=== PATIENT | female | born 1955 | race Caucasian/White ===

== ENCOUNTER 2020-07-21 10:48 | Outpatient (REF) | payer MEDICAID, SELFPAY ==
[2020-07-26 20:11] LABS: HPV mRNA E6/E7 Not Detected (Not Detected)
== END 2020-07-21 10:49 | disposition home or self-care (01) ==
LOC: HO.LNP 10:48
PROVIDERS: Visit Provider Obstetrics & Gynecology
DX: Z12.4 Encounter for screening for malignant neoplasm of cervix (principal); Z11.51 Encounter for screening for human papillomavirus (HPV); N63.0 Unspecified lump in unspecified breast
CPT/HCPCS: 87624; 87625; 88142

== ENCOUNTER 2020-07-28 12:35 | Outpatient (REF) | payer MEDICAID, SELFPAY ==
--- NOTE | 2020-07-28 12:46 | MM_ITS ---
EXAMINATION: MM DIAGNOSTIC DIGITAL BREAST TOMOSYNTHESIS, BILATERAL BILATERAL TARGETED BREAST ULTRASOUND CLINICAL INFORMATION: Bilateral breast pain and left breast lump 8 o'clock position. The lifetime risk of breast cancer based on the Tyrer-Cuzick Model is 10.1%. COMPARISON: Mammography: 04/14/2019 and studies dating back to 12/02/2008. TECHNIQUE: Digital breast tomosynthesis is performed in both the craniocaudal and mediolateral oblique views along with computer-aided detection (CAD). Synthesized 2D images are generated from the tomosynthesis. Bilateral targeted breast ultrasound. FINDINGS: The breasts are heterogeneously dense, which may obscure small masses (ACR BI-RADS breast composition Category c). There are again noted to be numerous circumscribed densities seen bilaterally similar in appearance to previous studies. No new abnormal dominant mass or new more suspicious grouping of microcalcifications is appreciated. There is multiplicity and bilaterality of calcifications. Targeted left breast ultrasound demonstrates numerous cysts with no suspicious shadowing mass identified. In the region of pain within the left axilla normal lymph nodes are seen without evidence of cortical thickening or lobulation. Targeted right breast ultrasound demonstrated 2 normal-appearing axillary lymph nodes without cortical thickening or lobulation. No suspicious mass is appreciated and no region of abnormal distal sound shadowing is seen. Results are provided to the patient at time of visit by the technologist. MM/MM tomosynthesis diagnostic BI IMPRESSION: There are no significant changes from prior study. Numerous bilateral cysts. ASSESSMENT: BI-RADS 2: Benign. RECOMMENDATION: Routine annual mammography screening due in 12 months. Clinical followup for breast pain. This patient's information was entered into a reminder system with a target due date for their next mammogram.
== END 2020-07-28 12:36 | disposition home or self-care (01) ==
LOC: HO.MAMMO 12:35
PROVIDERS: PCP Internal Medicine; Visit Provider Obstetrics & Gynecology
DX: N63.0 Unspecified lump in unspecified breast (principal); N64.4 Mastodynia
CPT/HCPCS: 76641; 77062; 77066

== ENCOUNTER → 2020-08-02 07:57 | Outpatient (BNVA) | payer MEDICAID, SELFPAY | PROVIDERS: PCP Internal Medicine; Referring Provider Internal Medicine; Visit Provider Psychiatry & Neurology Neurology | DX: Z76.89 Persons encountering health services in other specified circumstances (principal) ==

== ENCOUNTER → 2020-08-16 08:48 | Outpatient (BNVA) | payer MEDICAID, SELFPAY | PROVIDERS: PCP Internal Medicine; Referring Provider Internal Medicine; Visit Provider Nurse Practitioner Family | DX: G47.33 Obstructive sleep apnea (adult) (pediatric) (principal) | CPT/HCPCS: 99202 ==

== ENCOUNTER → 2020-11-15 10:14 | Outpatient (BNVA) | payer MEDICAID, SELFPAY | PROVIDERS: PCP Internal Medicine; Visit Provider Nurse Practitioner Family ==

== ENCOUNTER → 2020-11-29 10:18 | Outpatient (REF) | payer MEDICAID, SELFPAY | LOC: HO.SL 10:18 | PROVIDERS: PCP Internal Medicine; Visit Provider Nurse Practitioner Family | DX: G47.33 Obstructive sleep apnea (adult) (pediatric) (principal); J45.20 Mild intermittent asthma, uncomplicated; S02.2XXA Fracture of nasal bones, initial encounter for closed fracture | CPT/HCPCS: 95806 ==

== ENCOUNTER → 2021-02-21 10:18 | Outpatient (BNVA) | payer MEDICAID, SELFPAY | PROVIDERS: PCP Internal Medicine; Visit Provider Nurse Practitioner Family ==

== ENCOUNTER → 2021-05-02 09:28 | Outpatient (REF) | payer MEDICAID, SELFPAY | LOC: HO.SL 09:28 | PROVIDERS: PCP Internal Medicine; Visit Provider Nurse Practitioner Family | DX: G47.33 Obstructive sleep apnea (adult) (pediatric) (principal); Z99.89 Dependence on other enabling machines and devices | CPT/HCPCS: 99211 ==

== ENCOUNTER → 2021-05-30 10:44 | Outpatient (BNVA) | payer MEDICAID, SELFPAY | PROVIDERS: PCP Internal Medicine; Referring Provider Internal Medicine; Visit Provider Nurse Practitioner Family | DX: G47.33 Obstructive sleep apnea (adult) (pediatric) (principal) | CPT/HCPCS: 99212 ==

== ENCOUNTER 2021-06-07 10:02 | Outpatient (REF) | payer MEDICAID, SELFPAY | END 2021-06-07 10:03 | disposition home or self-care (01) | LOC: HO.MAMMO 10:02 | PROVIDERS: Visit Provider Internal Medicine | DX: Z13.89 Encounter for screening for other disorder (principal) ==

== ENCOUNTER → 2021-07-25 09:52 | Outpatient (BNVA) | payer MEDICAID, SELFPAY | PROVIDERS: PCP Internal Medicine; Visit Provider Obstetrics & Gynecology ==

== ENCOUNTER 2021-09-01 11:09 | Outpatient (REF) | payer MEDICAID, SELFPAY ==
--- NOTE | ~2021-09-01 | MM_ITS ---
EXAMINATION: MM SCREENING DIGITAL BREAST TOMOSYNTHESIS, BILATERAL CLINICAL INFORMATION: Screening. Asymptomatic. Benign left breast surgery 2007. The lifetime risk of breast cancer based on the Tyrer-Cuzick Model is 6%. COMPARISON: Mammography: 07/28/2020, 04/14/2019, 12/12/2016; bilateral breast ultrasound 07/28/2020. TECHNIQUE: Digital breast tomosynthesis is performed in both the craniocaudal and mediolateral oblique views along with computer-aided detection (CAD). Synthesized 2D images are generated from the tomosynthesis. FINDINGS: There are scattered areas of fibroglandular density (ACR BI-RADS breast composition Category b). There is a fibrocystic multinodular parenchymal pattern with numerous scattered bilateral circumscribed nodularity, mildly waxing and waning. The dominant nodule mid medial left breast is 1.5 cm decreased in size from prior study measurement 2.9 cm. There is no interval dominant mass or architectural abnormality. Again, there are numerous bilateral punctate calcifications. They are similar in number and distribution to prior studies 2019 and slightly increased overall from more remote prior exams. The axilla and skin contours are unremarkable. MM/MM tomosynthesis screening BI IMPRESSION: No significant changes from prior study. ASSESSMENT: BI-RADS 2: Benign RECOMMENDATION: Routine annual mammography screening. This patient's information was entered into a reminder system with a target due date for their next mammogram.
== END 2021-09-01 11:10 | disposition home or self-care (01) ==
LOC: HO.MAMMO 11:09
PROVIDERS: Visit Provider Internal Medicine
DX: Z12.31 Encounter for screening mammogram for malignant neoplasm of breast (principal)
CPT/HCPCS: 77063; 77067

== ENCOUNTER 2021-10-10 11:28 | Outpatient (REF) | payer MEDICAID, SELFPAY ==
--- NOTE | ~2021-10-10 | XR_ITS ---
EXAMINATION: XR KNEE, RIGHT CLINICAL INFORMATION: Pain COMPARISON: None TECHNIQUE: Four views of the right knee. FINDINGS: There is mild tricompartment osteoarthritis with marginal osteophytes from the femoral condyles and tibial plateau and lateral patellar. There is no erosive change or chondrocalcinosis or suprapatellar effusion. There is borderline lateralization patella without tilting. Spurring at the quadriceps insertion patella is present. XR/XR knee RT 4V IMPRESSION: 1. Mild tricompartment osteoarthritis. No effusion. 2. Spurring at quadriceps insertion on patella.
--- NOTE | ~2021-10-10 | XR_ITS ---
EXAMINATION: XR LUMBOSACRAL SPINE CLINICAL INFORMATION: Pain COMPARISON: Previous x-ray July 2009 TECHNIQUE: Three views of the lumbosacral spine. FINDINGS: Bone alignment is normal. No fracture or dislocation is seen. There is degenerative disc disease at L5-S1. There is lower lumbar spine facet arthritis. XR/XR lumbar spine 2-3V IMPRESSION: Mild degenerative changes.
--- NOTE | ~2021-10-10 | XR_ITS ---
EXAMINATION: XR SACRUM AND COCCYX CLINICAL INFORMATION: Sacral and coccygeal pain. COMPARISON: None TECHNIQUE: 2 views of the sacrum and 2 views of the coccyx were obtained. FINDINGS: There is normal symmetry of bilateral SI joints without any sclerosis or lucency. There is vacuum disc phenomena and hypertrophic bony changes with sclerosis of the pubic symphysis consistent with arthritic changes. No acute fracture or lytic process seen. The soft tissues are unremarkable. XR/XR sacrum coccyx min 2V IMPRESSION: Degenerative arthritic changes pubic symphysis. SI joints are unremarkable.
== END 2021-10-10 11:29 | disposition home or self-care (01) ==
LOC: HO.XRAY 11:28
PROVIDERS: PCP Internal Medicine; Visit Provider Internal Medicine
DX: M25.561 Pain in right knee (principal); M54.9 Dorsalgia, unspecified; M53.3 Sacrococcygeal disorders, not elsewhere classified
CPT/HCPCS: 72100; 72220; 73564

== ENCOUNTER 2022-12-24 10:11 | Outpatient (REF) | payer OTHER, SELFPAY ==
--- NOTE | ~2022-12-24 | MM_ITS ---
EXAMINATION: MM SCREENING DIGITAL BREAST TOMOSYNTHESIS, BILATERAL CLINICAL INFORMATION: Screening. Asymptomatic. The lifetime risk of breast cancer based on the Tyrer-Cuzick Model is 6%. COMPARISON: Mammography: 09/01/2021, 07/28/2020, 04/24/2019 TECHNIQUE: Digital breast tomosynthesis is performed in both the craniocaudal and mediolateral oblique views along with computer-aided detection (CAD). Synthesized 2D images are generated from the tomosynthesis. FINDINGS: There are scattered areas of fibroglandular density (ACR BI-RADS breast composition Category b). Parenchymal pattern is similar to prior studies with numerous bilateral circumscribed waxing and waning nodularity. There is no significant mass and no architectural abnormality or developing density. Biopsy clip marker again seen mid lower inner right breast. There are numerous bilateral calcifications similar to prior study. The axilla and skin contours are unremarkable. No significant changes. MM/MM tomosynthesis screening BI IMPRESSION: No mammographic evidence of malignancy. ASSESSMENT: BI-RADS 2: Benign RECOMMENDATION: Routine annual mammography screening. This patient's information was entered into a reminder system with a target due date for their next mammogram.
== END 2022-12-24 10:12 | disposition home or self-care (01) ==
LOC: HO.MAMMO 10:11
PROVIDERS: PCP Internal Medicine; Visit Provider Internal Medicine
DX: Z12.31 Encounter for screening mammogram for malignant neoplasm of breast (principal)
CPT/HCPCS: 77063; 77067

== ENCOUNTER 2023-01-03 10:20 | Outpatient (REF) | payer OTHER, SELFPAY ==
--- NOTE | 2023-01-03 | PFT_ITS ---
Forced vital capacity 44%, FEV1 34%, FEV1/FVC ratio is 61. VMR59-75 21% and MVV is 32%. Post bronchodilator therapy, there is an excellent response to bronchodilators and marked improvement. LUNG VOLUMES: Total lung capacity 86%. Residual volume 138%. Diffusion capacity is 76% CONCLUSION: At baseline, there is evidence of severe obstructive airway disorder. There is an excellent response to bronchodilator therapy resulting in partial reversibility. 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 Clinical correlation is recommended. MD DAYANA Meyers/MODL / [id number]
== END 2023-01-03 10:21 | disposition home or self-care (01) ==
LOC: HO.RESP 10:20
PROVIDERS: Visit Provider Internal Medicine
DX: J45.40 Moderate persistent asthma, uncomplicated (principal)
CPT/HCPCS: 94060; 94727; 94729

== ENCOUNTER 2023-07-17 12:30 | Outpatient (AMB) | payer OTHER, SELFPAY ==
[2023-07-17 12:52] VITALS: BP 140/92; PULSE 88; O2SAT 95; BMI 29.0
--- NOTE | 2023-07-17 12:52 | MHC.PC.OV ---
Vital Signs 07/17/23 12:52 07/17/23 13:15 Height 5 ft 5 in Weight 174 lb BMI 29.0 BP 140/92 H 138/80 Blood Pressure Location Lt brachial Lt brachial Position Sitting Pulse 88 Pulse Source Pulse Oximeter Pulse Oximetry (%) 95 Oxygen Delivery Method Room Air Intake Visit Reasons: New patient-Right leg discomfort/pain Intake Note: New patient, right leg pain, asthma, bp Head Orthopedic Team Physician Required: No Accompanied by: Self / Same As Patient Allergies prednisone [PREDNISONE] Allergy (Severe, Verified 07/17/23 13:06) REDNESS, SWELLING FACE, swelling, hives, hives, swelling fluoxetine [From PROZAC] Allergy (Intermediate, Verified 07/17/23 13:06) DIFFICULTY BREATHING Penicillins [PENICILLINS] Allergy (Intermediate, Verified 07/17/23 13:06) RASH/HIVES penicillin V Allergy (Unknown, Verified 07/17/23 13:06) unknown From Toprol XL Allergy (Intermediate, Uncoded 07/17/23 13:06) RASH Medication List - Last Reconciled 07/17/23 by Brii Mccain MD acetaminophen (Tylenol Extra Strength) 500 mg PO Q6H PRN albuterol sulfate mg inhalation albuterol sulfate 90 mcg/actuation 2 puffs inhalation Q6H PRN cetirizine 10 mg PO DAILY fluticasone propion-salmeterol 100-50 mcg/dose (Advair Diskus) 1 inh inhalation BID Tobacco use date assessed: 07/17/23 Fall risk assessment: No Falls in past year Last assessed Fall Risk: 07/17/23 Dental Screening Dental Screen Date: 07/17/23 Did you have a dental visit in the last 12 months?: No Did you have a dental problem in the last 6 months where you did not have access to dental care?: No Was dental information given to patient?: Patient has dentist HPI HPI Comments History of Present Illness Details This is a 67-year-old female with moderate asthma and seasonal allergies that complains of bilateral hearing loss that has been present for years and would like a hearing test. Also complains of right leg pain and swelling that has been present for few weeks aggravated by activity. Denies any previous trauma. On Advair for her moderate asthma but needs to use rescue inhaler few times a month and will be referred to pulmonology. She is on all allergies are stable with antihistamines as needed. [facility] [place] Medical History Mild intermittent asthma Dysplasia of cervix, low grade (MARIE 1) Lateral epicondylitis, right elbow Hx of sleep apnea History of asthma Hx of essential hypertension Surgical History Hx of breast biopsy Family History Father HTN (hypertension) Heart disease Mother HTN (hypertension) Heart disease Brother Heart disease Social History Household Members: None Housing: Apartment Alcohol intake: never Patient Tobacco Use Status: Never used Tobacco e-Cigarette/Vaping Use: Never Used Second Hand Smoke Exposure: No service: No Current occupational status: unemployed Sexual orientation: Straight/Heterosexual Gender identity: Female Cognitive needs: No Hearing needs: No Vision needs: Yes Female Reproductive History Menstrual Age of Menarche: 13 Questionnaire PHQ-9 Over the last 2 weeks, how often have you been bothered by any of the following problems? 1. Little interest or pleasure in doing things: several days 2. Feeling down, depressed, or hopeless: more than half the days 3. Trouble falling or staying asleep, or sleeping too much: nearly every day 4. Feeling tired or having little energy: nearly every day 5. Poor appetite or overeating: several days 6. Feeling bad about yourself - or that you are a failure or have let yourself or your family down: not at all 7. Trouble concentrating on things, such as reading the newspaper or watching television: not at all 8. Moving or speaking so slowly that other people could have noticed. Or the opposite - being so fidgety or restless that you have been moving around a lot more than usual: not at all 9. Thoughts that you would be better off or of hurting yourself in some way: not at all Total score: 10 Depression Screening Interpretation: Positive Depression Screening Follow-up: Existing condition Depression Screening Done: Yes 49964 - PHQ-9 Billing: Yes Source: Developed by Drs. Ismael L. Whitney Dodson Kurt Kroenke and colleagues, with an educational noemi from [employer]. Thrive Questionnaire Date Thrive assessed: 07/17/23 I am a: Patient What is your living situation today?: I have a steady place to live Within the past 12 months, did the food you bought not last and you didn't have the money to get more?: Never true Within the past 12 months, did you worry whether your food would run out before you got money to buy more?: Never true Do you have trouble paying for medicines?: No Do you have trouble getting transportation to medical appointments?: No Do you have trouble paying your heating and electricity bill?: No Do you have trouble taking care of your child, family member or friend?: No Do you have trouble with day-to-day activities such as bathing, preparing meals, shopping, managing finances, etc.?: No Are you currently unemployed and looking for a job?: No Are you interested in more education?: No Currently or been in a relationship where the following occur: no concerns reported AUDIT C Alcohol Use Questionnaire (AUDIT-C) 1. How often do you have a drink containing alcohol?: Never Total Score: 0 NAM-7 AMB Questionnaire NAM-7 Date NAM - 7 assessed: 07/17/23 Feeling nervous, anxious, or on edge: 3 = Nearly every day Not being able to stop or control worryin = Not at all Worrying too much about different things: 1 = Several days Trouble relaxin = Not at all Being so restless that it is hard to sit still: 0 = Not at all Becoming easily annoyed or irritable: 0 = Not at all Feeling afraid as if something awful might happen: 0 = Not at all Total NAM-7 score (0-4 normal; 5-9 mild; 10-14 moderate; 15-21 severe): 4 Source: Developed by Whitney Rai Kurt Kroenke and colleagues, with an educational noemi from [employer]. NAM-7 Assessment Billing NAM-7 Assessment Tool: NAM-7 Assessment 44815 Review of Systems Const All systems reviewed & are unremarkable except as noted in HPI and below Eyes Reports no additional complaints, Denies change in vision and Denies other visual disturbances Card Denies chest pain at rest, Denies chest pain with activity, Denies edema, Denies irregular heart rhythm, Denies claudication, Denies dyspnea, Denies dyspnea on exertion, Denies orthopnea, Denies paroxysmal nocturnal dyspnea and Denies slow heart rate Resp Denies cough, Denies dyspnea and Denies dyspnea on exertion GI Denies abdominal pain, Denies change in bowel habits, Denies excessive flatus, Denies nausea and Denies vomiting Denies urinary incontinence, Denies urinary hesitancy and Denies urinary urgency Musc Denies abnormal gait, Denies atrophy, Denies deformity and Denies limited range of motion Skin/Breast Denies bleeding lesions, Denies changing lesions and Denies rash Neuro Denies abnormal gait and Denies lack of coordination Physical exam (Primary Care) Vital Signs: Last Vital Signs Pulse 88 07/17/23 12:52 BP 140/92 H 07/17/23 12:52 Pulse Ox 95 07/17/23 12:52 Oxygen Delivery Method Room Air 07/17/23 12:52 BMI result Body Mass Index 29.0 Tobacco/Smoking Status: Tobacco use Status Tobacco use date assessed 07/17/23 07/17/23 13:01 Patient Tobacco Use Status Never used Tobacco 07/17/23 13:01 e-Cigarette/Vaping Use Never Used 07/17/23 13:01 PHQ-9: PHQ-9 Score PHQ-9: Total score 10 07/17/23 13:01 Depression Screening Interpretation: Positive Depression Screening Follow-up: Existing condition Thrive Assessment: Date of Thrive Assessment Date Thrive assessed 07/17/23 07/17/23 13:01 Currently or been in a relationship where the following occur: no concerns reported Eyes General: appearance normal, both eyes and all related structures Eyelids: Yes eyelids normal Conjunctivae: conjunctivae normal Neck Neck: Yes normal visual inspection and Yes supple Resp Effort & Inspection: normal respiratory effort Auscultation: clear to auscultation bilaterally Cardio Jugular venous distension: no JVD Rate: regular rate Rhythm: regular rhythm Heart sounds: S1 normal heart sound present and S2 normal heart sound present Extrem General: Yes full ROM Office Procedures Flu Questionnaire Does the patient have a severe egg allergy?: No Immunizations flu vacc [id number] 6mos up(PF) 60 mcg(15 mcgx4)/0.5 mL IM syringe Performing Provider: Brii Mccain MD [facility] [place] [facility] Documented (not given) by: ZULAY Chisholm on 07/17/23 13:02 Reason Not Given: Patient Refused Assessment and Plan Assessment & Plan (1) Moderate asthma: Code(s): J45.909 - Unspecified asthma, uncomplicated Plan: Continue Advair. Use rescue inhaler as needed. Referred to pulmonology. (2) Hearing loss: Code(s): H91.90 - Unspecified hearing loss, unspecified ear Plan: Referred to speech and Hearing for hearing test. (3) Right leg pain: Code(s): M79.604 - Pain in right leg Plan: Ultrasound of the leg ordered to rule out DVT. (4) Seasonal allergies: Code(s): J30.2 - Other seasonal allergic rhinitis Plan: Continue antihistamines as needed. Orders: Orders Influenza [id number] Immunization Today Z23 - Encounter for immunization US venous duplex LE RT Today M79.604 - Pain in right leg Referrals Speech and Hearing Referral H91.90 - Unspecified hearing loss, unspecified ear Pulmonology Referral J45.909 - Unspecified asthma, uncomplicated Coding Level of Care Code Est Pt Level 4 (19829) Diagnoses Moderate asthma J45.909 Hearing loss H91.90 Right leg pain M79.604 Seasonal allergies J30.2 Additional Codes NAM-7 Assessment Billing - NAM-7 Assessment Tool: NAM-7 Assessment 10019 ([id number]) Time Spent (min) 24
[2023-07-17 13:15] VITALS: BP 138/80
== END 2023-07-17 13:15 | disposition home or self-care (01) ==
PROVIDERS: PCP Internal Medicine; Visit Provider Internal Medicine
DX: J45.909 Unspecified asthma, uncomplicated (principal); H91.93 Unspecified hearing loss, bilateral; M79.604 Pain in right leg
CPT/HCPCS: 99214

== ENCOUNTER 2023-07-17 13:35 | Outpatient (REF) | payer OTHER, SELFPAY ==
--- NOTE | ~2023-07-17 | US_ITS ---
EXAMINATION: US VENOUS ULTRASOUND WITH DOPPLER LOWER EXTREMITY, RIGHT CLINICAL INFORMATION: Right leg pain. COMPARISON: None available. TECHNIQUE: Ultrasound of the deep veins is performed from the hip to the calf with compression sonography and color and pulse Doppler assessment. Spectral analysis with color-flow imaging is performed. FINDINGS: There is normal venous compression and respiratory variation and augmented flow. The visualized common femoral vein, superficial femoral vein, profunda femoral vein, popliteal vein, and the trifurcation region shows no evidence of deep venous thrombosis. There is no significant popliteal fossa cyst. If the patient's symptoms persist, followup ultrasound in 5 days 7 days might be of value to exclude proximal propagation from a non-visualized calf vein. US/US venous duplex LE RT IMPRESSION: No DVT demonstrated in the right lower extremity.
== END 2023-07-17 13:36 | disposition home or self-care (01) ==
LOC: HO.US 13:35
PROVIDERS: PCP Internal Medicine; Visit Provider Internal Medicine
DX: M79.604 Pain in right leg (principal)
CPT/HCPCS: 93971

== ENCOUNTER 2023-08-02 11:27 | Outpatient (REF) | payer OTHER, SELFPAY ==
[2023-08-02 12:21] LABS: MANUAL DIFF FLAG NO
[2023-08-02 13:52] LABS: Basophils Percent Auto 0.4 % (0-2); Eosinophils Absolute Auto 0.1 X10*3/uL (0.0-0.4); Eosinophils Percent Auto 1.9 % (0-4); Hematocrit 44.2 % (37.0-47.0); Hemoglobin 14.3 g/dl (12.0-16.0); Imm Gran Abs Auto 0.02 X10*3/uL (0.00-0.03); Imm Gran Pct Auto 0.4 % (0.0-0.4); Lymphocytes Absolute Auto 1.1 X10*3/uL (1.2-4.9); Lymphocytes Percent Auto 20.2 % (20-40); Mean Corpuscular HGB Conc 32.4 g/dl (31.0-35.0); Mean Corpuscular Hemoglobin 31.1 pg (27.0-33.0); Mean Corpuscular Volume 96.1 fL (80.0-98.0); Mean Platelet Volume 9.6 fL (9.4-12.3); Monocytes Absolute Auto 0.4 X10*3/uL (0.1-1.2); Neutrophils Absolute Auto 3.7 x10*3/uL (2.0-8.3); Neutrophils Percent Auto 69.1 % (45-73); Platelet Count 233 X10*3/uL (160-400); Red Cell Distribution Width 12.7 % (11.0-16.0); White Blood Count 5.4 X10*3/uL (4.8-10.8)
== END 2023-08-02 11:28 | disposition home or self-care (01) ==
LOC: HO.LAB 11:27
PROVIDERS: PCP Internal Medicine; Referring Provider Internal Medicine; Visit Provider Internal Medicine Pulmonary Disease
DX: J45.909 Unspecified asthma, uncomplicated (principal); G47.33 Obstructive sleep apnea (adult) (pediatric); T78.49XA Other allergy, initial encounter; Z79.899 Other long term (current) drug therapy
CPT/HCPCS: 36415; 82785; 85025; 86003; 99202

== ENCOUNTER 2023-08-02 11:27 | Outpatient (AMB) | payer OTHER, SELFPAY ==
[2023-08-02 11:30] VITALS: BP 138/86; PULSE 95; O2SAT 96; BMI 29.0
--- NOTE | 2023-08-02 11:30 | A.OFFVIS_ITS ---
Intake Vital Signs 08/02/23 11:30 Height 5 ft 5 in Weight 174 lb 2.643 oz BMI 29.0 BP 138/86 Blood Pressure Location Rt brachial Position Sitting Pulse 95 Pulse Source Doppler Pulse Oximetry (%) 96 Oxygen Delivery Method Room Air Intake Visit Reasons: asthma Deck Builder Required: Yes Deck Builder Name: Apryl Barragan Allergies prednisone [PREDNISONE] Allergy (Severe, Verified 08/02/23 11:33) REDNESS, SWELLING FACE, swelling, hives, hives, swelling fluoxetine [From PROZAC] Allergy (Intermediate, Verified 08/02/23 11:33) DIFFICULTY BREATHING Penicillins [PENICILLINS] Allergy (Intermediate, Verified 08/02/23 11:33) RASH/HIVES penicillin V Allergy (Unknown, Verified 08/02/23 11:33) unknown From Toprol XL Allergy (Intermediate, Uncoded 07/17/23 13:06) RASH HPI asthma HPI Details 67-year-old lady with underlying history of asthma suboptimally controlled on Advair and albuterol MDI culture prior history of obstructive sleep apnea, previously intolerant of CPAP, now referred for pulmonary follow- up. Patient states that she has been using her Advair 100 and albuterol MDI/nebs with suboptimal control of his symptoms and is complaining of an acute exacerbation. She is also interesting in re-trying CPAP therapy. Patient complains of multiple environmental allergies. She denies family history of lung disease. [facility] Medical History Mild intermittent asthma Dysplasia of cervix, low grade (MARIE 1) Lateral epicondylitis, right elbow Hx of sleep apnea History of asthma Hx of essential hypertension Surgical History Hx of breast biopsy Family History Father HTN (hypertension) Heart disease Mother HTN (hypertension) Heart disease Brother Heart disease Social History Household Members: None Housing: Apartment Alcohol intake: never Patient Tobacco Use Status: Never used Tobacco e-Cigarette/Vaping Use: Never Used Second Hand Smoke Exposure: No service: No Current occupational status: unemployed Sexual orientation: Straight/Heterosexual Gender identity: Female Cognitive needs: No Hearing needs: No Vision needs: Yes Female Reproductive History Menstrual Age of Menarche: 13 Review of Systems Const Denies daytime sleepiness, Denies excessive sweating, Denies fatigue, Denies fever(s), Denies lethargy, Denies malaise, Denies night sweats, Denies snoring and Denies weight loss Eyes Denies blurry vision and Denies itchy eyes ENT Reports nasal congestion, Reports post nasal drip, Denies sinus pain, Reports sinus pressure and Denies other ( Thrush) Card Denies chest pain, Denies pedal edema, Denies dyspnea, Reports dyspnea on exertion, Denies orthopnea and Denies paroxysmal nocturnal dyspnea Resp Reports cough, Denies hemoptysis, Reports excessive phlegm production, Denies dyspnea, Reports dyspnea on exertion, Denies snoring and Denies wheezing GI Denies abdominal pain and Denies heartburn Musc Denies myalgias, Denies arthralgias and Denies joint swelling Skin/Breast Denies rash Neuro Denies memory loss and Denies seizure-like activity Psych Denies abnormal sleep pattern, Denies anxiety and Denies memory loss Endo Denies excessive sweating, Denies fatigue and Denies heat intolerance Mike/Lymph Denies easy bruising Aller/Immun Denies itchy eyes, Denies seasonal rhinorrhea and Denies wheezing Physical Exam Vital Signs: Last Vital Signs Pulse 95 08/02/23 11:30 BP 138/86 08/02/23 11:30 Pulse Ox 96 08/02/23 11:30 Oxygen Delivery Method Room Air 08/02/23 11:30 BMI result Body Mass Index 29.0 Const General: no acute distress and alert Nutritional Appearance: not obese Orientation/consciousness: Other orientation findings ( oriented) HEENT Head: Yes atraumatic Eyes General: appearance normal, both eyes and all related structures Sclerae: sclerae normal EOM: EOMs intact bilaterally Neck Neck: Yes supple Lymphatic: no lymphadenopathy noted Resp Effort & Inspection: normal respiratory effort and no use of accessory muscles Auscultation: clear to auscultation bilaterally Cardio Rate: regular rate Rhythm: regular rhythm Heart sounds: no gallops, no murmurs and no rubs Skin General skin exam: other ( warm) Extrem General: No clubbing, No cyanosis and No edema Assessment & Plan Assessment & Plan (1) Moderate asthma: Code(s): J45.909 - Unspecified asthma, uncomplicated Plan: Now with an acute bronchitic exacerbation without wheezing. Will treat with a course of azithromycin. Will switch Advair to Trelegy. Continue albuterol MDI/nebs. Will obtain IgE level, CBC with differential, and RAST for further evaluation. (2) Obstructive sleep apnea: Code(s): G47.33 - Obstructive sleep apnea (adult) (pediatric) Plan: Patient is interested in retrying CPAP therapy. Former sleep study over 2 years old and with recent change in weight. Will obtain new home sleep study. Orders: Orders Complete Blood Count Auto Diff Today J45.909 - Unspecified asthma, uncomplicated Rast Allergen Today J45.909 - Unspecified asthma, uncomplicated RT home sleep study Today G47.33 - Obstructive sleep apnea (adult) (pediatric) Medications: New qfyktojskpz-pedglbprq-wenekmui 200-62.5-25 mcg (Trelegy Ellipta) 1 inh inhalation DAILY 30 days 1 ea 6RF azithromycin For 250 mg dose pack: take 500 mg today (day 1), then 250 mg for 4 days (days 2-5) PO 6 tabs 0RF Coding Level of Care Code New Pt Level 4 (10769) Diagnoses Moderate asthma J45.909 Obstructive sleep apnea G47.33
== END 2023-08-02 11:57 | disposition home or self-care (01) ==
PROVIDERS: PCP Internal Medicine; Referring Provider Internal Medicine; Visit Provider Internal Medicine Pulmonary Disease
DX: J45.909 Unspecified asthma, uncomplicated (principal); G47.33 Obstructive sleep apnea (adult) (pediatric)
CPT/HCPCS: 99204

== ENCOUNTER 2023-08-14 09:27 | Outpatient (AMB) | payer OTHER, SELFPAY ==
--- OUTSIDE RECORDS SUMMARY | 2023-08-14 09:29 | XMS_ITS | Continuity of Care Document ---
Author Name Unknown Organization [facility] Address [address] [place] [address]- Care Team Providers Care Printed Circuit Boards Plasma Etcher Name Role Phone Debbie RICHARD, Brii Klein Primary Care Physician Encounter [facility] Date(s): 03/29/22 - 07/27/22 [facility] [address] [place], [place] [address] Attending Physician: Theodore Heaton MD Admitting Physician: Theodore Heaton MD Referring Physician: Theodore Heaton MD Allergies, Adverse Reactions, Alerts Substance Reaction Severity Status penicillin Active Prozac Active [place] face swelling, cough, throat closes Active [place] Active Immunizations Given and Recorded Vaccine Date Status Refusal Reason influenza virus vaccine, inactivated 09/26/08 Give n Pneumococcal Vaccine (oldterm) 09/26/08 Given Medications Advair Diskus 250 mcg-50 mcg inhalation powder Inhalation, 2 times a day, Refills 0, Maintenance, 08/08/21 13:32:00 EDT Start Date: 08/08/21 Status: Ordered Advair Diskus 500 mcg-50 mcg inhalation powder 1, inhalation, Inhalation, 2 times a day, rinse mouth and throat after use, # 1 each, Refills 6, Tot. Refills 6, Maintenance, 11/01/21 14:48:00 EST, Powder, Route to Pharmacy Electronically, [id number], [facility]... Start Date: 11/01/21 Status: Ordered albuterol 90 mcg/inh inhalation powder 1 puffs, Inhalation, Every 4 hours, PRN as needed, # 1 each, 0 Refills, Maintenance, 07/11/18 11:46:45 EDT, Powder, 1 puffs Inhalation Every 4 hours,PRN:as needed Start Date: 07/11/18 Status: Ordered atorvastatin 40 mg oral tablet 1 tablet = 40 mg, By Mouth, Daily, 0 Refills, Maintenance, 08/08/21 13:32:00 EDT, Partial fill uponpatient request if the prescription is for a schedule II opioid drug. Start Date: 08/08/21 Status: Ordered Compression Stockings See Instructions, # 2 each, Refills 1, Tot. Refills 1, Maintenance, surgical, knee length 20-30 mm Hg DX: B/L LEG SWELLING, 03/26/22 11:02:00 EDT, Supply Start Date: 03/26/22 Status: Ordered Flonase 50 mcg/inh nasal spray 2 sprays, Nares, Both, Daily in AM, # 16 Gm, 6 Refills, Maintenance, 07/24/21 12:05:00 EDT, [place], [facility], Partial fill upon patient request if the prescription is for a schedule II opioid drug., 2 sprays Nares, Both Daily in A... Start Date: 07/24/21 Status: Ordered Flovent HFA 110 mcg/inh inhalation aerosol 2 puffs, Inhalation, 2 times a day, # 12 Gm, 0 Refills, Maintenance, 07/09/18 19:14:43 EDT, Aerosol Start Date: 07/09/18 Status: Ordered hydrochlorothiazide-lisinopril 25 mg-20 mg oral tablet 1 tablet, By Mouth, Daily, 0 Refills, Maintenance, 08/08/21 13:34:00 EDT, Partial fill upon patientrequest if the prescription is for a schedule II opioid drug. Start Date: 08/08/21 Status: Ordered ibuprofen 400 mg oral tablet 400 mg, 1, tablet, By Mouth, Every 6 hours, PRN as needed for pain, # 40 tablet, 0 Refills Start Date: 09/26/08 Stop Date: 10/06/08 Status: Ordered PEG-3350 with Electrolytes (Eqv-GoLYTELY) oral powder for reconstitution See Instructions, Mix the powder with water according to the instructions. Drink all of the prep fluid on the evening befoer the colonoscopy., # 1 each, 0 Refills, Maintenance, 09/11/21 11:22:00 EST,[facility], Partial fill upon... Start Date: 09/11/21 Status: Ordered predniSONE 20 mg oral tablet 1 tablet = 20 mg, By Mouth, Daily, for 4 days, # 4 tablet, 0 Refills, Acute 07/30/22 18:23:00 EDT, 07/26/22 18:23:00 EDT, Table[place], [facility], Partial fill upon patient request if the prescription is for a schedule II opioid drug.,... Start Date: 07/26/22 Stop Date: 07/30/22 Status: Ordered Ranitidine = 20 mg, By Mouth, Daily, 0 Refills, 09/25/08 12:26:59 EST Start Date: 09/25/08 Status: Ordered Singulair 10 mg oral tablet 10 mg, 1, tablet, By Mouth, Daily, # 30 tablet, Refills 6, Tot. Refills 6, Maintenance, 07/24/21 11:57:00 EDT, Route to Pharmacy Electronically, [facility], Partial fill upon patient request if the prescription is for a schedule II... Start Date: 07/24/21 Status: Ordered Social History Social History Type Response Smoking Status Never smoker entered on: 11/13/16 Sex Patient Care team information Personnel Name: Debbie RICHARD, Brii Klein Address: Address: [address] [place] [address]
--- OUTSIDE RECORDS SUMMARY | 2023-08-14 09:29 | XMS_ITS | Continuity of Care Document ---
Author Name Unknown Organization [facility] Address [address] [place] [address]- Care Team Providers Care Community Development Worker Name Role Phone Brii Lewis MD Primary Care Physician Encounter [facility] Date(s): 09/01/21 - 03/09/22 [facility] [address] [place] [address]- Attending Physician: Theodore Heaton MD Admitting Physician: Theodore Heaton MD Referring Physician: Brii Lewis MD Allergies, Adverse Reactions, Alerts Substance Reaction Severity Status penicillin Active Prozac Active [place] face swelling, cough, throat closes Active [place] Active Immunizations Given and Recorded Vaccine Date [...] 14:48:00 EST, Powder, Route to Pharmacy Electronically, [id number], [facility]... Start Date: 11/01/21 Status: Ordered albuterol [...] opioid drug. Start Date: 08/08/21 Status: Ordered Flonase 50 mcg/inh nasal spray 2 sprays, Nares, Both, Daily in AM, # 16 Gm, 6 Refills, Maintenance, 07/24/21 12:05:00 EDT, [place], [facility], Partial fill upon patient request [...] 1 each, 0 Refills, Maintenance, 09/11/21 11:22:00 EST,[facility], Partial fill upon... Start Date: 09/11/21 Status: Ordered Ranitidine = 20 mg, By Mouth, Daily, 0 Refills, 09/25/08 12:26:59 EST Start Date: 09/25/08 Status: Ordered Singulair 10 mg oral tablet 10 mg, 1, tablet, By Mouth, Daily, # 30 tablet, Refills 6, Tot. Refills 6, Maintenance, 07/24/21 11:57:00 EDT, Route to Pharmacy Electronically, [facility], Partial fill upon patient request if the prescription is for a schedule II... Start Date: 07/24/21 Status: Ordered Social History Social History Type Response Smoking Status Never smoker entered on: 11/13/16 Sex
--- OUTSIDE RECORDS SUMMARY | 2023-08-14 09:29 | XMS_ITS | Continuity of Care Document ---
Author Name Unknown Organization [facility] Address [address] [place] [address]- Care Team Providers Care Instructor Painting Name Role Phone Debbie RICHARD, Brii Klein Primary Care Physician [place] [facility] Date[place]s): 08/07/21 - 09/06/[address] [address] Attending Physician: AdmDonald napoles Admitting Physician: Admtr, [id number] Referring Physician: Admtr, Ar8 Allergies, Adverse Reactions, Alerts Substance Reaction Severity Status penicillin Active [place] face swelling, cough, throat closes Active [place] Active Prozac Active Immunizations Given and Recorded Vaccine Date Status Refusal Reason influenza virus vaccine, inactivated 09/26/08 Give n Pneumococcal Vaccine (oldterm) 09/26/08 Given Medications Advair Diskus 250 mcg-50 mcg inhalation powder Inhalation, 2 times a day, Refills 0, Maintenance, 08/08/21 13:32:00 EDT Start Date: 08/08/21 Status: Ordered albuterol 90 mcg/inh inhalation powder [...] Gm, 6 Refills, Maintenance, 07/24/21 12:05:00 EDT, [place], [facility], Partial fill upon patient request [...] Date: 09/26/08 Stop Date: 10/06/08 Status: Ordered Ranitidine = 20 mg, By Mouth, Daily, 0 Refills, 09/25/08 12:26:59 EST Start Date: 09/25/08 Status: Ordered Singulair 10 mg oral tablet 10 mg, 1, tablet, By Mouth, Daily, # 30 tablet, Refills 6, Tot. Refills 6, Maintenance, 07/24/21 11:57:00 EDT, Route to Pharmacy Electronically, [facility], Partial fill upon patient request if the prescription is for a schedule II... Start Date: 07/24/21 Status: Ordered Social History Social History Type Response Smoking Status Never smoker entered on: 11/13/16 Sex
--- OUTSIDE RECORDS SUMMARY | 2023-08-14 09:29 | XMS_ITS | Continuity of Care Document ---
Author Name Unknown Organization [facility] ter Address [address] [place] [address]- Care Team Providers Care General Operator Name Role Phone Debbie RICHARD, Brii Klein Primary Care Physician Encounter [facility] Date(s): 07/26/22 - 07/26/[address] [address]- Encounter Diagnosis Asthma exacerbation(Final) - 07/26/22 Discharge Disposition: A-D/C Home Attending Physician: Rakesh Natarajan MD Admitting Physician: Rakesh Natarajan MD Referring Physician: Not on Staff, Referring MD Allergies, Adverse Reactions, Alerts Substance Reaction Severity Status penicillin Active Prozac Active [place] face swelling, cough, throat closes Active [place] Active Immunizations Given and Recorded Vaccine Date [...] 14:48:00 EST, Powder, Route to Pharmacy Electronically, [id number], [facility]... Start Date: 11/01/21 Status: Ordered albuterol 90 [...] Gm, 6 Refills, Maintenance, 07/24/21 12:05:00 EDT, [place], [facility], Partial fill upon patient request if [...] 1 each, 0 Refills, Maintenance, 09/11/21 11:22:00 EST,[facility], Partial fill upon... Start Date: 09/11/21 Status: Ordered predniSONE 20 mg oral tablet 1 tablet = 20 mg, By Mouth, Daily, for 4 days, # 4 tablet, 0 Refills, Acute 07/30/22 18:23:00 EDT, 07/26/22 18:23:00 EDT, Tablet, [facility], Partial fill upon patient request if [...] 07/24/21 11:57:00 EDT, Route to Pharmacy Electronically, [facility], Partial fill upon patient request if the prescription is for a schedule II... Start Date: 07/24/21 Status: Ordered Results Radiology Reports * Exam Date Time Procedure Performing Provider Status 07/26/22 12:41 PM Chest 2 Views Frontal and Lat Dwayne Osborn; Auth (Verified) Notes: (Chest 2 Views Frontal and Lat) Reason For Exam: Chest Pain;Other: RESULT: Chest 2 Views Frontal and Lat Chest 2 Views Frontal and Lat Hx of Present Illness: dry cough with sob for 3 weeks; Reason: Other:; Chest Pain. COMPARISON: Multiple prior chest x-rays, the most recent of which is dated 07/24/2021. FINDINGS: LINES AND TUBES: None. LUNGS AND PLEURA: Clear lungs. Normal pulmonary vascularity. No pleural effusion. No pneumothorax. HEART, MEDIASTINUM AND MARYLOU: Heart is normal in size. Normal mediastinal and hilar contour. BONES AND SOFT TISSUES: No acute abnormality. IMPRESSION: No radiographic evidence of an acute cardiopulmonary process. I have personally reviewed the images and I agree with this report. WSN: [id number] Ordering Physician: Eugene Ta Dictated By: Bunny Sheridan MD Dictated Date/Time: 07/26/22 1:40 pm Reviewed By: Melisa Gentile MD Signed By: Melisa Gentile MD Signed Date/Time: 07/26/22 1:45 pm Transcribed By: KEESHA Transcribed Date/Time: 07/26/22 1:30 pm Vital Signs Most recent to oldest [Reference Range]: 1 2 3 Height 165 cm (07/26/22 1:22 PM) 165 cm (07/26/22 12:38 PM) 165 cm (07/26/22 11:36 AM) Oxygen Saturation [94-100 %] 98 % (07/26/22 4:49 PM) 97 % (07/26/22:22 PM) 96 % (07/26/22 12:57 PM) Pulse Rate [55-90 bpm] 80 bpm (07/26/22 4:49 PM) 82 bpm (07/26/22 1:22 PM) 83 bpm (07/26/22 12:57 PM) Blood Pressure [90-138/55-84 mm Hg] 148/81mm Hg *H* (07/26/22 4:49 PM) 155/87mm Hg *H* (07/26/22 1:22 PM) 152/86mm Hg *H* (07/26/22 11:22 AM) Respiratory Rate [16-30 br/min] 20 br/min (07/26/22 4:49 PM) 249 br/min *H* (07/26/22:22 PM) 16 br/min (07/26/22 11:22 AM) Temperature [96.8-100.4 DegF] 98.4 DegF (07/26/22 11:22 AM) Liters per Minute 2 L/min (07/26/22 11:11 AM) Mode of Delivery (Oxygen) Room air (07/26/22 4:49 PM) Room air (07/26/22:22 PM) Room air (07/26/22 12:57 PM) Blood pressure sites Arm, right (07/26/22 4:49 PM) Arm, right (07/26/22:22 PM) Arm, right (07/26/22 11:22 AM) Temperature Route Oral (07/26/22 11:22 AM) Dry Weight 82 kg (07/26/22 1:22 PM) 82 kg (07/26/22 12:38 PM) 82 kg (07/26/22 11:36 AM) Dry Weight Obtained Via Patient/family s tated (07/26/22 11:22 AM) Social History Social History Type Response Smoking Status Never smoker entered on: 11/13/16 Sex Note * [facility] , CIS S: TRANSCRIBE Melisa Gentile MD: VERIFY Bunny Sheridan MD: SIGN Event Display: Result: Authored Date: [id number] Chest 2 Views Frontal and Lat Hx of Present Illness: dry cough with sob for 3 weeks; Reason: Other:; Chest Pain. COMPARISON: Multiple prior chest x-rays, the most recent of which is dated 07/24/2021. FINDINGS: LINES AND TUBES: None. LUNGS AND PLEURA: Clear lungs. Normal pulmonary vascularity. No pleural effusion. No pneumothorax. HEART, MEDIASTINUM AND MARYLOU: Heart is normal in size. Normal mediastinal and hilar contour. BONES AND SOFT TISSUES: No acute abnormality. IMPRESSION: No radiographic evidence of an acute cardiopulmonary process. I have personally reviewed the images and I agree with this report. WSN: [id number] Ordering Physician: Eugene Ta Dictated By: Bunny Sheridan MD Dictated Date/Time: 07/26/22 1:40 pm Reviewed By: Melisa Gentile MD Signed By: Melisa Gentile MD Signed Date/Time: 07/26/22 1:45 pm Transcribed By: KEESHA Transcribed Date/Time: 07/26/22 1:30 pm Patient Care team information Personnel Name: Brii Lewis MD Address: Address: [address] [place] [address]
--- OUTSIDE RECORDS SUMMARY | 2023-08-14 09:29 | XMS_ITS | Continuity of Care Document ---
Author Name Unknown Organization [facility] Address [address] [place] [address] [address] [place] [address]- Care Team Providers Care Business Office Associate Name Role Phone Debbie RICHARD, Brii Klein Primary Care Physician Encounter [facility] Date(s): 11/21/21 - 12/21/21 [facility] [address] [place] [address]- Attending Physician: Donald Cintron Admitting Physician: Donald Cintron Referring Physician: AdmtrDonald Allergies, Adverse Reactions, Alerts Substance Reaction Severity Status penicillin Active [place] Active [place] face swelling, cough, throat closes Active Prozac Active Immunizations Given and Recorded [...] 14:48:00 EST, Powder, Route to Pharmacy Electronically, [id number], [facility]... Start Date: 11/01/21 Status: Ordered albuterol [...] Gm, 6 Refills, Maintenance, 07/24/21 12:05:00 EDT, [place], [facility], Partial fill upon patient request [...] 1 each, 0 Refills, Maintenance, 09/11/21 11:22:00 EST,[facility], Partial fill upon... Start Date: 09/11/21 Status: Ordered Ranitidine = 20 mg, By Mouth, Daily, 0 Refills, 09/25/08 12:26:59 EST Start Date: 09/25/08 Status: Ordered Singulair 10 mg oral tablet 10 mg, 1, tablet, By Mouth, Daily, # 30 tablet, Refills 6, Tot. Refills 6, Maintenance, 07/24/21 11:57:00 EDT, Route to Pharmacy Electronically, [facility], Partial fill upon patient request if the prescription is for a schedule II... Start Date: 07/24/21 Status: Ordered Social History Social History Type Response Smoking Status Never smoker entered on: 11/13/16 Sex
--- OUTSIDE RECORDS SUMMARY | 2023-08-14 09:29 | XMS_ITS | Continuity of Care Document ---
Author Name Unknown Organization [facility] Address [address] [place] [address]- Care Team Providers Care Civil Engineering Draftsperson Name Role Phone Brii Lewis MD Primary Care Physician Encounter [facility] Date(s): 04/17/22 - 05/23/[address] [address] Attending Physician: Brii Lewis MD Admitting Physician: Brii Lewis MD Allergies, Adverse Reactions, Alerts Substance Reaction Severity Status penicillin Active Prozac Active [place] face swelling, cough, throat closes Active [place] Active Immunizations Given and Recorded Vaccine Date [...] 14:48:00 EST, Pow[place], Route to Pharmacy Electronically, [id number], [facility]... Start Date: 11/01/21 Status: Ordered albuterol [...] Gm, 6 Refills, Maintenance, 07/24/21 12:05:00 EDT, [place], [facility], Partial fill upon patient request [...] 1 each, 0 Refills, Maintenance, 09/11/21 11:22:00 EST,[facility], Partial fill upon... Start Date: 09/11/21 Status: Ordered Ranitidine = 20 mg, By Mouth, Daily, 0 Refills, 09/25/08 12:26:59 EST Start Date: 09/25/08 Status: Ordered Singulair 10 mg oral tablet 10 mg, 1, tablet, By Mouth, Daily, # 30 tablet, Refills 6, Tot. Refills 6, Maintenance, 07/24/21 11:57:00 EDT, Route to Pharmacy Electronically, [facility], Partial fill upon patient request if the prescription is for a schedule II... Start Date: 07/24/21 Status: Ordered Social History Social History Type Response Smoking Status Never smoker entered on: 11/13/16 Sex
--- OUTSIDE RECORDS SUMMARY | 2023-08-14 09:29 | XMS_ITS | Continuity of Care Document ---
Author Name Unknown Organization [facility] Address [address] [place] [address] [address] [place] [address]- Care Team Providers Care Waiter/Waitress Room Service Name Role Phone Debbie RICHARD, Brii Klein Primary Care Physician Encounter [facility] Date(s): 08/09/21 - 09/08/21 [facility] [address] [place], [place] [address] Allergies, Adverse Reactions, Alerts Substance Reaction Severity Status penicillin Active Prozac Active [place] face swelling, cough, throat closes Active [place] Active Immunizations Given and Recorded Vaccine Date [...] Gm, 6 Refills, Maintenance, 07/24/21 12:05:00 EDT, [place], [facility], Partial fill upon patient request [...] 07/24/21 11:57:00 EDT, Route to Pharmacy Electronically, [facility], Partial fill upon patient request if the prescription is for a schedule II... Start Date: 07/24/21 Status: Ordered Social History Social History Type Response Smoking Status Never smoker entered on: 11/13/16 Sex
--- OUTSIDE RECORDS SUMMARY | 2023-08-14 09:29 | XMS_ITS | Continuity of Care Document ---
Author Name Unknown Organization [facility] Address [address] [place] [address] [address] [place] [address]- Care Team Providers Care Advertising Manager Name Role Phone Debbie RICHARD, Brii Klein Primary Care Physician Encounter [facility] Date(s): 08/16/20 - 09/15/20 [facility] [address] [place], [place] [address] Allergies, Adverse Reactions, Alerts Substance Reaction Severity Status penicillin Active Prozac Active [place] Active Immunizations Given and Recorded Vaccine Date Status Refusal Reason influenza virus vaccine, inactivated 09/26/08 Give n Pneumococcal Vaccine (oldterm) 09/26/08 Given Medications albuterol 90 mcg/inh inhalation powder 1 puffs, Inhalation, Every 4 hours, PRN as needed, # 1 each, 0 Refills, Maintenance, 07/11/18 11:46:45 EDT, Powder, 1 puffs Inhalation Every 4 hours,PRN:as needed Start Date: 07/11/18 Status: Ordered cetirizine 10 mg oral tablet 1 tablet = 10 mg, By Mouth, Daily, # 30 tablet, 0 Refills, Maintenance, 07/09/18 19:14:37 EDT, Tablet Start Date: 07/09/18 Status: Ordered docusate-senna 50 mg-187 mg oral tablet 2 tablet, By Mouth, 2 times a day, PRN Constipation, # 30 tablet, 0 Refills, Maintenance, 07/11/18 11:45:36 EDT, Tablet, 2 tablet By Mouth 2 times a day,PRN:Constipation Start Date: 07/11/18 Status: Ordered Flovent HFA 110 mcg/inh inhalation aerosol 2 puffs, Inhalation, 2 times a day, # 12 Gm, 0 Refills, Maintenance, 07/09/18 19:14:43 EDT, Aerosol Start Date: 07/09/18 Status: Ordered ibuprofen 400 mg oral tablet 400 mg, 1, tablet, By Mouth, Every 6 hours, PRN as needed for pain, # 40 tablet, 0 Refills Start Date: 09/26/08 Stop Date: 10/06/08 Status: Ordered Ranitidine 0, 0, 09/25/08 12:26:59, Print ARSLAN Number, Constant Indicator Start Date: 09/25/08 Status: Ordered Simply Saline 0.9% spray 1 sprays, Nares, Both, Every 3 hours, PRN for dry nasal passages, # 45 mL, 5 Refills, Maintenance, 08/17/20 12:54:00 EST, [place] Start Date: 08/17/20 Stop Date: 02/13/21 Status: Ordered Spiriva = 18 mcg, Inhalation, 2 times a day, 0 Refills, Maintenance, 11/13/16 10:51:00 Start Date: 11/13/16 Status: Ordered Social History Social History Type Response Smoking Status Never smoker entered on: 11/13/16 Sex
--- OUTSIDE RECORDS SUMMARY | 2023-08-14 09:29 | XMS_ITS | Continuity of Care Document ---
Author Name Unknown Organization [facility] Address [address] [place] [address] [address] [place] [address]- Care Team Providers Care Contact Lens Manufacturer Name Role Phone Debbie RICHARD, Brii Klein Primary Care Physician Encounter [facility] Date(s): 08/22/20 - 09/21/20 [facility] [address] [place], [place] [address] Allergies, Adverse Reactions, Alerts Substance Reaction Severity Status penicillin Active Prozac Active [place] Active Immunizations Given and Recorded Vaccine Date [...] mL, 5 Refills, Maintenance, 08/17/20 12:54:00 EST, [place] Start Date: 08/17/20 Stop Date: 02/13/21 Status: Ordered Spiriva = 18 mcg, Inhalation, 2 times a day, 0 Refills, Maintenance, 11/13/16 10:51:00 Start Date: 11/13/16 Status: Ordered Social History Social History Type Response Smoking Status Never smoker entered on: 11/13/16 Sex
--- OUTSIDE RECORDS SUMMARY | 2023-08-14 09:29 | XMS_ITS | Continuity of Care Document ---
Author Name Unknown Organization [facility] ter Address [address] [place] [address]- Care Team Providers Care Qa Tester Name Role Phone Debbie RICHARD, Brii Klein Primary Care Physician En[place] [facility] [place] Date(s): 02/28/22 - 04/05/[address] [address] Attending Physician: Ricky Oneill MD Admitting Physician: Ricky Oneill MD Referring Physician: Ricky Oneill MD Allergies, Adverse Reactions, Alerts Substance Reaction Severity Status penicillin Active Prozac Active [place] face swelling, cough, throat closes Active [place] Active Immunizations Given and Recorded Vaccine Date [...] 14:48:00 EST, Pow[place], Route to Pharmacy Electronically, [id number], [facility]... Start Date: 11/01/21 Status: Ordered albuterol [...] Gm, 6 Refills, Maintenance, 07/24/21 12:05:00 EDT, [place], [facility], Partial fill upon patient request [...] 1 each, 0 Refills, Maintenance, 09/11/21 11:22:00 EST,[facility], Partial fill upon... Start Date: 09/11/21 Status: Ordered Ranitidine = 20 mg, By Mouth, Daily, 0 Refills, 09/25/08 12:26:59 EST Start Date: 09/25/08 Status: Ordered Singulair 10 mg oral tablet 10 mg, 1, tablet, By Mouth, Daily, # 30 tablet, Refills 6, Tot. Refills 6, Maintenance, 07/24/21 11:57:00 EDT, Route to Pharmacy Electronically, [facility], Partial fill upon patient request if the prescription is for a schedule II... Start Date: 07/24/21 Status: Ordered Social History Social History Type Response Smoking Status Never smoker entered on: 11/13/16 Sex
--- OUTSIDE RECORDS SUMMARY | 2023-08-14 09:30 | XMS_ITS | Continuity of Care Document ---
Author Name Unknown Organization [facility] Address [address] [place] [address]- Care Team Providers Care Place Change Roof Bolter Name Role Phone Brii Lewis MD Primary Care Physician [id number] Date(s): 01/02/22 - 02/07/[address] [address] Attending Physician: Brii Lewis MD Admitting Physician: Brii Lewis MD Referring Physician: Brii Lewis MD Allergies, Adverse Reactions, Alerts Substance Reaction Severity Status penicillin Active Prozac Active [place] face swelling, cough, throat closes Active [place] Active Immunizations Given and Recorded Vaccine Date [...] 14:48:00 EST, Pow[place], Route to Pharmacy Electronically, [id number], [facility]... Start Date: 11/01/21 Status: Ordered albuterol [...] Gm, 6 Refills, Maintenance, 07/24/21 12:05:00 EDT, [place], [facility], Partial fill upon patient request [...] 1 each, 0 Refills, Maintenance, 09/11/21 11:22:00 EST,[facility], Partial fill upon... Start Date: 09/11/21 Status: Ordered Ranitidine = 20 mg, By Mouth, Daily, 0 Refills, 09/25/08 12:26:59 EST Start Date: 09/25/08 Status: Ordered Singulair 10 mg oral tablet 10 mg, 1, tablet, By Mouth, Daily, # 30 tablet, Refills 6, Tot. Refills 6, Maintenance, 07/24/21 11:57:00 EDT, Route to Pharmacy Electronically, [facility], Partial fill upon patient request if the prescription is for a schedule II... Start Date: 07/24/21 Status: Ordered Social History Social History Type Response Smoking Status Never smoker entered on: 11/13/16 Sex
--- OUTSIDE RECORDS SUMMARY | 2023-08-14 09:30 | XMS_ITS | Continuity of Care Document ---
Author Name Unknown Organization [facility] richi Address [address] [place] [address] [address] [place] [address]- Care Team Providers Care Obstetrics Tech Name Role Phone Brii Lewis MD Primary Care Physician Encounter [facility] Date(s): 08/23/20 - 01/22/21 [facility] [address] [place] [address]- Attending Physician: Jas Hager MD Referring Physician: Brii Lewis MD Allergies, Adverse Reactions, Alerts Substance Reaction Severity Status penicillin Active Prozac Active [place] Active Immunizations Given and Recorded Vaccine Date [...] mL, 5 Refills, Maintenance, 08/17/20 12:54:00 EST, [place] Start Date: 08/17/20 Stop Date: 02/13/21 Status: Ordered Spiriva = 18 mcg, Inhalation, 2 times a day, 0 Refills, Maintenance, 11/13/16 10:51:00 Start Date: 11/13/16 Status: Ordered Social History Social History Type Response Smoking Status Never smoker entered on: 11/13/16 Sex
--- OUTSIDE RECORDS SUMMARY | 2023-08-14 09:30 | XMS_ITS | Continuity of Care Document ---
Author Name Unknown Organization [facility] richi Address [address] [place] [address] [address] [place] [address]- Care Team Providers Care Fur Scraper Name Role Phone Debbie RICHARD, Brii Klein Primary Care Physician Encounter [facility] Date(s): 08/04/20 - 09/16/20 [facility] [address] [place], [place] [address] Attending Physician: Lokesh HAN MD, Bruno Howell Referring Physician: Brii Lewis MD Allergies, Adverse Reactions, Alerts Substance Reaction Severity Status penicillin Active Prozac Active [place] Active Immunizations Given and Recorded Vaccine Date [...] mL, 5 Refills, Maintenance, 08/17/20 12:54:00 EST, [place] Start Date: 08/17/20 Stop Date: 02/13/21 Status: Ordered Spiriva = 18 mcg, Inhalation, 2 times a day, 0 Refills, Maintenance, 11/13/16 10:51:00 Start Date: 11/13/16 Status: Ordered Social History Social History Type Response Smoking Status Never smoker entered on: 11/13/16 Sex
--- OUTSIDE RECORDS SUMMARY | 2023-08-14 09:30 | XMS_ITS | Continuity of Care Document ---
Author Name Unknown Organization [facility] Address [address] [place] [address]- Care Team Providers Care Literacy Coordinator Name Role Phone Debbie RICHARD, Brii Klein Primary Care Physician [place] [facility] 07/24/21 - 08/23/21 [facility] [address] [address]- Attending Physician: Donald Cintron Admitting Physician: Donald Cintron Referring Physician: AdmtrDonald Allergies, Adverse Reactions, Alerts Substance Reaction Severity Status penicillin Active [place] Active [place] face swelling, cough, throat closes Active Prozac [...] Gm, 6 Refills, Maintenance, 07/24/21 12:05:00 EDT, [place], [facility], Partial fill upon patient request if [...] 07/24/21 11:57:00 EDT, Route to Pharmacy Electronically, [facility], Partial fill upon patient request if the prescription is for a schedule II... Start Date: 07/24/21 Status: Ordered Social History Social History Type Response Smoking Status Never smoker entered on: 11/13/16 Sex
--- OUTSIDE RECORDS SUMMARY | 2023-08-14 09:30 | XMS_ITS | Continuity of Care Document ---
Author Name Unknown Organization [facility] Address [address] [place] [address]- Care Team Providers Care Precision Dyer Name Role Phone Debbie RICHARD, Brii lKein Primary Care Physician [place] [facility] Date(s): 07/03/22 - 08/02/22 [facility] [address] [place], [place] [address] Attending Physician: Donald Cintron Admitting Physician: Admtr, Donald Referring Physician: Admtr, Ar8 Allergies, Adverse Reactions, Alerts Substance Reaction Severity Status penicillin Active Prozac Active [place] Active [place] face swelling, cough, throat closes Active Immunizations Given and Recorded Vaccine Date [...] 14:48:00 EST, [place], Route to Pharmacy Electronically, [id number], [facility]... Start Date: 11/01/21 Status: Ordered albuterol [...] Gm, 6 Refills, Maintenance, 07/24/21 12:05:00 EDT, [place], [facility], Partial fill upon patient request [...] 1 each, 0 Refills, Maintenance, 09/11/21 11:22:00 EST,[facility], Partial fill upon... Start Date: 09/11/21 Status: Ordered Ranitidine = 20 mg, By Mouth, Daily, 0 Refills, 09/25/08 12:26:59 EST Start Date: 09/25/08 Status: Ordered Singulair 10 mg oral tablet 10 mg, 1, tablet, By Mouth, Daily, # 30 tablet, Refills 6, Tot. Refills 6, Maintenance, 07/24/21 11:57:00 EDT, Route to Pharmacy Electronically, [facility], Partial fill upon patient request if the prescription is for a schedule II... Start Date: 07/24/21 Status: Ordered Social History Social History Type Response Smoking Status Never smoker entered on: 11/13/16 Sex Patient Care team information Personnel Name: Debbie RICHARD, Brii Klein Address: Address: [address] [place] [address]
--- OUTSIDE RECORDS SUMMARY | 2023-08-14 09:30 | XMS_ITS | Continuity of Care Document ---
Author Name Unknown Organization [facility] Address [address] [place] [address]- Care Team Providers Care Medical Billing Manager Name Role Phone Debbie RICHARD, Brii Klein Primary Care Physician [place] [facility] Date[place] 11/01/21 - 12/01/[address] [address] Attending Physician: Donald Cintron Admitting Physician: Donald Cintron Referring Physician: Donald Cintron Allergies, Adverse Reactions, Alerts Substance Reaction Severity Status penicillin Active [place] Active Prozac Active [place] face swelling, cough, throat closes Active Immunizations [...] 14:48:00 EST, [place], Route to Pharmacy Electronically, [id number], [facility]... Start Date: 11/01/21 Status: Ordered albuterol [...] Gm, 6 Refills, Maintenance, 07/24/21 12:05:00 EDT, [place], [facility], Partial fill upon patient request [...] 1 each, 0 Refills, Maintenance, 09/11/21 11:22:00 EST,[facility], Partial fill upon... Start Date: 09/11/21 Status: Ordered Ranitidine = 20 mg, By Mouth, Daily, 0 Refills, 09/25/08 12:26:59 EST Start Date: 12/20/08 Status: Ordered Singulair 10 mg oral tablet 10 mg, 1, tablet, By Mouth, Daily, # 30 tablet, Refills 6, Tot. Refills 6, Maintenance, 07/24/21 11:57:00 EDT, Route to Pharmacy Electronically, [facility], Partial fill upon patient request if the prescription is for a schedule II... Start Date: 07/24/21 Status: Ordered Social History Social History Type Response Smoking Status Never smoker entered on: 11/13/16 Sex
--- OUTSIDE RECORDS SUMMARY | 2023-08-14 09:30 | XMS_ITS | Continuity of Care Document ---
Author Name Unknown Organization [facility] Address [address] [place] [address]- Care Team Providers Care Soup Person Name Role Phone Debbie RICHARD, Brii Klein Primary Care Physician En[place] [facility] Date(s): 06/06/22 - 07/06/[address] [address] Attending Physician: Donald Cintron Admitting Physician: Donald Cintron Referring Physician: AdmtrDonald Allergies, Adverse Reactions, Alerts Substance Reaction Severity Status penicillin Active Prozac Active [place] face swelling, cough, throat closes Active [place] Active Immunizations Given and Recorded Vaccine Date [...] 14:48:00 EST, [place], Route to Pharmacy Electronically, [id number], [facility]... Start Date: 11/01/21 Status: Ordered albuterol [...] Gm, 6 Refills, Maintenance, 07/24/21 12:05:00 EDT, [place], [facility], Partial fill upon patient request [...] 1 each, 0 Refills, Maintenance, 09/11/21 11:22:00 EST,[facility], Partial fill upon... Start Date: 09/11/21 Status: Ordered Ranitidine = 20 mg, By Mouth, Daily, 0 Refills, 09/25/08 12:26:59 EST Start Date: 09/25/08 Status: Ordered Singulair 10 mg oral tablet 10 mg, 1, tablet, By Mouth, Daily, # 30 tablet, Refills 6, Tot. Refills 6, Maintenance, 07/24/21 11:57:00 EDT, Route to Pharmacy Electronically, [facility], Partial fill upon patient request if the prescription is for a schedule II... Start Date: 07/24/21 Status: Ordered Social History Social History Type Response Smoking Status Never smoker entered on: 11/13/16 Sex Patient Care team information Personnel Name: Debbie RICHARD, Brii Klein Address: Address: [address] [place] [address] [address]
--- OUTSIDE RECORDS SUMMARY | 2023-08-14 09:30 | XMS_ITS | Continuity of Care Document ---
Author Name Unknown Organization [facility] Address [address] [place] [address]- Care Team Providers Care Hospice Clinical Marketer Name Role Phone Debbie RICHARD, Brii Klein Primary Care Physician Encounter [facility] Date(s): 06/16/21 - 07/16/21 [facility] [address] [place], [place] [address] Attending Physician: AdmDonald napoles Admitting Physician: Admtr, Donald Referring Physician: Admtr, Ar8 Allergies, Adverse Reactions, Alerts Substance Reaction Severity Status penicillin Active Prozac Active [place] Active Immunizations Given and Recorded Vaccine Date [...] mL, 5 Refills, Maintenance, 08/17/20 12:54:00 EST, [place] Start Date: 08/17/20 Stop Date: 02/13/21 Status: Ordered Spiriva = 18 mcg, Inhalation, 2 times a day, 0 Refills, Maintenance, 11/13/16 10:51:00 Start Date: 11/13/16 Status: Ordered Social History Social History Type Response Smoking Status Never smoker entered on: 11/13/16 Sex
--- OUTSIDE RECORDS SUMMARY | 2023-08-14 09:30 | XMS_ITS | Continuity of Care Document ---
Author Name Unknown Organization [facility] Address [address] [place] [address]- Care Team Providers Care Senior Backup Administrator Name Role Phone Brii Lewis MD Primary Care Physician Encounter [facility] Date(s): 09/11/21 - 10/11/21 [facility] [address] [place] [address]- Attending Physician: Donald Cintron Admitting Physician: AdmtrDonald Referring Physician: Admtr, ArHang Allergies, Adverse Reactions, Alerts Substance Reaction Severity Status penicillin Active Prozac Active [place] face swelling, cough, throat closes Active [place] Active Immunizations Given and Recorded Vaccine Date [...] Gm, 6 Refills, Maintenance, 07/24/21 12:05:00 EDT, [place], [facility], Partial fill upon patient request [...] 1 each, 0 Refills, Maintenance, 09/11/21 11:22:00 EST,[facility], Partial fill upon... Start Date: 09/11/21 Status: Ordered Ranitidine = 20 mg, By Mouth, Daily, 0 Refills, 09/25/08 12:26:59 EST Start Date: 09/25/08 Status: Ordered Singulair 10 mg oral tablet 10 mg, 1, tablet, By Mouth, Daily, # 30 tablet, Refills 6, Tot. Refills 6, Maintenance, 07/24/21 11:57:00 EDT, Route to Pharmacy Electronically, [facility], Partial fill upon patient request if the prescription is for a schedule II... Start Date: 07/24/21 Status: Ordered Social History Social History Type Response Smoking Status Never smoker entered on: 11/13/16 Sex
--- OUTSIDE RECORDS SUMMARY | 2023-08-14 09:30 | XMS_ITS | Continuity of Care Document ---
Author Name Unknown Organization [facility] Address [address] [place] [address]- Care Team Providers Care Journeyman Operator Assistant Name Role Phone Debbie RICHARD, Brii Klein Primary Care Physician [place] [facility] [place] Date[place]/23/22 - 05/23/[address] [address] Attending Physician: Admtr, Donald Admitting Physician: Admtr, Arun8 Referring Physician: Admtr, Ar8 Allergies, Adverse Reactions, Alerts Substance Reaction Severity Status penicillin Active Prozac Active [place] face swelling, cough, throat closes Active [place] Active Immunizations Given and Recorded Vaccine Date [...] 14:48:00 EST, [place], Route to Pharmacy Electronically, [id number], [facility]... Start Date: 11/01/21 Status: Ordered albuterol [...] Gm, 6 Refills, Maintenance, 07/24/21 12:05:00 EDT, [place], [facility], Partial fill upon patient request [...] 1 each, 0 Refills, Maintenance, 09/11/21 11:22:00 EST,[facility], Partial fill upon... Start Date: 09/11/21 Status: Ordered Ranitidine = 20 mg, By Mouth, Daily, 0 Refills, 09/25/08 12:26:59 EST Start Date: 09/25/08 Status: Ordered Singulair 10 mg oral tablet 10 mg, 1, tablet, By Mouth, Daily, # 30 tablet, Refills 6, Tot. Refills 6, Maintenance, 07/24/21 11:57:00 EDT, Route to Pharmacy Electronically, [facility], Partial fill upon patient request if the prescription is for a schedule II... Start Date: 07/24/21 Status: Ordered Social History Social History Type Response Smoking Status Never smoker entered on: 11/13/16 Sex
--- OUTSIDE RECORDS SUMMARY | 2023-08-14 09:30 | XMS_ITS | Continuity of Care Document ---
Author Name Unknown Organization [facility] rich[facility] Address [address] [place] [address] [address] [place] [address]- Care Team Providers Care Animator Name Role Phone Debbie RICHARD, Brii Klein Primary Care Physician Encounter [facility] Date(s): 08/18/20 - 09/17/20 [facility] [address] [place], [place] [address] Allergies, Adverse Reactions, Alerts Substance Reaction Severity Status penicillin Active Prozac Active [place] Active Immunizations Given and Recorded Vaccine Date [...] mL, 5 Refills, Maintenance, 08/17/20 12:54:00 EST, [place] Start Date: 08/17/20 Stop Date: 02/13/21 Status: Ordered Spiriva = 18 mcg, Inhalation, 2 times a day, 0 Refills, Maintenance, 11/13/16 10:51:00 Start Date: 11/13/16 Status: Ordered Social History Social History Type Response Smoking Status Never smoker entered on: 11/13/16 Sex
--- OUTSIDE RECORDS SUMMARY | 2023-08-14 09:30 | XMS_ITS | Continuity of Care Document ---
Author Name Unknown Organization [facility] richi Address [address] [place] [address] [address] [place] [address]- Care Team Providers Care Mass Spectroscopist Name Role Phone Debbie RICHARD, Brii Klein Primary Care Physician En[place] [facility] Date(s): 12/23/20 - 01/22/21 [facility] [address] [place], [place] [address] Attending Physician: Admtr, Ar8 Admitting Physician: Admtr, Ar8 Referring Physician: Admtr, Ar8 Allergies, Adverse Reactions, Alerts Substance Reaction Severity Status penicillin Active Prozac Active [place] Active Immunizations Given and Recorded Vaccine Date [...] mL, 5 Refills, Maintenance, 08/17/20 12:54:00 EST, [place] Start Date: 08/17/20 Stop Date: 02/13/21 Status: Ordered Spiriva = 18 mcg, Inhalation, 2 times a day, 0 Refills, Maintenance, 11/13/16 10:51:00 Start Date: 11/13/16 Status: Ordered Social History Social History Type Response Smoking Status Never smoker entered on: 11/13/16 Sex
--- OUTSIDE RECORDS SUMMARY | 2023-08-14 09:30 | XMS_ITS | Continuity of Care Document ---
Author Name Unknown Organization [facility] richi Address [address] [place] [address] [address] [place] [address]- Care Team Providers Care Car Customizer Name Role Phone Debbie RICHARD, Brii Klein Primary Care Physician Encounter [facility] Date(s): 08/22/21 - 09/21/21 [facility] [address] [place] [address]- Allergies, Adverse Reactions, Alerts Substance Reaction Severity Status penicillin Active Prozac Active [place] face swelling, cough, throat closes Active [place] Active Immunizations Given and Recorded Vaccine Date [...] Gm, 6 Refills, Maintenance, 07/24/21 12:05:00 EDT, [place], [facility], Partial fill upon patient request [...] 1 each, 0 Refills, Maintenance, 09/11/21 11:22:00 EST,[facility], Partial fill upon... Start Date: 09/11/21 Status: Ordered Ranitidine = 20 mg, By Mouth, Daily, 0 Refills, 09/25/08 12:26:59 EST Start Date: 09/25/08 Status: Ordered Singulair 10 mg oral tablet 10 mg, 1, tablet, By Mouth, Daily, # 30 tablet, Refills 6, Tot. Refills 6, Maintenance, 07/24/21 11:57:00 EDT, Route to Pharmacy Electronically, [facility], Partial fill upon patient request if the prescription is for a schedule II... Start Date: 07/24/21 Status: Ordered Social History Social History Type Response Smoking Status Never smoker entered on: 11/13/16 Sex
--- OUTSIDE RECORDS SUMMARY | 2023-08-14 09:31 | XMS_ITS | Continuity of Care Document ---
Author Name Unknown Organization [facility] Address [address] [place] [address]- Care Team Providers Care Commodities Trader Name Role Phone Debbie RICHARD, Brii Klein Primary Care Physician En[place] [facility] [place] Date(s): 08/08/21 - 11/12/21 [facility] [address] [place], [place] [address] Attending Physician: Theodore Heaton MD Admitting Physician: Theodore Heaton MD Referring Physician: Theodore Heaton MD Allergies, Adverse Reactions, Alerts Substance Reaction Severity Status penicillin Active Prozac Active [place] Active [place] face swelling, cough, throat closes Active Immunizations [...] 14:48:00 EST, [place], Route to Pharmacy Electronically, [id number], [facility]... Start Date: 11/01/21 Status: Ordered albuterol 90 mcg/inh inhalation powder 1 puffs, Inhalation, Every 4 hours, PRN as needed, # 1 each, 0 Refills, Maintenance, 07/11/18 11:46:45 EDT, [place], 1 puffs Inhalation Every 4 hours,PRN:as needed Start Date: 10/5/18 Status: Ordered atorvastatin 40 mg oral tablet 1 tablet = 40 mg, By Mouth, Daily, 0 Refills, Maintenance, 08/08/21 13:32:00 EDT, Partial fill uponpatient request if the prescription is for a schedule II opioid drug. Start Date: 08/08/21 Status: Ordered Flonase 50 mcg/inh nasal spray 2 sprays, Nares, Both, Daily in AM, # 16 Gm, 6 Refills, Maintenance, 07/24/21 12:05:00 EDT, [place], [facility], Partial fill upon patient request if [...] 1 each, 0 Refills, Maintenance, 09/11/21 11:22:00 EST,[facility], Partial fill upon... Start Date: 09/11/21 Status: Ordered Ranitidine = 20 mg, By Mouth, Daily, 0 Refills, 09/25/08 12:26:59 EST Start Date: 09/25/08 Status: Ordered Singulair 10 mg oral tablet 10 mg, 1, tablet, By Mouth, Daily, # 30 tablet, Refills 6, Tot. Refills 6, Maintenance, 07/24/21 11:57:00 EDT, Route to Pharmacy Electronically, [facility], Partial fill upon patient request if the prescription is for a schedule II... Start Date: 07/24/21 Status: Ordered Social History Social History Type Response Smoking Status Never smoker entered on: 11/13/16 Sex
--- OUTSIDE RECORDS SUMMARY | 2023-08-14 09:31 | XMS_ITS | Continuity of Care Document ---
Author Name Unknown Organization [facility] richi Address [address] [place] [address] [address] [place] [address]- Care Team Providers Care Sharemilker Name Role Phone Debbie RICHARD, Brii Klein Primary Care Physician Encounter [facility] Date(s): 11/21/21 - 11/28/21 [facility] [address] [place] [address]- Attending Physician: Jas Hager MD Allergies, Adverse Reactions, Alerts Substance Reaction Severity Status penicillin Active Prozac Active [place] face swelling, cough, throat closes Active [place] Active Immunizations Given and Recorded Vaccine Date [...] 14:48:00 EST, [place], Route to Pharmacy Electronically, [id number], [facility]... Start Date: 11/01/21 Status: Ordered albuterol [...] Gm, 6 Refills, Maintenance, 07/24/21 12:05:00 EDT, [place], [facility], Partial fill upon patient request [...] 1 each, 0 Refills, Maintenance, 09/11/21 11:22:00 EST,[facility], Partial fill upon... Start Date: 09/11/21 Status: Ordered Ranitidine = 20 mg, By Mouth, Daily, 0 Refills, 09/25/08 12:26:59 EST Start Date: 09/25/08 Status: Ordered Singulair 10 mg oral tablet 10 mg, 1, tablet, By Mouth, Daily, # 30 tablet, Refills 6, Tot. Refills 6, Maintenance, 07/24/21 11:57:00 EDT, Route to Pharmacy Electronically, [facility], Partial fill upon patient request if the prescription is for a schedule II... Start Date: 07/24/21 Status: Ordered Vital Signs Most recent to oldest [Reference Range]: 1 Height 165 cm (11/21/21 11:28 AM) Weight 74.54 kg (11/21/21 11:28 AM) Body Mass Index [18.5-24.99] 27.38 *H* (11/21/21 11:28 AM) Temperature [96.8-100.4 DegF] 97.9 DegF (11/21/21 11:28 AM) Temperature Route Temporal (11/21/21 11:28 AM) Weight Obtained Via Standing scale (11/21/21 11:28 AM) Social History Social History Type Response Smoking Status Never smoker entered on: 11/13/16 Sex
--- OUTSIDE RECORDS SUMMARY | 2023-08-14 09:31 | XMS_ITS | Continuity of Care Document ---
Author Name Unknown Organization [facility] richi Address [address] [place] [address] [address] [place] [address]- Care Team Providers Care Production Support Consultant Name Role Phone Debbie RICHARD, Brii Klein Primary Care Physician Encounter [facility] [place] Date(s): 08/04/20 - 09/16/20 [facility] [address] [place] [address]- Attending Physician: Lokesh HAN MD, Bruno Howell Referring Physician: Brii Lewis MD Allergies, Adverse Reactions, Alerts Substance Reaction Severity Status penicillin Active Prozac Active [place] Active Immunizations Given and Recorded Vaccine Date [...] mL, 5 Refills, Maintenance, 08/17/20 12:54:00 EST, [place] Start Date: 08/17/20 Stop Date: 02/13/21 Status: Ordered Spiriva = 18 mcg, Inhalation, 2 times a day, 0 Refills, Maintenance, 11/13/16 10:51:00 Start Date: 11/13/16 Status: Ordered Social History Social History Type Response Smoking Status Never smoker entered on: 11/13/16 Sex
--- OUTSIDE RECORDS SUMMARY | 2023-08-14 09:31 | XMS_ITS | Continuity of Care Document ---
Author Name Unknown Organization [facility] Address [address] [place] [address]- Care Team Providers Care Clinical Investigator Name Role Phone Debbie RICHARD, Brii Klein Primary Care Physician Encounter [facility] [place] Date(s): 05/16/21 - 07/16/21 [facility] [address] [place], [place] [address] Attending Physician: Pepper Solis MD Admitting Physician: Pepper Solis MD Referring Physician: Brii Lewis MD Allergies, Adverse Reactions, Alerts Substance Reaction Severity Status penicillin Active Prozac Active [place] Active Immunizations Given and Recorded Vaccine Date [...] mL, 5 Refills, Maintenance, 08/17/20 12:54:00 EST, [place] Start Date: 08/17/20 Stop Date: 02/13/21 Status: Ordered Spiriva = 18 mcg, Inhalation, 2 times a day, 0 Refills, Maintenance, 11/13/16 10:51:00 Start Date: 11/13/16 Status: Ordered Social History Social History Type Response Smoking Status Never smoker entered on: 11/13/16 Sex
--- OUTSIDE RECORDS SUMMARY | 2023-08-14 09:31 | XMS_ITS | Continuity of Care Document ---
Author Name Unknown Organization [facility] Address [address] [place] [address]- Care Team Providers Care Corrections Nurse Name Role Phone Debbie RICHARD, Brii Klein Primary Care Physician En[place] [facility] [place] Date(s): 04/04/22 - 08/02/22 [facility] [address] [place], [place] [address] Attending Physician: Khari Whitmore MD Admitting Physician: Khari Whitmore MD Allergies, Adverse Reactions, Alerts Substance Reaction Severity Status penicillin Active Prozac Active [place] face swelling, cough, throat closes Active [place] Active Immunizations Given and Recorded Vaccine Date [...] 14:48:00 EST, [place], Route to Pharmacy Electronically, [id number], [facility]... Start Date: 11/01/21 Status: Ordered albuterol [...] Gm, 6 Refills, Maintenance, 07/24/21 12:05:00 EDT, [place], [facility], Partial fill upon patient request [...] 1 each, 0 Refills, Maintenance, 09/11/21 11:22:00 EST,[facility], Partial fill upon... Start Date: 09/11/21 Status: Ordered Ranitidine = 20 mg, By Mouth, Daily, 0 Refills, 09/25/08 12:26:59 EST Start Date: 09/25/08 Status: Ordered Singulair 10 mg oral tablet 10 mg, 1, tablet, By Mouth, Daily, # 30 tablet, Refills 6, Tot. Refills 6, Maintenance, 07/24/21 11:57:00 EDT, Route to Pharmacy Electronically, [facility], Partial fill upon patient request if the prescription is for a schedule II... Start Date: 07/24/21 Status: Ordered Social History Social History Type Response Smoking Status Never smoker entered on: 11/13/16 Sex Patient Care team information Personnel Name: Debbie RICHARD, Brii Klein Address: Address: [address] [place] [address]
--- OUTSIDE RECORDS SUMMARY | 2023-08-14 09:31 | XMS_ITS | Continuity of Care Document ---
Author Name Unknown Organization [facility] richi Address [address] [place] [address] [address] [place] [address]- Care Team Providers Care Director Television Name Role Phone Debbie RICHARD, Brii Klein Primary Care Physician [place] [facility] [place] Date(s): 08/10/21 - 09/21/21 [facility] [address] [place] [address]- Attending Physician: Jas Hager MD Referring Physician: Brii Lewis MD Allergies, Adverse Reactions, Alerts Substance Reaction Severity Status penicillin Active Prozac Active [place] face swelling, cough, throat closes Active [place] Active Immunizations Given and Recorded Vaccine Date [...] Gm, 6 Refills, Maintenance, 07/24/21 12:05:00 EDT, [place], [facility], Partial fill upon patient [...] 1 each, 0 Refills, Maintenance, 09/11/21 11:22:00 EST,[facility], Partial fill upon... Start Date: 09/11/21 Status: Ordered Ranitidine = 20 mg, By Mouth, Daily, 0 Refills, 09/25/08 12:26:59 EST Start Date: 09/25/08 Status: Ordered Singulair 10 mg oral tablet 10 mg, 1, tablet, By Mouth, Daily, # 30 tablet, Refills 6, Tot. Refills 6, Maintenance, 07/24/21 11:57:00 EDT, Route to Pharmacy Electronically, [facility], Partial fill upon patient request if the prescription is for a schedule II... Start Date: 07/24/21 Status: Ordered Social History Social History Type Response Smoking Status Never smoker entered on: 11/13/16 Sex
--- OUTSIDE RECORDS SUMMARY | 2023-08-14 09:31 | XMS_ITS | Continuity of Care Document ---
Author Name Unknown Organization [facility] Address [address] [place] [address]- Care Team Providers Care Commissioner Of Officials Name Role Phone Brii Lewis MD Primary Care Physician Encounter [facility] [place] Date(s): 09/14/21 - 10/14/21 [facility] [address] [place] [address]- [place] Allergies, Adverse Reactions, Alerts Substance Reaction Severity Status penicillin Active Prozac Active [place] face swelling, cough, throat closes Active [place] Active Immunizations Given and Recorded Vaccine Date [...] Gm, 6 Refills, Maintenance, 07/24/21 12:05:00 EDT, [place], [facility], Partial fill upon patient request if [...] 1 each, 0 Refills, Maintenance, 09/11/21 11:22:00 EST,[facility], Partial fill upon... Start Date: 09/11/21 Status: Ordered Ranitidine = 20 mg, By Mouth, Daily, 0 Refills, 09/25/08 12:26:59 EST Start Date: 09/25/08 Status: Ordered Singulair 10 mg oral tablet 10 mg, 1, tablet, By Mouth, Daily, # 30 tablet, Refills 6, Tot. Refills 6, Maintenance, 07/24/21 11:57:00 EDT, Route to Pharmacy Electronically, [facility], Partial fill upon patient request if the prescription is for a schedule II... Start Date: 07/24/21 Status: Ordered Social History Social History Type Response Smoking Status Never smoker entered on: 11/13/16 Sex
--- OUTSIDE RECORDS SUMMARY | 2023-08-14 09:31 | XMS_ITS | Continuity of Care Document ---
Author Name Unknown Organization [facility] Address [address] [place] [address]- Care Team Providers Care Elevator Technician Name Role Phone Debbie RICHARD, Brii Klein Primary Care Physician Encounter [facility] [place] Date(s): 06/27/22 - 07/27/22 [facility] [address] [place], [place] [address] Attending Physician: AdmDonald napoles Admitting Physician: Admtr, Donald Referring Physician: Admtr, Ar8 Allergies, Adverse Reactions, Alerts Substance Reaction Severity Status penicillin Active [place] Active Prozac Active [place] face swelling, cough, throat closes Active Immunizations [...] 14:48:00 EST, [place], Route to Pharmacy Electronically, [id number], [facility]... Start Date: 11/01/21 Status: Ordered albuterol [...] Gm, 6 Refills, Maintenance, 07/24/21 12:05:00 EDT, [place], [facility], Partial fill upon patient request [...] 1 each, 0 Refills, Maintenance, 09/11/21 11:22:00 EST,[facility], Partial fill upon... Start Date: 09/11/21 Status: Ordered predniSONE 20 mg oral tablet 1 tablet = 20 mg, By Mouth, Daily, for 4 days, # 4 tablet, 0 Refills, Acute 07/30/22 18:23:00 EDT, 07/26/22 18:23:00 EDT, [place], [facility], Partial fill upon patient request [...] 07/24/21 11:57:00 EDT, Route to Pharmacy Electronically, [facility], Partial fill upon patient request if the prescription is for a schedule II... Start Date: 07/24/21 Status: Ordered Social History Social History Type Response Smoking Status Never smoker entered on: 11/13/16 Sex Patient Care team information Personnel Name: Debbie RICHARD, Brii Klein Address: Address: [address] [place] [address]
--- OUTSIDE RECORDS SUMMARY | 2023-08-14 09:31 | XMS_ITS | Continuity of Care Document ---
Author Name Unknown Organization [facility] Address [address] [place] [address]- Care Team Providers Care Automobile Body Repairer Helper Name Role Phone Brii Lewis MD Primary Care Physician [id number] Date(s): 11/25/21 - 12/31/[address] [address] Attending Physician: Brii Lewis MD Admitting Physician: Brii Lewis MD Referring Physician: Brii Lewis MD Allergies, Adverse Reactions, Alerts Substance Reaction Severity Status penicillin Active Prozac Active [place] face swelling, cough, throat closes Active [place] Active Immunizations Given and Recorded Vaccine Date [...] 14:48:00 EST, [place], Route to Pharmacy Electronically, [id number], [facility]... Start Date: 11/01/21 Status: Ordered albuterol [...] Gm, 6 Refills, Maintenance, 07/24/21 12:05:00 EDT, [place], [facility], Partial fill upon patient request [...] 1 each, 0 Refills, Maintenance, 09/11/21 11:22:00 EST,[facility], Partial fill upon... Start Date: 09/11/21 Status: Ordered Ranitidine = 20 mg, By Mouth, Daily, 0 Refills, 09/25/08 12:26:59 EST Start Date: 09/25/08 Status: Ordered Singulair 10 mg oral tablet 10 mg, 1, tablet, By Mouth, Daily, # 30 tablet, Refills 6, Tot. Refills 6, Maintenance, 07/24/21 11:57:00 EDT, Route to Pharmacy Electronically, [facility], Partial fill upon patient request if the prescription is for a schedule II... Start Date: 07/24/21 Status: Ordered Social History Social History Type Response Smoking Status Never smoker entered on: 11/13/16 Sex
--- OUTSIDE RECORDS SUMMARY | 2023-08-14 09:31 | XMS_ITS | Continuity of Care Document ---
Author Name Unknown Organization [facility] Address [address] [place] [address]- Care Team Providers Care Order Entry Technician Name Role Phone Debbie RICHARD, Brii Klein Primary Care Physician Encounter [facility] [place] Date(s): 10/12/21 - 01/25/22 [facility] [address] [place], [place] [address] Attending Physician: Theodore Heaton MD Admitting Physician: Theodore Heaton MD Referring Physician: Theodore Heaton MD Allergies, Adverse Reactions, Alerts Substance Reaction Severity Status penicillin Active Prozac Active [place] face swelling, cough, throat closes Active [place] Active Immunizations Given and Recorded Vaccine Date [...] 14:48:00 EST, [place], Route to Pharmacy Electronically, [id number], [facility]... Start Date: 11/01/21 Status: Ordered albuterol [...] Gm, 6 Refills, Maintenance, 07/24/21 12:05:00 EDT, [place], [facility], Partial fill upon patient request [...] 1 each, 0 Refills, Maintenance, 09/11/21 11:22:00 EST,[facility], Partial fill upon... Start Date: 09/11/21 Status: Ordered Ranitidine = 20 mg, By Mouth, Daily, 0 Refills, 09/25/08 12:26:59 EST Start Date: 09/25/08 Status: Ordered Singulair 10 mg oral tablet 10 mg, 1, tablet, By Mouth, Daily, # 30 tablet, Refills 6, Tot. Refills 6, Maintenance, 07/24/21 11:57:00 EDT, Route to Pharmacy Electronically, [facility], Partial fill upon patient request if the prescription is for a schedule II... Start Date: 07/24/21 Status: Ordered Social History Social History Type Response Smoking Status Never smoker entered on: 11/13/16 Sex
--- OUTSIDE RECORDS SUMMARY | 2023-08-14 09:31 | XMS_ITS | Continuity of Care Document ---
Author Name Unknown Organization [facility] Address [address] [place] [address]- Care Team Providers Care Instructor Apparel Manufacture Name Role Phone Debbie RICHARD, Brii Klein Primary Care Physician En[place] [facility] [place] Date(s): 08/08/21 - 08/15/21 [facility] [address] [place], [place] [address] Attending Physician: Theodore Heaton MD Admitting Physician: Theodore Heaton MD Referring Physician: Brii Lewis MD Allergies, Adverse Reactions, Alerts Substance Reaction Severity Status penicillin Active Prozac Active [place] face swelling, cough, throat closes Active [place] Active Immunizations Given and Recorded Vaccine Date [...] Gm, 6 Refills, Maintenance, 07/24/21 12:05:00 EDT, [place], [facility], Partial fill upon patient request [...] 07/24/21 11:57:00 EDT, Route to Pharmacy Electronically, [facility], Partial fill upon patient request if the prescription is for a schedule II... Start Date: 07/24/21 Status: Ordered Vital Signs Most recent to oldest [Reference Range]: 1 Height 165 cm (08/08/21 1:26 PM) Weight 77.11 kg (08/08/21 1:26 PM) Oxygen Saturation [94-100 %] 97 % (08/08/21 1:26 PM) Pulse Rate [55-90 bpm] 95 bpm *H* (08/08/21 1:26 PM) Body Mass Index [18.5-24.99] 28.32 *H* (08/08/21 1:26 PM) Weight Obtained Via Patient/family state d (08/08/21 1:26 PM) Social History Social History Type Response Smoking Status Never smoker entered on: 11/13/16 Sex
--- OUTSIDE RECORDS SUMMARY | 2023-08-14 09:31 | XMS_ITS | Continuity of Care Document ---
Author Name Unknown Organization [facility] Address [address] [place] [address]- Care Team Providers Care Soil Conservationist Name Role Phone Brii Lewis MD Primary Care Physician Encounter [facility] [place] Date(s): 11/18/21 - 12/24/[address] [address] Attending Physician: Brii Lewis MD Admitting Physician: Brii Lewis MD Allergies, Adverse Reactions, Alerts Substance Reaction Severity Status penicillin Active Prozac Active [place] face swelling, cough, throat closes Active [place] Active Immunizations Given and Recorded Vaccine Date [...] 14:48:00 EST, [place], Route to Pharmacy Electronically, [id number], [facility]... Start Date: 11/01/21 Status: Ordered albuterol [...] Gm, 6 Refills, Maintenance, 07/24/21 12:05:00 EDT, [place], [facility], Partial fill upon patient request [...] each, 0 Refills, Maintenance, 09/11/21 11:22:00 EST,[facility], Partial fill upon... Start Date: 09/11/21 Status: Ordered Ranitidine = 20 mg, By Mouth, Daily, 0 Refills, 09/25/08 12:26:59 EST Start Date: 09/25/08 Status: Ordered Singulair 10 mg oral tablet 10 mg, 1, tablet, By Mouth, Daily, # 30 tablet, Refills 6, Tot. Refills 6, Maintenance, 07/24/21 11:57:00 EDT, Route to Pharmacy Electronically, [facility], Partial fill upon patient request if the prescription is for a schedule II... Start Date: 07/24/21 Status: Ordered Social History Social History Type Response Smoking Status Never smoker entered on: 11/13/16 Sex
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
--- OUTSIDE RECORDS SUMMARY | 2023-08-14 09:32 | XMS_ITS | Continuity of Care Document ---
Author Name Unknown Organization [facility] Address [address] [place] [address]- Care Team Providers Care Power Shovel Operator Helper Name Role Phone Debbie RICHARD, Brii Klein Primary Care Physician Encounter [facility] Date(s): 10/13/21 - 11/12/21 [facility] [address], [place] [address] Attending Physician: AdmDonald napoles Admitting Physician: AdmtrDonald Referring Physician: Admtr, Ar8 Allergies, Adverse Reactions, Alerts Substance Reaction Severity Status penicillin Active Prozac Active [place] face swelling, cough, throat closes Active [place] Active Immunizations Given and Recorded Vaccine Date [...] 14:48:00 EST, [place], Route to Pharmacy Electronically, [id number], [facility]... Start Date: 11/01/21 Status: Ordered [...] Gm, 6 Refills, Maintenance, 07/24/21 12:05:00 EDT, [place], [facility], Partial fill upon patient [...]
--- OUTSIDE RECORDS SUMMARY | 2023-08-14 09:32 | XMS_ITS | Continuity of Care Document ---
Author Name Unknown Organization [facility] Address [address] [place] [id number]- Care Team Providers Care Oil Boiler Name Role Phone Brii Lewis MD Primary Care Physician Encounter [facility] [id number] Date(s): 03/08/22 - 07/06/[address] [address]- Attending Physician: Ricky Oneill MD Admitting Physician: Ricky Oneill MD Referring Physician: Brii Lewis MD Allergies, Adverse Reactions, Alerts Substance Reaction Severity Status penicillin Active Prozac Active [place] face swelling, cough, throat closes Active [place] Active Immunizations Given and Recorded Vaccine Date [...] 14:48:00 EST, [place], Route to Pharmacy Electronically, [id number], [facility]... Start Date: 11/01/21 Status: Ordered albuterol 90 [...] Gm, 6 Refills, Maintenance, 07/24/21 12:05:00 EDT, [place], [facility], Partial fill upon patient request if [...] 1 each, 0 Refills, Maintenance, 09/11/21 11:22:00 EST,[facility], Partial fill upon... Start Date: 09/11/21 Status: Ordered Ranitidine = 20 mg, By Mouth, Daily, 0 Refills, 09/25/08 12:26:59 EST Start Date: 09/25/08 Status: Ordered Singulair 10 mg oral tablet 10 mg, 1, tablet, By Mouth, Daily, # 30 tablet, Refills 6, Tot. Refills 6, Maintenance, 07/24/21 11:57:00 EDT, Route to Pharmacy Electronically, [facility], Partial fill upon patient request if the prescription is for a schedule II... Start Date: 07/24/21 Status: Ordered Social History Social History Type Response Smoking Status Never smoker entered on: 11/13/16 Sex Patient Care team information Personnel Name: Brii Lewis MD Address: Address: [address] [place] [id number]
--- OUTSIDE RECORDS SUMMARY | 2023-08-14 09:32 | XMS_ITS | Continuity of Care Document ---
Author Name Unknown Organization [facility] Address [address] [place] [address] [address] [place] [address]- Care Team Providers Care Blade Grinder Name Role Phone Debbie RICHARD, Brii Klein Primary Care Physician Encounter [facility] Date(s): 08/15/20 - 09/14/20 [facility] [address] [place], [place] [address] Attending Physician: Donald Cintron Admitting Physician: AdmtrDonald Referring Physician: Admtr, Ar8 Allergies, Adverse Reactions, Alerts Substance Reaction Severity Status penicillin Active Prozac Active [place] Active Immunizations Given and Recorded Vaccine Date [...] mL, 5 Refills, Maintenance, 08/17/20 12:54:00 EST, [place] Start Date: 08/17/20 Stop Date: 02/13/21 Status: Ordered Spiriva = 18 mcg, Inhalation, 2 times a day, 0 Refills, Maintenance, 11/13/16 10:51:00 Start Date: 11/13/16 Status: Ordered Social History Social History Type Response Smoking Status Never smoker entered on: 11/13/16 Sex
--- OUTSIDE RECORDS SUMMARY | 2023-08-14 09:32 | XMS_ITS | Continuity of Care Document ---
Author Name Unknown Organization [facility] Address [address] [place] [address]- Care Team Providers Care Director Agricultural Services Name Role Phone Debbie RICHARD, Brii Klein Primary Care Physician [place] [facility] Date[place]s): 03/23/22 - 03/30/22 [facility] [address] [place], [place] [address] Attending Physician: Theodore Heaton MD Admitting Physician: Theodore Heaton MD Allergies, Adverse Reactions, Alerts Substance Reaction Severity Status penicillin Active Prozac Active [place] face swelling, cough, throat closes Active [place] Active Immunizations Given and Recorded Vaccine Date [...] 14:48:00 EST, [place], Route to Pharmacy Electronically, [id number], [facility]... Start Date: 11/01/21 Status: Ordered albuterol [...] Gm, 6 Refills, Maintenance, 07/24/21 12:05:00 EDT, [place], [facility], Partial fill upon patient request [...] 1 each, 0 Refills, Maintenance, 09/11/21 11:22:00 EST,[facility], Partial fill upon... Start Date: 09/11/21 Status: Ordered Ranitidine = 20 mg, By Mouth, Daily, 0 Refills, 09/25/08 12:26:59 EST Start Date: 09/25/08 Status: Ordered Singulair 10 mg oral tablet 10 mg, 1, tablet, By Mouth, Daily, # 30 tablet, Refills 6, Tot. Refills 6, Maintenance, 07/24/21 11:57:00 EDT, Route to Pharmacy Electronically, [facility], Partial fill upon patient request if the prescription is for a schedule II... Start Date: 07/24/21 Status: Ordered Social History Social History Type Response Smoking Status Never smoker entered on: 11/13/16 Sex
--- NOTE | 2023-08-14 09:44 | A.OFFVIS_ITS ---
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 Intake Note: no concerns Enterprise Software Engineer Required: Yes Enterprise Software Engineer Language: Instrumentation Engineer Name: Xin BISWAS Information Interpreted: non-clinical & clinical Junior Paralegal: Junior Paralegal Present (Xin BISWAS) Accompanied by: Self / Same As Patient Allergies prednisone [PREDNISONE] Allergy (Severe, Verified 08/14/23 09:56) REDNESS, SWELLING FACE, swelling, hives, hives, swelling fluoxetine [From PROZAC] Allergy (Intermediate, Verified 08/14/23 09:56) DIFFICULTY BREATHING Penicillins [PENICILLINS] Allergy (Intermediate, Verified 08/14/23 09:56) RASH/HIVES penicillin V Allergy (Unknown, Verified 08/14/23 09:56) unknown From Toprol XL Allergy (Intermediate, Uncoded 08/14/23 09:56) RASH Post menopausal: Yes HPI HPI Comments History of Present Illness Details Presenting for annual exam. Complaining of bilateral axillary lumps that change in size and are tender, more on the right side Last Pap/HPV was in 07/26 was negative, the patient had a MARIE 1 in 2015 with no co testing done between 2015 to 2019 Last Mammogram was in 12/27 was BI-RADS 2 Last Colonoscopy was in 2008 [facility] Medical History Mild intermittent asthma Dysplasia of cervix, low grade (MARIE 1) Lateral epicondylitis, right elbow Hx of sleep apnea History of asthma Hx of essential hypertension Surgical History Hx of breast biopsy Family History Father HTN (hypertension) Heart disease Mother HTN (hypertension) Heart disease Brother Heart disease Social History Household Members: None Housing: Apartment Alcohol intake: never Patient Tobacco Use Status: Never used Tobacco e-Cigarette/Vaping Use: Never Used Second Hand Smoke Exposure: No service: No Current occupational status: unemployed Sexual orientation: Straight/Heterosexual Gender identity: Female Cognitive needs: No Hearing needs: No Vision needs: Yes Female Reproductive History Menstrual Age of Menarche: 13 Menopause type: natural Total pregnancies: 3 Full term: 3 Number of Living Children: 3 Date of last pap smear: 07/22/20 Date of Mammogram: 12/24/22 Review of Systems Const All systems reviewed & are unremarkable except as noted in HPI and below Card Reports as per HPI Resp Reports as per HPI GI Reports as per HPI and Reports no additional complaints Reports as per HPI Physical Exam Vital Signs: Last Vital Signs BP 130/84 08/14/23 09:49 BMI result Body Mass Index 28.1 Const General: cooperative, healthy appearing and comfortable Chest Chest palpation & inspection: normal inspection of the chest and normal palpation of entire chest wall Breast/axilla inspection: normal inspection of the breasts and Other (Bilateral axillary lumps, ?subq fat or lump) Breast/axilla palpation: normal palpation of the breasts, normal palpation of the axillae and no axillary lymphadenopathy Resp Effort & Inspection: normal respiratory effort Auscultation: clear to auscultation bilaterally Percussion: percussion normal Cardio Palpation: normal PMI Rate: regular rate Rhythm: regular rhythm Heart sounds: no murmurs and no rubs Peripheral pulses: Peripheral pulses 2+ throughout GI Inspection: Yes normal to inspection Palpation (GI): Soft to palpation, nontender, no guarding, not rigid and No hepatosplenomegaly present Percussion: Yes normal to percussion Auscultation: normal bowel sounds Rectal Exam - Female: deferred General: Yes bladder normal to palpation External Female Exam: No lesion Speculum Exam - Vagina: normal appearance of the vagina, normal palpation, normal vaginal discharge and not erythematous Speculum Exam - Cervix: normal appearance of the cervix and normal palpation Bimanual exam- vagina & uterus: normal bimanual exam, normal palpation, uterine size normal, bladder normal to palpation, consistency normal and normal palpation Bimanual Exam- Adnexa, other: normal adnexae, no masses and no tenderness Assessment & Plan Assessment & Plan (1) Well woman exam: Comment: History of MARIE 1 in 2016 by negative co testing in 2019 Code(s): Z01.419 - Encounter for gynecological examination (general) (routine) without abnormal findings Plan: Co testing done Counseled the patient about the recommended dietary allowance of 1200 mg of Calcium & 800 IU of vitamin D. Instructions given the patient to schedule next screening Mammogram in 12/28. Referred her for screening colonoscopy done. Will order DEXA scan . The patient was instructed to perform monthly self-breast exams and to schedule a 2 week DEXA scan follow-up appointment and an annual exam in a year; All questions answered and the patient verbalized understanding. (2) Axillary lump: Comment: Bilateral, more on the right Code(s): R22.30 - Localized swelling, mass and lump, unspecified upper limb Plan: Discussed with the patient the finding on physical exam bilateral axillary lumps, it is difficult to differentiate subcuticular fat versus lumps or tail of breast tissue, will refer to general surgery for further management Orders: Orders XR DEXA axial skeleton Today Z78.0 - Asymptomatic menopausal state Pap Smear Today Z01.419 - Encounter for gynecological examination (general) (routine) without abnormal findings Referrals Gastroenterology Referral Z12.11 - Encounter for screening for malignant neoplasm of colon General Surgery Referral R22.30 - Localized swelling, mass and lump, unspecified upper limb Coding Level of Care Code Est Pt Prev Care >65y(00661) Diagnoses Well woman exam Z01.419 Axillary lump R22.30
[2023-08-14 09:49] VITALS: BP 130/84; BMI 28.1
== END 2023-08-14 10:17 | disposition home or self-care (01) ==
LOC: HO.HWS 09:27
PROVIDERS: PCP Internal Medicine; Visit Provider Obstetrics & Gynecology
DX: Z01.419 Encounter for gynecological examination (general) (routine) without abnormal findings (principal); R22.30 Localized swelling, mass and lump, unspecified upper limb
CPT/HCPCS: 99397

== ENCOUNTER 2023-08-14 09:27 | Outpatient (REF) | payer OTHER, SELFPAY ==
[2023-08-19 11:59] LABS: HPV mRNA E6/E7 rflx Not Detected (Not Detected)
== END 2023-08-14 09:28 | disposition home or self-care (01) ==
LOC: HO.LNP 09:27
PROVIDERS: PCP Internal Medicine; Visit Provider Obstetrics & Gynecology
DX: Z01.419 Encounter for gynecological examination (general) (routine) without abnormal findings (principal); R22.30 Localized swelling, mass and lump, unspecified upper limb; Z78.0 Asymptomatic menopausal state
CPT/HCPCS: 87624; 88142

== ENCOUNTER 2023-08-28 09:03 | Outpatient (AMB) | payer OTHER, SELFPAY ==
--- NOTE | 2023-08-28 09:06 | A.OFFVIS_ITS ---
Intake Vital Signs 08/28/23 09:16 Height 5 ft 5 in Weight 174 lb 4 oz BMI 29.0 BP 149/70 H Blood Pressure Location Lt brachial Position Sitting Pulse 88 Intake Visit Reasons: bilateral axillary lump Intake Note: Patient is seen in office for evaluation and treatment of a bilateral axillary lump. Patient c/o:bilateral axillary lumps, onset 2 yrs, swelling and pain, no discharge, also has multiple lumps around the body that would like to have check by the provider, none have discharge Palliative Care Specialist Required: Yes Palliative Care Specialist Language: Wick Tender Name: Sepideh BISWAS Information Interpreted: non-clinical & clinical Orthodontist: Orthodontist Present Accompanied by: Self / Same As Patient Allergies prednisone [PREDNISONE] Allergy (Severe, Verified 08/28/23 09:13) REDNESS, SWELLING FACE, swelling, hives, hives, swelling fluoxetine [From PROZAC] Allergy (Intermediate, Verified 08/28/23 09:13) DIFFICULTY BREATHING Penicillins [PENICILLINS] Allergy (Intermediate, Verified 08/28/23 09:13) RASH/HIVES penicillin V Allergy (Unknown, Verified 08/28/23 09:13) unknown From Toprol XL Allergy (Intermediate, Uncoded 08/28/23 09:13) RASH Medication List - Last Reconciled 08/28/23 by Yobani Davis MD acetaminophen (Tylenol Extra Strength) 500 mg PO Q6H PRN albuterol sulfate mg inhalation albuterol sulfate 90 mcg/actuation 2 puffs inhalation Q6H PRN cetirizine 10 mg PO DAILY [id number] 200-62.5-25 mcg (Trelegy Ellipta) 1 inh inhalation DAILY 30 days HPI bilateral axillary lump HPI Details 67-year-old female here because of multi ple lumps on her axilla, and extremities. She says that the she has had these for many years. She describes some occasional discomfort with these lumps. She also says that she has a hernia on her upper abdomen. She says that this causes discomfort as well. She says that she has had this since she was very young. She denies any skin changes over these multiple lumps. [facility] Medical History (Updated 08/28/23 @ 09:41 by Yobani Davis MD) Ventral hernia Multiple lipomas Mild intermittent asthma Dysplasia of cervix, low grade (MARIE 1) Lateral epicondylitis, right elbow Hx of sleep apnea History of asthma Hx of essential hypertension Surgical History Hx of breast biopsy Family History Father HTN (hypertension) Heart disease Mother HTN (hypertension) Heart disease Brother Heart disease Household Members: None Housing: Apartment Alcohol intake: never Patient Tobacco Use Status: Never used Tobacco e-Cigarette/Vaping Use: Never Used Second Hand Smoke Exposure: No service: No Current occupational status: unemployed Sexual orientation: Straight/Heterosexual Gender identity: Female Cognitive needs: No Hearing needs: No Vision needs: Yes Female Reproductive History Menstrual Age of Menarche: 13 Review of Systems Const Denies chills and Denies fever(s) Card Denies chest pain, Denies dyspnea and Denies dyspnea on exertion Resp Denies cough, Denies dyspnea and Denies dyspnea on exertion GI Denies hematochezia and Denies change in bowel habits Denies hematuria Musc Denies back pain and Denies limited range of motion Neuro Denies focal weakness and Denies convulsions Psych Denies depression and Denies mood swings Physical Exam Vital Signs: Last Vital Signs Pulse 88 08/28/23 09:16 BP 149/70 H 08/28/23 09:16 BMI result Body Mass Index 29.0 Const General: comfortable and no acute distress Orientation/consciousness: patient oriented x3 Neck Neck: Yes no lymphadenopathy Resp Auscultation: clear to auscultation bilaterally Cardio Rhythm: regular rhythm GI Other: Vague hernia and epigastric area, felt with Valsalva, difficult to examine in view of her obesity Palpation (GI): Soft to palpation, nontender and no guarding Neuro General: patient oriented x3 Extrem Other: Lipomatous masses both axilla, soft, non indurated, each about 5 cm in diameter She also points to multiple other smaller subcutaneous masses on all extremities, each about 1 cm in size, consistent with small lipomas. Assessment & Plan Assessment & Plan (1) Multiple lipomas: Code(s): D17.9 - Benign lipomatous neoplasm, unspecified Plan: She has multiple lipomatous masses on the axilla and all extremities. I explained to her the benign nature of these masses. She understands the option of removal . She however wanted me to examine her abdominal hernia as she says that this is the 1 that has been bothering her more. (2) Ventral hernia: Code(s): K43.9 - Ventral hernia without obstruction or gangrene Plan: She has this vague hernia in the epigastric area. This is difficult to define in view of her morbid obesity. I will schedule her for a CT scan to define this. I will see her in the office to review the CT scan findings. She understands and is comfortable with the plans as above. Coding Level of Care Code New Pt Level 3 (60543) Diagnoses Multiple lipomas D17.9 Ventral hernia K43.9
[2023-08-28 09:16] VITALS: BP 149/70; PULSE 88; BMI 29.0
== END 2023-08-28 09:35 | disposition home or self-care (01) ==
PROVIDERS: PCP Internal Medicine; Visit Provider Surgery
DX: D17.9 Benign lipomatous neoplasm, unspecified (principal); K43.9 Ventral hernia without obstruction or gangrene
CPT/HCPCS: 99203

== ENCOUNTER → 2023-08-28 09:03 | Outpatient (BNVA) | payer OTHER, SELFPAY | PROVIDERS: PCP Internal Medicine; Visit Provider Surgery | DX: D17.9 Benign lipomatous neoplasm, unspecified (principal); K43.9 Ventral hernia without obstruction or gangrene | CPT/HCPCS: 99202 ==

== ENCOUNTER 2023-09-12 10:07 | Outpatient (AMB) | payer OTHER, SELFPAY ==
[2023-09-12 10:18] VITALS: BP 124/77; PULSE 92; O2SAT 97; BMI 29.3
--- NOTE | 2023-09-12 10:18 | MHC.OFFVIS ---
Intake Vital Signs 09/12/23 10:18 Height 5 ft 5 in Weight 176 lb 5.917 oz BMI 29.3 BP 124/77 Blood Pressure Location Rt brachial Position Sitting Pulse 92 Pulse Source Doppler Pulse Oximetry (%) 97 Oxygen Delivery Method Room Air Intake Visit Reasons: Asthma Hydrochloric Manufacturing Supervisor Required: Yes Hydrochloric Manufacturing Supervisor Name: Apryl Barragan Allergies prednisone [PREDNISONE] Allergy (Severe, Verified 09/12/23 10:20) REDNESS, SWELLING FACE, swelling, hives, hives, swelling fluoxetine [From PROZAC] Allergy (Intermediate, Verified 09/12/23 10:20) DIFFICULTY BREATHING Penicillins [PENICILLINS] Allergy (Intermediate, Verified 09/12/23 10:20) RASH/HIVES penicillin V Allergy (Unknown, Verified 09/12/23 10:20) unknown From Toprol XL Allergy (Intermediate, Uncoded 08/28/23 09:13) RASH HPI Asthma HPI Details 67-year-old lady with underlying history of asthma suboptimally controlled on Advair and albuterol MDI culture prior history of obstructive sleep apnea, previously intolerant of CPAP, now referred for pulmonary follow-up. Patient states that she has been using her Advair 100 and albuterol MDI/nebs with suboptimal control of his symptoms and is complaining of an acute exacerbation. She is also interesting in re-trying CPAP therapy. Patient complains of multiple environmental allergies. She denies family history of lung disease. After the last office visit patient was started on trilogy with significant improvement in symptom control. She also has completed her RAST that shows significant allergic contribution to her symptoms. ON LICENSE OF [facility] Medical History (Updated 09/12/23 @ 10:43 by Mendel Holt MD) Ventral hernia Multiple lipomas Mild intermittent asthma Dysplasia of cervix, low grade (MARIE 1) Lateral epicondylitis, right elbow Hx of sleep apnea History of asthma Hx of essential hypertension Surgical History Hx of breast biopsy Family History Father HTN (hypertension) Heart disease Mother HTN (hypertension) Heart disease Brother Heart disease Social History Household Members: None Housing: Apartment Alcohol intake: never Patient Tobacco Use Status: Never used Tobacco e-Cigarette/Vaping Use: Never Used Second Hand Smoke Exposure: No service: No Current occupational status: unemployed Sexual orientation: Straight/Heterosexual Gender identity: Female Cognitive needs: No Hearing needs: No Vision needs: Yes Female Reproductive History Menstrual Age of Menarche: 13 Review of Systems Const Denies daytime sleepiness, Denies excessive sweating, Denies fatigue, Denies fever(s), Denies lethargy, Denies malaise, Denies night sweats, Denies snoring and Denies weight loss Eyes Denies blurry vision and Denies itchy eyes ENT Denies nasal congestion, Reports post nasal drip, Denies sinus pain, Denies sinus pressure and Denies other ( Thrush) Card Denies chest pain, Denies pedal edema, Denies dyspnea, Denies orthopnea and Denies paroxysmal nocturnal dyspnea Resp Denies cough, Denies hemoptysis, Denies excessive phlegm production, Denies dyspnea, Denies snoring and Denies wheezing GI Denies abdominal pain and Denies heartburn Musc Denies myalgias, Denies arthralgias and Denies joint swelling Skin/Breast Denies rash Neuro Denies memory loss and Denies seizure-like activity Psych Denies abnormal sleep pattern, Denies anxiety and Denies memory loss Endo Denies excessive sweating, Denies fatigue and Denies heat intolerance Mike/Lymph Denies easy bruising Aller/Immun Denies itchy eyes, Denies seasonal rhinorrhea and Denies wheezing Physical Exam Vital Signs: Last Vital Signs Pulse 92 09/12/23 10:18 BP 124/77 09/12/23 10:18 Pulse Ox 97 09/12/23 10:18 Oxygen Delivery Method Room Air 09/12/23 10:18 BMI result Body Mass Index 29.3 Const General: no acute distress and alert Nutritional Appearance: not obese Orientation/consciousness: Other orientation findings ( oriented) HEENT Head: Yes atraumatic Eyes General: appearance normal, both eyes and all related structures Sclerae: sclerae normal EOM: EOMs intact bilaterally Neck Neck: Yes supple Lymphatic: no lymphadenopathy noted Resp Effort & Inspection: normal respiratory effort and no use of accessory muscles Auscultation: clear to auscultation bilaterally Cardio Rate: regular rate Rhythm: regular rhythm Heart sounds: no gallops, no murmurs and no rubs Skin General skin exam: other ( warm) Extrem General: No clubbing, No cyanosis and No edema Assessment & Plan Assessment & Plan (1) Moderate asthma: Code(s): J45.909 - Unspecified asthma, uncomplicated Plan: Significantly improved control on Trelegy. Continue Trelegy and albuterol MDI. (2) Environmental allergies: Code(s): Z91.09 - Other allergy status, other than to drugs and biological substances Plan: Results of RAST, CBC with differential, and IgE level reviewed. Patient has significant allergic component to her symptoms. At this time she is not interested in immunologic therapy. Continue on Zyrtec, will add nasal ipratropium. Medications: New ipratropium bromide administer into each nostril 2 sprays intranasal TID 15 mL 6RF 30 days guaifenesin 400 mg PO QID 30 tabs 0RF Coding Level of Care Code Est Pt Level 4 (54147) Diagnoses Moderate asthma J45.909 Environmental allergies Z91.09
== END 2023-09-12 10:34 | disposition home or self-care (01) ==
PROVIDERS: PCP Internal Medicine; Visit Provider Internal Medicine Pulmonary Disease
DX: J45.909 Unspecified asthma, uncomplicated (principal); Z91.09 Other allergy status, other than to drugs and biological substances
CPT/HCPCS: 99214

== ENCOUNTER → 2023-09-12 10:07 | Outpatient (BNVA) | payer OTHER, SELFPAY | PROVIDERS: PCP Internal Medicine; Visit Provider Internal Medicine Pulmonary Disease | DX: J45.909 Unspecified asthma, uncomplicated (principal); Z91.09 Other allergy status, other than to drugs and biological substances | CPT/HCPCS: 99212 ==

== ENCOUNTER → 2023-09-16 11:17 | Outpatient (BNVA) | payer OTHER, SELFPAY | PROVIDERS: PCP Internal Medicine; Visit Provider Physician Assistant Surgical ==

== ENCOUNTER 2023-09-17 10:46 | Outpatient (AMB) | payer OTHER, SELFPAY ==
--- NOTE | 2023-09-17 10:50 | A.OFFVIS_ITS ---
Intake Vital Signs 09/17/23 10:52 Height 5 ft 4 in Weight 175 lb BMI 30.0 BP 135/54 L Blood Pressure Location Lt brachial Position Sitting Pulse 100 Intake Visit Reasons: Colonoscopy Screening Intake Note: Patient new consult for 2nd Pre Colonoscopy screening. Patient cc: abdominal pain with bloating, acid reflex with nauseas on and off, constipation come and go and problems with solid food. Scientific Illustrator Required: Yes Scientific Illustrator Name: Merlyn Marlow Accompanied by: Self / Same As Patient Allergies prednisone [PREDNISONE] Allergy (Severe, Verified 09/17/23 10:50) REDNESS, SWELLING FACE, swelling, hives, hives, swelling fluoxetine [From PROZAC] Allergy (Intermediate, Verified 09/17/23 10:50) DIFFICULTY BREATHING Penicillins [PENICILLINS] Allergy (Intermediate, Verified 09/17/23 10:50) RASH/HIVES penicillin V Allergy (Unknown, Verified 09/17/23 10:50) unknown From Toprol XL Allergy (Intermediate, Uncoded 08/28/23 09:13) RASH Medication List - Last Reconciled 09/17/23 by Flavia Heck PA-C acetaminophen (Tylenol Extra Strength) 500 mg PO Q6H PRN cetirizine 10 mg PO DAILY rfzqlzmnufm-jcrrmljrp-alpmncfa 200-62.5-25 mcg (Trelegy Ellipta) 1 inh inhalation DAILY 30 days guaifenesin 400 mg PO QID ipratropium bromide 2 sprays intranasal TID 30 days HPI HPI Comments History of Present Illness Details 67-year-old female referred for screenin g colonoscopy-she presents with acid reflux, bloated and umbilical hernia. she saw Dr. Davis last month per her record- he is following. Colonoscopy 8-10 years ago- Appetite-good- gained a few pounds- no medication acid reflux-she has had symptoms on and off for many years. Currently not taking a PPI, occasional nausea with the acid-nothing specific in her diet that she can identify She has no other GI or general complaints No vomiting, hematemesis, hematochezia fever or chills [facility] Medical History (Updated 09/17/23 @ 12:08 by Flavia Heck PA-C) Ventral hernia Multiple lipomas Mild intermittent asthma Dysplasia of cervix, low grade (MARIE 1) Lateral epicondylitis, right elbow Hx of sleep apnea History of asthma Hx of essential hypertension Surgical History Hx of breast biopsy Family History Father HTN (hypertension) Heart disease Mother HTN (hypertension) Heart disease Brother Heart disease Social History Household Members: None Housing: Apartment Alcohol intake: never Patient Tobacco Use Status: Never used Tobacco e-Cigarette/Vaping Use: Never Used Second Hand Smoke Exposure: No service: No Current occupational status: unemployed Sexual orientation: Straight/Heterosexual Gender identity: Female Cognitive needs: No Hearing needs: No Vision needs: Yes Female Reproductive History Menstrual Age of Menarche: 13 Review of Systems Const All systems reviewed & are unremarkable except as noted in HPI and below Card Denies chest pain and Denies dyspnea Resp Denies dyspnea GI Denies abdominal pain, Denies change in bowel habits, Reports heartburn, Reports nausea and Denies vomiting Physical Exam Vital Signs: Last Vital Signs Pulse 100 09/17/23 10:52 BP 135/54 L 09/17/23 10:52 BMI result Body Mass Index 30.0 Const General: healthy appearing, comfortable and no acute distress Orientation/consciousness: patient oriented x3 Limitations: language barrier Resp Effort & Inspection: normal respiratory effort and able to speak in complete sentences Auscultation: clear to auscultation bilaterally, no rales, no rhonchi and no wheezes Cardio Rate: regular rate (96APR) Rhythm: regular rhythm Heart sounds: S1 normal heart sound present and S2 normal heart sound present GI Palpation (GI): Soft to palpation and nontender Auscultation: normal bowel sounds Skin General skin exam: no rashes or lesions noted Neuro General: patient oriented x3 Extrem General: Yes full ROM Psych Appearance: grossly normal Speech and movement: Clear speech present Affect: normal affect Attitude: cooperative Thought process: Normal thought process present Thought content: Normal thought content present Assessment & Plan Assessment & Plan (1) GERD (gastroesophageal reflux disease): Comment: Intermittent reflux Code(s): K21.9 - Gastro-esophageal reflux disease without esophagitis Plan: omeprazole 20 mg reflux precautions (2) Encounter for screening colonoscopy: Comment: Due for screening Code(s): Z12.11 - Encounter for screening for malignant neoplasm of colon Plan: screening colonoscopy (3) Poor historian: Comment: Not a great historian, details limited, medication list questionable-difficulty despite staff technologist device Code(s): Z78.9 - Other specified health status Plan: Will follow-up 8-10 weeks, prior to having colonoscopy to assess for progress with acid reflux Bring list daily medications Plan Schedule colonoscopy slow to detail peg prep review meds Medications: New omeprazole 20 mg PO DAILY 30 caps 5RF Patient Instructions: Will schedule colonoscopy however will reinforce details at next visit, prior to procedure Reflux precautions-monitor symptoms, try to identify culprits reviewed meds -requested patient bring full list on follow-up Encouraged to call with questions or concerns Coding Level of Care Code New Pt Level 4 (48082) Diagnoses GERD (gastroesophageal reflux disease) K21.9 Encounter for screening colonoscopy Z12.11 Poor historian Z78.9 Time Spent (min) 40 Comment [id number]
[2023-09-17 10:52] VITALS: BP 135/54; PULSE 100
== END 2023-09-17 11:34 | disposition home or self-care (01) ==
PROVIDERS: PCP Internal Medicine; Visit Provider Physician Assistant
DX: K21.9 Gastro-esophageal reflux disease without esophagitis (principal); Z12.11 Encounter for screening for malignant neoplasm of colon; Z78.9 Other specified health status
CPT/HCPCS: 99204

== ENCOUNTER → 2023-09-17 10:46 | Outpatient (BNVA) | payer OTHER, SELFPAY | PROVIDERS: PCP Internal Medicine; Visit Provider Physician Assistant | DX: Z12.11 Encounter for screening for malignant neoplasm of colon (principal); K21.9 Gastro-esophageal reflux disease without esophagitis; Z78.9 Other specified health status | CPT/HCPCS: 99202 ==

== ENCOUNTER 2023-10-25 10:26 | Outpatient (AMB) | payer OTHER, SELFPAY ==
--- NOTE | 2023-10-25 10:44 | A.OFFVIS_ITS ---
Intake VS Expanded 10/25/23 10:51 BP 136/64 Blood Pressure Location Rt brachial Blood Pressure Position Sitting Pulse 98 Pulse Source Pulse Oximeter Temp 97.2 F Temperature Source Tympanic Pulse Oximetry 93 Oxygen Delivery Method Room Air Height 5 ft 4 in Weight 173 lb BMI 29.7 Body Fat % 41.1 Body Fat Mass 71.0 Fat Free Mass 101.8 Visceral Fat Rating 9.0 Body Water % 42.0 Body Water Mass 72.6 Muscle Mass/Score 96.8 Basal Metabolic Rate/Score 1,417 Intake Visit Reasons: (OV) [employer] MWL Allergies prednisone [PREDNISONE] Allergy (Severe, Verified 09/17/23 10:50) REDNESS, SWELLING FACE, swelling, hives, hives, swelling fluoxetine [From PROZAC] Allergy (Intermediate, Verified 09/17/23 10:50) DIFFICULTY BREATHING Penicillins [PENICILLINS] Allergy (Intermediate, Verified 09/17/23 10:50) RASH/HIVES penicillin V Allergy (Unknown, Verified 09/17/23 10:50) unknown From Toprol XL Allergy (Intermediate, Uncoded 08/28/23 09:13) RASH HPI HPI Comments History of Present Illness Details This is a 68 year old woman who is here to start MWL program.. Her goal is to not have LUCY any more. She reports first being concerned about her weight 8 years. She has tried multiple methods of weight loss including no fried food without permanent results. She lives alone. She is retired. Will have SS on 10/30/23. She wakes at: 5am - 8am irregular wake up time, bed at lays down at 10pm - february to fall asleep until 1 am. Breakfast: 10 am - 2 toast with cheese and sauce. Decaf coffee - with 2 % lactose free milk and 1 tsp sugar (skips 3d/ week) Lunch: 2-3 pm -rice/beans and chicken in air fryer with vegetables. Fruit juice sometimes, mostly water Dinner: 7pm - 2 toast with tahini and fruit, water After dinner: nothing Other snacks: fruit sometimes Liquids: no soda Alcohol intake:none, tobacco: none, marijuana: none Exercise: none JOSEPHINE: 6 ESS:20 GERD:27 QOL:74 [facility] Medical History (Updated 10/25/23 @ 11:46 by Ana Maria Colon PA-C) Ventral hernia Multiple lipomas Mild intermittent asthma Dysplasia of cervix, low grade (MARIE 1) Lateral epicondylitis, right elbow Hx of sleep apnea History of asthma Hx of essential hypertension Surgical History Hx of breast biopsy Family History Father HTN (hypertension) Heart disease Mother HTN (hypertension) Heart disease Brother Heart disease Social History Household Members: None Housing: Apartment Alcohol intake: never Patient Tobacco Use Status: Never used Tobacco e-Cigarette/Vaping Use: Never Used Second Hand Smoke Exposure: No service: No Current occupational status: unemployed Sexual orientation: Straight/Heterosexual Gender identity: Female Cognitive needs: No Hearing needs: No Vision needs: Yes Female Reproductive History Menstrual Age of Menarche: 13 Physical Exam Vital Signs: Last Vital Signs Temp 97.2 F 10/25/23 10:51 Pulse 98 10/25/23 10:51 BP 136/64 10/25/23 10:51 Pulse Ox 93 10/25/23 10:51 Oxygen Delivery Method Room Air 10/25/23 10:51 BMI result Body Mass Index 29.7 Assessment & Plan Assessment & Plan (1) Overweight: Code(s): E66.3 - Overweight Plan: This is a 68 yo woman who is overweight and wants to loose weight to control LUCY - will have SS next week. She is being scheduled for RD initial consultations. She will start MWL classes and watch all classes before her next appt with Sabra. Her diet is not terrible but lacs enough protien, too many carbs. She also needs to have a regular exercise program and have adequate sleep. 1. Adequate sleep of 7-8 hours per night discussed - no napping, 11 pm - 7am regular bedtime 2. Healthy meal plan - stop skipping meals All meals/MR's need to take 20 minutes to complete Breakfast - 2-3 eggs with 1 slice toast OR cottage cheese/yogurt with 1/2 cup fresh fruit Lunch - 4 oz (8 forks) of protien, 6 oz (12 forks) veg and 2 oz (4 forks) rice or potatoes Dinner - 6 oz (12 forks) lean protein, 6 oz (12 forks) vegetable, 1 serving fruit Exercise - LS 2 mile videos 5 d/ week Pt will purchase body composition analyzer (recommended list given to patient) and weight herself weekly. Next appt with Sabra in 4 weeks and in 8 weeks. Text me with any questions and weekly weights. Patient is morbidly obese and is not considered stable at this time.?I spent a total of 50 minutes reviewing/updating records, examining the patient and counseling the patient on weight management as detailed above. (2) GERD (gastroesophageal reflux disease): Comment: Intermittent reflux Code(s): K21.9 - Gastro-esophageal reflux disease without esophagitis Plan: proper eating habits discussed Coding Level of Care Code New Pt Level 5 (12134) Diagnoses Overweight E66.3 GERD (gastroesophageal reflux disease) K21.9
[2023-10-25 10:51] VITALS: BP 136/64; PULSE 98; TEMP 36.2; O2SAT 93; BMI 29.7
== END 2023-10-25 11:52 | disposition home or self-care (01) ==
PROVIDERS: PCP Internal Medicine; Visit Provider Physician Assistant
DX: E66.3 Overweight (principal); Z68.29 Body mass index [BMI] 29.0-29.9, adult; K21.9 Gastro-esophageal reflux disease without esophagitis
CPT/HCPCS: 99204

== ENCOUNTER → 2023-10-25 10:26 | Outpatient (BNVA) | payer OTHER, SELFPAY | PROVIDERS: PCP Internal Medicine; Visit Provider Physician Assistant | DX: E66.3 Overweight (principal); K21.9 Gastro-esophageal reflux disease without esophagitis; Z68.29 Body mass index [BMI] 29.0-29.9, adult | CPT/HCPCS: 99202 ==

== ENCOUNTER → 2023-10-30 09:36 | Outpatient (REF) | payer OTHER, SELFPAY | LOC: HO.SL 09:36 | PROVIDERS: PCP Internal Medicine; Visit Provider Internal Medicine Pulmonary Disease | DX: G47.33 Obstructive sleep apnea (adult) (pediatric) (principal) | CPT/HCPCS: 95806 ==

== ENCOUNTER → 2023-10-30 09:52 | Outpatient (BNV) | payer OTHER, SELFPAY | PROVIDERS: PCP Internal Medicine; Visit Provider Internal Medicine | DX: G47.33 Obstructive sleep apnea (adult) (pediatric) (principal) | CPT/HCPCS: 95806 ==

== ENCOUNTER 2023-10-31 08:21 | Outpatient (REF) | payer OTHER, SELFPAY ==
--- NOTE | ~2023-10-31 | CT_ITS ---
EXAMINATION: CT ABDOMEN AND PELVIS WITHOUT CONTRAST CLINICAL INFORMATION: 68-year-old female with mental hernia COMPARISON: There is not direct comparison unavailable but report from CT scan from June 2006 reported small umbilical hernia TECHNIQUE: Multidetector volumetric imaging was performed from the superior aspect of the liver through the pubic symphysis. Sagittal and coronal reformatted images were obtained on the technologist's workstation. This CT examination was performed using dose optimization techniques as appropriate, variously including the following: *Automated exposure control *Adjustment of mA and/or kV according to patient size (this includes techniques or standardized protocols for targeted exams where dose is matched to indication/reason for exam; i.e. extremities or head) *Use of iterative reconstruction technique DLP: 498 mGy-cm FINDINGS: LUNG BASES: The visualized lung bases are unremarkable. LIVER, GALLBLADDER, AND BILIARY TREE: Liver is of low attenuation with small cyst in the caudate lobe. No intrahepatic masses or ductal dilatation. Gallbladder is distended without obvious stones or sludge. CBD is not dilated. PANCREAS: Unremarkable. SPLEEN: Unremarkable. ADRENAL GLANDS: Unremarkable. KIDNEYS AND URETERS: The kidneys are normal in size, shape, and attenuation. No hydronephrosis, hydroureter, or calculi seen. No perinephric stranding. BLADDER: Unremarkable. GASTROINTESTINAL TRACT: The small and large bowel are unremarkable. The appendix is unremarkable. ABDOMINAL WALL: There is diastases of rectus muscles and small fat-containing umbilical hernia as well as there is small suprapatellar umbilical hernia associated with subcutaneous calcification LYMPH NODES: Normal. VASCULAR: Unremarkable. PELVIC VISCERA: Unremarkable. OSSEOUS STRUCTURES: There are degenerative changes seen lower lumbar spine without compression deformities, spondylolysis or listhesis. CT/CT abdomen pelvis wo IV con IMPRESSION: 1. Diastases of rectus muscles and small fat-containing umbilical and supraumbilical hernias. 2. Hepatic steatosis and small cyst in the caudate lobe. Fleischner guidelines were followed.
== END 2023-10-31 08:22 | disposition home or self-care (01) ==
LOC: HO.CT 08:21
PROVIDERS: PCP Internal Medicine; Visit Provider Surgery
DX: K43.9 Ventral hernia without obstruction or gangrene (principal)
CPT/HCPCS: 74176

== ENCOUNTER 2023-11-01 10:11 | Outpatient (REF) | payer OTHER, SELFPAY ==
--- NOTE | ~2023-11-01 | MM_ITS ---
EXAMINATION: BONE DENSITOMETRY CLINICAL INDICATION: Asymptomatic menopausal state. COMPARISON: This is the patient's baseline examination. TECHNIQUE: Using a [employer] DXA System (software version: 13.1) manufactured by [employer], dual-energy x-ray absorptiometry was performed of the lumbar spine and left hip. The images are of good technical quality. Summary results are attached. FINDINGS: LEFT FEMUR, NECK: BMD 0.927 g/cm2, Z-score 0.4, T-score -0.8, normal. LEFT FEMUR, TOTAL: BMD 1.009 g/cm2, Z-score 0.9, T-score 0.0, normal. AP SPINE L1-L4: BMD 1.188 g/cm2, Z-score 1.2, T-score 0.1, normal. IDENTIFIED RISK FACTORS: Menopause. HISTORY OF FRACTURE: None listed. MEDICATIONS: None listed. MM/XR DEXA axial skeleton IMPRESSION: 1. DIAGNOSIS: Normal bone density based on the lowest T-score value of -0.8 in the femoral neck applying World Health Organization criteria. 2. 10-YEAR FRACTURE RISK PREDICTION, FRAX: According to the guidelines, FRAX calculation should only be performed on patients in the osteopenia bone density category. Therefore, FRAX was not performed on this patient. 3. Treatment Recommendations: NOF guidelines recommend consideration for treatment in postmenopausal women and men age 50 and older presenting with the following: -A hip or vertebral (clinical or morphometric) fracture. -T-score less than or equal to -2.5 at the femoral neck or spine after appropriate evaluation to exclude secondary causes. -Low bone mass at the hip or spine and a 10-year fracture probability by FRAX of greater than or equal to 3% for hip fracture or greater than or equal to 20% for major osteoporotic fracture based on the [place] adapted WHO algorithm. 4. Other Recommendations: All treatment decisions require clinical judgment and consideration of individual patient factors, including patient preferences, comorbidities, previous drug use, risk factors not captured in the FRAX model (e.g. frailty, falls, vitamin D deficiency, increased bone turnover, interval significant decline in bone density) and possible under or overestimation of fracture risk by FRAX. FUTURE SCAN RECOMMENDATION: People with diagnosed cases of osteoporosis or at high risk for fracture should have regular bone mineral density tests. For patients eligible for Medicare, routine testing is allowed once every 2 years. The testing frequency can be increased to one year for patients who have rapidly progressing disease, those who are receiving or discontinuing medical therapy to restore bone mass, or have additional risk factors.
== END 2023-11-01 10:12 | disposition home or self-care (01) ==
LOC: HO.MAMMO 10:11
PROVIDERS: PCP Internal Medicine; Visit Provider Obstetrics & Gynecology
DX: Z13.820 Encounter for screening for osteoporosis (principal); Z78.0 Asymptomatic menopausal state
CPT/HCPCS: 77080

== ENCOUNTER 2023-11-11 11:11 | Outpatient (AMB) | payer OTHER, SELFPAY ==
--- NOTE | 2023-11-11 11:18 | A.OFFVIS_ITS ---
Intake Vital Signs 11/11/23 11:22 Height 5 ft 4 in Weight 175 lb BMI 30.0 BP 144/74 H Blood Pressure Location Rt brachial Position Sitting Pulse 85 Intake Visit Reasons: Ventral hernia, CT results Intake Note: This patient presents for a follow-up assessment to discuss Ct-Scan results. Patient c/o; reports bloating, reports cramps right abdomen, reports occasional constipation. Director Of Database Marketing Required: Yes Director Of Database Marketing Language: General Foreman Name: Aquiles Information Interpreted: non-clinical & clinical Accompanied by: Self / Same As Patient Allergies prednisone [PREDNISONE] Allergy (Severe, Verified 11/11/23 11:23) REDNESS, SWELLING FACE, swelling, hives, hives, swelling fluoxetine [From PROZAC] Allergy (Intermediate, Verified 11/11/23 11:23) DIFFICULTY BREATHING Penicillins [PENICILLINS] Allergy (Intermediate, Verified 11/11/23 11:23) RASH/HIVES penicillin V Allergy (Unknown, Verified 11/11/23 11:23) unknown From Toprol XL Allergy (Intermediate, Uncoded 11/11/23 11:23) RASH Medication List - Last Reconciled 11/11/23 by Yobani Davis MD acetaminophen (Tylenol Extra Strength) 500 mg PO Q6H PRN amlodipine 5 mg PO DAILY aspirin 81 mg PO DAILY cetirizine 10 mg PO DAILY fpxfnklfjsn-tgxluqrdr-ubbshwdp 200-62.5-25 mcg (Trelegy Ellipta) 1 inh inhalation DAILY 30 days guaifenesin 400 mg PO QID ipratropium bromide 2 sprays intranasal TID 30 days omeprazole 20 mg PO DAILY HPI Ventral hernia, CT results HPI Details [age] year old female here for follow-up for her hernia. She had been feeling this lump on the epigastric area above the umbilicus for several months now. She describes sensation of bloating with this She describes discomfort with the hernia. Since she was obese, I had sent her CAT scan to further define the hernia defect She denies any new complaints. She admits to having obstructive sleep apnea although does not use a CPAP. She also has asthma. [facility] Medical History (Updated 10/25/23 @ 11:46 by Ana Maria Colon PA-C) Ventral hernia Multiple lipomas Mild intermittent asthma Dysplasia of cervix, low grade (MARIE 1) Lateral epicondylitis, right elbow Hx of sleep apnea History of asthma Hx of essential hypertension Surgical History Hx of breast biopsy Family History Father HTN (hypertension) Heart disease Mother HTN (hypertension) Heart disease Brother Heart disease Social History Household Members: None Housing: Apartment Alcohol intake: never Patient Tobacco Use Status: Never used Tobacco e-Cigarette/Vaping Use: Never Used Second Hand Smoke Exposure: No service: No Current occupational status: unemployed Sexual orientation: Straight/Heterosexual Gender identity: Female Cognitive needs: No Hearing needs: No Vision needs: Yes Female Reproductive History Menstrual Age of Menarche: 13 Review of Systems Const Denies chills and Denies fever(s) Card Denies chest pain, Denies dyspnea and Denies dyspnea on exertion Resp Details: Has asthma attacks Denies cough, Denies dyspnea and Denies dyspnea on exertion GI Denies hematochezia and Denies change in bowel habits Denies hematuria Musc Denies back pain and Denies limited range of motion Neuro Denies focal weakness and Denies convulsions Psych Denies depression and Denies mood swings Physical Exam Vital Signs: Last Vital Signs Pulse 85 11/11/23 11:22 BP 144/74 H 11/11/23 11:22 BMI result Body Mass Index 30.0 Const Other: Obese General: comfortable and no acute distress Orientation/consciousness: patient oriented x3 Neck Neck: Yes no lymphadenopathy Resp Auscultation: clear to auscultation bilaterally Cardio Rhythm: regular rhythm GI Other: Palpable hernia on the epigastric area and on the umbilical area, mildly tender Palpation (GI): Soft to palpation, nontender and no guarding Neuro General: patient oriented x3 Assessment & Plan Assessment & Plan (1) Ventral hernia: Code(s): K43.9 - Ventral hernia without obstruction or gangrene Plan: I have reviewed her CAT scan. This shows a hernia defect measuring about 3.6 cm the epigastric area which is fat containing. This so much smaller hernia about 2 cm in the umbilicus. This is also fat containing. I therefore had a long discussion with her about the technique of repair of this 2 hernias with mesh. I discussed the risks including but not limited to bleeding, infections, bowel injury, recurrence, postop pain, inherent risks of anesthesia, as well as the benefits and alternatives. She says she will talk to another family member about this and will call us when she is ready to schedule. Coding Level of Care Code Est Pt Level 3 (49366) Diagnoses Ventral hernia K43.9
[2023-11-11 11:22] VITALS: BP 144/74; PULSE 85
== END 2023-11-11 11:54 | disposition home or self-care (01) ==
PROVIDERS: PCP Internal Medicine; Visit Provider Surgery
DX: K43.9 Ventral hernia without obstruction or gangrene (principal)
CPT/HCPCS: 99213

== ENCOUNTER → 2023-11-11 11:11 | Outpatient (BNVA) | payer OTHER, SELFPAY | PROVIDERS: PCP Internal Medicine; Visit Provider Surgery | DX: K43.9 Ventral hernia without obstruction or gangrene (principal) | CPT/HCPCS: 99212 ==

== ENCOUNTER 2023-11-12 13:01 | Outpatient (AMB) | payer OTHER, SELFPAY ==
--- NOTE | 2023-11-12 13:16 | A.OFFVIS_ITS ---
Intake Vital Signs 11/12/23 13:17 Height 5 ft 4 in Weight 175 lb BMI 30.0 Intake Visit Reasons: Follow up - LUCY Intake Note: Patient presents for follow up. I'm barely sleeping,I cant fall asleep im up till 1am or later. Allergies prednisone [PREDNISONE] Allergy (Severe, Verified 11/14/23 11:11) REDNESS, SWELLING FACE, swelling, hives, hives, swelling fluoxetine [From PROZAC] Allergy (Intermediate, Verified 11/14/23 11:11) DIFFICULTY BREATHING Penicillins [PENICILLINS] Allergy (Intermediate, Verified 11/14/23 11:11) RASH/HIVES penicillin V Allergy (Unknown, Verified 11/14/23 11:11) unknown From Toprol XL Allergy (Intermediate, Uncoded 11/14/23 11:11) RASH Medication List - Last Reconciled 11/12/23 by ROSITA Mccain acetaminophen (Tylenol Extra Strength) 500 mg PO Q6H PRN amlodipine 5 mg PO DAILY aspirin 81 mg PO DAILY cetirizine 10 mg PO DAILY pqxkdcqpyoa-fxrzyqjar-lbpjdhrx 200-62.5-25 mcg (Trelegy Ellipta) 1 inh inhalation DAILY 30 days guaifenesin 400 mg PO QID ipratropium bromide 2 sprays intranasal TID 30 days omeprazole 20 mg PO DAILY HPI HPI Comments History of Present Illness Details 68-yr-old female presents for f/u visit for sleep difficulties after 2 yrs. Pt states she has been diagnosed w/ fibromyalgia. She states she has joint pain- back, hips and shoulders, generalized weakness. She had recent HST, orderd by pulmonology, which revealed moderate LUCY w/ AHI 20.6/hr and O2 kristen 76%, of the 453.5 minute study, SpO2 < 90% x's 214.5 min, < 88% x's 111.5 min, < 85% x's 12.6 min. Pt advised to undergo in-lab PSG. She continues to have difficulty sleeping. She previously did try APAP, however she did not know how to use the machine and did not tolerate the mask. She did try different masks, but this did not help. So, she returned the machine. [facility] Medical History Ventral hernia Multiple lipomas Mild intermittent asthma Dysplasia of cervix, low grade (MARIE 1) Lateral epicondylitis, right elbow Hx of sleep apnea History of asthma Hx of essential hypertension Surgical History Hx of breast biopsy Family History Father HTN (hypertension) Heart disease Mother HTN (hypertension) Heart disease Brother Heart disease Social History Household Members: None Housing: Apartment Alcohol intake: never Patient Tobacco Use Status: Never used Tobacco e-Cigarette/Vaping Use: Never Used Second Hand Smoke Exposure: No service: No Current occupational status: unemployed Sexual orientation: Straight/Heterosexual Gender identity: Female Cognitive needs: No Hearing needs: No Vision needs: Yes Female Reproductive History Menstrual Age of Menarche: 13 Physical Exam Vital Signs: BMI result Body Mass Index 30.0 Const General: cooperative and no acute distress Orientation/consciousness: patient oriented x3 Resp Effort & Inspection: normal respiratory effort and able to speak in complete sentences Neuro General: patient oriented x3 Cranial nerves: Yes CN's II-XII intact bilaterally Cognition (Neuro): normal cognition Psych Appearance: grossly normal Mental Status: mental status grossly normal Speech and movement: Normal speech and movement present Affect: normal affect Attitude: cooperative Assessment & Plan Assessment & Plan (1) Moderate obstructive sleep apnea: Code(s): G47.33 - Obstructive sleep apnea (adult) (pediatric) (2) Nocturnal hypoxemia: Code(s): G47.34 - Idiopathic sleep related nonobstructive alveolar hypoventilation (3) Fibromyalgia: Code(s): M79.7 - Fibromyalgia Plan Reviewed recent in-lab PSG results w/ pt- moderate LUCY w/ significant nocturnal hypoxemia. Pt encouraged to undergo in-lab PSG study, in hopes this improves her tolerence of PAP tx- will forward results to Dr Holt. Trial Amitriptyline for sleep and fibromyalgia s/s. f/u in 4 months or sooner prn. Orders: Orders RT PSG in-lab sleep titration 11/12/23 G47.33 - Obstructive sleep apnea (adult) (pediatric), G47.34 - Idiopathic sleep related nonobstructive alveolar hypoventilation, J45.909 - Unspecified asthma, uncomplicated Medications: New amitriptyline 10 mg PO BEDTIME 30 tabs 3RF 30 days Coding Level of Care Code Est Pt Level 4 (82574) Diagnoses Moderate obstructive sleep apnea G47.33 Nocturnal hypoxemia G47.34 Fibromyalgia M79.7
== END 2023-11-12 14:12 | disposition home or self-care (01) ==
PROVIDERS: PCP Internal Medicine; Visit Provider Nurse Practitioner Family
DX: G47.33 Obstructive sleep apnea (adult) (pediatric) (principal); G47.34 Idiopathic sleep related nonobstructive alveolar hypoventilation; M79.7 Fibromyalgia
CPT/HCPCS: 99214

== ENCOUNTER → 2023-11-12 13:01 | Outpatient (BNVA) | payer OTHER, SELFPAY | PROVIDERS: PCP Internal Medicine; Visit Provider Nurse Practitioner Family | DX: G47.33 Obstructive sleep apnea (adult) (pediatric) (principal); G47.34 Idiopathic sleep related nonobstructive alveolar hypoventilation; M79.7 Fibromyalgia | CPT/HCPCS: 99212 ==

== ENCOUNTER 2023-11-14 11:01 | Outpatient (AMB) | payer OTHER, SELFPAY ==
[2023-11-14 11:10] VITALS: BP 132/72
--- NOTE | 2023-11-14 11:10 | A.OFFVIS_ITS ---
Intake Vital Signs 11/14/23 11:10 Height 5 ft 4 in Weight 175 lb BMI 30.0 BP 132/72 Intake Visit Reasons: DEXA follow up Telegraph And Teletype Operator Required: Yes Telegraph And Teletype Operator Language: Survey Interviewer Name: Xin Garcia Allergies prednisone [PREDNISONE] Allergy (Severe, Verified 11/14/23 11:11) REDNESS, SWELLING FACE, swelling, hives, hives, swelling fluoxetine [From PROZAC] Allergy (Intermediate, Verified 11/14/23 11:11) DIFFICULTY BREATHING Penicillins [PENICILLINS] Allergy (Intermediate, Verified 11/14/23 11:11) RASH/HIVES penicillin V Allergy (Unknown, Verified 11/14/23 11:11) unknown From Toprol XL Allergy (Intermediate, Uncoded 11/14/23 11:11) RASH Is last menstrual period known: No Post menopausal: Yes Patient : No HPI HPI Comments History of Present Illness Details The patient is presenting for follow up regarding DEXA scan results. T score @ spine and femoral Neck respectively were=0.1 /-0.8 and 10 year FRAX risk not computed PFSH Medical History Ventral hernia Multiple lipomas Mild intermittent asthma Dysplasia of cervix, low grade (MARIE 1) Lateral epicondylitis, right elbow Hx of sleep apnea History of asthma Hx of essential hypertension Surgical History Hx of breast biopsy Family History Father HTN (hypertension) Heart disease Mother HTN (hypertension) Heart disease Brother Heart disease Social History Household Members: None Housing: Apartment Alcohol intake: never Patient Tobacco Use Status: Never used Tobacco e-Cigarette/Vaping Use: Never Used Second Hand Smoke Exposure: No Patient : No service: No Current occupational status: unemployed Sexual orientation: Straight/Heterosexual Gender identity: Female Cognitive needs: No Hearing needs: No Vision needs: Yes Female Reproductive History Menstrual Age of Menarche: 13 control method: none Date of Mammogram: 12/24/22 Date of last Bone Density Screenin11/01/23 Review of Systems Const All systems reviewed & are unremarkable except as noted in HPI and below Reports as per HPI and Reports no additional complaints GI Reports no additional complaints Reports no additional complaints Physical Exam Vital Signs: Last Vital Signs BP 132/72 11/14/23 11:10 BMI result Body Mass Index 30.0 Assessment & Plan Assessment & Plan (1) Osteopenia: Code(s): M85.80 - Other specified disorders of bone density and structure, unspecified site Plan: Discussed with the patient the DEXA results and T score showed no evidence of osteoporosis. Discussed with the patient all the options for osteoporosis prevention including lifestyle modifications including Ca+D supplements 1200 mg po qd/800 MIU, Weight bearing exercises and proteine supplements. The patient verbalized understanding and agreed plan will repeat DEXA in 2 years. Coding Level of Care Code Est Pt Level 3 (31600) Diagnoses Osteopenia M85.80
== END 2023-11-14 11:21 | disposition home or self-care (01) ==
LOC: HO.HWS 11:01
PROVIDERS: PCP Internal Medicine; Visit Provider Obstetrics & Gynecology
DX: M85.80 Other specified disorders of bone density and structure, unspecified site (principal)
CPT/HCPCS: 99213

== ENCOUNTER → 2023-11-14 11:01 | Outpatient (BNVA) | payer OTHER, SELFPAY | PROVIDERS: PCP Internal Medicine; Visit Provider Obstetrics & Gynecology | DX: M85.80 Other specified disorders of bone density and structure, unspecified site (principal) | CPT/HCPCS: 99212 ==

== ENCOUNTER 2023-12-26 10:27 | Outpatient (REF) | payer OTHER, SELFPAY ==
--- NOTE | ~2023-12-26 | MM_ITS ---
EXAMINATION: MM SCREENING DIGITAL BREAST TOMOSYNTHESIS, BILATERAL CLINICAL INFORMATION: Screening. Asymptomatic. COMPARISON: Mammography: This study is compared with prior exams dating back to 2019. TECHNIQUE: Digital breast tomosynthesis is performed in both the craniocaudal and mediolateral oblique views along with computer-aided detection (CAD). Synthesized 2D images are generated from the tomosynthesis. FINDINGS: There are scattered areas of fibroglandular density (ACR BI-RADS breast composition Category b). There are no significant masses, abnormal calcifications, or other abnormalities. There are numerous, small, well-circumscribed masses in each breast which are benign. Few, bilateral, benign calcifications are present. There is a tissue marker present in the medial aspect of the right breast indicating the site of prior benign percutaneous biopsy. MM/MM tomosynthesis screening BI IMPRESSION: No mammographic evidence of malignancy. ASSESSMENT: BI-RADS BI-RADS 2 - Benign Findings RECOMMENDATION: Routine annual mammography screening. 1 year F/U This examination should not preclude the clinical evaluation of a suspicious palpable abnormality. This patient's information was entered into a reminder system with a target due date for their next mammogram.
== END 2023-12-26 10:28 | disposition home or self-care (01) ==
LOC: HO.MAMMO 10:27
PROVIDERS: PCP Internal Medicine; Visit Provider Internal Medicine
DX: Z12.31 Encounter for screening mammogram for malignant neoplasm of breast (principal)
CPT/HCPCS: 77063; 77067

== ENCOUNTER → 2023-12-26 10:45 | Outpatient (BNV) | payer OTHER, SELFPAY | PROVIDERS: PCP Internal Medicine; Visit Provider Radiology Diagnostic Radiology | DX: Z12.31 Encounter for screening mammogram for malignant neoplasm of breast (principal) | CPT/HCPCS: 77063; 77067 ==

== ENCOUNTER 2024-01-02 10:36 | Outpatient (AMB) | payer OTHER, SELFPAY ==
--- NOTE | 2024-01-02 10:42 | A.OFFVIS_ITS ---
Intake VS Expanded 01/02/24 10:53 BP 144/65 H Blood Pressure Location Rt brachial Blood Pressure Position Sitting Pulse 92 Pulse Source Pulse Oximeter Temp 98.1 F Temperature Source Temporal Artery Scan Pulse Oximetry 93 Oxygen Delivery Method Room Air Height 5 ft 4 in Weight 170 lb 9.6 oz BMI 29.3 Body Fat % 41.8 Body Fat Mass 71.2 Fat Free Mass 99.2 Visceral Fat Rating 11.0 Body Water % 41.0 Body Water Mass 69.8 Muscle Mass/Score 94.2 Basal Metabolic Rate/Score 1,373 Intake Visit Reasons: (OV) F/U MWL Allergies prednisone [PREDNISONE] Allergy (Severe, Verified 01/02/24 10:45) REDNESS, SWELLING FACE, swelling, hives, hives, swelling fluoxetine [From PROZAC] Allergy (Intermediate, Verified 01/02/24 10:45) DIFFICULTY BREATHING Penicillins [PENICILLINS] Allergy (Intermediate, Verified 01/02/24 10:45) RASH/HIVES penicillin V Allergy (Unknown, Verified 01/02/24 10:45) unknown From Acceleforcerol XL Allergy (Intermediate, Uncoded 11/14/23 11:11) RASH HPI HPI Comments History of Present Illness Details 68 yo woman started our MWL program in October at 173 lbs, TBWL is 3 lbs. Did not watch any classes. Did not show for appt with Sabra. 8 or 9am - 2 eggs with 2 pieces toast wi th diet mayonnaise, berries or grapes. decaf coffee - lactaid adn sugar 1 pm - rice/beans salad and meat - not m easuring. Grape juice 2 oz 6pm - salad with chicken, baked potatoes , fruit again Feels hungry after dinner when she misses meals during the day. Eats nuts and seeds raisins or grapes as snacks. Exercise - no regular Breakfast - 2-3 eggs with 1 slice toast OR cottage cheese/yogurt with 1/2 cup fresh fruit Lunch - 4 oz (8 forks) of protien, 6 oz (12 forks) veg and 2 oz (4 forks) rice or potatoes Dinner - 6 oz (12 forks) lean protein, 6 oz (12 forks) vegetable, 1 serving fruit Exercise - 2 mile videos 5 d/ week [facility] Medical History Ventral hernia Multiple lipomas Mild intermittent asthma Dysplasia of cervix, low grade (MARIE 1) Lateral epicondylitis, right elbow Hx of sleep apnea History of asthma Hx of essential hypertension Surgical History Hx of breast biopsy Family History Father HTN (hypertension) Heart disease Mother HTN (hypertension) Heart disease Brother Heart disease Social History Household Members: None Housing: Apartment Alcohol intake: never Patient Tobacco Use Status: Never used Tobacco e-Cigarette/Vaping Use: Never Used Second Hand Smoke Exposure: No service: No Current occupational status: unemployed Sexual orientation: Straight/Heterosexual Gender identity: Female Cognitive needs: No Hearing needs: No Vision needs: Yes Female Reproductive History Menstrual Age of Menarche: 13 Physical Exam Vital Signs: Last Vital Signs Temp 98.1 F 01/02/24 10:53 Pulse 92 01/02/24 10:53 BP 144/65 H 01/02/24 10:53 Pulse Ox 93 01/02/24 10:53 Oxygen Delivery Method Room Air 01/02/24 10:53 BMI result Body Mass Index 29.3 Assessment & Plan Assessment & Plan (1) Overweight: Code(s): E66.3 - Overweight Plan: Patient is not following our plan, did not see RD or watch our classes. All of this was explained to patient. She wants to try again and will be given appt with PA in 4 weeks and watch videos. Patient is overweight and is not considered stable at this time. I spent20 minutes in total with patient reviewing/updating records, examining the patient and counseling the patient on weight management as detailed above. Coding Level of Care Code Est Pt Level 4 (36096) Diagnoses Overweight E66.3
[2024-01-02 10:53] VITALS: BP 144/65; PULSE 92; TEMP 36.7; O2SAT 93; BMI 29.3
== END 2024-01-02 11:24 | disposition home or self-care (01) ==
PROVIDERS: PCP Internal Medicine; Visit Provider Physician Assistant
DX: E66.3 Overweight (principal)
CPT/HCPCS: 99214

== ENCOUNTER → 2024-01-02 10:36 | Outpatient (BNVA) | payer OTHER, SELFPAY | PROVIDERS: PCP Internal Medicine; Visit Provider Physician Assistant | DX: E66.3 Overweight (principal); Z68.29 Body mass index [BMI] 29.0-29.9, adult | CPT/HCPCS: 99212 ==

== ENCOUNTER 2024-03-04 08:59 | Outpatient (REF) | payer OTHER, SELFPAY ==
--- NOTE | ~2024-03-04 | XR_ITS ---
EXAMINATION: XR KNEE, RIGHT CLINICAL INFORMATION: Pain in right knee COMPARISON: None available. TECHNIQUE: Four views of the right knee. FINDINGS: No fracture. Minimal joint effusion. Alignment is anatomic. Joint spaces are maintained. Tricompartment marginal osteophytes are seen. Quadriceps enthesopathy with small adjacent ossific or calcific density. XR/XR knee RT 2V IMPRESSION: 1. No acute bony abnormality. 2. Mild degenerative changes.
== END 2024-03-04 09:00 | disposition home or self-care (01) ==
LOC: HO.XRAY 08:59
PROVIDERS: PCP Internal Medicine; Visit Provider Internal Medicine
DX: M25.561 Pain in right knee (principal)
CPT/HCPCS: 73560

== ENCOUNTER 2024-03-11 10:35 | Outpatient (AMB) | payer OTHER, SELFPAY ==
--- NOTE | 2024-03-11 10:36 | MHC.OFFVIS ---
Vital Signs 03/11/24 10:38 Height 5 ft 4 in Weight 174 lb 2.643 oz BMI 29.9 BP 118/74 Blood Pressure Location Rt brachial Position Sitting Pulse 95 Pulse Source Doppler Pulse Oximetry (%) 96 Oxygen Delivery Method Room Air Intake Visit Reasons: Asthma Engagement Mgr Required: Yes Engagement Mgr Name: Apryl Murray Yung Allergies prednisone [PREDNISONE] Allergy (Severe, Verified 03/11/24 10:41) REDNESS, SWELLING FACE, swelling, hives, hives, swelling fluoxetine [From PROZAC] Allergy (Intermediate, Verified 03/11/24 10:41) DIFFICULTY BREATHING Penicillins [PENICILLINS] Allergy (Intermediate, Verified 03/11/24 10:41) RASH/HIVES penicillin V Allergy (Unknown, Verified 03/11/24 10:41) unknown From Toprol XL Allergy (Intermediate, Uncoded 11/14/23 11:11) RASH HPI HPI Asthma: Details: 68-year-old lady now followed for asthma, environmental allergies, and obstructive sleep apnea. She continues to use Trelegy and albuterol MDI with good control of his symptoms. She does complain of sinusitis. She denies recent exacerbations. [facility] Medical History Ventral hernia Multiple lipomas Mild intermittent asthma Dysplasia of cervix, low grade (MARIE 1) Lateral epicondylitis, right elbow Hx of sleep apnea History of asthma Hx of essential hypertension Surgical History Hx of breast biopsy Family History Father HTN (hypertension) Heart disease Mother HTN (hypertension) Heart disease Brother Heart disease Social History Household Members: None Housing: Apartment Alcohol intake: never Patient Tobacco Use Status: Never used Tobacco e-Cigarette/Vaping Use: Never Used Second Hand Smoke Exposure: No service: No Current occupational status: unemployed Sexual orientation: Straight/Heterosexual Gender identity: Female Cognitive needs: No Hearing needs: No Vision needs: Yes Female Reproductive History Menstrual Age of Menarche: 13 Review of Systems Const Denies daytime sleepiness, Denies excessive sweating, Denies fatigue, Denies fever(s), Denies lethargy, Denies malaise, Denies night sweats, Denies snoring and Denies weight loss Eyes Denies blurry vision and Denies itchy eyes ENT Denies nasal congestion, Denies post nasal drip, Denies sinus pain, Denies sinus pressure and Denies other ( Thrush) Card Denies chest pain, Denies pedal edema, Denies dyspnea, Denies orthopnea and Denies paroxysmal nocturnal dyspnea Resp Denies cough, Denies hemoptysis, Denies excessive phlegm production, Denies dyspnea, Denies snoring and Denies wheezing GI Denies abdominal pain and Denies heartburn Musc Denies myalgias, Denies arthralgias and Denies joint swelling Skin/Breast Denies rash Neuro Denies memory loss and Denies seizure-like activity Psych Denies abnormal sleep pattern, Denies anxiety and Denies memory loss Endo Denies excessive sweating, Denies fatigue and Denies heat intolerance Mike/Lymph Denies easy bruising Aller/Immun Denies itchy eyes, Denies seasonal rhinorrhea and Denies wheezing Physical Exam Vital Signs: Last Vital Signs Pulse 95 03/11/24 10:38 BP 118/74 03/11/24 10:38 Pulse Ox 96 03/11/24 10:38 Oxygen Delivery Method Room Air 03/11/24 10:38 BMI result Body Mass Index 29.9 Const General: no acute distress and alert Nutritional Appearance: not obese Orientation/consciousness: Other orientation findings ( oriented) HEENT Head: Yes atraumatic Eyes General: appearance normal, both eyes and all related structures Sclerae: sclerae normal EOM: EOMs intact bilaterally Neck Neck: Yes supple Lymphatic: no lymphadenopathy noted Resp Effort & Inspection: normal respiratory effort and no use of accessory muscles Auscultation: clear to auscultation bilaterally Cardio Rate: regular rate Rhythm: regular rhythm Heart sounds: no gallops, no murmurs and no rubs Skin General skin exam: other ( warm) Extrem General: No clubbing, No cyanosis and No edema Assessment & Plan Assessment & Plan (1) Moderate asthma: Code(s): J45.909 - Unspecified asthma, uncomplicated Category: Medical (2) Environmental allergies: Code(s): Z91.09 - Other allergy status, other than to drugs and biological substances Category: Medical (3) Sinusitis: Code(s): J32.9 - Chronic sinusitis, unspecified Category: Medical Plan Asthma symptoms well controlled on current regimen of Trelegy and albuterol MDI. Continue current regimen Environmental allergies now with exacerbation. Patient continues on Zyrtec and nasal ipratropium. She has not interested in immunologic therapy at this time. Now with acute sinusitis, will treat with a course of doxycycline. Medications: New doxycycline monohydrate 100 mg PO BID 20 caps 0RF Coding Level of Care Code Est Pt Level 4 (07352) Diagnoses Moderate asthma J45.909 Environmental allergies Z91.09 Sinusitis J32.9
[2024-03-11 10:38] VITALS: BP 118/74; PULSE 95; O2SAT 96; BMI 29.9
== END 2024-03-11 10:50 | disposition home or self-care (01) ==
PROVIDERS: PCP Internal Medicine; Visit Provider Internal Medicine Pulmonary Disease
DX: J45.909 Unspecified asthma, uncomplicated (principal); Z91.09 Other allergy status, other than to drugs and biological substances; J32.9 Chronic sinusitis, unspecified
CPT/HCPCS: 99214

== ENCOUNTER → 2024-03-11 10:35 | Outpatient (BNVA) | payer OTHER, SELFPAY | PROVIDERS: PCP Internal Medicine; Visit Provider Internal Medicine Pulmonary Disease | DX: J45.909 Unspecified asthma, uncomplicated (principal); J32.9 Chronic sinusitis, unspecified; Z91.09 Other allergy status, other than to drugs and biological substances | CPT/HCPCS: 99212 ==

== ENCOUNTER 2024-03-12 11:09 | Outpatient (AMB) | payer OTHER, SELFPAY ==
--- NOTE | 2024-03-12 11:28 | A.OFFVIS_ITS ---
Vital Signs 03/12/24 11:29 Height 5 ft 4 in Weight 174 lb BMI 29.9 Intake Visit Reasons: 4m Follow up LUCY-CONF Intake Note: Patient presents for 4 month follow up. Allergies prednisone [PREDNISONE] Allergy (Severe, Verified 03/12/24 11:32) REDNESS, SWELLING FACE, swelling, hives, hives, swelling fluoxetine [From PROZAC] Allergy (Intermediate, Verified 03/12/24 11:32) DIFFICULTY BREATHING Penicillins [PENICILLINS] Allergy (Intermediate, Verified 03/12/24 11:32) RASH/HIVES penicillin V Allergy (Unknown, Verified 03/12/24 11:32) unknown From Toprol XL Allergy (Intermediate, Uncoded 03/12/24 11:32) RASH Medication List - Last Reconciled 03/12/24 by ROSITA Mccain acetaminophen (Tylenol Extra Strength) 500 mg PO Q6H PRN amitriptyline 10 mg PO BEDTIME 30 days amlodipine 5 mg PO DAILY aspirin 81 mg PO DAILY cetirizine 10 mg PO DAILY doxycycline monohydrate 100 mg PO BID gekjlqpbwbq-uywgbidog-uybbnkzb 200-62.5-25 mcg (Trelegy Ellipta) 1 inh inhalation DAILY 30 days guaifenesin 400 mg PO QID ipratropium bromide 2 sprays intranasal TID 30 days omeprazole 20 mg PO DAILY HPI Comments Details: 68-yr-old female presents for f/u visit. Pt comes in today with horrible right knee pain. States she barely made it into today's appt. States 3 weeks ago, she was doing things around her house, when she turned and heard a loud noise from her right knee. Since, she has had increased right knee pain and swelling, it is making it very difficult to walk. She has a h/o bilateral knee pain. Dr Arevalo ordered knee x-ray, done on 03/04/24, but formal results are pending. Dr Collado has orddred pt a CPAP machine, which she rece'd over a month ago. She states she cannot use the machine. She cannot tolerate the CPAP or the mask. Reviewed her HST again- reviewed that she has moderate sleep apnea with significant nocturnal hypoxemia. Still, she does not think she could use the machine. She has impaired dentition, so likely is not a candidate for a mandibular de vice. REPLACED BY [facility] Medical History Ventral hernia Multiple lipomas Mild intermittent asthma Dysplasia of cervix, low grade (MARIE 1) Lateral epicondylitis, right elbow Hx of sleep apnea History of asthma Hx of essential hypertension Surgical History Hx of breast biopsy Family History Father HTN (hypertension) Heart disease Mother HTN (hypertension) Heart disease Brother Heart disease Social History Household Members: None Housing: Apartment Alcohol intake: never Patient Tobacco Use Status: Never used Tobacco e-Cigarette/Vaping Use: Never Used Second Hand Smoke Exposure: No service: No Current occupational status: unemployed Sexual orientation: Straight/Heterosexual Gender identity: Female Cognitive needs: No Hearing needs: No Vision needs: Yes Female Reproductive History Menstrual Age of Menarche: 13 Physical Exam Vital Signs: BMI result Body Mass Index 29.9 Const General: cooperative and no acute distress Orientation/consciousness: patient oriented x3 Resp Effort & Inspection: normal respiratory effort and able to speak in complete sentences Neuro Other: Right knee tender to touch, diffuse swelling, limited ROM- ? d/t pain Antalgic gait- pt states has a cane at home. General: patient oriented x3 Cranial nerves: Yes CN's II-XII intact bilaterally Cognition (Neuro): normal cognition Psych Appearance: grossly normal Mental Status: mental status grossly normal Speech and movement: Normal speech and movement present Affect: normal affect Attitude: cooperative Assessment & Plan Assessment & Plan (1) Sleep difficulties: Code(s): G47.9 - Sleep disorder, unspecified Category: Medical (2) Nocturnal hypoxemia: Code(s): G47.34 - Idiopathic sleep related nonobstructive alveolar hypoventilation Category: Medical (3) Moderate obstructive sleep apnea: Code(s): G47.33 - Obstructive sleep apnea (adult) (pediatric) Category: Medical (4) Right knee pain: Code(s): M25.561 - Pain in right knee Category: Medical Plan As pt is having significant difficulty ambulating d/t right knee pain and swelling- will take the liberty of referring to orthopedics. Reviewed HST results w/ pt- moderate LUCY w/ significant nocturnal hypoxemia. Pt has rec'd CPAP machine- but states she is unable to use it. Will refer for ENT evaluation to determine if pt is a candidate for alternate LUCY tx interventions- though pt not interested in Inspire at this time. F/u w/ Dr Holt as scheduled. Continue Amitriptyline for sleep and fibromyalgia s/s. ? f/u in 6 months or sooner prn. Orders: Referrals Orthopedics Referral M25.561 - Pain in right knee Ear/Nose/Throat Referral G47.33 - Obstructive sleep apnea (adult) (pediatric), G47.34 - Idiopathic sleep related nonobstructive alveolar hypoventilation Medications: Refilled amitriptyline 10 mg PO BEDTIME 30 days 30 tabs 3RF Coding Level of Care Code Est Pt Level 4 (86201) Diagnoses Sleep difficulties G47.9 Nocturnal hypoxemia G47.34 Moderate obstructive sleep apnea G47.33 Right knee pain M25.561
[2024-03-12 11:29] VITALS: BMI 29.9
== END 2024-03-12 12:03 | disposition home or self-care (01) ==
PROVIDERS: PCP Internal Medicine; Visit Provider Nurse Practitioner Family
DX: G47.9 Sleep disorder, unspecified (principal); G47.34 Idiopathic sleep related nonobstructive alveolar hypoventilation; G47.33 Obstructive sleep apnea (adult) (pediatric); M25.561 Pain in right knee
CPT/HCPCS: 99214

== ENCOUNTER → 2024-03-12 11:09 | Outpatient (BNVA) | payer OTHER, SELFPAY | PROVIDERS: PCP Internal Medicine; Visit Provider Nurse Practitioner Family | DX: G47.33 Obstructive sleep apnea (adult) (pediatric) (principal); G47.34 Idiopathic sleep related nonobstructive alveolar hypoventilation; J45.909 Unspecified asthma, uncomplicated; G47.9 Sleep disorder, unspecified; M25.561 Pain in right knee | CPT/HCPCS: 99212 ==

== ENCOUNTER 2024-03-25 12:41 | Outpatient (AMB) | payer OTHER, SELFPAY ==
--- NOTE | 2024-03-25 12:42 | A.OFFVIS_ITS ---
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 The patient states that she 1st injured her right knee when she fell down several stairs approximately 3 years ago. She had acute onset of pain along the medial aspect of her knee. The patient states that her symptoms got significantly worse approximately 1 month ago when she twisted her knee while pick him up a box. The patient states that when she twisted her knee she felt ?a crack? in her right knee. Since that time her symptoms have gotten worse. She has had difficulty walking because of her pain. She states that her right knee gives out several times per day. She has failed the last 6 weeks of conservative treatment. She has done home exercises which aggravated her pain. She has been taking Tylenol and Naprosyn which gave her only mild relief. Credit Operations Specialist Required: Yes Credit Operations Specialist Language: Personal Care Aid Name: Fanny([id number]) Allergies prednisone [PREDNISONE] Allergy (Severe, Verified 03/25/24 12:45) REDNESS, SWELLING FACE, swelling, hives, hives, swelling fluoxetine [From PROZAC] Allergy (Intermediate, Verified 03/25/24 12:45) DIFFICULTY BREATHING Penicillins [PENICILLINS] Allergy (Intermediate, Verified 03/25/24 12:45) RASH/HIVES penicillin V Allergy (Unknown, Verified 03/25/24 12:45) unknown From Toprol XL Allergy (Intermediate, Uncoded 03/25/24 12:45) RASH Medication List - Last Reconciled 03/25/24 by Tal Donnelly MD acetaminophen (Tylenol Extra Strength) 500 mg PO Q6H PRN amitriptyline 10 mg PO BEDTIME 30 days amlodipine 5 mg PO DAILY aspirin 81 mg PO DAILY cetirizine 10 mg PO DAILY vzsfocpkdkd-exbilaeaa-fhctukpb 200-62.5-25 mcg (Trelegy Ellipta) 1 inh inhalation DAILY 30 days Grab bar As directed guaifenesin 400 mg PO QID ipratropium bromide 2 sprays intranasal TID 30 days naproxen 500 mg PO BID PRN 30 days omeprazole 20 mg PO DAILY walker (Ultra-Light Rollator misc) As directed [facility] Medical History Ventral hernia Multiple lipomas Mild intermittent asthma Dysplasia of cervix, low grade (MARIE 1) Lateral epicondylitis, right elbow Hx of sleep apnea History of asthma Hx of essential hypertension Surgical History Hx of breast biopsy Family History Father HTN (hypertension) Heart disease Mother HTN (hypertension) Heart disease Brother Heart disease Social History Household Members: None Housing: Apartment Alcohol intake: never Patient Tobacco Use Status: Never used Tobacco e-Cigarette/Vaping Use: Never Used Second Hand Smoke Exposure: No service: No Current occupational status: unemployed Sexual orientation: Straight/Heterosexual Gender identity: Female Cognitive needs: No Hearing needs: No Vision needs: Yes Female Reproductive History Menstrual Age of Menarche: 13 Physical Exam Const Other: Well-nourished well-developed very friendly female awake alert and oriented x3 in no acute distress Extrem Other: Bilateral lower extremity examination shows good capillary refill, no skin lesions noted, normal sensation light touch Right knee examination shows a minimal effusion, minimal crepitus with range of motion, tenderness along her medial joint line, positive Danni's test, no instability Results Reviewed Results Reviewed: Standing full weight-bearing x-rays of the patient's right knee show mild joint space narrowing, no acute bony abnormalities Assessment & Plan Assessment & Plan (1) Right knee pain: Code(s): M25.561 - Pain in right knee Category: Medical Plan Ms. Moraes presents with progressively worsening right knee pain and mechanical symptoms most likely due to a tear of her medial meniscus. Thus, I will send the patient for an MRI of her right knee for further evaluation. I will see her back once the MRI is completed to discuss the findings and treatment options. Feel free to call me at any time should questions regarding her orthopedic management arise. Thank you very much for asking me to see this very friendly patient. I spent 22 minutes in reviewing the patient's records and imaging studies, seeing the patient and documenting in the medical record. Orders: Orders MR knee RT wo con 03/25/24 M25.561 - Pain in right knee Coding Level of Care Code New Pt Level 3 (55159) Diagnoses Right knee pain M25.561
== END 2024-03-25 13:04 | disposition home or self-care (01) ==
PROVIDERS: PCP Internal Medicine; Visit Provider Orthopaedic Surgery
DX: M25.561 Pain in right knee (principal)
CPT/HCPCS: 99203

== ENCOUNTER → 2024-03-25 12:41 | Outpatient (BNVA) | payer OTHER, SELFPAY | PROVIDERS: PCP Internal Medicine; Visit Provider Orthopaedic Surgery | DX: M25.561 Pain in right knee (principal) | CPT/HCPCS: 99202 ==

== ENCOUNTER 2024-06-03 10:19 | Outpatient (REF) | payer OTHER, SELFPAY ==
--- NOTE | ~2024-06-03 | MR_ITS ---
EXAMINATION: MR KNEE WITHOUT CONTRAST, RIGHT CLINICAL INFORMATION: Right knee pain and numbness. Progressive worsening. Decreased range of motion. Instability. COMPARISON: Right knee radiographs dated 03/04/2024. TECHNIQUE: MRI of the knee without contrast was performed using routine sequences on a high-field scanner. FINDINGS: Evaluation is somewhat limited secondary to patient motion. MENISCI: Medial Meniscus: Nondisplaced oblique tibial articular surface tear through the meniscal body and extending to the inner margin of the posterior horn. Lateral Meniscus: Oblique femoral articular surface tear through the posterior aspect of the meniscal body with a superiorly displaced meniscal flap measuring up to 2.2 cm in AP dimension. LIGAMENTS: Cruciate: Intact. Collateral: Mild edema adjacent to the medial collateral ligament consistent with a grade 1 sprain. Intact fibular collateral ligament. EXTENSOR MECHANISM: Superior patellar enthesophytes. Intact quadriceps and patellar tendons. Normal patellofemoral alignment. ARTICULAR CARTILAGE/BONE: Patellofemoral Compartment: Mild articular cartilage signal heterogeneity with tiny marginal osteophytes. Medial Compartment: Mild articular cartilage signal heterogeneity with small marginal osteophytes. Lateral Compartment: Articular cartilage thinning with full-thickness loss laterally where there is mild subchondral cystic change. Marginal osteophytes. JOINT FLUID AND BURSAE: Small joint effusion and trace Kapadia's cyst. MR/MR knee RT wo con IMPRESSION: 1. Oblique tibial articular surface tear through the medial meniscal body extending to the inner margin of the posterior horn. 2. Oblique femoral articular surface tear through the posterior aspect of the lateral meniscal body with a superiorly displaced meniscal flap measuring up to 2.2 cm in AP dimension. 3. Probable grade 1 sprain of the medial collateral ligament. 4. Moderate lateral as well as mild medial and patellofemoral compartment osteoarthritis. Small joint effusion and trace Kapadia's cyst. Electronically signed by: Randal Wright MD 06/04/2024 08:59 AM EDT
== END 2024-06-03 10:20 | disposition home or self-care (01) ==
LOC: HO.MRI 10:19
PROVIDERS: PCP Internal Medicine; Visit Provider Orthopaedic Surgery
DX: M25.561 Pain in right knee (principal)
CPT/HCPCS: 73721

== ENCOUNTER 2024-06-24 09:43 | Outpatient (AMB) | payer OTHER, SELFPAY ==
--- NOTE | 2024-06-24 09:44 | A.OFFVIS_ITS ---
Vital Signs 06/24/24 09:44 Height 5 ft 4 in Weight 175 lb BMI 30.0 Intake Visit Reasons: OV - right knee MRI review Intake Note: Chayito is a 68 year old female who presents with complaints of progressively worsening right knee pain and giving way. The patient states that she 1st injured her right knee when she fell down several stairs approximately 3 years ago. She had acute onset of pain along the medial aspect of her knee. The patient states that her symptoms got significantly worse approximately 1 month ago when she twisted her knee while pick him up a box. The patient states that when she twisted her knee she felt ?a crack? in her right knee. Since that time her symptoms have gotten worse. She has had difficulty walking because of her pain. She states that her right knee gives out several times per day. She has failed the last 6 weeks of conservative treatment. She has been taking Tylenol and Naprosyn which gave her only mild relief. Respiratory Care Practitioner Required: Yes Respiratory Care Practitioner Language: Process Improvement Analyst Name: Marie [id number] Allergies prednisone [PREDNISONE] Allergy (Severe, Verified 06/24/24 09:47) REDNESS, SWELLING FACE, swelling, hives, hives, swelling fluoxetine [From PROZAC] Allergy (Intermediate, Verified 06/24/24 09:47) DIFFICULTY BREATHING Penicillins [PENICILLINS] Allergy (Intermediate, Verified 06/24/24 09:47) RASH/HIVES penicillin V Allergy (Unknown, Verified 06/24/24 09:47) unknown From Toprol XL Allergy (Intermediate, Uncoded 03/25/24 12:45) RASH Medication List - Last Reconciled 06/24/24 by Tal Donnelly MD acetaminophen (Tylenol Extra Strength) 500 mg PO Q6H PRN amitriptyline 10 mg PO BEDTIME 30 days amlodipine 5 mg PO DAILY aspirin 81 mg PO DAILY cetirizine 10 mg PO DAILY oatzwaiyfix-wxmauryta-ghuzyecf 200-62.5-25 mcg (Trelegy Ellipta) 1 inh inhalation DAILY 30 days Grab bar As directed guaifenesin 400 mg PO QID ipratropium bromide 2 sprays intranasal TID 30 days naproxen 500 mg PO BID PRN 30 days omeprazole 20 mg PO DAILY walker (Ultra-Light Rollator [facility]) As directed [facility] Medical History Ventral hernia Multiple lipomas Mild intermittent asthma Dysplasia of cervix, low grade (MARIE 1) Lateral epicondylitis, right elbow Hx of sleep apnea History of asthma Hx of essential hypertension Surgical History Hx of breast biopsy Family History Father HTN (hypertension) Heart disease Mother HTN (hypertension) Heart disease Brother Heart disease Social History Household Members: None Housing: Apartment Alcohol intake: never Patient Tobacco Use Status: Never used Tobacco e-Cigarette/Vaping Use: Never Used Second Hand Smoke Exposure: No service: No Current occupational status: unemployed Sexual orientation: Straight/Heterosexual Gender identity: Female Cognitive needs: No Hearing needs: No Vision needs: Yes Female Reproductive History Menstrual Age of Menarche: 13 Physical Exam Vital Signs: BMI result Body Mass Index 30.0 Const Other: Well-nourished well-developed very friendly female awake alert and oriented x3 in no acute distress Extrem Other: Bilateral lower extremity examination shows good capillary refill, no skin lesions noted, normal sensation light touch Right knee examination shows a mild effusion, mild crepitus with range of motion, tenderness along her medial and lateral joint lines, positive Danni's test, no instability Results Reviewed Results Reviewed: MRI of the patient's right knee shows mild diffuse degenerative changes as well as a tear of the medial meniscus and possible tearing of the lateral meniscus, no acute bony abnormalities Assessment & Plan Assessment & Plan (1) Right knee pain: Code(s): M25.561 - Pain in right knee Category: Medical Plan Ms. Moraes presents with right knee pain due to early degenerative joint disease as well as a tear of her medial meniscus and possible lateral meniscus tearing. I had a lengthy discussion with the patient regarding the treatment options. We will hold off on a cortisone injection or surgery for now. I did give her a prescription to go to formal physical therapy. She will follow up with me on an as-needed basis should her symptoms not plateau at an unacceptable level. Feel free to call me at any time should questions regarding her orthopedic management arise. I spent 21 minutes in reviewing the patient's records and imaging studies, seeing the patient and documenting in the medical record. Orders: Orders PT Evaluation and Treatment Today M25.561 - Pain in right knee Coding Level of Care Code Est Pt Level 3 (27023) Complex EM visit Add On G2211 Diagnoses Right knee pain M25.561
== END 2024-06-24 10:04 | disposition home or self-care (01) ==
PROVIDERS: PCP Internal Medicine; Visit Provider Orthopaedic Surgery
DX: M25.561 Pain in right knee (principal); S83.241A Other tear of medial meniscus, current injury, right knee, initial encounter
CPT/HCPCS: 99213; G2211

== ENCOUNTER → 2024-06-24 09:43 | Outpatient (BNVA) | payer OTHER, SELFPAY | PROVIDERS: PCP Internal Medicine; Visit Provider Orthopaedic Surgery | DX: M25.561 Pain in right knee (principal) | CPT/HCPCS: 99212 ==

== ENCOUNTER 2024-08-13 10:00 | Outpatient (RCR) | payer OTHER, SELFPAY ==
--- NOTE | 2024-07-17 12:53 | MHC.PT.EP ---
[facility] [place] [facility] [place] Office [place] Office [address] Alexandra Andrew [address] [phone] F: [phone] F: [phone] F: [phone] F: [phone] Physical Therapy Plan of Care Date of Evaluation: 07/16/24 Date of Surgery: Diagnosis: RIGHT knee pain (MD Dx) RS degenerative joint disease as well as a tear of her medial meniscus and possible lateral meniscus tear (MRI findings) Assessment: Chayito is a 68 y.o. female who is referred to PT by Dr. Tal Guan MD of [facility] with Dx of Pain in RIGHT knee. Her MRI findings indicate degenerative joint disease and tear of her medial meniscus and possible lateral meniscus tear. Patient impairments include knee pain, swelling in knee, limited knee ROM, weakness of R LE, antalgic gait. Patient current functional limitations are putting on shoes/socks, walking in grocery store, prolonged standing, get up from chair, stairs. Patient will benefit from skilled PT to address aforementioned impairments and functional limitations to meet established goals. Frequency and Duration: The patient will be seen 2x/week for 4 weeks Short Term Goals: 2 weeks Patient demonstrates consistency and independence with HEP to self manage symptoms. Group Home Goals: 4 weeks Patient presents with increased R knee flexion 110 degrees to improve sit to stand from low surfaces. Patient presents with increased R quad strength 4+/5 to be able to utilize stairs with railing for community use. Treatment Plan: Modalities to reduce pain, spasms and effusion. Manual therapy to restore motion and function. Therapeutic exercise to improve strength and flexibility. Neuromuscular re-education for posture and balance. Therapeutic activities to return to functional activities of daily living. Electronically signed by: Radha Javier, PT, DPT Please sign and return to therapist. Thank you for your referral.
--- NOTE | 2024-11-11 13:11 | MHC.PT.DC ---
[facility] [place] Office [place] Office [facility] Office [address] Alexandra Andrew 140 [facility] [phone] F: [phone] F: [phone] F: [phone] F: [phone] Physical Therapy Discharge Report Diagnosis: RIGHT knee pain ( Dx) RS degenerative joint disease as well as a tear of her medial meniscus and possible lateral meniscus tear (MRI findings) Date of Surgery: Date of Evaluation: 07/16/24 Date of Discharge: 11/11/24 Treatments to Date: 8 Cancellations to Date: 1 No Shows to Date: 0 Discharge Status: Achieved Goals Improved Function Independent with HEP Discharge Summary: Chayito did well with PT interventions. She is independent with HEP, she tested with full knee strength and was reporting no pain. She agreed to discharge on her last visit on 08/13/24. Electronically signed by: Radha Javier, PT, DPT Please sign and return to therapist. Thank you for your referral.
== END 2024-11-11 13:11 | disposition home or self-care (01) ==
LOC: HO.PT 10:00
PROVIDERS: PCP Internal Medicine; Visit Provider Orthopaedic Surgery
DX: M25.561 Pain in right knee (principal)
CPT/HCPCS: 97110; 97161; 97530

== ENCOUNTER 2024-09-16 10:00 | Outpatient (AMB) | payer OTHER, SELFPAY ==
[2024-09-16 10:02] VITALS: BMI 29.9
--- NOTE | 2024-09-16 10:02 | A.OFFVIS_ITS ---
Vital Signs 09/16/24 10:02 Height 5 ft 4 in Weight 174 lb BMI 29.9 Intake Visit Reasons: OV- right knee pain f/u, s/p PT Intake Note: Chayito is a 68 year old female who presents for follow up of her right knee pain. The patient states that she continues with her home exercise program. She did complete formal physical therapy several months ago. She denies any locking or giving way. Snag Grinder Required: Yes Snag Grinder Language: Lens Shaper Grinder Services: Snag Grinder Present Snag Grinder Name: ZULAY Ignacio/SAE Allergies prednisone [PREDNISONE] Allergy (Severe, Verified 09/16/24 10:02) REDNESS, SWELLING FACE, swelling, hives, hives, swelling fluoxetine [From PROZAC] Allergy (Intermediate, Verified 09/16/24 10:02) DIFFICULTY BREATHING Penicillins [PENICILLINS] Allergy (Intermediate, Verified 09/16/24 10:02) RASH/HIVES penicillin V Allergy (Unknown, Verified 09/16/24 10:02) unknown From Toprol XL Allergy (Intermediate, Uncoded 09/16/24 10:02) RASH Medication List - Last Reconciled 09/16/24 by Tal Donnelly MD acetaminophen (Tylenol Extra Strength) 500 mg PO Q6H PRN amitriptyline 10 mg PO BEDTIME 30 days amlodipine 5 mg PO DAILY atorvastatin 40 mg PO DAILY cetirizine 10 mg PO DAILY fluticasone propionate 50 mcg/actuation sprays intranasal orwjkdovzgl-fgjtuoopw-dvhylaut 200-62.5-25 mcg (Trelegy Ellipta) 1 inh inhalation DAILY 30 days Grab bar As directed ipratropium bromide 2 sprays intranasal TID 30 days losartan 50 mg PO DAILY walker (Ultra-Light Rollator misc) As directed [facility] Medical History Ventral hernia Multiple lipomas Mild intermittent asthma Dysplasia of cervix, low grade (MARIE 1) Lateral epicondylitis, right elbow Hx of sleep apnea History of asthma Hx of essential hypertension Surgical History Hx of breast biopsy Family History Father HTN (hypertension) Heart disease Mother HTN (hypertension) Heart disease Brother Heart disease Social History Household Members: None Housing: Apartment Alcohol intake: never Patient Tobacco Use Status: Never used Tobacco e-Cigarette/Vaping Use: Never Used Second Hand Smoke Exposure: No service: No Current occupational status: unemployed Sexual orientation: Straight/Heterosexual Gender identity: Female Cognitive needs: No Hearing needs: No Vision needs: Yes Female Reproductive History Menstrual Age of Menarche: 13 Physical Exam Vital Signs: BMI result Body Mass Index 29.9 Const Other: Well-nourished well-developed very friendly female awake alert and oriented x3 in no acute distress Extrem Other: Bilateral lower extremity examination shows good capillary refill, no skin lesions noted, normal sensation light touch Right knee examination shows a minimal effusion, minimal crepitus with range of motion, tenderness along her medial joint line, positive Danni's test, no instability Assessment & Plan Assessment & Plan (1) Right knee pain: Code(s): M25.561 - Pain in right knee Category: Medical Plan Ms. Moraes presents with intermittent right knee discomfort due to tearing of her medial and lateral menisci. I had a lengthy discussion with the patient regarding the treatment options. At this point her symptoms are tolerable to her. She wishes to hold off on a cortisone injection and surgery. She will continue with her activity modifications. She will follow up with me on an as- needed basis should her symptoms worsen in any way. Feel free to call me at any time should questions regarding her orthopedic management arise. I spent 21 minutes in reviewing the patient's records and imaging studies, seeing the patient and documenting in the medical record. Coding Level of Care Code Est Pt Level 3 (12772) Complex EM visit Add On G2211 Diagnoses Right knee pain M25.561
--- OUTSIDE RECORDS SUMMARY | 2024-09-16 23:58 | XMS_ITS | Continuity of Care Document ---
Author Organization [facility] Address [address] [place] [address]- Care Team Providers Care Aquaculture Worker Name Role Phone Carolin RICHARD, Tracy Primary Care Physician Encounter [facility] Date(s): 07/21/24 - 08/20/24 [facility] [address] [place], [place] [phone] Encounter Type: Triage Allergies, Adverse Reactions, Alerts Substance Criticality Severity Reaction Reaction Severity Status penicillin Active [place] Active Prozac Active [place] face swelling, cough, throat closes Active Immunizations Given and Recorded Vaccine Date Status Refusal Reason influenza virus vaccine, inactivated 09/26/08 Give n Pneumococcal Vaccine (oldterm) 09/26/08 Given Medications amLODIPine 5 mg oral tablet 5 mg, 1, tablet, By Mouth, Daily, # 90 tablet, Refills 0, Tot. Refills 0, Maintenance, 07/13/24 9:29:00 AM EDT, Route to Pharmacy Electronically, [facility]/pharmacy #[id number], label in Chinese, 165, cm, 07/13/24 8:28:00 EDT, Height, 79, kg, 09/27/23 4:10:00 EST, Dry Weight Start Date: 07/13/24 Status: Ordered Quantity: 90.0 Unit: tablet Repeat number: 1 atorvastatin 40 mg oral tablet 1 tablet = 40 mg, By Mouth, Daily, # 90 tablet, 1 Refills, Maintenance, 07/13/24 9:26:00 AM EDT, Tablet, [facility]/pharm[facility] #[id number], label in Chinese, 165, cm, 07/13/24 8:28:00 EDT, Height, 79, kg, 09/27/23 4:10:00 EST, Dry Weight Start Date: 07/13/24 Stop Date: 01/09/25 Status: Ordered Quantity: 90.0 Unit: tablet Repeat number: 2 cetirizine 10 mg oral tablet 1 tablet = 10 mg, By Mouth, Daily, # 90 tablet, 1 Refills, Maintenance, 07/13/24 9:25:00 AM EDT, Tablet, [facility]/pharm[facility] #[id number], label in Chinese, 165, cm, 07/13/24 8:28:00 EDT, Height, 79, kg, 09/27/23 4:10:00 EST, Dry Weight Start Date: 07/13/24 Stop Date: 01/09/25 Status: Ordered Quantity: 90.0 Unit: tablet Repeat number: 2 cholecalciferol 1000 intl units oral tablet 1 tablet = 25 mcg, By Mouth, Daily, for 90 days, # 90 tablet, 1 Refills, Acute 02/14/25 6:59:00 PM EDT, 08/18/24 6:59:00 PM EST, Tablet, [facility]/pharm[facility] #[id number], label in Chinese, 165, cm, 07/13/24 8:28:00EDT, Height, 79, kg, 09/27/23 4:10:00 EST, Dry Weight Start Date: 08/18/24 Stop Date: 02/14/25 Status: Ordered Quantity: 90.0 Unit: tablet Repeat number: 2 EpiPen 2-Vincent 0.3 mg injectable kit = 0.3 mg, Intramuscular, Once, may repeat if necessary. call ambulance immediately after using, keep with you at all times, # 1 each, 1 Refills, Soft Stop, 07/13/24 9:18:00 AM EDT, [facility], [email or web address] in Chinese, all scripts, 165, cm, 07/13/24 8:28:00 EDT, Height, 79, kg, 234:10:00 EST, Dry Weight Start Date: 07/13/24 Status: Ordered Quantity: 1.0 Unit: each Repeat number: 2 fluticasone 50 mcg/inh nasal spray See Instructions, INHALE 2 SPRAYS BOTH NARES DAILY IN AM, # 16 mL, 2 Refills, Maintenance, 08/11/24 3:34:00 PM EST, [id number], 30, INHALE 2 SPRAYS BOTH NARES DAILY IN AM, 165, cm, 07/13/24 8:28:00 EDT, Height, 79, kg, 09/27/23 4:10:00 EST, Dry Weight Start Date: 08/11/24 Status: Ordered Quantity: 16.0 Unit: mL Repeat number: 1 losartan 50 mg oral tablet 50 mg, 1, tablet, By Mouth, Daily, # 90 tablet, Refills 0, Tot. Refills 0, Maintenance, 07/13/24 9:29:00 AM EDT, Route to Pharmacy Electronically, [facility]/pharmacy #[id number], label in Chinese, 165, cm, 07/13/24 8:28:00 EDT, Height, 79, kg, 09/27/23 4:10:00 EST, Dry Weight Start Date: 07/13/24 Status: Ordered Quantity: 90.0 Unit: tablet Repeat number: 1 Trelegy Ellipta 200 mcg-62.5 mcg-25 mcg/inh inhalation powder 1 puffs, Inhalation, Daily, at the same time every day, # 1 each, 2 Refills, Maintenance, 07/13/24 9:27:00 AM EDT, Powder, [facility]/pharm[facility] #[id number], label in Chinese, 1 puffs Inhalation Daily,x30 days,Instr:at the same time every day, 165, cm, 07/13/24 8:28:00 EDT, Height, 79, kg, 09/27/23 4:10:00 EST, Dry Weight Start Date: 07/13/24 Stop Date: 10/11/24 Status: Ordered Quantity: 1.0 Unit: each Repeat number: 3 Ventolin HFA 108 mcg/inh inhalation aerosol with adapter 2 puffs, Inhalation, Every 4 hours, PRN for wheezing, # 18 Gm, 1 Refills, Maintenance, 07/13/24 9:30:00 AM EDT, Aerosol, [facility]/pharm[facility] #[id number], label in Chinese, 165, cm, 07/13/24 8:28:00 EDT, Height, 79, kg, 09/27/23 4:10:00 EST, Dry Weight Start Date: 07/13/24 Stop Date: 09/11/24 Status: Ordered Quantity: 18.0 Unit: g Repeat number: 2 Problem List Condition Confirmation Course Effective Dates Status H ealth Status Informant Allergy to penicillin Confirmed Active Asthma 1 Confirmed Active DJD (degenerative joint disease) of cervical spine Confirmed Active Diabetes mellitus Confirmed Active Dysphagia 2 Confirmed Active Fibromyalgia 3 Confirmed Active h/of fracture of nasal bones Confirmed 07/2020 Active GERD (gastroesophageal reflux disease), optedout of EGD planned 2020 Confirmed Active Hearing loss Confirmed Active Hyperlipidemia Confirmed Active Hypertension Confirmed Active IgE level elevated Confirmed Active Iron excess by labs , pending more labs Confirmed Active DJD (degenerative joint disease), lumbar Confirmed Active Obese class I Confirmed Active Obstructive sleep apnea (LUCY) Confirmed Active Prediabetes Confirmed Active 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) Confirmed Active Vitamin D deficiency Confirmed Active 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 2per GI 2020 3per ER note and also Pulmonloogy 2020 Social History Social History Type Response Smoking Status Never smoker entered on: 11/13/16 Sex Sex Representation Female (finding) Patient Care team information Care Team Personnel Name: Coretta Soriano RN Position: [facility] RN Member Role: Primary Care Nurse Name: Josephine Kwon RN Position: [facility] RN Member Role: Primary Care Nurse Name: Tracy Coe MD Position: [facility] Physician - Primary Care Member Role: PCP Address: [address] [place] [address] Telecom: Name: Charlee Nazario RN Position: [facility] RN Member Role: Primary Care Nurse Name: Edith Serna RN Position: [facility] Member Role: Primary Care Nurse Name: Genie Sheridan RN Position: [facility] Member Role: Primary Care Nurse Name: Megha Chandler RN Position: [facility] RN Member Role: Primary Care Nurse Care Team Related Persons Name: SERGIO RAUSCH Name: LEEROY VELARDE Insurance Providers Guarantor name: MARCO ANTONIO Health Plan Information #: 1 Payer: MARCO ANTONIO Member Number: MARCO ANTONIO Policy Number: MARCO ANTONIO Group Number: [id number]
--- OUTSIDE RECORDS SUMMARY | 2024-09-16 23:58 | XMS_ITS | Data Portability ---
Author Organization [place] - [facility], Allergy Address [address] [place] [address] Care Team Providers Care Bank Vault Custodian Name Role Phone DARIANA BRONSON Primary Care Provider [phone] Assessment Encounter Date Assessment Date Assessment LastModified by Organization Details LastModified Time 08/12/2024 08/12/2024 Patient with hx of ULCY. Difficulty tolerating CPAP due to anxiety and nasal congestion. For nasal dryness, suggest 2 sprays each nostril 4 times daily and K-Y jelly in the nose at night. Suggest PCP make referral back to sleep medicine priyank Not available 08/12/2024 10:53:14 Plan of Treatment Reminders Order Date Submit Date Provider Last Modified By Organization Details Last Modified Time Details Appointments None record ed. Lab None record ed. Referral None record ed. Procedures None record ed. Surgeries None record ed. Imaging None record ed. Medication Orders None record ed. Patient TargetsNo targets recorded. Patient InstructionsNo instructions recorded. Reason for Referral None Reported. Problems Name Problem SNOMED Code Status Onset Date Resolution Date Notes Provider Name and Address Organization Details Recorded Time Deviated nasal septum 111367535 Active 2020 Deviated nasal septum; Note: Date Diagnosed : 1 3:39 PM (J34.2) Not Available [facility] 4 02:19:52 Nasal congestion 94049053 Active 2020 Nasal congestio n; Note: Date Diagnosed : 1 3:39 PM (R09.81) Not Available [facility] 4 02:20:16 Obstructiv e sleep apnea syndrome 65661963 Active 2023 DONTE ANAYA MD [address],[place] [address], [place], [address] , [facility] - [facility] 4 10:51:50 Nasal obstructio n 913779032 Active 2023 DONTE ANAYA MD [address],[place] [address], [place], [phone] , [facility] - [facility] 4 10:51:56 Problem Notes None recorded. Procedures Surgical History Date Name Laterality Status Provider Name and Address Organization Details Recorded Time rhinoseptoplasty completed DONTE BUSTAMANTE MD [address],[place] [address], [place], [address], [facility] - [facility] [place] 08/12/2024 10:54:10 Breast reconstruction completed DONTE BUSTAMANTE MD [address],[place] [address], [place], [address], [facility] 08/12/2024 10:54:27 Imaging Results None recorded. Procedure Notes None recorded. Medical Equipment None Reported. Allergies Allergen ID Allergen Name Allergen Category Reaction Reaction Severity Criticality Documentation Date Start Date Code Code System Note Provider Name and Address Organization Details Recorded Time 04134 corn extract food,medi cation other Not available Not available 02/18/2024 63108 08 RxNorm React ion: other react ion, Unkno wn; Not Available [facility] 4 00:54:59 40404 Medicinal product containin g penicilli n and acting as antibacte rial agent (product) medicatio n other Not available Not available 02/18/2024 58212 05 SNOMED React ion: other react ion, Unkno wn; Not Available [facility] 4 00:55:03 Medications Name Sig Start Date Stop Date Status Note LastModified by Organization Details LastModified Time losartan 50 mg tablet TAKE 1 TABLET BY MOUTH EVERY DAY active Not Available Not Available No t Available atorvasta tin 40 mg tablet TAKE 1 TABLET BY MOUTH EVERY DAY active Not Available Not Available No t Available cetirizin e 10 mg tablet TAKE 1 TABLET BY MOUTH EVERY DAY active Not Available Not Available No t Available amlodipin e 5 mg tablet TAKE 1 TABLET BY MOUTH EVERY DAY active Not Available Not Available No t Available aspirin 81 mg tablet,de layed release TAKE 1 TABLET BY MOUTH EVERY DAY active Not Available Not Available No t Available acetamino phen 500 mg tablet 2020 active Medicati on ID: [id number] B rand Name: acetamin ophen Se nd Method: E-Prescr ibed Sub s Allowed: subs [place] Speci al Instruct ion: TAKE 1 TABLET BY MOUTH EVERY 6 TO 8 HOURS NEEDED. NO MORE THAN 4 TABLETS IN 24 HOURS Me dication GenericN bo: acetamin ophen Not Available Not Available Not Available amitripty line 10 mg tablet TAKE 1 TABLET BY MOUTH EVERY DAY AT BEDTIME active Not Available Not Available No t Available doxycycli ne monohydra te 100 mg capsule TAKE 1 CAPSULE BY MOUTH TWICE DAILY active Not Available Not Available No t Available Advair Diskus 250 mcg-50 mcg/dose powder for inhalatio n 2020 active Medicati on ID: [id number] B rand Name: Advair Diskus S end Method: E-Prescr ibed Sub s Allowed: subs [place] Speci al Instruct ion: INHALE 1 PUFF TWICE DAILY IN THE MORNING AND IN THE EVENING 12 HOURS APART Me dication GenericN bo: Advair Diskus Not Available Not Available Not Available lisinopri l 20 mg-hydroc hlorothia zide 25 mg tablet 08/12 completed Medicati on ID: [id number] B rand Name: lisinopr il-hydro chloroth iazide S end Method: E-Prescr ibed Sub s Allowed: subs [place] Speci al Instruct ion: TAKE 1 TABLET BY MOUTH EVERY DAY Medi cationGe nericNam e: lisinopr il-hydro chloroth iazide Not Available Not Available Not Available monteluka st 10 mg tablet 08/12 completed Medicati on ID: [id number] B rand Name: monteluk ast Send Method: E-Prescr ibed Sub s Allowed: subs [place] Speci al Instruct ion: TAKE 1 TABLET BY MOUTH EVERY DAY Medi cationGe nericNam e: monteluk ast Not Available Not Available Not Available azelastin e 137 mcg (0.1 %) nasal spray Inhale 2 spray twice a day as directed 2020 active Medicati on ID: [id number] D uration Value: 30 Prescri bed By Name: DonteSirena Virk nd Name: bonnie de la paz Send Method: E-Prescr ibed Sub s Allowed: subs OK Medic ationGen ericName : bonnie de la paz Not Available Not Available Not Available ibuprofen 600 mg tablet 2020 active Medicati on ID: [id number] B rand Name: ibuprofe n Send Method: E-Prescr ibed Sub s Allowed: subs [place] Speci al Instruct ion: TK 1 T PO Q 8 HOURS Me dication GenericN bo: ibuprofe n Not Available Not Available Not Available albuterol sulfate HFA 90 mcg/actua tion aerosol inhaler INHALE 2 PUFFS BY MOUTH EVERY 4 HOURS NEEDED FOR WHEEZING active Not Available Not Available No t Available ipratropi um bromide 42 mcg (0.06 %) nasal spray USE 2 SPRAY IN EACH NOSTRIL THREE TIMES DAILY active Not Available Not Available No t Available fluticaso ne propionat e 50 mcg/actua tion nasal spray,ju pension INHALE 2 SPRAYS BOTH NARES DAILY IN AM active Not Available Not Available No t Available naproxen 500 mg tablet TAKE 1 TABLET BY MOUTH TWICE DAILY NEEDED FOR PAIN active Not Available Not Available No t Available Trelegy Ellipta 200 mcg-62.5 mcg-25 mcg powder for inhalatio n INHALE 1 PUFFS INTO LUNGS DAILY,X3 0 DAYS,INS TR:AT THE SAME TIME EVERY DAY active Not Available Not Available No t Available Vitals Date Recorded Body height Body mass index (BMI) Body weight Provider Name and Address Organization Details Last Updated DateTime 08/12/2024 165.1 cm 30 kg/m2 18719.63 g Russ Montanez [facility] 08/12/2024 10:36:30 Social History None recorded. Functional Status None recorded. Mental Status None recorded. Family History Nothing Reported. Medical History Condition Response Nasal or Sinus Problems Y Gynecological HistoryNo gynecological history recorded. Obstetrics History GPAL:G 0 P 0 0 0 0 Past Encounters Encounter ID Performer Location Encounter Start Date Encounter Closed Date Diagnosis/Indication Diagnosis SNOMED-CT Code Diagnosis ICD10 Code [id number] DONTE ANAYA MD [facility] [address] [facility] [address] 08/12/2024 10:18:44 08/12/2024 10:55:23 Obstructive sleep apnea syndrome 67877890 G47.33 Nasal obstruction 432700 000 J34.89 Deviated nasal septum 12 9289746 J34.2 Health Concerns Section Related Observation LastModified by Organization Detai ls LastModified Time None Recorded Concern Status LastModified by Organization Details LastModified Time None Recorded Advance Directives Directive None Recorded Payers Encounter Date Sequence Insurance Name Policy Number Policy Evans Covered Member ID Evans Member ID Guarantor Name 08/12/2024 1 [facility] - DOS ON OR AFTER 2023 - [facility] [employer] (MEDICARE REPLACEMENT/ADV ANTAGE - HMO) Chayito Moraes [id number] Chayito Moraes Notes Date Note Type Note Provider Name and Address Organization Details Recorded Time 08/12/2024 text/html Pt not sure why she is here but consult for difficulty tolerating CPAP. Just started using CPAP but having anxiety. 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
--- OUTSIDE RECORDS SUMMARY | 2024-09-16 23:58 | XMS_ITS | Continuity of Care Document ---
Author Organization [place] - [facility], [facility] Address [address] [place] [address] Care Team Providers Care Waste Transportation Technician Name Role Phone DARIANA BRONSON Primary Care Provider [phone] Assessment Encounter Date Assessment Date Assessment LastModified by Organization Details LastModified Time 08/12/2024 08/12/2024 Patient with hx of LUCY. Difficulty tolerating CPAP due to anxiety and [...] Organization Details Recorded Time Deviated nasal septum 330201965 Active 2020 Deviated nasal septum; Note: Date Diagnosed : 1 3:39 PM (J34.2) Not Available [facility] 4 02:19:52 Nasal congestion 69800310 Active 2020 Nasal congestio n; Note: Date Diagnosed : 1 3:39 PM (R09.81) Not Available [facility] 4 02:20:16 Obstructiv e sleep apnea syndrome 97607914 Active 2023 DONTE ANAYA MD [address] [address], [place], [address] , [facility] - [facility] 4 10:51:50 Nasal obstructio n 700690514 Active 2023 DONTE ANAYA MD [address], [facility] [place] [address] , [facility] - [facility] 4 10:51:56 Problem Notes None recorded. Procedures Surgical History Date Name Laterality Status Provider Name and Address Organization Details Recorded Time rhinoseptoplasty completed DONTE BUSTAMANTE MD [address],[place] [facility], [place], [address], [facility] - [facility] 08/12/2024 10:54:10 Breast reconstruction completed DONTE BUSTAMANTE MD [address], [place], [address], [facility] 08/12/2024 10:54:27 Imaging Results None recorded. Procedure Notes None recorded. Medical Equipment None Reported. Allergies Allergen ID Allergen Name Allergen Category Reaction Reaction Severity Criticality Documentation Date Start Date Code Code System Note Provider Name and Address Organization Details Recorded Time 48233 corn extract food,medi cation other Not available Not available 02/18/2024 41252 08 RxNorm React ion: other react ion, Unkno wn; Not Available [facility] 4 00:54:59 26779 Medicinal product containin g penicilli n and acting as antibacte rial agent (product) medicatio n other Not available Not available 02/18/2024 43125 05 SNOMED React ion: other react ion, Unkno wn; Not Available [facility] 4 00:55:03 Medications Name Sig Start Date [...] mg tablet 2020 active Medicati on ID: [id number] B rand Name: acetamin ophen Se nd [...] inhalatio n 2020 active Medicati on ID: [id number] B rand Name: Advair Diskus S end Method: E-Prescr ibed Sub s Allowed: subs OK Speci al Instruct ion: INHALE 1 PUFF TWICE DAILY IN THE MORNING AND IN THE EVENING 12 HOURS APART Me dication GenericN bo: Advair Diskus Not Available Not Available Not Available lisinopri l 20 mg-hydroc hlorothia zide 25 mg tablet 08/12 completed Medicati on ID: [id number] B rand Name: lisinopr il-hydro chloroth iazide S end Method: E-Prescr ibed Sub s Allowed: subs OK Speci al Instruct ion: TAKE 1 TABLET BY MOUTH EVERY DAY Medi cationGe nericNam e: lisinopr il-hydro chloroth iazide Not Available Not Available Not Available monteluka st 10 mg tablet 08/12 completed Medicati on ID: [id number] B rand Name: monteluk ast Send Method: E-Prescr ibed Sub s Allowed: subs OK Speci al Instruct ion: TAKE 1 TABLET BY MOUTH EVERY DAY Medi cationGe nericNam e: monteluk ast Not Available Not Available Not Available azelastin e 137 mcg (0.1 %) nasal spray Inhale 2 spray twice a day as directed 2020 active Medicati on ID: [id number] D uration Value: 30 Prescri bed By Name: Donte lunsofrd M.D. Bra nd Name: bonnie ana cristina Send Method: E-Prescr ibed Sub s Allowed: subs OK Medic ationGen ericName : chasstdeandre ne Not Available Not Available Not Available ibuprofen 600 mg tablet 2020 active Medicati on ID: [id number] B rand Name: ibuprofe n Send Method: [...] Updated DateTime 08/12/2024 165.1 cm 30 kg/m2 38352.63 g Russ Montanez [facility] 08/12/2024 10:36:30 Social History None recorded. Functional Status None recorded. Mental Status None recorded. Family History Nothing Reported. Medical History Condition Response Nasal or Sinus Problems Y Gynecological HistoryNo gynecological history recorded. Obstetrics History GPAL:G 0 P 0 0 0 0 Past Encounters Encounter ID Performer Location Encounter Start Date Encounter Closed Date Diagnosis/Indication Diagnosis SNOMED-CT Code Diagnosis ICD10 Code [id number] DONTE ANAYA MD [facility] [address] 08/12/2024 10:18:44 08/12/2024 10:55:23 Obstructive sleep apnea syndrome 42202778 G47.33 Nasal obstruction 042287 000 J34.89 Deviated nasal septum 12 2669617 J34.2 Health Concerns Section Related Observation LastModified by Organization Detai ls LastModified Time None Recorded Concern Status LastModified by Organization Details LastModified Time None Recorded Payers Encounter Date Sequence Insurance Name Policy Number Policy Evans Covered Member ID Evans Member ID Guarantor Name 08/12/2024 1 [facility] - DOS ON OR AFTER 2023 - [employer] [facility] (MEDICARE REPLACEMENT/ADV ANTAGE - HMO) Chayito Moraes [id number] Chayito Moraes Notes Date Note Type Note Provider Name and Address Organization Details Recorded Time 08/12/2024 text/html Pt not sure why she is here but consult for difficulty tolerating CPAP. Just started using CPAP but having anxiety. Some nasal congestionPrior nasal fracture requiring reduction Fruit Grower Favian [id number] DONTE BUSTAMANTE MD [address] [place] [address], [phone] - [facility] 08/12/2024 10:54:36 OBGyn Episode No OBEpisode recorded.
--- OUTSIDE RECORDS SUMMARY | 2024-09-16 23:58 | XMS_ITS | Continuity of Care Document ---
Author Organization [facility] Address [address] [place] [address]- Care Team Providers Care Systems Programmer Analyst Name Role Phone Carolin RICHARD, Tracy Primary Care Physician Encounter [facility] Date(s): 08/11/24 - 09/10/24 [facility] [address] [facility] [place] [address]- Encounter Type: Triage Allergies, Adverse Reactions, Alerts Substance Criticality Severity Reaction Reaction Severity Status penicillin Active Prozac Active [place] face swelling, cough, throat closes Active [place] Active Immunizations Given and Recorded Vaccine Date Status Refusal Reason SARS-CoV-2 (COVID-19) mRNA-1273 vaccine 02/23/21 R ecorded SARS-CoV-2 (COVID-19) mRNA-1273 vaccine 01/26/21 R ecorded influenza virus vaccine, inactivated 07/22/12 Miles rded influenza virus vaccine, inactivated 09/26/08 Give n Pneumococcal Vaccine (oldterm) 09/26/08 Given Medications amLODIPine 5 mg oral tablet 5 mg, 1, tablet, By Mouth, Daily, # 90 tablet, Refills 0, Tot. Refills 0, Maintenance, 07/13/24 9:29:00 AM EDT, Route to Pharmacy Electronically, [facility]pharmacy [facility][id number], label in Lebanese, 165, cm, 07/13/24 8:28:00 EDT, Height, 79, kg, 09/27/23 4:10:00 EST, Dry Weight Start Date: 07/13/24 Status: Ordered Quantity: 90.0 Unit: tablet Repeat number: 1 atorvastatin 40 mg oral tablet 1 tablet = 40 mg, By Mouth, Daily, # 90 tablet, 1 Refills, Maintenance, 07/13/24 9:26:00 AM EDT, Tablet, [facility]/pharmacy #1026, label in Lebanese, 165, cm, 07/13/24 8:28:00 EDT, Height, 79, kg, 09/27/23 4:10:00 EST, Dry Weight Start Date: 07/13/24 Stop Date: 01/09/25 Status: Ordered Quantity: 90.0 Unit: tablet Repeat number: 2 cetirizine 10 mg oral tablet 1 tablet = 10 mg, By Mouth, Daily, # 90 tablet, 1 Refills, Maintenance, 07/13/24 9:25:00 AM EDT, Tablet, [facility]/pharmacy #1026, label in Lebanese, 165, cm, 07/13/24 8:28:00 EDT, Height, 79, kg, 09/27/23 4:10:00 EST, Dry Weight Start Date: 07/13/24 Stop Date: 01/09/25 Status: Ordered Quantity: 90.0 Unit: tablet Repeat number: 2 cholecalciferol 1000 intl units oral tablet 1 tablet = 25 mcg, By Mouth, Daily, for 90 days, # 90 tablet, 1 Refills, Acute 02/14/25 6:59:00 PM EDT, 08/18/24 6:59:00 PM EST, Tablet, [facility]/pharmacy #[id number], label in Lebanese, 165, cm, 07/13/24 8:28:00EDT, Height, 79, kg, [...] Refills, Soft Stop, 07/13/24 9:18:00 AM EDT, [facility], [place]bel in [place], all scripts, 165, cm, 07/13/24 8:28:00 EDT, Height, 79, kg, 234:10:00 EST, Dry Weight Start Date: 07/13/24 Status: Ordered Quantity: 1.0 Unit: each Repeat number: 2 fluticasone 50 mcg/inh nasal spray See Instructions, INHALE 2 SPRAYS BOTH NARES DAILY IN AM, # 16 mL, 2 Refills, Maintenance, 08/11/24 3:34:00 PM EST, [facility] STORE [id number], 30, INHALE 2 SPRAYS BOTH NARES DAILY IN AM, 165, cm, 07/13/24 8:28:00 EDT, Height, 79, kg, 09/27/23 4:10:00 EST, Dry Weight Start Date: 08/11/24 Status: Ordered Quantity: 16.0 Unit: mL Repeat number: 1 losartan 50 mg oral tablet 50 mg, 1, tablet, By Mouth, Daily, # 90 tablet, Refills 0, Tot. Refills 0, Maintenance, 07/13/24 9:29:00 AM EDT, Route to Pharmacy Electronically, [facility]/pharmacy #[id number], label in Lebanese, 165, cm, 07/13/24 8:28:00 EDT, Height, 79, kg, 09/27/23 4:10:00 EST, Dry Weight Start Date: 07/13/24 Status: Ordered Quantity: 90.0 Unit: tablet Repeat number: 1 metFORMIN 500 mg oral tablet 1 tablet = 500 mg, By Mouth, Daily at supper, with meals, # 90 tablet, 3 Refills, Maintenance, 08/31/24 12:18:00 PM EST, Tablet, [facility]/pharmacy #1026, label in Lebanese, 165, cm, 08/31/24 10:57:00 EST, Height, 79, kg, 09/27/23 4:10:00 EST, Dry Weight Start Date: 08/31/24 Stop Date: 08/26/25 Status: Ordered Quantity: 90.0 Unit: tablet Repeat number: 4 Trelegy Ellipta 200 mcg-62.5 mcg-25 mcg/inh inhalation powder 1 puffs, Inhalation, Daily, at the same time every day, # 1 each, 2 Refills, Maintenance, 07/13/24 9:27:00 AM EDT, Powder, [facility]/pharmacy #1026, label in Lebanese, 1 puffs Inhalation Daily,x30 days,Instr:at the same [...] Refills, Maintenance, 07/13/24 9:30:00 AM EDT, Aerosol, [facility], label in Lebanese, 165, cm, 07/13/24 8:28:00 EDT, Height, 79, kg, 09/27/23 4:10:00 EST, Dry Weight Start Date: 07/13/24 Stop Date: 09/11/24 Status: Ordered Quantity: 18.0 Unit: g Repeat number: 2 Problem List Condition Confirmation Course Effective Dates Status H ealth Status Informant Allergy to penicillin Confirmed Active Asthma 1 Confirmed Active DJD (degenerative joint disease) of cervical spine Confirmed Active Nasal septal deviation Confirmed Active Diabetes mellitus Confirmed Active Dysphagia [...] DJD (degenerative joint disease), lumbar Confirmed Active Nasal obstruction 4 Confirmed Active Obese class I Confirmed Active Obstructive sleep apnea (LUCY) Confirmed Active Prediabetes Confirmed Active 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) Confirmed Active Vitamin D deficiency Confirmed Active 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 2per GI 2020 3per ER note and also Pulmonloogy 2020 4per ENT note she brought Social History Social History Type Response Smoking Status Never smoker entered on: 11/13/16 Sex Sex Representation Female (finding) Patient Care team information Care Team Personnel Name: Coretta Soriano RN Position: [facility] RN Member Role: Primary Care Nurse Name: Josephine Kwon RN Position: [facility] RN Member Role: Primary Care Nurse Name: Tracy Coe MD Position: S Physician - Primary Care Member Role: PCP Address: [address] [place] [address] Telecom: Name: Lisseth Carreno RN, Charlee Position: [facility] RN Member Role: Primary Care Nurse Name: Edith Serna RN Position: [facility] Buffing Machine Operator Semiautomatic Member Role: Primary Care Nurse Name: Genie Sheridan RN Position: [facility] Buffing Machine Operator Semiautomatic Member Role: Primary Care Nurse Name: Mgeha Chandler RN Position: [facility] RN Member Role: Primary Care Nurse Care Team Related Persons Name: SERGIO RAUSCH Name: LEEROY VELARDE Insurance Providers Guarantor name: MARCO ANTONIO Health Plan Information #: 1 Payer: MARCO ANTONIO Member Number: MARCO ANTONIO Policy Number: MARCO ANTONIO Group Number:
--- OUTSIDE RECORDS SUMMARY | 2024-09-16 23:58 | XMS_ITS | Continuity of Care Document ---
Author Organization [facility] Address [address] [place] [address]- Care Team Providers Care Civil Service Worker Name Role Phone Carolin RICHARD, Tracy Primary Care Physician Encounter [facility] Date(s): 08/10/24 - 09/09/24 [facility] [address] [place] [address]- Encounter Type: Triage Allergies, Adverse Reactions, Alerts Substance Criticality Severity Reaction Reaction Severity Status penicillin Active [place] Active Prozac Active Gilbert face swelling, cough, throat closes Active Immunizations [...] 9:29:00 AM EDT, Route to Pharmacy Electronically, [facility]/pharmacy #[id number], label in [place], 165, cm, 07/13/24 8:28:00 EDT, Height, 79, kg, 09/27/23 4:10:00 EST, Dry Weight Start Date: 07/13/24 Status: Ordered Quantity: 90.0 Unit: tablet Repeat number: 1 atorvastatin 40 mg oral tablet 1 tablet = 40 mg, By Mouth, Daily, # 90 tablet, 1 Refills, Maintenance, 07/13/24 9:26:00 AM EDT, Tablet, [facility]/pharmacy #[id number], label in [place], 165, cm, 07/13/24 8:28:00 EDT, Height, 79, kg, 09/27/23 4:10:00 EST, Dry Weight Start Date: 07/13/24 Stop Date: 01/09/25 Status: Ordered Quantity: 90.0 Unit: tablet Repeat number: 2 cetirizine 10 mg oral tablet 1 tablet = 10 mg, By Mouth, Daily, # 90 tablet, 1 Refills, Maintenance, 07/13/24 9:25:00 AM EDT, Tablet, [facility]/pharmacy #[id number], label in [place], 165, cm, 07/13/24 8:28:00 EDT, Height, 79, kg, 09/27/23 4:10:00 EST, Dry Weight Start Date: 07/13/24 Stop Date: 01/09/25 Status: Ordered Quantity: 90.0 Unit: tablet Repeat number: 2 cholecalciferol 1000 intl units oral tablet 1 tablet = 25 mcg, By Mouth, Daily, for 90 days, # 90 tablet, 1 Refills, Acute 02/14/25 6:59:00 PM EDT, 08/18/24 6:59:00 PM EST, Tablet, [facility]/pharmacy #[id number], label in [place], 165, cm, 07/13/24 8:28:00EDT, Height, 79, kg, [...] Refills, Soft Stop, 07/13/24 9:18:00 AM EDT, [facility], lavbel in [place], all scripts, 165, cm, 07/13/24 8:28:00 EDT, Height, 79, kg, 234:10:00 EST, Dry Weight Start Date: 07/13/24 Status: Ordered Quantity: 1.0 Unit: each Repeat number: 2 fluticasone 50 mcg/inh nasal spray See Instructions, INHALE 2 SPRAYS BOTH NARES DAILY IN AM, # 16 mL, 2 Refills, Maintenance, 08/11/24 3:34:00 PM EST, [facility] STORE [id number], 30, INHALE 2 SPRAYS BOTH NARES DAILY IN AM, 165, cm, 07/13/24 8:28:00 EDT, Height, 79, kg, 09/27/23 4:10:00 EST, Dry Weight Start Date: 08/11/24 Status: Ordered Quantity: 16.0 Unit: mL Repeat number: 1 losartan 50 mg oral tablet 50 mg, 1, tablet, By Mouth, Daily, # 90 tablet, Refills 0, Tot. Refills 0, Maintenance, 07/13/24 9:29:00 AM EDT, Route to Pharmacy Electronically, [facility]/pharmacy #[id number], label in [place], 165, cm, 07/13/24 8:28:00 EDT, Height, 79, kg, 09/27/23 4:10:00 EST, Dry Weight Start Date: 07/13/24 Status: Ordered Quantity: 90.0 Unit: tablet Repeat number: 1 metFORMIN 500 mg oral tablet 1 tablet = 500 mg, By Mouth, Daily at supper, with meals, # 90 tablet, 3 Refills, Maintenance, 08/31/24 12:18:00 PM EST, Tablet, [facility]/pharmacy #[id number], label in [place], 165, cm, 08/31/24 10:57:00 EST, Height, 79, kg, 09/27/23 4:10:00 EST, Dry Weight Start Date: 08/31/24 Stop Date: 08/26/25 Status: Ordered Quantity: 90.0 Unit: tablet Repeat number: 4 Trelegy Ellipta 200 mcg-62.5 mcg-25 mcg/inh inhalation powder 1 puffs, Inhalation, Daily, at the same time every day, # 1 each, 2 Refills, Maintenance, 07/13/24 9:27:00 AM EDT, Powder, [facility]/pharmacy #[id number], label in [place], 1 puffs Inhalation Daily,x30 days,Instr:at the same [...] AM EDT, Aerosol, [facility] #[id number], label in [place], 165, cm, 07/13/24 8:28:00 EDT, Height, 79, [...] Team Personnel Name: Coretta Soriano RN Position: [facility] GARNER RN Member Role: Primary Care Nurse Name: Josephine Kwon RN Position: [facility] RN Member Role: Primary Care Nurse Name: Tracy Coe MD Position: S Physician - Primary Care Member Role: PCP Address: [address] [place] [address] Telecom: Name: Lisseth Carreno RN, Charlee Position: [facility] RN Member Role: Primary Care Nurse Name: Edith Serna RN Position: [facility] Transporter Driver Member Role: Primary Care Nurse Name: Genie Sheridan RN Position: [facility] Transporter Driver Member Role: Primary Care Nurse Name: Megha Chandler RN Position: [facility] RN Member Role: Primary Care Nurse Care Team Related Persons Name: SERGIO RAUSCH Name: LEEROY VELARDE Insurance Providers Guarantor name: MARCO ANTONIO Health Plan Information #: 1 Payer: MARCO ANTONIO Member Number: MARCO ANTONIO Policy Number: MARCO ANTONIO Group Number:
--- OUTSIDE RECORDS SUMMARY | 2024-09-16 23:58 | XMS_ITS | Data Portability ---
Author Organization [facility] [employer] Address [address] [place] [address] Care Team Providers Care Web Search Evaluator Name Role Phone HIM CCA Referring Provider MARTINA CASTRO Primary Care Provider [phone] Assessment Encounter Date Assessment Date Assessment LastModified by Organization Details LastModified Time 09/26/2023 09/26/2023 I provided real -time medical direction via phone for this encounter, and was available for additional phone based assistance as needed. I have reviewed and agree with the Assessment and Plan as documented by the Multimedia Engineer. Patient given the opportunity to ask questions. Advised due to to her PMH she has risk factors with HTN, HPL and parental history of cardiopulmonary disease she is at significant risk for cardiac event. I have no old EKGs and her EKG is not completely normal and it was an EKG done when she was pain-free. Advised cannot r/o ACS based on 1 ekg- needs further w/u. I advised of the urgency and it would be in her best interest to get a full cardiac workup in the emergency room. The medic was able to explain to her very clearly in [place] the risks and benefits and what was needed and she agreed. EMS called and patient transferred to [facility]. I called report to the Xpect line [email or web address] Not available 09/26/2023 18:40:26 03/03/2024 03/03/2024 I provided real -time medical direction via phone for this encounter, and was available for additional phone based assistance as needed. I have reviewed and agree with the Assessment and Plan as documented by the Multimedia Engineer. We discussed the diagnostic uncertainty of home visits and the risk associated with this. I felt this to be an acceptable and reasonable amount of risk given the benefit of avoiding an ED visit. However, informed patient needs radiographs- to call PCP today to set up outpatient The patient given the opportunity to ask questions. Advised if develops CP/severe SOB/turning blue/uncontrolled n/v/d or black/bloody emesis or stool/ AMS/ syncope/ hi fever /intolerable pain/unable to [id number] necessitate going to the ED - verbalized understanding of instruction via [place] diabetes [facility] specialist. [email or web address] Not available 03/03/2024 19:47:17 Plan of Treatment Reminders Order Date Submit Date Provider Last Modified By Organization Details Last Modified Time Details Appointments None recorded. Lab BMP, serum or plasma 2023 [address]24 [email or web address], [phone], 4 11:17:37 Referral None recorded. Procedures None recorded. Surgeries None recorded. Imaging electrocard iogram [address], [phone], 4 10:22:55 Medication Orders aspirin 81 mg chewable tablet 2022 023 [email or web address] 0 Not available 3 17:22:09 ketorolac 30 mg/mL injection solution 2023 024 [email or web address] 0 [facility], [address] [place] [address], [id number], 4 11:17:37 Patient TargetsNo targets recorded. Patient InstructionsNo instructions recorded. Reason for Referral None Reported. Results Created Date Observation Date Name Description Value Unit Range Abnormal Flag Note LastModifiedBy Organization Detail LastModifiedTime 09/26/2009/26/2023 elect dot correiagr am No observ ation record ed. [address], [address], 12/04/2023 18:14:17 Result Notes None recorded. Procedures Surgical History None recorded. Imaging Results Imaging Date Name Status LastModified by Organization Details LastModified Time 09/26/2023 electrocardiogram completed [address], [phone], 12/04/2023 18:14:17 Procedure Notes None recorded. Medical Equipment None Reported. Allergies Allergen ID Allergen Name Allergen Category Reaction Reaction Severity Criticality Documentation Date Start Date Code Code System Note Provider Name and Address Organization Details Recorded Time 4121 Medicinal product containin g penicilli n and acting as antibacte rial agent (product) medicatio n Not available Not available Not available 09/26/2023 91712 05 SNOMED Not Available [facility] - production 4 03:52:14 Medications Name Sig Start Date Stop Date Status Note LastModified by Organization Details LastModified Time albuterol sulfate 2.5 mg/3 mL (0.083 %) solution for nebulization INHALE 1 AMPULE USING A NEBULIZER THREE TIMES DAILY NEEDED FOR SHORTNESS OF BREATH / FOR ASTHMA active Not Available Not Available No t Available cetirizine 10 mg tablet TAKE 1 TABLET BY MOUTH EVERY DAY active Not Available Not Available No t Available azithromycin 250 mg tablet TAKE 2 TABLETS BY MOUTH ON DAY 1, THEN TAKE 1 TABLET DAILY ON DAYS 2-5 active Not Available Not Available No t Available acetaminophen 500 mg tablet TAKE 1 TABLET BY MOUTH EVERY 6 TO 8 HOURS NEEDED, DO NOT EXCEED 4 TABLETS PER 24 HOURS active Not Available Not Available No t Available calcium 500 mg (as calcium carbonate 1,250 mg) tablet TAKE 1 TABLET BY MOUTH TWICE DAILY IN THE MORNING AND IN THE EVENING WITH MEALS active Not Available Not Available N ot Available omeprazole 20 mg capsule,delay ed release TAKE 1 CAPSULE BY MOUTH TWICE DAILY active Not Available Not Available No t Available aspirin 81 mg chewable tablet Chew 4 tablets by oral route. 2022 active Not Available Not Available Not Avai lable ergocalcifero l (vitamin D2) 1,250 mcg (50,000 unit) capsule TAKE 1 CAPSULE BY MOUTH ONCE A WEEK active Not Available Not Available No t Available ipratropium bromide 42 mcg (0.06 %) nasal spray active Not Available Not Available Not Available Ventolin HFA 90 mcg/actuation aerosol inhaler INHALE 2 PUFFS BY MOUTH EVERY 4 HOURS NEEDED FOR WHEEZING OR SHORTNESS OF BREATH active Not Available Not Available No t Available Eye Itch Relief 0.025 % (0.035 %) drops PLACE 1 DROP IN EACH EYE TWICE DAILY active Not Available Not Available No t Available ketorolac 30 mg/mL injection solution Inject 15 mg. 2023 active Not Available Not Available Not Avai lable Spiriva Respimat 2.5 mcg/actuation solution for inhalation INHALE 2 PUFFS EVERY MORNING active Not Available Not Available No t Available Trelegy Ellipta 200 mcg-62.5 mcg-25 mcg powder for inhalation INHALE 1 PUFF BY MOUTH EVERY DAY AT THE SAME TIME active Not Available Not Available No t Available Vitals Date Recorded Heart rate Respiratory rate Oxygen saturation Oxygen saturation in Arterial blood by Pulse oximetry Systolic blood pressure Diastolic blood pressure Provider Name and Address Organization Details Last Updated DateTime 3 99 /min 20 /min 97 % 97 % 176 mm[Hg] 84 mm[Hg] Not Available [facility] - production 3 16:39:17 Date Recorded Body temperature Body weight Respiratory rate Heart rate Body height Oxygen saturation Oxygen saturation in Arterial blood by Pulse oximetry Systolic blood pressure Diastolic blood pressure Provider Name and Address Organization Details Last Updated DateTime 4 98.2 [degF] 26066.1 92 g 16 /min 83 /min 165.1 cm 94 % 94 % 158 mm[Hg] 92 mm[Hg] Not Available [facility] - production 4 11:12:16 Social History None recorded. Functional Status None recorded. Mental Status None recorded. Family History Nothing Reported. Medical History No medical history recorded. Gynecological HistoryNo gynecological history recorded. Obstetrics History GPAL:G 0 P 0 0 0 0 Past Encounters Encounter ID Performer Location Encounter Start Date Encounter Closed Date Diagnosis/Indication Diagnosis SNOMED-CT Code Diagnosis ICD10 Code [id number] Viviana Marsh MD [facility] [address] [place] [phone] 09/26/2023 16:39:08 09/28/2023 17:11:31 Chest pain 17628660 R07.9 [id number] Viviana Marsh MD [facility] - [facility] [address] [place] [phone] 03/03/2024 11:12:09 03/03/2024 21:27:41 Pain of right knee joint 1530060730 84879 M25.561 Health Concerns Section Related Observation LastModified by Organization Detai ls LastModified Time None Recorded Concern Status LastModified by Organization Details LastModified Time None Recorded Advance Directives Directive None Recorded Payers Encounter Date Sequence Insurance Name Policy Number Policy Evans Covered Member ID Evans Member ID Guarantor Name 09/26/2023 1 [facility] - DOS ON OR AFTER 2023 - DUAL ELIGIBLE - [facility] OPTIONS AND ONE CARE (MEDICARE REPLACEMENT/ADV ANTAGE - HMO) Chayito Moraes [id number] Chayito Dimitry 03/03/2024 1 [facility] - DOS ON OR AFTER 2023 - DUAL ELIGIBLE - [facility] OPTIONS AND ONE CARE (MEDICARE REPLACEMENT/ADV ANTAGE - HMO) Chayitomayte Moraes [id number] Chayito Dimitry Notes Date Note Type Note Provider Name and Address Organization Details Recorded Time 09/26/2023 text/html HPI: Member calling [facility], c/o pain in left arm pain, chest pain, fatigue, sob, dizziness, nausea, headache x 1 wk. Member reports sx's come and go, but are worse on activity. Member denied sx's at time of this call. She was able to speak in full sentences without pauses or breaks. PMH: HTN, MDD, arthritis, chronic pain, LUCY, GERD, asthma ...................... ...................... ...................... ...................... ...................... ...................... ......... CRC Nurse Triage Notes (Elizabeth Santana): Comments: spoke with member with diabetes solutions specialist. Member had sharp pain in left arm , c/o nausea /dizziness , that is intermittent. Currently gone, Member has not had any falls or injuries. 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 She occasionally gets sharper pain in her left & right arm with the chest pain. She denies diaphoresis, nausea /vomiting but she is getting dyspnea on exertion. She does not take aspirin. she is curretnly pain free. She has a history of hypertension but is not currently on any antihypertensives as she does not have a PCP her father of a PE in the mid 1980s/her mother has had 2 MIs-she is unsure of the age of onset as she was estranged, but she now notes that her mother has only 30% of her heart functioning . Patient reports she feels her legs are swollen and she also has a history of hyperlipidemia in addition to above................. ...................... ...................... ...................... ...................... ...................... ................ Multimedia Engineer Note From Salty Sesay: Encountered patient, conscious, alert, and ambulatory. Patient expresses over a week of intermittent chest pain with shooting pains alternating between upper extremities. Patient currently denies experiencing any chest pain, dizziness or changes in vision. Patient denies any shortness of breath at rest, however expresses difficulty breathing upon exertion. Patient exhibits no slurred speech, facial droop, or pronator drift. Patient also expresses that she does not see a physician routinely and has a family history, including myocardial infarction in her mother and pulmonary embolism in her father. Skin warm, dry, and an appropriate color for ethnicity. Head and neck, free of trauma and edema. - JVD. Extremities free of trauma and edema; lower extremities examined for pitting, nonpitting edema, both of which were absent. Patient states that her ankles do become intermittently swollen, but that is not new for her. 12 Lead EKG performed: Sinus rhythm noted, 12 lead uploaded for physician interpretation. [facility] consulted: states best course of action for patient? s current presentation would be a trip to the emergency room for further work up to rule out any sort of cardiac event. Patient is amenable to C? s plan. [facility] ordered 324 mg of PO aspirin, administered by [facility] crew. Patient care to [facility] crew with verbal report exchanged. Patient to be transported to [facility]. Multimedia Engineer Allergies: Penicillin ...................... ...................... ...................... ...................... ...................... ...................... ......... Disposition: Fulfilled Viviana Marsh MD [address] [place] [address],[address], [place], [phone] 09/26/2023 18:40:33 03/03/2024 text/html CRC Nurse Triage Notes (Rosalinda Salas): Reason For Request: Pt reporting yesterday she was cleaning her room and states she suddenly feels an intense pain and swelling with her right knee>states 6-8 years ago she experienced a fall that she has experienced pain and swelling from time to time.............but mentions having difficulty with walking, unable to bend, 10 out of 10 pain Chief Complaints: Pain PMH: COPD/Asthma, Hypertension, Severe Persistent Mental Illness (SPMI) Allergies: Penicillin Comments: 68 year old female w/ PMH: Copd/asthma, HTN, SPMI, fibromyalgia, arthritis, Denies kidney disease or current use of blood thinners.Reporting 10/10 pain in right knee, hx of right knee swelling and fall years ago but now having a flare up. Taking Ibuprofen, Tylenol w/ minimal relief.Request for a visit for pain control, advised member she may need an X-ray/U/S Adrienne SMALLS Multimedia Engineer POC Test Results from Jose Alberto Roldan [facility] (1) [11:05] pH: 7.46 pH units pCO2: 40.2 mmHg pO2: 47.9 mmHg Na: 142 mmol/L K: 4.5 mmol/L iCa: 1.11 mmol/L Cl: 106 mmol/L TCO2: 27.6 mEq/L Hct: 46 % Hb: 15.8 g/dL Glu: 115 mg/dL Lac: 1.3 mmol/L Cr: 0.4 mg/dL BUN: 14 mg/dL A ...................... ...................... ...................... ...................... ...................... ...................... ......... Multimedia Engineer Note From Jose Alberto Roldan: Pt reports while cleaning yesterday she re-injured her right knee and has been experiencing pain and swelling since. Pt taking tylenol and ibuprofen with minimal relief. Pt denies CP, SOB, f/n/v/d. Pt is alert, NAD. VSS. Afebrile. Non focal neuro exam. Lungs CTA. Benign ABD exam. Edema and pain on palpation to the anterior right knee. No erythema or warmth noted. Unremarkable POC labs. Pt treated with ketorolac 15 mg IVP. Pt educated on OTC dosing and rice technique. Pt instructed to f/u with PCP for imaging. Red flags reviewed. ...................... ...................... ...................... ...................... ...................... ...................... ......... Disposition: FulfilledSEGMD: Last dose of ibuprofen was last night. Patient complains of pain with weightbearing and range of motion of the knee. Viviana Marsh MD [address] [place] [address],[address] [facility], [place], [phone], [facility] [employer] [facility] 03/03/2024 19:51:54 OBGyn Episode No OBEpisode recorded.
== END 2024-09-16 10:34 | disposition home or self-care (01) ==
PROVIDERS: PCP Internal Medicine; Visit Provider Orthopaedic Surgery
DX: M25.561 Pain in right knee (principal)
CPT/HCPCS: 99213; G2211

== ENCOUNTER → 2024-09-16 10:00 | Outpatient (BNVA) | payer OTHER, SELFPAY | PROVIDERS: PCP Internal Medicine; Visit Provider Orthopaedic Surgery | DX: M25.561 Pain in right knee (principal) | CPT/HCPCS: 99212 ==

== ENCOUNTER 2024-10-09 10:40 | Outpatient (AMB) | payer MEDICARE, MEDICAID, SELFPAY ==
--- NOTE | 2024-10-09 10:48 | MHC.OFFVIS ---
Vital Signs 10/09/24 10:50 Height 5 ft 4 in Weight 179 lb 6 oz BMI 30.8 BP 114/80 Blood Pressure Location Rt brachial Position Sitting Pulse 91 Pulse Oximetry (%) 95 Oxygen Delivery Method Room Air Intake Visit Reasons: 6 Month F/U Intake Note: Patients in on metformin but don't now the dose. 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: No Accompanied by: Self / Same As Patient Allergies prednisone [PREDNISONE] Allergy (Severe, Verified 10/14/24 11:25) REDNESS, SWELLING FACE, swelling, hives, hives, swelling fluoxetine [From PROZAC] Allergy (Intermediate, Verified 10/14/24 11:25) DIFFICULTY BREATHING Penicillins [PENICILLINS] Allergy (Intermediate, Verified 10/14/24 11:25) RASH/HIVES penicillin V Allergy (Unknown, Verified 10/14/24 11:25) unknown From Toprol XL Allergy (Intermediate, Uncoded 10/13/24 11:35) RASH Medication List - Last Reconciled 10/09/24 by ROSITA Mccain acetaminophen (Tylenol Extra Strength) 500 mg PO Q6H PRN amitriptyline 10 mg PO BEDTIME 30 days amlodipine 5 mg PO DAILY atorvastatin 40 mg PO DAILY cetirizine 10 mg PO DAILY fluticasone propionate 50 mcg/actuation sprays intranasal kwtpllrwdsu-jmscrqgkx-xvbcnvey 200-62.5-25 mcg (Trelegy Ellipta) 1 inh inhalation DAILY 30 days Grab bar As directed ipratropium bromide 2 sprays intranasal TID 30 days losartan 50 mg PO DAILY walker (Ultra-Light Rollator misc) As directed Do you need a note to return to daycare/school/sports/work: No HPI Comments Details: 68-yr-old female presents for f/u visit of moderate obstructive sleep apnea. Pt reports she was recently dx'd w/ diabetes w/ HgA1C 7.6% and was started on metformin 500mg q evening. Pt states hse had had ortho consult- and is considering her tx options. She had the ENT consult. Per pt, was told she had a nasal obstruction however she is not sure what the next steps are. Unfortunately, we do not have the consult report yet. Dr Collado had previously ordered pt a CPAP machine, which she received but could not tolerate.. [facility] Medical History (Updated 10/14/24 @ 11:38 by Jenaro Juarez MD) Ventral hernia Multiple lipomas Mild intermittent asthma Dysplasia of cervix, low grade (MARIE 1) Lateral epicondylitis, right elbow Hx of sleep apnea History of asthma Hx of essential hypertension Surgical History Hx of breast biopsy Family History Father HTN (hypertension) Heart disease Mother HTN (hypertension) Heart disease Brother Heart disease Social History Household Members: None Housing: Apartment Alcohol intake: never Patient Tobacco Use Status: Never used Tobacco e-Cigarette/Vaping Use: Never Used Second Hand Smoke Exposure: No service: No Current occupational status: unemployed Sexual orientation: Straight/Heterosexual Gender identity: Female Cognitive needs: No Hearing needs: No Vision needs: Yes Female Reproductive History Menstrual Age of Menarche: 13 Physical Exam Vital Signs: Last Vital Signs Pulse 91 10/09/24 10:50 BP 114/80 10/09/24 10:50 Pulse Ox 95 10/09/24 10:50 Oxygen Delivery Method Room Air 10/09/24 10:50 BMI result Body Mass Index 30.8 Const General: cooperative and no acute distress Orientation/consciousness: patient oriented x3 Resp Effort & Inspection: normal respiratory effort and able to speak in complete sentences Neuro General: patient oriented x3 Cranial nerves: Yes CN's II-XII intact bilaterally Cognition (Neuro): normal cognition Psych Appearance: grossly normal Mental Status: mental status grossly normal Speech and movement: Normal speech and movement present Affect: normal affect Attitude: cooperative Assessment & Plan Assessment & Plan (1) Sleep difficulties: Code(s): G47.9 - Sleep disorder, unspecified Category: Medical (2) Nocturnal hypoxemia: Code(s): G47.34 - Idiopathic sleep related nonobstructive alveolar hypoventilation Category: Medical (3) Moderate obstructive sleep apnea: Code(s): G47.33 - Obstructive sleep apnea (adult) (pediatric) Category: Medical Plan HST results w/ pt- moderate LUCY w/ significant nocturnal hypoxemia. We will request ENT consult note. F/u w/ Dr Holt as scheduled. May hold Amitriptyline 10 mg q.h.s. Start magnesium 400 mg q.h.s. for sleep, fibromyalgia, cramps, bruxism. ? f/u in 6 months or sooner prn. Medications: New magnesium oxide may hold for loose stools 400 mg PO BEDTIME 30 tabs 6RF 30 days Discontinued amitriptyline Discontinued Reason: Doctor's Order 10 mg PO BEDTIME 30 days 30 tabs 3RF Coding Level of Care Code Est Pt Level 3 (69891) Diagnoses Sleep difficulties G47.9 Nocturnal hypoxemia G47.34 Moderate obstructive sleep apnea G47.33
[2024-10-09 10:50] VITALS: BP 114/80; PULSE 91; O2SAT 95; BMI 30.8
--- OUTSIDE RECORDS SUMMARY | 2024-10-09 12:14 | XMS_ITS | Continuity of Care Document ---
Author Organization [facility] Address [address] [place] [address]- Care Team Providers Care Sonography Technologist Name Role Phone Carolin RICHARD, Tracy Primary Care Physician [place] [facility] [place] 09[place]24 [facility] [address] [place] [address]- Encounter Type: Triage Allergies, Adverse Reactions, Alerts Substance Criticality Severity Reaction Reaction Severity Status penicillin Active [place] Active Prozac Active [place] face swelling, cough, throat closes Active Immunizations [...] 9:29:00 AM EDT, Route to Pharmacy Electronically, [facility]/pharmacy #[id number], label in [place]anese, 165, cm, 07/13/24 8:28:00 EDT, Height, 79, kg, 09/27/23 4:10:00 EST, Dry Weight Start Date: 07/13/24 Status: Ordered Quantity: 90.0 Unit: tablet Repeat number: 1 atorvastatin 40 mg oral tablet 1 tablet = 40 mg, By Mouth, Daily, # 90 tablet, 1 Refills, Maintenance, 07/13/24 9:26:00 AM EDT, Tablet, [facility]/pharmacy #[id number], label in [place]anese, 165, cm, 07/13/24 8:28:00 EDT, Height, 79, kg, 09/27/23 4:10:00 EST, Dry Weight Start Date: 07/13/24 Stop Date: 01/09/25 Status: Ordered Quantity: 90.0 Unit: tablet Repeat number: 2 cetirizine 10 mg oral tablet 1 tablet = 10 mg, By Mouth, Daily, # 90 tablet, 1 Refills, Maintenance, 07/13/24 9:25:00 AM EDT, Tablet, [facility]/pharmacy #[id number], label in [place]anese, 165, cm, 07/13/24 8:28:00 EDT, Height, 79, kg, 09/27/23 4:10:00 EST, Dry Weight Start Date: 07/13/24 Stop Date: 01/09/25 Status: Ordered Quantity: 90.0 Unit: tablet Repeat number: 2 cholecalciferol 1000 intl units oral tablet 1 tablet = 25 mcg, By Mouth, Daily, for 90 days, # 90 tablet, 1 Refills, Acute 02/14/25 6:59:00 PM EDT, 08/18/24 6:59:00 PM EST, Tablet, [facility]/pharmacy #[id number], label in [place], 165, cm, 07/13/24 8:28:00EDT, Height, 79, kg, [...] Refills, Soft Stop, 07/13/24 9:18:00 AM EDT, [facility], lavbel in [place], all scripts, 165, cm, 07/13/24 8:28:00 EDT, Height, 79, kg, 234:10:00 EST, Dry Weight Start Date: 07/13/24 Status: Ordered Quantity: 1.0 Unit: each Repeat number: 2 fluticasone 50 mcg/inh nasal spray See Instructions, INHALE 2 SPRAYS BOTH NARES DAILY IN AM, # 16 mL, 2 Refills, Maintenance, 08/11/24 3:34:00 PM EST, [facility] STORE [id number], 30, INHALE 2 SPRAYS BOTH NARES DAILY IN AM, 165, cm, 07/13/24 8:28:00 EDT, Height, 79, kg, 09/27/23 4:10:00 EST, Dry Weight Start Date: 08/11/24 Status: Ordered Quantity: 16.0 Unit: mL Repeat number: 1 Freestyle Lancets See Instructions, # 100 each, Refills 3, Tot. Refills 3, Maintenance, Use TID to check blood glucose Duration lifetime Dx E11.9, 09/15/24 11:15:00 AM EST, Supply, 165, cm, 08/31/24 10:57:00 EST, Height, 79, kg, 09/27/23 4:10:00 EST, Dry Weight Start Date: 09/15/24 Status: Ordered Quantity: 100.0 Unit: each Repeat number: 4 Freestyle Lite Monitor See Instructions, # 1 each, Refills 0, Tot. Refills 0, Maintenance, monitor blood glucose TID use as directed for Type 2 Diabetes Mellitus Dx E11.9, 09/15/24 11:14:00 AM EST, Supply, 165, cm, 08/31/24 10:57:00 EST, Height, 79, kg, 09/27/23 4:10:00 EST, Dry Weight Start Date: 09/15/24 Stop Date: 10/15/24 Status: Ordered Quantity: 1.0 Unit: each Repeat number: 1 Freestyle Test Strips See Instructions, # 100 each, Refills 3, Tot. Refills 3, Maintenance, Use TID to check blood glucose Duration lifetime Dx E11.9, 09/15/24 11:14:00 AM EST, Supply, 165, cm, 08/31/24 10:57:00 EST, Height, 79, kg, 09/27/23 4:10:00 EST, Dry Weight Start Date: 09/15/24 Status: Ordered Quantity: 100.0 Unit: each Repeat number: 4 losartan 50 mg oral tablet 50 mg, 1, tablet, By Mouth, Daily, # 90 tablet, Refills 0, Tot. Refills 0, Maintenance, 07/13/24 9:29:00 AM EDT, Route to Pharmacy Electronically, [facility]/pharmacy #[id number], label in [place]anese, 165, cm, 07/13/24 8:28:00 EDT, Height, 79, kg, 09/27/23 4:10:00 EST, Dry Weight Start Date: 07/13/24 Status: Ordered Quantity: 90.0 Unit: tablet Repeat number: 1 metFORMIN 500 mg oral tablet 1 tablet = 500 mg, By Mouth, Daily at supper, with meals, # 90 tablet, 3 Refills, Maintenance, 08/31/24 12:18:00 PM EST, Tablet, [facility]/pharmacy #[id number], label in [place]anese, 165, cm, 08/31/24 10:57:00 EST, Height, 79, kg, 09/27/23 4:10:00 EST, Dry Weight Start Date: 08/31/24 Stop Date: 08/26/25 Status: Ordered Quantity: 90.0 Unit: tablet Repeat number: 4 Trelegy Ellipta 200 mcg-62.5 mcg-25 mcg/inh inhalation powder 1 puffs, Inhalation, Daily, at the same time every day, # 1 each, 2 Refills, Maintenance, 07/13/24 9:27:00 AM EDT, Powder, [facility]/pharmacy #1026, label in [place]anese, 1 puffs Inhalation Daily,x30 days,Instr:at the same [...] Refills, Maintenance, 07/13/24 9:30:00 AM EDT, Aerosol, [facility]/pharmacy #1026, label in [place]anese, 165, cm, 07/13/24 8:28:00 EDT, Height, 79, [...] Active Obstructive sleep apnea (LUCY) Confirmed Active Knee meniscus pain, tear per 2023 Orhtopedics note Confirmed Active Prediabetes Confirmed Active Varicose vein [...] Team Personnel Name: Coretta Soriano RN Position: [facility] RN Member Role: Primary Care Nurse Name: Josephine Kwon RN Position: [facility] RN Member Role: Primary Care Nurse Name: Tracy Coe MD Position: [facility] Physician - Primary Care Member Role: PCP Address: [address] [place] [address] Telecom: Name: Charlee Nazario RN Position: [facility] SN RN Member Role: Primary Care Nurse Name: Edith Serna RN Position: [facility] Hospital Shale Planer Operator Helper Member Role: Primary Care Nurse Name: Genie Sheridan RN Position: [facility] Hospital Shale Planer Operator Helper Member Role: Primary Care Nurse Name: Megha Chandler RN Position: [facility] RN Member Role: Primary Care Nurse Care Team Related Persons Name: SERGIO RAUSCH Name: LEEROY VELARDE Insurance Providers Guarantor name: MARCO ANTONIO Health Plan Information #: 1 Payer: NA Member Number: NA Policy Number: NA Group Number: NA
--- OUTSIDE RECORDS SUMMARY | 2024-10-09 12:14 | XMS_ITS | Continuity of Care Document ---
Author Organization [facility] Address [address] [place] [address]- Care Team Providers Care Marine Operations Coordinator Name Role Phone Carolin RICHARD, Tracy Primary Care Physician Encounter [facility] Date(s): 08/18/24 - 09/17/24 [facility] [address] [place], [place] [phone] Encounter Type: Triage Allergies, Adverse Reactions, Alerts Substance Criticality Severity Reaction Reaction Severity Status penicillin Active Prozac Active [place] face swelling, cough, throat closes Active [place] Active Immunizations Given and Recorded Vaccine Date [...] 9:29:00 AM EDT, Route to Pharmacy Electronically, [facility]/pharmacy #[id number], label in Martiniquais, 165, cm, 07/13/24 8:28:00 EDT, Height, 79, kg, 09/27/23 4:10:00 EST, Dry Weight Start Date: 07/13/24 Status: Ordered Quantity: 90.0 Unit: tablet Repeat number: 1 atorvastatin 40 mg oral tablet 1 tablet = 40 mg, By Mouth, Daily, # 90 tablet, 1 Refills, Maintenance, 07/13/24 9:26:00 AM EDT, Tablet, [facility]/pharmacy #[id number], label in [place]iquais, 165, cm, 07/13/24 8:28:00 EDT, Height, 79, kg, 09/27/23 4:10:00 EST, Dry Weight Start Date: 07/13/24 Stop Date: 01/09/25 Status: Ordered Quantity: 90.0 Unit: tablet Repeat number: 2 cetirizine 10 mg oral tablet 1 tablet = 10 mg, By Mouth, Daily, # 90 tablet, 1 Refills, Maintenance, 07/13/24 9:25:00 AM EDT, Tablet, [facility]/pharmacy #[id number], label in [place]iquais, 165, cm, 07/13/24 8:28:00 EDT, Height, 79, kg, 09/27/23 4:10:00 EST, Dry Weight Start Date: 07/13/24 Stop Date: 01/09/25 Status: Ordered Quantity: 90.0 Unit: tablet Repeat number: 2 cholecalciferol 1000 intl units oral tablet 1 tablet = 25 mcg, By Mouth, Daily, for 90 days, # 90 tablet, 1 Refills, Acute 02/14/25 6:59:00 PM EDT, 08/18/24 6:59:00 PM EST, Tablet, [facility]/pharmacy #[id number], label in [place]iquais, 165, cm, 07/13/24 8:28:00EDT, Height, 79, kg, [...] Refills, Soft Stop, 07/13/24 9:18:00 AM EDT, [facility], lavbel in [place], all scripts, 165, cm, 07/13/24 8:28:00 EDT, Height, 79, kg, 234:10:00 EST, Dry Weight Start Date: 07/13/24 Status: Ordered Quantity: 1.0 Unit: each Repeat number: 2 fluticasone 50 mcg/inh nasal spray See Instructions, INHALE 2 SPRAYS BOTH NARES DAILY IN AM, # 16 mL, 2 Refills, Maintenance, 08/11/24 3:34:00 PM EST, [facility] STORE [id number], 30, INHALE 2 SPRAYS BOTH NARES DAILY [...] 9:29:00 AM EDT, Route to Pharmacy Electronically, [facility]/pharmacy #[id number], label in [place]iquais, 165, cm, 07/13/24 8:28:00 EDT, Height, 79, kg, 09/27/23 4:10:00 EST, Dry Weight Start Date: 07/13/24 Status: Ordered Quantity: 90.0 Unit: tablet Repeat number: 1 metFORMIN 500 mg oral tablet 1 tablet = 500 mg, By Mouth, Daily at supper, with meals, # 90 tablet, 3 Refills, Maintenance, 08/31/24 12:18:00 PM EST, Tablet, [facility]/pharmacy #[id number], label in [place]iquais, 165, cm, 08/31/24 10:57:00 EST, Height, 79, kg, 09/27/23 4:10:00 EST, Dry Weight Start Date: 08/31/24 Stop Date: 08/26/25 Status: Ordered Quantity: 90.0 Unit: tablet Repeat number: 4 Trelegy Ellipta 200 mcg-62.5 mcg-25 mcg/inh inhalation powder 1 puffs, Inhalation, Daily, at the same time every day, # 1 each, 2 Refills, Maintenance, 07/13/24 9:27:00 AM EDT, Powder, [facility]/pharmacy #1026, label in [place], 1 puffs Inhalation Daily,x30 days,Instr:at the same [...] Refills, Maintenance, 07/13/24 9:30:00 AM EDT, Aerosol, [facility]/pharmacy #1026, label in [place], 165, cm, 07/13/24 8:28:00 EDT, Height, 79, [...] Team Personnel Name: Coretta Soriano RN Position: [facility] RN Member Role: Primary Care Nurse Name: Josephine Kwon RN Position: [facility] RN Member Role: Primary Care Nurse Name: Tracy Coe MD Position: [facility] Physician - Primary Care Member Role: PCP Address: [address] [place] [address] Telecom: Name: Charlee Nazario RN Position: [facility] SN RN Member Role: Primary Care Nurse Name: Edith Serna RN Position: [facility] Hospital Knotter Hand Member Role: Primary Care Nurse Name: Genie Sheridan RN Position: [facility] Hospital Knotter Hand Member Role: Primary Care Nurse Name: Megha Chandler RN Position: [facility] RN Member Role: Primary Care Nurse Care Team Related Persons Name: SERGIO RAUSCH Name: LEEROY VELARDE Insurance Providers Guarantor name: MARCO ANTONIO Health Plan Information #: 1 Payer: NA Member Number: NA Policy Number: NA Group Number: NA
--- OUTSIDE RECORDS SUMMARY | 2024-10-09 12:14 | XMS_ITS | Continuity of Care Document ---
Author Organization [facility] Address [address] [place] [address]- Care Team Providers Care Coroner'S Juror Name Role Phone Carolin RICHARD, Tracy Primary Care Physician [place] [facility] [place] - 09/17/24 [facility] [address] [place], [place] [phone] Encounter Type: Triage Allergies, Adverse Reactions, Alerts Substance Criticality Severity Reaction Reaction Severity Status penicillin Active Prozac Active [place] face swelling, cough, throat closes Active [place] Active Immunizations Given and Recorded Vaccine Date [...] 9:29:00 AM EDT, Route to Pharmacy Electronically, [facility]/pharmacy #[id number], label in Cuban, 165, cm, 07/13/24 8:28:00 EDT, Height, 79, kg, 09/27/23 4:10:00 EST, Dry Weight Start Date: 07/13/24 Status: Ordered Quantity: 90.0 Unit: tablet Repeat number: 1 atorvastatin 40 mg oral tablet 1 tablet = 40 mg, By Mouth, Daily, # 90 tablet, 1 Refills, Maintenance, 07/13/24 9:26:00 AM EDT, Tablet, [facility]/pharmacy #1026, label in [place], 165, cm, 07/13/24 8:28:00 EDT, Height, 79, kg, 09/27/23 4:10:00 EST, Dry Weight Start Date: 07/13/24 Stop Date: 01/09/25 Status: Ordered Quantity: 90.0 Unit: tablet Repeat number: 2 cetirizine 10 mg oral tablet 1 tablet = 10 mg, By Mouth, Daily, # 90 tablet, 1 Refills, Maintenance, 07/13/24 9:25:00 AM EDT, Tablet, [facility]/pharmacy #1026, label in Cuban, 165, cm, 07/13/24 8:28:00 EDT, Height, 79, kg, 09/27/23 4:10:00 EST, Dry Weight Start Date: 07/13/24 Stop Date: 01/09/25 Status: Ordered Quantity: 90.0 Unit: tablet Repeat number: 2 cholecalciferol 1000 intl units oral tablet 1 tablet = 25 mcg, By Mouth, Daily, for 90 days, # 90 tablet, 1 Refills, Acute 02/14/25 6:59:00 PM EDT, 08/18/24 6:59:00 PM EST, Tablet, [facility]/pharmacy #1026, label in Cuban, 165, cm, 07/13/24 8:28:00EDT, Height, 79, kg, [...] Refills, Soft Stop, 07/13/24 9:18:00 AM EDT, [facility], lavbel in [place], all scripts, 165, cm, 07/13/24 8:28:00 EDT, Height, 79, kg, 234:10:00 EST, Dry Weight Start Date: 07/13/24 Status: Ordered Quantity: 1.0 Unit: each Repeat number: 2 fluticasone 50 mcg/inh nasal spray See Instructions, INHALE 2 SPRAYS BOTH NARES DAILY IN AM, # 16 mL, 2 Refills, Maintenance, 08/11/24 3:34:00 PM EST, [id number], 30, INHALE 2 SPRAYS BOTH NARES DAILY [...] 9:29:00 AM EDT, Route to Pharmacy Electronically, [facility]/pharmacy #1026, label in Cuban, 165, cm, 07/13/24 8:28:00 EDT, Height, 79, kg, 09/27/23 4:10:00 EST, Dry Weight Start Date: 07/13/24 Status: Ordered Quantity: 90.0 Unit: tablet Repeat number: 1 metFORMIN 500 mg oral tablet 1 tablet = 500 mg, By Mouth, Daily at supper, with meals, # 90 tablet, 3 Refills, Maintenance, 08/31/24 12:18:00 PM EST, Tablet, [facility]/pharmacy #1026, label in Cuban, 165, cm, 08/31/24 10:57:00 EST, Height, 79, kg, 09/27/23 4:10:00 EST, Dry Weight Start Date: 08/31/24 Stop Date: 08/26/25 Status: Ordered Quantity: 90.0 Unit: tablet Repeat number: 4 Trelegy Ellipta 200 mcg-62.5 mcg-25 mcg/inh inhalation powder 1 puffs, Inhalation, Daily, at the same time every day, # 1 each, 2 Refills, Maintenance, 07/13/24 9:27:00 AM EDT, Powder, [facility]/pharmacy #1026, label in Cuban, 1 puffs Inhalation Daily,x30 days,Instr:at the same [...] Refills, Maintenance, 07/13/24 9:30:00 AM EDT, Aerosol, [facility]/pharmacy #1026, label in Cuban, 165, cm, 07/13/24 8:28:00 EDT, Height, 79, [...] Team Personnel Name: Coretta Soriano RN Position: [facility] RN Member Role: Primary Care Nurse Name: Josephine Kwon RN Position: [facility] RN Member Role: Primary Care Nurse Name: Tracy Coe MD Position: [facility] Physician - Primary Care Member Role: PCP Address: [address] [place] [address] Telecom: Name: Charlee Nazario RN Position: [facility] SN RN Member Role: Primary Care Nurse Name: Edith Serna RN Position: [facility] Hospital Machine Paint Mixer Member Role: Primary Care Nurse Name: Genie Sheridan RN Position: [facility] Hospital Machine Paint Mixer Member Role: Primary Care Nurse Name: Megha Chandler RN Position: [facility] RN Member Role: Primary Care Nurse Care Team Related Persons Name: SERGIO RAUSCH Name: LEEROY VELARDE Insurance Providers Guarantor name: MARCO ANTONIO Health Plan Information #: 1 Payer: NA Member Number: NA Policy Number: NA Group Number: NA
--- OUTSIDE RECORDS SUMMARY | 2024-10-09 12:14 | XMS_ITS | Continuity of Care Document ---
Author Organization [facility] Address [address] [place] [address]- Care Team Providers Care Accounts Payable Coordinator Name Role Phone Carolin RICHARD, Tracy Primary Care Physician Encounter [facility] Date(s): 08/18/24 - 09/17/24 [facility] [address] [place] [address]- Encounter Type: Triage Allergies, Adverse Reactions, Alerts Substance Criticality Severity Reaction Reaction Severity Status penicillin Active Prozac Active Lapwai face swelling, cough, throat closes Active Jewell Active Immunizations Given and Recorded Vaccine Date [...] 9:29:00 AM EDT, Route to Pharmacy Electronically, [facility]/pharmacy #[id number], label in [place], 165, cm, 07/13/24 8:28:00 EDT, Height, 79, kg, 09/27/23 4:10:00 EST, Dry Weight Start Date: 07/13/24 Status: Ordered Quantity: 90.0 Unit: tablet Repeat number: 1 atorvastatin 40 mg oral tablet 1 tablet = 40 mg, By Mouth, Daily, # 90 tablet, 1 Refills, Maintenance, 07/13/24 9:26:00 AM EDT, Tablet, [facility]/pharmacy #[id number], label in [place], 165, cm, 07/13/24 8:28:00 EDT, Height, 79, kg, 09/27/23 4:10:00 EST, Dry Weight Start Date: 07/13/24 Stop Date: 01/09/25 Status: Ordered Quantity: 90.0 Unit: tablet Repeat number: 2 cetirizine 10 mg oral tablet 1 tablet = 10 mg, By Mouth, Daily, # 90 tablet, 1 Refills, Maintenance, 07/13/24 9:25:00 AM EDT, Tablet, [facility]/pharmacy #1026, label in [place], [...] PM EDT, 08/18/24 6:59:00 PM EST, Tablet, [facility]/pharmacy #[id number], label in [place], [...] Refills, Soft Stop, 07/13/24 9:18:00 AM EDT, [facility], lavbel in [place], all scripts, 165, cm, 07/13/24 8:28:00 EDT, Height, 79, kg, 234:10:00 EST, Dry Weight Start Date: 07/13/24 Status: Ordered Quantity: 1.0 Unit: each Repeat number: 2 fluticasone 50 mcg/inh nasal spray See Instructions, INHALE 2 SPRAYS BOTH NARES DAILY IN AM, # 16 mL, 2 Refills, Maintenance, 08/11/24 3:34:00 PM EST, [facility] STORE [id number], 30, INHALE 2 SPRAYS BOTH NARES DAILY [...] 9:29:00 AM EDT, Route to Pharmacy Electronically, [facility]/pharmacy #[id number], label in [place], 165, cm, 07/13/24 8:28:00 EDT, Height, 79, kg, 09/27/23 4:10:00 EST, Dry Weight Start Date: 07/13/24 Status: Ordered Quantity: 90.0 Unit: tablet Repeat number: 1 metFORMIN 500 mg oral tablet 1 tablet = 500 mg, By Mouth, Daily at supper, with meals, # 90 tablet, 3 Refills, Maintenance, 08/31/24 12:18:00 PM EST, Tablet, [facility]/pharmacy #1026, label in [place], [...] Refills, Maintenance, 07/13/24 9:27:00 AM EDT, Powder, [facility]/pharmacy #1026, label in [place], [...] Refills, Maintenance, 07/13/24 9:30:00 AM EDT, Aerosol, [facility]/pharmacy #[id number], label in [place], [...] Team Personnel Name: Coretta Soriano RN Position: [facility] RN Member Role: Primary Care Nurse Name: Josephine Kwon RN Position: [facility] RN Member Role: Primary Care Nurse Name: Tracy Coe MD Position: [facility] Physician - Primary Care Member Role: PCP Address: [address] [place] [address] Telecom: Name: Charlee Nazario RN Position: [facility] SN RN Member Role: Primary Care Nurse Name: Edith Serna RN Position: [facility] Hospital General Service Officer Member Role: Primary Care Nurse Name: Genie Sheridan RN Position: [facility] Hospital General Service Officer Member Role: Primary Care Nurse Name: Megha Chandler RN Position: [facility] RN Member Role: Primary Care Nurse Care Team Related Persons Name: SERGIO RAUSCH Name: LEEROY VELARDE Insurance Providers Guarantor name: MARCO ANTONIO Health Plan Information #: 1 Payer: NA Member Number: NA Policy Number: NA Group Number: NA
--- OUTSIDE RECORDS SUMMARY | 2024-10-09 12:15 | XMS_ITS | Data Portability ---
Author Organization [place] - [facility], Allergy Address [address] [place] [address] Care Team Providers Care Music Ministries Director Name Role Phone DARIANA BRONSON Primary Care Provider Assessment Encounter Date Assessment Date Assessment LastModified [...] Organization Details Recorded Time Deviated nasal septum 757278218 Active 2020 Deviated nasal septum; Note: Date Diagnosed : 1 3:39 PM (J34.2) Not Available [facility] 4 02:19:52 Nasal congestion 03041814 Active 2020 Nasal congestio n; Note: Date Diagnosed : 1 3:39 PM (R09.81) Not Available [facility] 4 02:20:16 Obstructiv e sleep apnea syndrome 47564002 Active 2023 DONTE ANAYA MD [address],[place] [address], [place], [address] , [facility] 4 10:51:50 Nasal obstructio n 809919884 Active 2023 DONTE ANAYA MD [address],[place] [address], [place], [address] , [facility] - [facility] 4 10:51:56 Problem Notes None recorded. Procedures Surgical History Date Name Laterality Status Provider Name and Address Organization Details Recorded Time rhinoseptoplasty completed DONTE BUSTAMANTE MD [address],[place] [address], [place], [address], [facility] 08/12/2024 10:54:10 Nipple/areola reconstruction completed DONTE BUSTAMANTE MD [address],[place] [address], [place], [address], [facility] 08/12/2024 10:54:27 Imaging Results None recorded. Procedure Notes None recorded. Medical Equipment None Reported. Allergies Allergen ID Allergen Name Allergen Category Reaction Reaction Severity Criticality Documentation Date Start Date Code Code System Note Provider Name and Address Organization Details Recorded Time 50340 corn extract food,medi cation other Not available Not available 02/18/2024 08888 08 RxNorm React ion: other react ion, Unkno wn; Not Available [facility] 4 00:54:59 94145 Medicinal product containin g penicilli n and acting as antibacte rial agent (product) medicatio n other Not available Not available 02/18/2024 33332 05 SNOMED React ion: other react ion, Unkno wn; Not Available [facility] 4 00:55:03 Medications Name Sig Start Date [...] mg tablet 2020 active Medicati on ID: [id number] B rand Name: acetamin ophen Se nd [...] inhalatio n 2020 active Medicati on ID: 936554 B rand Name: Advair Diskus S end Method: E-Prescr ibed Sub s Allowed: subs OK Speci al Instruct ion: INHALE 1 PUFF TWICE DAILY IN THE MORNING AND IN THE EVENING 12 HOURS APART Me dication GenericN bo: Advair Diskus Not Available Not Available Not Available lisinopri l 20 mg-hydroc hlorothia zide 25 mg tablet 08/12 completed Medicati on ID: [id number] B rand Name: lisinopr il-hydro chloroth iazide S end Method: E-Prescr ibed Sub s Allowed: subs OK Speci al Instruct ion: TAKE 1 TABLET BY MOUTH EVERY DAY Medi cationGe nericNam e: lisinopr il-hydro chloroth iazide Not Available Not Available Not Available monteluka st 10 mg tablet 08/12 completed Medicati on ID: 602308 B rand Name: monteluk ast Send Method: E-Prescr ibed Sub s Allowed: subs OK Speci al Instruct ion: TAKE 1 TABLET BY MOUTH EVERY DAY Medi cationGe nericNam e: monteluk ast Not Available Not Available Not Available azelastin e 137 mcg (0.1 %) nasal spray Inhale 2 spray twice a day as directed 2020 active Medicati on ID: [id number] D uration Value: 30 Prescri bed By Name: Donte lunsford M.D. Bra yeny Name: bonnie de la paz Send Method: E-Prescr ibed Sub s Allowed: subs OK Medic ationGen ericName : chasstdeandre ne Not Available Not Available Not Available ibuprofen 600 mg tablet 2020 active Medicati on ID: [id number] B rand Name: ibuprofe n Send Method: [...] Updated DateTime 08/12/2024 165.1 cm 30 kg/m2 73399.63 g Russ Montanez [facility] 08/12/2024 10:36:30 Social History None recorded. Functional Status None recorded. Mental Status None recorded. Family History Nothing Reported. Medical History Condition Response Nasal or Sinus Problems Y Gynecological HistoryNo gynecological history recorded. Obstetrics History GPAL:G 0 P 0 0 0 0 Past Encounters Encounter ID Performer Location Encounter Start Date Encounter Closed Date Diagnosis/Indication Diagnosis SNOMED-CT Code Diagnosis ICD10 Code [id number] DONTE ANAYA MD [facility] [address] [place] [address] 08/12/2024 10:18:44 08/12/2024 10:55:23 Obstructive sleep apnea syndrome 60315542 G47.33 Nasal obstruction 447555 000 J34.89 Deviated nasal septum 12 2618435 J34.2 Health Concerns Section Related Observation LastModified by Organization Detai ls LastModified Time None Recorded Concern Status LastModified by Organization Details LastModified Time None Recorded Advance Directives Directive None Recorded Payers Encounter Date Sequence Insurance Name Policy Number Policy Evans Covered Member ID Evans Member ID Guarantor Name 08/12/2024 1 [facility] - DOS ON OR AFTER 2023 - CARE HOME OPTIONS (MEDICARE REPLACEMENT/ADV ANTAGE - HMO) Chayito Moraes [id number] Chayito Moraes Notes Date Note Type Note Provider Name and Address Organization Details Recorded Time 08/12/2024 text/html Pt not sure why she is here but consult for difficulty tolerating CPAP. Just started using CPAP but having anxiety. Some nasal congestionPrior nasal fracture requiring reduction Dog Warden Favian [id number] DONTE BUSTAMANTE MD [address] [place] [address], [phone] - [facility] 08/12/2024 10:54:36 OBGyn Episode No OBEpisode recorded.
--- OUTSIDE RECORDS SUMMARY | 2024-10-09 12:15 | XMS_ITS | Continuity of Care Document ---
Author Organization [place] - [facility], [facility] Address [address] [place] [address] Care Team Providers Care Incubator Operator Name Role Phone DARIANA BRONSON Primary Care [...] Organization Details Recorded Time Deviated nasal septum 525021393 Active 2020 Deviated nasal septum; Note: Date Diagnosed : 1 3:39 PM (J34.2) Not Available [facility] 4 02:19:52 Nasal congestion 23931601 Active 2020 Nasal congestio n; Note: Date Diagnosed : 1 3:39 PM (R09.81) Not Available [facility] 4 02:20:16 Obstructiv e sleep apnea syndrome 84469400 Active 2023 DONTE ANAYA MD [address], [place], [address] , [facility] 4 10:51:50 Nasal obstructio n 823079452 Active 2023 DONTE ANAYA MD [address], [facility] [place], [address] , [facility] - [facility] 4 10:51:56 Problem Notes None recorded. Procedures Surgical History Date Name Laterality Status Provider Name and Address Organization Details Recorded Time rhinoseptoplasty completed DONTE BUSTAMANTE MD [address], [place], [address], [facility] 08/12/2024 10:54:10 Nipple/areola reconstruction completed DONTE BUSTAMANTE MD [address] [place],[address] [facility], [place], [address], [facility] 08/12/2024 10:54:27 Imaging Results None recorded. Procedure Notes None recorded. Medical Equipment None Reported. Allergies Allergen ID Allergen Name Allergen Category Reaction Reaction Severity Criticality Documentation Date Start Date Code Code System Note Provider Name and Address Organization Details Recorded Time 93597 corn extract food,medi cation other Not available Not available 02/18/2024 78314 08 RxNorm React ion: other react ion, Unkno wn; Not Available [facility] 4 00:54:59 94789 Medicinal product containin g penicilli n and acting as antibacte rial agent (product) medicatio n other Not available Not available 02/18/2024 45060 05 SNOMED React ion: other react ion, Unkno wn; Not Available [facility] 4 00:55:03 Medications Name Sig Start Date [...] mg tablet 2020 active Medicati on ID: [id number] B rand Name: acetamin ophen Se nd [...] inhalatio n 2020 active Medicati on ID: 178088 B rand Name: Advair Diskus S end Method: E-Prescr ibed Sub s Allowed: subs AYAKA Speci al Instruct ion: INHALE 1 PUFF TWICE DAILY IN THE MORNING AND IN THE EVENING 12 HOURS APART Me dication GenericN bo: Advair Diskus Not Available Not Available Not Available lisinopri l 20 mg-hydroc hlorothia zide 25 mg tablet 08/12 completed Medicati on ID: 675858 B rand Name: lisinopr il-hydro chloroth iazide S end Method: E-Prescr ibed Sub s Allowed: subs OK Speci al Instruct ion: TAKE 1 TABLET BY MOUTH EVERY DAY Medi cationGe nericNam e: lisinopr il-hydro chloroth iazide Not Available Not Available Not Available monteluka st 10 mg tablet 08/12 completed Medicati on ID: [id number] B rand Name: monteluk ast Send Method: E-Prescr ibed Sub s Allowed: subs OK Speci al Instruct ion: TAKE 1 TABLET BY MOUTH EVERY DAY Medi cationGe nericNam e: monteluk ast Not Available Not Available Not Available azelastin e 137 mcg (0.1 %) nasal spray Inhale 2 spray twice a day as directed 2020 active Medicati on ID: [id number] D uration Value: 30 Prescri bed By Name: Donte lunsford M.D. Bra nd Name: bonnie de la paz Send Method: E-Prescr ibed Sub s Allowed: subs OK Medic ationGen ericName : cahsstdeandre ne Not Available Not Available Not Available ibuprofen 600 mg tablet 2020 active Medicati on ID: [id number] B rand Name: ibuprofe n Send Method: [...] Updated DateTime 08/12/2024 165.1 cm 30 kg/m2 29642.63 g Russ Montanez [facility] 08/12/2024 10:36:30 Social History None recorded. Functional Status None recorded. Mental Status None recorded. Family History Nothing Reported. Medical History Condition Response Nasal or Sinus Problems Y Gynecological HistoryNo gynecological history recorded. Obstetrics History GPAL:G 0 P 0 0 0 0 Past Encounters Encounter ID Performer Location Encounter Start Date Encounter Closed Date Diagnosis/Indication Diagnosis SNOMED-CT Code Diagnosis ICD10 Code [id number] DONTE ANAYA MD [facility] [address] [facility] [place] [address] 08/12/2024 10:18:44 08/12/2024 10:55:23 Obstructive sleep apnea syndrome 80917921 G47.33 Nasal obstruction 975696 000 J34.89 Deviated nasal septum 12 6201741 J34.2 Health Concerns Section Related Observation LastModified by Organization Detai ls LastModified Time None Recorded Concern Status LastModified by Organization Details LastModified Time None Recorded Payers Encounter Date Sequence Insurance Name Policy Number Policy Evans Covered Member ID Evans Member ID Guarantor Name 08/12/2024 1 [facility] - DOS ON OR AFTER 2023 - SHELTER OPTIONS (MEDICARE REPLACEMENT/ADV ANTAGE - HMO) Chayito Moraes [id number] Chayito Moraes Notes Date Note Type Note Provider Name and Address Organization Details Recorded Time 08/12/2024 text/html Pt not sure why she is here but consult for difficulty tolerating CPAP. Just started using CPAP but having anxiety. Some nasal congestionPrior nasal fracture requiring reduction Pick Up Favian [id number] DONTE BUSTAMANTE MD [address] [place] [address], [place], [address], [facility] - [facility] 08/12/2024 10:54:36 OBGyn Episode No OBEpisode recorded.
--- OUTSIDE RECORDS SUMMARY | 2024-10-09 12:15 | XMS_ITS | Data Portability ---
Author Organization [employer] [employer] Address [address] [place] [address] Care Team Providers Care Receiving Teller Name Role Phone HIM CCA Referring Provider MARTINA CASTRO Primary Care Provider Assessment Encounter Date Assessment Date Assessment LastModified by Organization Details LastModified Time 09/26/2023 09/26/2023 I provided real -time medical direction via phone for this encounter, and was available for additional phone based assistance as needed. I have reviewed and agree with the Assessment and Plan as documented by the Top Hat Body Maker. Patient given the opportunity to ask questions. [...] to explain to her very clearly in [place]uneian the risks and benefits and what was needed and she agreed. EMS called and patient transferred to [facility]. I called report to the Xpect line [email or web address] Not available 09/26/2023 18:40:26 03/03/2024 03/03/2024 I provided real -time medical direction via phone for this encounter, and was available for additional phone based assistance as needed. I have reviewed and agree with the Assessment and Plan as documented by the Top Hat Body Maker. We discussed the diagnostic uncertainty of home [...] AMS/ syncope/ hi fever /intolerable pain/unable to [id number] necessitate going to the ED - verbalized understanding of instruction via Fijian court interpreter. Not available 03/03/2024 19:47:17 Plan of Treatment Reminders Order Date Submit Date Provider Last Modified By Organization Details Last Modified Time Details Appointments None recorded. Lab BMP, serum or plasma 2023 024 [email or web address], [address], 4 11:17:37 Referral None recorded. Procedures None recorded. Surgeries None recorded. Imaging electrocard iogram 2022 [address], [address], 4 10:22:55 Medication Orders aspirin 81 mg chewable tablet 2022 023 [email or web address] 0 Not available 3 17:22:09 ketorolac 30 mg/mL injection solution 2023 024 [email or web address] 0 [facility], [address] [place] [address], [phone], 4 11:17:37 Patient TargetsNo targets recorded. Patient InstructionsNo instructions recorded. Reason for Referral None Reported. Results Created Date Observation Date Name Description Value Unit Range Abnormal Flag Note LastModifiedBy Organization Detail LastModifiedTime 09/26/2009/26/2023 elect dot correiagr am No observ ation record ed. [address], [address], 12/04/2023 18:14:17 Result Notes None recorded. Procedures Surgical History None recorded. Imaging Results Imaging Date Name Status LastModified by Organization Details LastModified Time 09/26/2023 electrocardiogram completed [address], [address], 12/04/2023 18:14:17 Procedure Notes None recorded. Medical Equipment None Reported. Allergies Allergen ID Allergen Name Allergen Category Reaction Reaction Severity Criticality Documentation Date Start Date Code Code System Note Provider Name and Address Organization Details Recorded Time 4121 Medicinal product containin g penicilli n and acting as antibacte rial agent (product) medicatio n Not available Not available Not available 09/26/2023 17872 05 SNOMED Not Available [employer] - production [...] Details Last Updated DateTime 4 98.2 [degF] 96946.1 92 g 16 /min 83 /min 165.1 cm 94 % 94 % 158 mm[Hg] 92 mm[Hg] Not Available [employer] - production 4 11:12:16 Social History None recorded. Functional Status None recorded. Mental Status None recorded. Family History Nothing Reported. Medical History No medical history recorded. Gynecological HistoryNo gynecological history recorded. Obstetrics History GPAL:G 0 P 0 0 0 0 Past Encounters Encounter ID Performer Location Encounter Start Date Encounter Closed Date Diagnosis/Indication Diagnosis SNOMED-CT Code Diagnosis ICD10 Code [id number] Viviana Marsh MD [facility] - [facility] [address] [place] [address] 09/26/2023 16:39:08 09/28/2023 17:11:31 Chest pain 51366988 R07.9 [id number] Viviana Marsh MD [facility] - [facility] [address] [place] [address] 03/03/2024 11:12:09 03/03/2024 21:27:41 Pain of right knee joint 7479178091 92350 M25.561 Health Concerns Section Related Observation LastModified by Organization Detai ls LastModified Time None Recorded Concern Status LastModified by Organization Details LastModified Time None Recorded Advance Directives Directive None Recorded Payers Encounter Date Sequence Insurance Name Policy Number Policy Evans Covered Member ID Evans Member ID Guarantor Name 09/26/2023 1 [facility] - DOS ON OR AFTER 2023 - DUAL ELIGIBLE - PENITENTIARY OPTIONS AND ONE CARE (MEDICARE REPLACEMENT/ADV ANTAGE - HMO) Chayito Moraes [id number] Chayito Dimitry 03/03/2024 1 [facility] - DOS ON OR AFTER 2023 - DUAL ELIGIBLE - PENITENTIARY OPTIONS AND ONE CARE (MEDICARE REPLACEMENT/ADV ANTAGE - HMO) Chayitomayte Moraes [id number] Chayito Dimitry Notes Date Note Type Note [...] (Elizabeth Santana): Comments: spoke with member with court interpreter. Member had sharp pain in left arm , c/o nausea /dizziness , that is intermittent. Currently gone, Member has not had any falls or injuries. Member has h/o HTN but no other cardiac but has family history of PE/DVT RED FLAGS REVIEWED MEMEBER IS AWARE OF WHEN TO CALL 911 SEGMD: With the aid of nulato Bruneian-speaking night club manager-patient complains of pressure in her chest lasting [...] above................. ...................... ...................... ...................... ...................... ...................... ................ Top Hat Body Maker Note From Salty Sesay: Encountered patient, conscious, [...] noted, 12 lead uploaded for physician interpretation. [facility] consulted: states best course of action for patient? s current presentation would be a trip to the emergency room for further work up to rule out any sort of cardiac event. Patient is amenable to C? s plan. [facility] ordered 324 mg of PO aspirin, administered by BANNER crew. Patient care to BANNER crew with verbal report exchanged. Patient to be transported to [facility]. Top Hat Body Maker Allergies: Penicillin ...................... ...................... ...................... ...................... ...................... ...................... ......... Disposition: Fulfilled Viviana Marsh MD [address] [place] [address],[address], [place], [address] [employer] 09/26/2023 18:40:33 03/03/2024 text/html CRC Nurse Triage [...] she may need an X-ray/U/S Adrienne SMALLS Top Hat Body Maker POC Test Results from Jose Alberto Roldan [facility] (1) [11:05] pH: 7.46 pH units pCO2: 40.2 mmHg pO2: 47.9 mmHg Na: 142 mmol/L K: 4.5 mmol/L iCa: 1.11 mmol/L Cl: 106 mmol/L TCO2: 27.6 mEq/L Hct: 46 % Hb: 15.8 g/dL Glu: 115 mg/dL Lac: 1.3 mmol/L Cr: 0.4 mg/dL BUN: 14 mg/dL A ...................... ...................... ...................... ...................... ...................... ...................... ......... Top Hat Body Maker Note From Jose Alberto Roldan: Pt reports [...] motion of the knee. Viviana Marsh MD [address] [place] [address],[address] [facility], [place], [address], [facility] [facility] 03/03/2024 19:51:54 OBGyn Episode No OBEpisode recorded.
== END 2024-10-09 11:32 | disposition home or self-care (01) ==
PROVIDERS: PCP Internal Medicine; Visit Provider Nurse Practitioner Family
DX: G47.9 Sleep disorder, unspecified (principal); G47.34 Idiopathic sleep related nonobstructive alveolar hypoventilation; G47.33 Obstructive sleep apnea (adult) (pediatric)
CPT/HCPCS: 99213

== ENCOUNTER → 2024-10-09 10:40 | Outpatient (BNVA) | payer MEDICARE, MEDICAID, SELFPAY | PROVIDERS: PCP Internal Medicine; Visit Provider Nurse Practitioner Family | DX: G47.33 Obstructive sleep apnea (adult) (pediatric) (principal); G47.34 Idiopathic sleep related nonobstructive alveolar hypoventilation; G47.9 Sleep disorder, unspecified | CPT/HCPCS: 99212 ==

== ENCOUNTER 2024-10-13 11:27 | Outpatient (AMB) | payer OTHER, SELFPAY ==
--- NOTE | 2024-10-13 11:31 | A.OFFVIS_ITS ---
Vital Signs 10/13/24 11:32 Weight 179 lb 10.828 oz BP 142/66 H Blood Pressure Location Rt brachial Position Sitting Pulse 93 Pulse Source Pulse Oximeter Pulse Oximetry (%) 96 Oxygen Delivery Method Room Air Intake Visit Reasons: Asthma Allergies prednisone [PREDNISONE] Allergy (Severe, Verified 10/13/24 11:35) REDNESS, SWELLING FACE, swelling, hives, hives, swelling fluoxetine [From PROZAC] Allergy (Intermediate, Verified 10/13/24 11:35) DIFFICULTY BREATHING Penicillins [PENICILLINS] Allergy (Intermediate, Verified 10/13/24 11:35) RASH/HIVES penicillin V Allergy (Unknown, Verified 10/13/24 11:35) unknown From Toprol XL Allergy (Intermediate, Uncoded 10/13/24 11:35) RASH Medication List - Last Reconciled 10/13/24 by Viviana Garcia LPN acetaminophen (Tylenol Extra Strength) 500 mg PO Q6H PRN amlodipine 5 mg PO DAILY atorvastatin 40 mg PO DAILY cetirizine 10 mg PO DAILY fluticasone propionate 50 mcg/actuation sprays intranasal dimciyarvxs-utqdcqvvz-yjoiiljo 200-62.5-25 mcg (Trelegy Ellipta) 1 inh inhalation DAILY 30 days Grab bar As directed ipratropium bromide 2 sprays intranasal TID 30 days losartan 50 mg PO DAILY magnesium oxide 400 mg PO BEDTIME 30 days walker (Ultra-Light Rollator misc) As directed HPI HPI Asthma: Details: 68-year-old lady now followed for asthma, environmental allergies, and obstructive sleep apnea. She continues to use Trelegy and albuterol MDI, though now with worsening control of her symptoms. She is interested in immunologic therapy. However, patient denies recent acute exacerbations. [facility] Medical History Ventral hernia Multiple lipomas Mild intermittent asthma Dysplasia of cervix, low grade (MARIE 1) Lateral epicondylitis, right elbow Hx of sleep apnea History of asthma Hx of essential hypertension Surgical History Hx of breast biopsy Family History Father HTN (hypertension) Heart disease Mother HTN (hypertension) Heart disease Brother Heart disease Social History Household Members: None Housing: Apartment Alcohol intake: never Patient Tobacco Use Status: Never used Tobacco e-Cigarette/Vaping Use: Never Used Second Hand Smoke Exposure: No service: No Current occupational status: unemployed Sexual orientation: Straight/Heterosexual Gender identity: Female Cognitive needs: No Hearing needs: No Vision needs: Yes Female Reproductive History Menstrual Age of Menarche: 13 Review of Systems Const Denies daytime sleepiness, Denies excessive sweating, Denies fatigue, Denies fever(s), Denies lethargy, Denies malaise, Denies night sweats, Denies snoring and Denies weight loss Eyes Denies blurry vision and Denies itchy eyes ENT Denies nasal congestion, Denies post nasal drip, Denies sinus pain, Denies sinus pressure and Denies other ( Thrush) Card Denies chest pain, Denies pedal edema, Denies dyspnea, Denies orthopnea and Denies paroxysmal nocturnal dyspnea Resp Denies cough, Denies hemoptysis, Denies excessive phlegm production, Denies dyspnea, Denies snoring and Reports wheezing GI Denies abdominal pain and Denies heartburn Musc Denies myalgias, Denies arthralgias and Denies joint swelling Skin/Breast Denies rash Neuro Denies memory loss and Denies seizure-like activity Psych Denies abnormal sleep pattern, Denies anxiety and Denies memory loss Endo Denies excessive sweating, Denies fatigue and Denies heat intolerance Mike/Lymph Denies easy bruising Aller/Immun Denies itchy eyes, Denies seasonal rhinorrhea and Reports wheezing Physical Exam Vital Signs: Last Vital Signs Pulse 93 10/13/24 11:32 BP 142/66 H 10/13/24 11:32 Pulse Ox 96 10/13/24 11:32 Oxygen Delivery Method Room Air 10/13/24 11:32 Const General: no acute distress and alert Nutritional Appearance: not obese Orientation/consciousness: Other orientation findings ( oriented) HEENT Head: Yes atraumatic Eyes General: appearance normal, both eyes and all related structures Sclerae: sclerae normal EOM: EOMs intact bilaterally Neck Neck: Yes supple Lymphatic: no lymphadenopathy noted Resp Effort & Inspection: normal respiratory effort and no use of accessory muscles Auscultation: clear to auscultation bilaterally Cardio Rate: regular rate Rhythm: regular rhythm Heart sounds: no gallops, no murmurs and no rubs Skin General skin exam: other ( warm) Extrem General: No clubbing, No cyanosis and No edema Assessment & Plan Assessment & Plan (1) Severe persistent asthma: Code(s): J45.50 - Severe persistent asthma, uncomplicated Category: Medical Plan: Worsening control on Trelegy and albuterol MDI. Will request Xolair approval. (2) Environmental allergies: Code(s): Z91.09 - Other allergy status, other than to drugs and biological substances Category: Medical Plan: Expect to improve on Xolair. Coding Level of Care Code Est Pt Level 4 (51317) Diagnoses Severe persistent asthma J45.50 Environmental allergies Z91.09
[2024-10-13 11:32] VITALS: BP 142/66; PULSE 93; O2SAT 96
--- OUTSIDE RECORDS SUMMARY | 2024-10-13 13:10 | XMS_ITS | Continuity of Care Document ---
Author Organization [place] - [facility], [facility] Address [address] [place] [address] Care Team Providers Care Welt Insole Channeler Name Role Phone DARIANA BRONSON Primary Care [...] Organization Details Recorded Time Deviated nasal septum 009010891 Active 2020 Deviated nasal septum; Note: Date Diagnosed : 1 3:39 PM (J34.2) Not Available [facility] 4 02:19:52 Nasal congestion 26941302 Active 2020 Nasal congestio n; Note: Date Diagnosed : 1 3:39 PM (R09.81) Not Available [facility] 4 02:20:16 Obstructiv e sleep apnea syndrome 76690311 Active 2023 DONTE ANAYA MD [address], [place], [address] , [facility] 4 10:51:50 Nasal obstructio n 992595023 Active 2023 DONTE ANAYA MD [address], [place], [address] , [facility] - [facility] 4 10:51:56 Problem Notes None recorded. Procedures Surgical History Date Name Laterality Status Provider Name and Address Organization Details Recorded Time rhinoseptoplasty completed DONTE BUSTAMANTE MD [address], [place], [address], [facility] 08/12/2024 10:54:10 Nipple/areola reconstruction completed DONTE BUSTAMANTE MD [address] [facility], [place], [address], [facility] 08/12/2024 10:54:27 Imaging Results None recorded. Procedure Notes None recorded. Medical Equipment None Reported. Allergies Allergen ID Allergen Name Allergen Category Reaction Reaction Severity Criticality Documentation Date Start Date Code Code System Note Provider Name and Address Organization Details Recorded Time 59172 corn extract food,medi cation other Not available Not available 02/18/2024 24409 08 RxNorm React ion: other react ion, Unkno wn; Not Available [facility] 4 00:54:59 02962 Medicinal product containin g penicilli n and acting as antibacte rial agent (product) medicatio n other Not available Not available 02/18/2024 55706 05 SNOMED React ion: other react ion, Unkno wn; Not Available [facility] 4 00:55:03 Medications Name Sig Start [...] mg tablet 2020 active Medicati on ID: [id number] B rand Name: acetamin ophen Se nd [...] inhalatio n 2020 active Medicati on ID: [id number] B rand Name: Advair Diskus S end Method: E-Prescr ibed Sub s Allowed: subs AYAKA Speci al Instruct ion: INHALE 1 PUFF TWICE DAILY IN THE MORNING AND IN THE EVENING 12 HOURS APART Me dication GenericN bo: Advair Diskus Not Available Not Available Not Available lisinopri l 20 mg-hydroc hlorothia zide 25 mg tablet 08/12 completed Medicati on ID: [id number] B rand Name: lisinopr il-hydro chloroth iazide S end Method: E-Prescr ibed Sub s Allowed: subs OK Speci al Instruct ion: TAKE 1 TABLET BY MOUTH EVERY DAY Medi cationGe nericNam e: lisinopr il-hydro chloroth iazide Not Available Not Available Not Available monteluka [address] 10 mg tablet 08/12 completed Medicati on ID: [id number] B rand Name: monteluk ast Send Method: E-Prescr ibed Sub s Allowed: subs OK Speci al Instruct ion: TAKE 1 TABLET BY MOUTH EVERY DAY Medi cationGe nericNam e: monteluk ast Not Available Not Available Not Available azelastin e 137 mcg (0.1 %) nasal spray Inhale 2 spray twice a day as directed 2020 active Medicati on ID: [id number] D uration Value: 30 Prescri bed By Name: Donte lunsford M.D. Bra nd Name: bonnie de la paz Send Method: E-Prescr ibed Sub s Allowed: subs OK Medic ationGen ericName : cierraelastdeandre ne Not Available Not Available Not Available ibuprofen 600 mg tablet 2020 active Medicati on ID: [id number] B rand Name: ibuprofe n Send Method: [...] Updated DateTime 08/12/2024 165.1 cm 30 kg/m2 31255.63 g Russ Montanez [facility] 08/12/2024 10:36:30 Social History None recorded. Functional Status None recorded. Mental Status None recorded. Family History Nothing Reported. Medical History Condition Response Nasal or Sinus Problems Y Gynecological HistoryNo gynecological history recorded. Obstetrics History GPAL:G 0 P 0 0 0 0 Past Encounters Encounter ID Performer Location Encounter Start Date Encounter Closed Date Diagnosis/Indication Diagnosis SNOMED-CT Code Diagnosis ICD10 Code Diagnosis Note [id number] DONTE ANAYA MD [facility] [address] [place] [address] 08/12/2024 10:18:44 08/12/2024 10:55:23 Obstructive sleep apnea syndrome 87263373 G47.33 Nasal obstruction 335647 000 J34.89 Deviated nasal septum 12 9859940 J34.2 Health Concerns Section Related Observation LastModified by Organization Detai ls LastModified Time None Recorded Concern Status LastModified by Organization Details LastModified Time None Recorded Payers Encounter Date Sequence Insurance Name Policy Number Policy Evans Covered Member ID Evans Member ID Guarantor Name 08/12/2024 1 [facility] - DOS ON OR AFTER 2023 - [employer] OPT[employer] (MEDICARE REPLACEMENT/ADV ANTAGE - HMO) Chayito Moraes [id number] Chayito Moraes Notes Date Note Type Note Provider Name and Address Organization Details Recorded Time 08/12/2024 text/html Pt not sure why she is here but consult for difficulty tolerating CPAP. Just started using CPAP but having anxiety. Some nasal congestionPrior nasal fracture requiring reduction Business Developer Favian [id number] DONTE BUSTAMANTE MD [address] [place] [address], [place], [address], [facility] - [facility] 08/12/2024 10:54:36 OBGyn Episode No OBEpisode recorded.
--- OUTSIDE RECORDS SUMMARY | 2024-10-13 13:10 | XMS_ITS | Data Portability ---
Author Organization [place] - [facility], Allergy Address [address] [facility] [address] [place] [address] Care Team Providers Care Sap Senior Developer Name Role Phone DARIANA BRONSON Primary Care [...] Organization Details Recorded Time Deviated nasal septum 828489504 Active 2020 Deviated nasal septum; Note: Date Diagnosed : 1 3:39 PM (J34.2) Not Available [facility] 4 02:19:52 Nasal congestion 00318026 Active 2020 Nasal congestio n; Note: Date Diagnosed : 1 3:39 PM (R09.81) Not Available [facility] 4 02:20:16 Obstructiv e sleep apnea syndrome 38710226 Active 2023 DONTE ANAYA MD [address] [facility],[place] [address], [place], [address] , [facility] 4 10:51:50 Nasal obstructio n 587089712 Active 2023 DONTE ANAYA MD [address] [facility],[place] [address], [place], [address] , [facility] - [facility] 4 10:51:56 Problem Notes None recorded. Procedures Surgical History Date Name Laterality Status Provider Name and Address Organization Details Recorded Time rhinoseptoplasty completed DONTE BUSTAMANTE MD [address] [facility],[place] [address], [place], [address], [facility] 08/12/2024 10:54:10 Nipple/areola reconstruction completed DONTE BUSTAMANTE MD [address] [facility],[place] [address], [place], [address], [facility] 08/12/2024 10:54:27 Imaging Results None recorded. Procedure Notes None recorded. Medical Equipment None Reported. Allergies Allergen ID Allergen Name Allergen Category Reaction Reaction Severity Criticality Documentation Date Start Date Code Code System Note Provider Name and Address Organization Details Recorded Time 81232 corn extract food,medi cation other Not available Not available 02/18/2024 78885 08 RxNorm React ion: other react ion, Unkno wn; Not Available [facility] 4 00:54:59 48864 Medicinal product containin g penicilli n and acting as antibacte rial agent (product) medicatio n other Not available Not available 02/18/2024 04471 05 SNOMED React ion: other react ion, Unkno wn; Not Available [facility] 4 00:55:03 Medications Name Sig Start Date [...] mg tablet 2020 active Medicati on ID: [id number] B rand Name: acetamin ophen Se nd [...] inhalatio n 2020 active Medicati on ID: [id number] B rand Name: Advair Diskus S end Method: E-Prescr ibed Sub s Allowed: subs OK Speci al Instruct ion: INHALE 1 PUFF TWICE DAILY IN THE MORNING AND IN THE EVENING 12 HOURS APART Me dication GenericN bo: Advair Diskus Not Available Not Available Not Available lisinopri l 20 mg-hydroc hlorothia zide 25 mg tablet 08/12 completed Medicati on ID: [id number] B rand Name: lisinopr il-hydro chloroth iazide S end Method: E-Prescr ibed Sub s Allowed: subs OK Speci al Instruct ion: TAKE 1 TABLET BY MOUTH EVERY DAY Medi cationGe nericNam e: lisinopr il-hydro chloroth iazide Not Available Not Available Not Available monteluka st 10 mg tablet 08/12 completed Medicati on ID: [id number] B rand Name: monteluk ast Send Method: E-Prescr ibed Sub s Allowed: subs OK Speci al Instruct ion: TAKE 1 TABLET BY MOUTH EVERY DAY Medi cationGe nericNam e: monteluk ast Not Available Not Available Not Available azelastin e 137 mcg (0.1 %) nasal spray Inhale 2 spray twice a day as directed 2020 active Medicati on ID: [id number] D uration Value: 30 Prescri bed By Name: Donte lunsford M.D. Bra yeny Name: bonnie de la paz Send Method: E-Prescr ibed Sub s Allowed: subs OK Medic ationGen ericName : chasstdeandre ne Not Available Not Available Not Available ibuprofen 600 mg tablet 2020 active Medicati on ID: [id number] B rand Name: ibuprofe n Send Method: [...] Updated DateTime 08/12/2024 165.1 cm 30 kg/m2 34183.63 g Russ Montanez [facility] 08/12/2024 10:36:30 Social History None [...] SNOMED-CT Code Diagnosis ICD10 Code Diagnosis Note [id number] DONTE ANAYA MD [facility] [address] [facility] [place] [address] 08/12/2024 10:18:44 08/12/2024 10:55:23 Obstructive sleep apnea syndrome 69693419 G47.33 Nasal obstruction 302964 000 J34.89 Deviated nasal septum 12 8052112 J34.2 Health Concerns Section Related Observation LastModified by Organization Detai ls LastModified Time None Recorded Concern Status LastModified by Organization Details LastModified Time None Recorded Advance Directives Directive None Recorded Payers Encounter Date Sequence Insurance Name Policy Number Policy Evans Covered Member ID Evans Member ID Guarantor Name 08/12/2024 1 [facility] - DOS ON OR AFTER 2023 - [facility] OPT[facility] (MEDICARE REPLACEMENT/ADV ANTAGE - HMO) Chayito Moraes [id number] Chayito Moraes Notes Date Note Type Note Provider Name and Address Organization Details Recorded Time 08/12/2024 text/html Pt not sure why she is here but consult for difficulty tolerating CPAP. Just started using CPAP but having anxiety. 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 - [facility] 08/12/2024 10:54:36 OBGyn Episode No OBEpisode recorded.
--- OUTSIDE RECORDS SUMMARY | 2024-10-13 13:11 | XMS_ITS | Data Portability ---
Author Organization [employer] [place] [facility] [employer] Address [address] [place] [address] Care Team Providers Care Pr Manager Name Role Phone HIM CCA Referring Provider [phone] MARTINA CASTRO Primary Care Provider Assessment Encounter Date Assessment Date Assessment LastModified by Organization Details LastModified Time 09/26/2023 09/26/2023 I provided real -time medical direction via phone for this encounter, and was available for additional phone based assistance as needed. I have reviewed and agree with the Assessment and Plan as documented by the Mechanical Insulator. Patient given the opportunity to ask questions. [...] to explain to her very clearly in Moldovan the risks and benefits and what was needed and she agreed. EMS called and patient transferred to [facility]. I called report to the Xpect line Not available 09/26/2023 18:40:26 03/03/2024 03/03/2024 I provided real -time medical direction via phone for this encounter, and was available for additional phone based assistance as needed. I have reviewed and agree with the Assessment and Plan as documented by the Mechanical Insulator. We discussed the diagnostic uncertainty of home [...] AMS/ syncope/ hi fever /intolerable pain/unable to [id number] necessitate going to the ED - verbalized understanding of instruction via [place] pulp piler. [email or web address] Not available 03/03/2024 19:47:17 Plan of Treatment Reminders Order Date Submit Date Provider Last Modified By Organization Details Last Modified Time Details Appointments None recorded. Lab BMP, serum or plasma 2023 [email or web address], [address], 4 11:17:37 Referral None recorded. Procedures None recorded. Surgeries None recorded. Imaging electrocard iogram [address], [address], 4 10:22:55 Medication Orders aspirin 81 mg chewable tablet 2022 023 [email or web address] 0 Not available 3 17:22:09 ketorolac 30 mg/mL injection solution 2023 024 [email or web address] 0 [facility], [address] [place] [address], [phone], 4 11:17:37 Patient TargetsNo targets recorded. Patient InstructionsNo instructions recorded. Reason for Referral None Reported. Results Created Date Observation Date Name Description Value Unit Range Abnormal Flag Note LastModifiedBy Organization Detail LastModifiedTime 09/26/2009/26/2023 elect dot correiagr am No observ ation record ed. [address], [address], 12/04/2023 18:14:17 Result Notes None recorded. Procedures Surgical History None recorded. Imaging Results Imaging Date Name Status LastModified by Organization Details LastModified Time 09/26/2023 electrocardiogram completed [address], [address], 12/04/2023 18:14:17 Procedure Notes None recorded. Medical Equipment None Reported. Allergies Allergen ID Allergen Name Allergen Category Reaction Reaction Severity Criticality Documentation Date Start Date Code Code System Note Provider Name and Address Organization Details Recorded Time 4121 Medicinal product containin g penicilli n and acting as antibacte rial agent (product) medicatio n Not available Not available Not available 09/26/2023 70542 05 SNOMED Not Available [facility] - production [...] % 176 mm[Hg] 84 mm[Hg] Not Available [email or web address] - production 3 16:39:17 Date Recorded Body temperature Body weight Respiratory rate Heart rate Body height Oxygen saturation Oxygen saturation in Arterial blood by Pulse oximetry Systolic blood pressure Diastolic blood pressure Provider Name and Address Organization Details Last Updated DateTime 4 98.2 [degF] 89448.1 92 g 16 /min 83 /min 165.1 cm 94 % 94 % 158 mm[Hg] 92 mm[Hg] Not Available [email or web address] - production 4 11:12:16 Social History None recorded. Functional Status None recorded. Mental Status None recorded. Family History Nothing Reported. Medical History No medical history recorded. Gynecological HistoryNo gynecological history recorded. Obstetrics History GPAL:G 0 P 0 0 0 0 Past Encounters Encounter ID Performer Location Encounter Start Date Encounter Closed Date Diagnosis/Indication Diagnosis SNOMED-CT Code Diagnosis ICD10 Code Diagnosis Note [id number] Viviana Marsh MD [facility] [address] [place] [id number] 09/26/2023 16:39:08 09/28/2023 17:11:31 Chest pain 27103403 R07.9 [id number] Viviana Marsh MD [facility] - [facility] [address] [place] [id number] 03/03/2024 11:12:09 03/03/2024 21:27:41 Pain of right knee joint [id number] 01966 M25.561 Possible internal derangemen t-advised needs imaging as above. Advised to elevate apply ice wrapped in a towel for 15 to 20 minutes every few hours. Patient denies any history of CKD, GI bleeding,/ PUD-Labs verified for normal H&H and renal function. Advised risks and benefits of ketorolac and patient requested. Will give 1 dose of ketorolac -lower dose/advis ed may take Tylenol 1 g 3 times a day maximally given stated weight Health Concerns Section Related Observation LastModified by Organization Detai ls LastModified Time None Recorded Concern Status LastModified by Organization Details LastModified Time None Recorded Advance Directives Directive None Recorded Payers Encounter Date Sequence Insurance Name Policy Number Policy Evans Covered Member ID Evans Member ID Guarantor Name 09/26/2023 1 [facility] - DOS ON OR AFTER 2023 - DUAL ELIGIBLE - LONG-TERM OPTIONS AND ONE CARE (MEDICARE REPLACEMENT/ADV ANTAGE - HMO) Chayito Moraes [id number] Chayito Moraes 03/03/2024 1 [facility] - DOS ON OR AFTER 2023 - DUAL ELIGIBLE - LONG-TERM OPTIONS AND ONE CARE (MEDICARE REPLACEMENT/ADV ANTAGE - HMO) Chayito Moraes [id number] Chayito Moraes Notes Date Note Type Note [...] (Elizabeth Santana): Comments: spoke with member with pulp piler. Member had sharp pain in left arm , c/o nausea /dizziness , that is intermittent. Currently gone, Member has not had any falls or injuries. Member has h/o HTN but no other cardiac but has family history of PE/DVT RED FLAGS REVIEWED MEMEBER IS AWARE OF WHEN TO CALL 911 SEGMD: With the aid of [place]ovan-speaking still operator whiskey-patient complains of pressure in her chest lasting [...] above................. ...................... ...................... ...................... ...................... ...................... ................ Mechanical Insulator Note From Salty Sesay: Encountered patient, conscious, [...] noted, 12 lead uploaded for physician interpretation. [facility] consulted: states best course of action for patient? s current presentation would be a trip to the emergency room for further work up to rule out any sort of cardiac event. Patient is amenable to [facility]? s plan. [facility] ordered 324 mg of PO aspirin, administered by [facility] crew. Patient care to [facility] crew with verbal report exchanged. Patient to be transported to [facility]. Mechanical Insulator Allergies: Penicillin ...................... ...................... ...................... ...................... ...................... ...................... ......... Disposition: Fulfilled Viviana Marsh MD [address] [place] [address],[address], [place], [address], [employer] 09/26/2023 18:40:33 03/03/2024 text/html [facility] Nurse Triage Notes (Rosalinda Salas): Reason For [...] she may need an X-ray/U/S Adrienne SMALLS Mechanical Insulator POC Test Results from Jose Alberto Roldan - [facility] (1) [11:05] pH: 7.46 pH units pCO2: 40.2 mmHg pO2: 47.9 mmHg Na: 142 mmol/L K: 4.5 mmol/L iCa: 1.11 mmol/L Cl: 106 mmol/L TCO2: 27.6 mEq/L Hct: 46 % Hb: 15.8 g/dL Glu: 115 mg/dL Lac: 1.3 mmol/L Cr: 0.4 mg/dL BUN: 14 mg/dL A ...................... ...................... ...................... ...................... ...................... ...................... ......... Mechanical Insulator Note From Jose Alberto Roldan: Pt reports [...] motion of the knee. Viviana Marsh MD [address] [place] [address], [place], [address], [employer] 03/03/2024 19:51:54 OBGyn Episode No OBEpisode recorded.
== END 2024-10-13 11:55 | disposition home or self-care (01) ==
PROVIDERS: PCP Internal Medicine; Visit Provider Internal Medicine Pulmonary Disease
DX: J45.50 Severe persistent asthma, uncomplicated (principal); Z91.09 Other allergy status, other than to drugs and biological substances
CPT/HCPCS: 99214

== ENCOUNTER → 2024-10-13 11:27 | Outpatient (BNVA) | payer OTHER, SELFPAY | PROVIDERS: PCP Internal Medicine; Visit Provider Internal Medicine Pulmonary Disease | DX: J45.50 Severe persistent asthma, uncomplicated (principal); G47.33 Obstructive sleep apnea (adult) (pediatric); Z91.09 Other allergy status, other than to drugs and biological substances | CPT/HCPCS: 99212 ==

== ENCOUNTER 2024-10-14 11:04 | Outpatient (AMB) | payer OTHER, SELFPAY ==
--- NOTE | 2024-10-14 11:16 | MHC.OFFVIS ---
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 Zipper Sewing Machine Operator Required: Yes Zipper Sewing Machine Operator Language: Box Fabricator Services: Zipper Sewing Machine Operator Present (in person) Zipper Sewing Machine Operator Name: ZULAY Avitia Information Interpreted: non-clinical & clinical Healthcare Receptionist: Healthcare Receptionist Present (ZULAY Avitia) Accompanied by: Self / Same As Patient Allergies prednisone [PREDNISONE] Allergy (Severe, Verified 10/14/24 11:25) REDNESS, SWELLING FACE, swelling, hives, hives, swelling fluoxetine [From PROZAC] Allergy (Intermediate, Verified 10/14/24 11:25) DIFFICULTY BREATHING Penicillins [PENICILLINS] Allergy (Intermediate, Verified 10/14/24 11:25) RASH/HIVES penicillin V Allergy (Unknown, Verified 10/14/24 11:25) unknown From Toprol XL Allergy (Intermediate, Uncoded 10/13/24 11:35) RASH HPI Comments Details: Presenting for annual exam. No complaints. Last Pap/HPV was negative in 08/29 Last Mammogram was BI-RADS 2 in 12/28 Last Colonoscopy was more than 10 years ago Last DEXA scan was in 10/30 [facility] Medical History (Updated 10/14/24 @ 11:38 by Jenaro Juarez MD) Ventral hernia Multiple lipomas Mild intermittent asthma Dysplasia of cervix, low grade (MARIE 1) Lateral epicondylitis, right elbow Hx of sleep apnea History of asthma Hx of essential hypertension Surgical History Hx of breast biopsy Family History Father HTN (hypertension) Heart disease Mother HTN (hypertension) Heart disease Brother Heart disease Social History Household Members: None Housing: Apartment Alcohol intake: never Patient Tobacco Use Status: Never used Tobacco e-Cigarette/Vaping Use: Never Used Second Hand Smoke Exposure: No service: No Current occupational status: unemployed Sexual orientation: Straight/Heterosexual Gender identity: Female Cognitive needs: No Hearing needs: No Vision needs: Yes Female Reproductive History Menstrual Age of Menarche: 13 Total pregnancies: 3 Full term: 3 Date of last pap smear: 08/14/23 (negative pap, negative hpv) Date of Mammogram: 12/26/23 (bi rad 2) Date of last Bone Density Screenin11/01/23 Review of Systems Const All systems reviewed & are unremarkable except as noted in HPI and below Card Reports as per HPI Resp Reports as per HPI GI Reports as per HPI and Reports no additional complaints Reports as per HPI Physical Exam Vital Signs: Last Vital Signs BP 140/78 H 10/14/24 11:23 BMI result Body Mass Index 30.6 Const General: cooperative, healthy appearing and comfortable Chest Chest palpation & inspection: normal inspection of the chest and normal palpation of entire chest wall Breast/axilla inspection: normal inspection of the breasts and normal inspection of the axillae Breast/axilla palpation: normal palpation of the breasts, normal palpation of the axillae and no axillary lymphadenopathy Resp Effort & Inspection: normal respiratory effort Auscultation: clear to auscultation bilaterally Percussion: percussion normal Cardio Palpation: normal PMI Rate: regular rate Rhythm: regular rhythm Heart sounds: no murmurs and no rubs Peripheral pulses: Peripheral pulses 2+ throughout GI Inspection: Yes normal to inspection Palpation (GI): Soft to palpation, nontender, no guarding, not rigid and No hepatosplenomegaly present Percussion: Yes normal to percussion Auscultation: normal bowel sounds Rectal Exam - Female: deferred General: Yes bladder normal to palpation External Female Exam: No lesion Speculum Exam - Vagina: normal appearance of the vagina, normal palpation, normal vaginal discharge and not erythematous Speculum Exam - Cervix: normal appearance of the cervix and normal palpation Bimanual exam- vagina & uterus: normal bimanual exam, normal palpation, uterine size normal, bladder normal to palpation, consistency normal and normal palpation Bimanual Exam- Adnexa, other: normal adnexae, no masses and no tenderness Assessment & Plan Assessment & Plan (1) Well woman exam: Comment: History of MARIE 1 in 2016 by negative co testing in 2019 and 2022 Code(s): Z01.419 - Encounter for gynecological examination (general) (routine) without abnormal findings Category: Medical Plan: Co testing not indicated this year. Counseled the patient about the recommended dietary allowance of 1200 mg of Calcium & 800 IU of vitamin D. Instructions given the patient to schedule next screening Mammogram in 12/29. Referred her for screening colonoscopy done. The patient was instructed to perform monthly self-breast exams and to schedule an annual exam in a year; All questions answered and the patient verbalized understanding. Orders: Orders MM tomosynthesis screening BI 2 Months Z12.31 - Encounter for screening mammogram for malignant neoplasm of breast Referrals Gastroenterology Referral Z12.11 - Encounter for screening for malignant neoplasm of colon Coding Level of Care Code Est Pt Prev Care >65y(58831) Diagnoses Well woman exam Z01.419
[2024-10-14 11:23] VITALS: BP 140/78; BMI 30.6
== END 2024-10-14 11:44 | disposition home or self-care (01) ==
LOC: HO.HWS 11:04
PROVIDERS: PCP Internal Medicine; Visit Provider Obstetrics & Gynecology
DX: Z01.419 Encounter for gynecological examination (general) (routine) without abnormal findings (principal)
CPT/HCPCS: 99397; 99459

== ENCOUNTER → 2024-10-14 11:04 | Outpatient (BNVA) | payer OTHER, SELFPAY | PROVIDERS: PCP Internal Medicine; Visit Provider Obstetrics & Gynecology | DX: Z01.419 Encounter for gynecological examination (general) (routine) without abnormal findings (principal) | CPT/HCPCS: 99397; 99459 ==

== ENCOUNTER 2024-12-16 10:55 | Outpatient (AMB) | payer OTHER, SELFPAY ==
--- NOTE | 2024-12-16 10:57 | A.OFFVIS_ITS ---
Vital Signs 12/16/24 10:58 Height 5 ft 4 in Weight 179 lb 10.828 oz BMI 30.8 BP 126/77 Blood Pressure Location Rt brachial Position Sitting Pulse 91 Pulse Source Doppler Pulse Oximetry (%) 95 Oxygen Delivery Method Room Air Intake Visit Reasons: Asthma Management Consulting Required: Yes Management Consulting Name: Apryl SotoMarquiseEnrique Allergies prednisone [PREDNISONE] Allergy (Severe, Verified 12/16/24 11:03) REDNESS, SWELLING FACE, swelling, hives, hives, swelling fluoxetine [From PROZAC] Allergy (Intermediate, Verified 12/16/24 11:03) DIFFICULTY BREATHING Penicillins [PENICILLINS] Allergy (Intermediate, Verified 12/16/24 11:03) RASH/HIVES penicillin V Allergy (Unknown, Verified 12/16/24 11:03) unknown From Toprol XL Allergy (Intermediate, Uncoded 10/13/24 11:35) RASH HPI HPI Asthma: Details: 68-year-old lady now followed for asthma, environmental allergies, and obstructive sleep apnea. Patient has been using trilogy and albuterol MDI with suboptimal control of his symptoms. After the last office visit she was started on Xolair, however she only had 1 injection so far, though with moderate improvement in her symptoms. She denies acute exacerbations. [facility] Medical History (Updated 10/14/24 @ 11:38 by Jenaro Juarez MD) Ventral hernia Multiple lipomas Mild intermittent asthma Dysplasia of cervix, low grade (MARIE 1) Lateral epicondylitis, right elbow Hx of sleep apnea History of asthma Hx of essential hypertension Surgical History Hx of breast biopsy Family History Father HTN (hypertension) Heart disease Mother HTN (hypertension) Heart disease Brother Heart disease Social History Household Members: None Housing: Apartment Alcohol intake: never Patient Tobacco Use Status: Never used Tobacco e-Cigarette/Vaping Use: Never Used Second Hand Smoke Exposure: No service: No Current occupational status: unemployed Sexual orientation: Straight/Heterosexual Gender identity: Female Cognitive needs: No Hearing needs: No Vision needs: Yes Female Reproductive History Menstrual Age of Menarche: 13 Review of Systems Const Denies daytime sleepiness, Denies excessive sweating, Denies fatigue, Denies fever(s), Denies lethargy, Denies malaise, Denies night sweats, Denies snoring and Denies weight loss Eyes Denies blurry vision and Denies itchy eyes ENT Denies nasal congestion, Denies post nasal drip, Denies sinus pain, Denies sinus pressure and Denies other ( Thrush) Card Denies chest pain, Denies pedal edema, Denies dyspnea, Denies orthopnea and Denies paroxysmal nocturnal dyspnea Resp Denies cough, Denies hemoptysis, Denies excessive phlegm production, Denies dyspnea, Denies snoring and Denies wheezing GI Denies abdominal pain and Denies heartburn Musc Denies myalgias, Denies arthralgias and Denies joint swelling Skin/Breast Denies rash Neuro Denies memory loss and Denies seizure-like activity Psych Denies abnormal sleep pattern, Denies anxiety and Denies memory loss Endo Denies excessive sweating, Denies fatigue and Denies heat intolerance Mike/Lymph Denies easy bruising Aller/Immun Denies itchy eyes, Denies seasonal rhinorrhea and Denies wheezing Physical Exam Vital Signs: Last Vital Signs Pulse 91 12/16/24 10:58 BP 126/77 12/16/24 10:58 Pulse Ox 95 12/16/24 10:58 Oxygen Delivery Method Room Air 12/16/24 10:58 BMI result Body Mass Index 30.8 Const General: no acute distress and alert Nutritional Appearance: not obese Orientation/consciousness: Other orientation findings ( oriented) HEENT Head: Yes atraumatic Eyes General: appearance normal, both eyes and all related structures Sclerae: sclerae normal EOM: EOMs intact bilaterally Neck Neck: Yes supple Lymphatic: no lymphadenopathy noted Resp Effort & Inspection: normal respiratory effort and no use of accessory muscles Auscultation: clear to auscultation bilaterally Cardio Rate: regular rate Rhythm: regular rhythm Heart sounds: no gallops, no murmurs and no rubs Skin General skin exam: other ( warm) Extrem General: No clubbing, No cyanosis and No edema Assessment & Plan Assessment & Plan (1) Severe persistent asthma: Code(s): J45.50 - Severe persistent asthma, uncomplicated Category: Medical Plan: Improving control after initiation Xolair. Continue current regimen of Xolair, Trelegy, and albuterol MDI. (2) Environmental allergies: Code(s): Z91.09 - Other allergy status, other than to drugs and biological substances Category: Medical Plan: Improving control on Xolair. Continue current regimen including Xolair, nasal ipratropium, and Flonase.. Coding Level of Care Code Est Pt Level 4 (74689) Diagnoses Severe persistent asthma J45.50 Environmental allergies Z91.09
[2024-12-16 10:58] VITALS: BP 126/77; PULSE 91; O2SAT 95; BMI 30.8
--- OUTSIDE RECORDS SUMMARY | 2024-12-16 12:45 | XMS_ITS | Continuity of Care Document ---
Author Organization [facility] Address [address] [place] [address]- Care Team Providers Care Cutter Brake Lining Name Role Phone Carolin RICHARD, Tracy Primary Care Physician Encounter [facility] Date(s): 11/02/24 - 12/02/24 [facility] [address] [place], [place] [phone] Encounter Type: Triage Allergies, Adverse Reactions, Alerts Substance Criticality Severity Reaction Reaction Severity Status penicillin Active Prozac Active [place] face swelling, cough, throat closes Active [place] Active Immunizations Given and Recorded Vaccine Date Status Refusal Reason SARS-CoV-2 (COVID-19) mRNA-1273 vaccine 02/23/21 R ecorded SARS-CoV-2 (COVID-19) mRNA-1273 vaccine 01/26/21 R ecorded influenza virus vaccine, inactivated 07/22/12 Miles rded influenza virus vaccine, inactivated 09/26/08 Give n Pneumococcal Vaccine (oldterm) 09/26/08 Given Problem List Condition Confirmation Course Effective Dates [...] EGD planned 2020 Confirmed Active Hearing loss 4 Confirmed Active Hyperlipidemia Confirmed Active Hypertension Confirmed Active IgE level elevated Confirmed Active Iron excess by labs , pending more labs Confirmed Active DJD (degenerative joint disease), lumbar Confirmed Active Nasal obstruction 5 Confirmed Active Obese class I Confirmed Active Obstructive sleep apnea (LUCY) Confirmed Active Knee meniscus pain, tear per 2023 Orhtopedics note Confirmed Active Encounter for well woman exam [facility] - who refered her to (likely Xiom[facility]) Gastroenterology for Colonoscopy Confirmed Active Prediabetes Confirmed Active 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) Confirmed Active Vitamin D deficiency Confirmed Active 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 2per GI 2020 3per ER note and also Pulmonloogy 2020 [address]271 [facility] audiolgoy moderate to moderately severe bilateral 5per ENT note she brought Social History Social History Type Response Smoking Status Never smoker entered on: 11/13/16 Sex Sex Representation Female (finding) Patient Care team information Care Team Personnel Name: Coretta Soriano RN Position: [facility] SN RN Member Role: Primary Care Nurse Name: Josephine Kwon RN Position: [facility] RN Member Role: Primary Care Nurse Name: Tracy Coe MD Position: [facility] Physician - Primary Care Member Role: PCP Address: [address] [place] [address] Telecom: Name: Charlee Nazario RN Position: [facility] SN RN Member Role: Primary Care Nurse Name: Edith Serna RN Position: [facility] Contracts Intern Member Role: Primary Care Nurse Name: Genie Sheridan RN Position: [facility] [employer] Intern Member Role: Primary Care Nurse Name: Megha Chandler RN Position: [facility] RN Member Role: Primary Care Nurse Care Team Related Persons Name: SERGIO RAUSCH Name: LEEROY VELARDE Insurance Providers Guarantor name: MARCO ANTONIO Health Plan Information #: 1 Payer: MARCO ANTONIO Member Number: NA Policy Number: NA Group Number: NA
--- OUTSIDE RECORDS SUMMARY | 2024-12-16 12:45 | XMS_ITS | Encounter Summary ---
Author Organization [employer] Address [address] [facility] [address] [place] [address] Care Team Providers Care Explosive Ordnance Technician Name Role Phone Unavailable Primary Care Provider Unavailabl e Reason for Visit * Reason Onset Date Comments call back 12/27/2022 Encounter Details Date Type Department Care Team ([facility] st Contact Info) Description 12/27/2022 Telephone [facility] [address], [place] [phone] Brii Lewis MD [address] [place], [place] [phone] call back Social History Tobacco Use Types Packs/Day Years Used Date Smoking Tobacco: Never Assessed Comments Unknown Sex and Gender Information Value Date Recorded Sex Assigned at Female 08/06/2022 10:18 AM EDT Legal Sex Female 10:18 AM EDT Gender Identity Female 08/06/2022 10:18 AM EDT Sexual Orientation Choose not to disclose 2021 10:18 AM EDT COVID-19 Exposure Response Date Recorded In the last 10 days, have yo u been in contact with someone who was confirmed or suspected to have Coronavirus/COVID-19? No / Unsure 12/28/2022 10:09 AM EDT documented as of this encounter Miscellaneous Notes * Telephone Encounter - Anastasia Diamond RN - 12/27/2022 2:00 PM EDT Reviewed with PCP pt. Debbie Would need to sign cologuard order for it to be faxed. Ok to waituntil appt. In January for order to be completed. TC placed again to pt. To advise not to expect cologuard kit in mail and order will be processed at next appt. In January. Pt. Verbalizes understanding. Otherwise, pt. Reports PT referral for arthritis of R knee from 12/19 was sent to [facility], pt. Reports she had been to this facility before and does not wish to return. *Pt. Is requesting referral is placed to [facility] in [place] ([address] [place] [address] referral if agreeable, thank you! * Telephone Encounter - Anastasia Diamond RN - 12/27/2022 11:53 AM EDT TC returned to pt. Noted from appt. With PCP Debbie 12/19/22 that Cologuard was ordered. Howeverpt. Describes that she was given a FIT envelope with brushes, a card, a bag and a yellow envelope. No order for FIT in chart, advised pt. To hold off on collecting specimen sine there is no order. Advised pt. Cologuard order will be confirmed and she should receive it in the mail from the [facility]. Pt. Verbalizes understanding, will return call within 2 weeks if test is not received. Pt. Also reports she will complete bloodwork ordered at appt. Before next appt., fasting. *Do you recall signing a cologuard order for this patient? Or should a FIT be ordered to go to [facility] since that what pt. Describes having?* * Telephone Encounter - Himanshu Finnegan - 12/27/2022 10:11 AM EDT Tc from pt requesting a call back regarding Stool sample kit Please contact pt at [phone] documented in this encounter Plan of Treatment Not on file documented as of this encounter Visit Diagnoses Not on filedocumented in this encounter
--- OUTSIDE RECORDS SUMMARY | 2024-12-16 12:45 | XMS_ITS | Clinical Summary ---
Author Organization [employer] Address [address] [facility] [address] [place] [address] Care Team Providers Care Advertising Sales Representative Name Role Phone Unavailable Primary Care Provider Unavailabl e Allergies Active Allergy Reactions Criticality Noted Date Comments [place] Oil 04/14/2019 Penicillin V Unknown 11/02/2010 Prunus Persica Itching 04/14/2019 Medications albuterol (2.5 MG/3ML) 0.083% nebulizer solution INHALE 1 AMPULE USING A NEBULIZER THREE TIMES DAILY NEEDED FOR SHORTNESS OF BREATH / FOR ASTHMA 2 Active Docusate Sodium (DSS) 100 MG capsule Take 200 mg by mouth. 9 Active acetaminophen (Tylenol) 500 MG tabletIndications :Arthritis of knee, right take 1 tablet by oral route every6 -8 hours as needed not to exceed 4 tablets per 24hrs 30 tablet 2 3 Active tiotropium (Spiriva Respimat) 2.5 MCG/ACT inhalerIndication s:Moderate persistent asthma without complication Inhale 2 puffs in the morning. 1 each 3 3 Active Omeprazole 20 MG tablet delayed-releaseIn dications:Gastroe sophageal reflux disease without esophagitis Take 20 mg by mouth 2 times daily. 60 tablet 2 3 Active atorvastatin (Lipitor) 40 MG tablet Take 1 tablet by mouth at bed time. 1 Active calcium 500 MG tabletIndications :Preventative health care Take 1 tablet (500 mg) by mouth with breakfast and with evening meal. 180 tablet 1 3 Active albuterol (ProAir HFA) 108 (90 Base) MCG/ACT inhalerIndication s:Mild intermittent asthma, unspecified whether complicated Inhale 2 puffs every 4 (four) hours if needed for wheezing or shortness of breath. 18 g 3 3 Active Fluticasone-Salme terol (Advair Diskus) 250-50 MCG/ACT aerosol powderIndications :Mild intermittent asthma, unspecified whether complicated Inhale 1 Inhalation 2 times daily. 1 each 3 3 Active cetirizine (ZyrTEC) 10 MG tablet TAKE 1 TABLET BY MOUTH EVERY DAY 90 tablet 1 3 Active Active Problems Problem Noted Date Diagnosed Date Vitamin D deficiency 01/22/2023 Assessment & Plan (01/22/2023 2:24 PM EDT): Restart vitamin D supplmlentation for three months encouraged to increase outdoor exercise for at least 15 minutes DC calcium + D and start caclium BID Obstructive sleep apnea syndrome 01/18/2023 Assessment & Plan (01/22/2023 2:25 PM EDT): not using CPAP repeat sleep study/ splitted night to allow for CPAP titration Fibromyalgia 01/18/2023 Nia present on residual alveolar ridge of maxil la 12/28/2022 Encounter for screening colonoscopy 12/19/2022 Assessment & Plan (12/19/2022 1:31 PM EDT): We discussed about CRC screening options, she wants to do cologuard. Preventative health care 12/19/2022 Assessment & Plan (12/19/2022 1:11 PM EDT): Discussed with patient re increase fresh fruit and vegetable intake. Counseled re moderate exercise as tolerated, up to 20min/d Patient feels safe at home. PAP smear: up to date 2019, next one due 07/2023 Mammogram: to be ordered Eye exam; refer to optometry CRC screen: Cologuard ordered Lipids/FBS: to be ordered Vaccinations: declined Dental visit: counseled to schedule an appointment with dentist Slow transit constipation 12/19/2022 Assessment & Plan (12/19/2022 1:28 PM EDT): Start colace BID increase water consumption and fiber intake Screening mammogram for breast cancer 12/19/2022 Assessment & Plan (12/19/2022 1:32 PM EDT): Will order mammogram Arthritis of knee, right 12/19/2022 Assessment & Plan (01/22/2023 12:07 PM EDT): Will refer again to PT pt wants to go to PT in [address] Assessment & Plan (12/19/2022 1:32 PM EDT): Use Tylenol BID Refer to PT. Mild intermittent asthma 12/17/2022 Assessment & Plan (01/22/2023 12:04 PM EDT): Uncontrolled. 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 She has been off BP medication for greater than 6 months. Continue off medication and FU with me in 6 weeks with labs. Counseled re low salt diet/increase moderate physical activity. Check home BP BIW and prn CP/BAJWA/ESCALERA Non smoking patient. Fall 12/17/2022 Gastroesophageal reflux disease 12/17/2022 Assessment & Plan (12/19/2022 1:30 PM EDT): Pt has epigastric pain. Counseled regarding small in fration meals. Restart omeprazole and fu with mein 6 weeks, consider EGD. IFG (impaired fasting glucose) 12/17/2022 Assessment & Plan (01/22/2023 12:06 PM EDT): FU in 6 months Assessment & Plan (12/19/2022 1:30 PM EDT): Order labs and FU at next appointment I have discussed with patient regarding increasing physicial activity and decrease calorie intake I'll check FBS with next set of labs. To check RBS at next visit. FU with me next visit Injury of face 12/17/2022 Knee pain 12/17/2022 Lateral epicondylitis of right elbow 12/17/2022 Mass of lower limb 12/17/2022 Moderate persistent asthma without complication 12/17/2022 Assessment & Plan (12/19/2022 1:29 PM EDT): Uncontrolled. Restart Spiriva and continue advair 250 BID Order PFTs and FU with me in 6 weeks. Neoplasm of skin of chest 12/17/2022 Pure hypercholesterolemia 12/17/2022 Assessment & Plan (12/19/2022 1:29 PM EDT): She has been off statin for longer than 6 months order lipids and FU in 6 weeks. Seasonal allergic rhinitis 12/17/2022 Tired 12/17/2022 Umbilical hernia 12/17/2022 Varicose veins of lower extremity 12/17/2022 Immunizations Name Administration Dates Next Due Influenza, IIV3, injectable 09/26/2008 Influenza, seasonal, injectable, preservative fr ee 07/22/2012 Pneumococcal Polysaccharide PPSV23 09/26/2008 Social History Tobacco Use Types Packs/Day Years Used Date Smoking Tobacco: Never Passive Smoke Exposure: Never Smokeless Tobacco: Never Tobacco Cessation:Counseling Given: No Alcohol Use Standard Drinks/Week Comments Never 0 (1 standard drink = 0.6 oz pur e alcohol) Depression Answer Date Recorded Patient Health Questionnaire-9 Score 14 01/22/2023 Housing Stability Answer Date Recorded What is your housing situation today? I have handy barrera 07/22/[address] you li ve. Do you have problems with any of the following? None of the above 07/22/2023 Food Insecurity Answer Date Recorded Within the past 12 months, y ou worried that your food would run out before you got money to buy more: Never True 07/22/2023 Within the past 12 months,th e food you bought just didn't last and you didn't have enough money to get more: Never True Transportation Answer Date Recorded In the past 12 months, has l ack of transportation kept you from medical appts, meetings, work or from getting things needed for daily living? No 07/22/2023 Utilities Answer Date Recorded In the past 12 months, has t he electric, gas, oil or water company threatened to shut off services in your home? No 07/22/2023 Depression Answer Date Recorded Patient Health Questionnaire-2 Score 4 01/22/2023 Comments Unknown Sex and Gender Information Value Date Recorded Sex Assigned at Female 08/06/2022 10:18 AM EDT Legal Sex Female 10:18 AM EDT Gender Identity Female 08/06/2022 10:18 AM EDT Sexual Orientation Choose not to disclose 2021 10:18 AM EDT Last Filed Vital Signs Vital Sign Reading Time Taken Comments Blood Pressure 150/91 01/22/2023 10:56 AM EDT Pulse 91 01/22/2023 10:56 AM EDT Temperature 36.2 ??C (97.1 ??F) 01/22/2023 10:56 AM E DT Respiratory Rate 18 12/19/2022 11:05 AM EDT Oxygen Saturation 96% 01/22/2023 10:56 AM EDT Inhaled Oxygen Concentration - - Weight 77.3 kg (170 lb 8 oz) 01/22/2023 10:56 AM EDT Height 165.1 cm (5' 5 ) 01/22/2023 10:56 AM EDT Body Mass Index 28.37 01/22/2023 10:56 AM EDT Plan of Treatment Health Maintenance Due Date Last Done Comments CT Colonography 1957 Colonoscopy 1957 Colorectal Cancer Screening 1957 Dental Prophylaxis 1957 FIT DNA/Cologuard 1957 FIT 1957 FOBT 1957 Sigmoidoscopy 1957 Derm Melanoma Skin Check 04/21/1958 Alcohol/Substance Use Screening 1969 Hepatitis C Screening 1975 DTaP/Tdap/Td Vaccines (1 - Tdap) 1976 Zoster Vaccines (1 of 2) 2007 Pneumococcal Vaccine: 50+ Years (2 of 2 - PCV) 09/26/2009 09/26/2008 RSV Patients and Patients Aged 60 years or older (1 - Risk 60-74 years 1-dose series) 2017 Dental Oral Exam 07/01/2023 12/28/2022 Depression Monitoring (PHQ-9) 07/24/2023 01/22/2023, 01/22/2023 Dental X-Ray: Bitewings 12/30/2023 12/28/2022 Depression Screening 01/23/2024 01/22/2023, 01/23/20 SDOH Screening 01/23/2024 01/22/2023 Tobacco Screening 01/23/2024 01/22/2023 COVID-19 Vaccine ( season) 2024 02/23/2021, 01/26/2021 Influenza Vaccine (#1) 2024 07/22/2012, 2007 Mammogram 12/25/2024 12/26/2023, 12/06, 12/24/2022, Additional history exists Dental X-Ray: Full Mouth 12/29/2025 12/28/2022 Lipid Panel 01/12/2028 01/11/2023, 12/0 04/2021, 02/15/2021 Cervical Cancer Screening Discontinued HPV/Cotest Discontinued 07/21/2020, 07/21/2020 Pap Smear Discontinued 07/21/2020 HIB Vaccines Aged Out No longer eligi ble based on patient's age to complete this topic HPV Vaccines Aged Out No longer eligi ble based on patient's age to complete this topic Hepatitis A Vaccines Aged Out No long er eligible based on patient's age to complete this topic Hepatitis B Vaccines Aged Out No long er eligible based on patient's age to complete this topic IPV Vaccines Aged Out No longer eligi ble based on patient's age to complete this topic Meningococcal Vaccine Aged Out No israel pham eligible based on patient's age to complete this topic RSV under 20 months Aged Out No longe r eligible based on patient's age to complete this topic Rotavirus Vaccines Aged Out No longer eligible based on patient's age to complete this topic Procedures Procedure Name Priority Date/Time Associated Diagnosis Comments BI MAMMOGRAM SCREENING TOMOSYNTHESIS BILATERAL Routine 12/26/2023 10:50 AM EDT LIPID PANEL WITH REFLEX TO DIRECT LDL Routine 01/11/2023 9:17 AM EDT Pure hypercholesterolemia INTRAORAL - COMPLETE SERIES OF RADIOGRAPHIC IMAGES Routine 12/28/2022 10:30 AM EDT COMPREHENSIVE ORAL EVALUATION - NEW OR ESTABLISHED PATIENT Routine 12/28/2022 10:30 AM EDT ZZZ HISTORICAL HPV E6/E7 RFLX GENIA 16 18/45 Routine 07/21/2020 11:35 AM EDT HM PAP/HPV Routine 07/21/2020 from Last 3 Months or Most Recently Relevant to Health Maintenance Results * BI Mammogram Screening Tomosynthesis Bilateral (12/26/2023 10:50 AM EDT) Anatomical Region Laterality Modality Breast Bilateral Mammography 12/26/2023 10:5 0 AM EDT Narrative 01/16/2024 5:07 AM EDT ? [facility] ? [address] ?[place] [address] ? Mammography Report ? Signed ? Patient: Dimitry,Chayito ?MR#: [id number] ?? 9 ? : 1955 ?Acct:[id number] ? Age/Sex: 68 / F ?ADM Date: 03/21/24 ? Loc: HO.MAMMO ? Attending Dr: Brii Lewis MD ? Ordering Physician: Brii Lewis MD ?Results: 2Be ?? nign Findings ? Date of Service: 12/26/23 ?Follow Up: 1 Year From Orig ?? inal Mammogram ? Procedure(s): MM tomosynthesis screening BI ?? Accession Number(s): [id number] ? cc: Brii Lewis MD; Brii Duran MD ? EXAMINATION: ?? MM SCREENING DIGITAL BREAST TOMOSYNTHESIS, BILATERAL ? CLINICAL INFORMATION: ? Screening. Asymptomatic. ? COMPARISON: ?? Mammography: This study is compared with prior exams dating back to ?? 2019. ? TECHNIQUE: ?? Digital breast tomosynthesis is performed in both the craniocaudal and ?? mediolateral oblique views along with computer-aided detection (CAD). ?? Synthesized 2D images are generated from the tomosynthesis. ? FINDINGS: ?? There are scattered areas of fibroglandular density (ACR BI-RADS breast ?? composition Category b). ? There are no significant masses, abnormal calcifications, or other ?? abnormalities. ? There are numerous, small, well-circumscribed masses in each breast ?? which are benign. ?? Few, bilateral, benign calcifications are present. ?? There is a tissue marker present in the medial aspect of the right ?? breast indicating the site of prior benign percutaneous biopsy. ? MM/MM tomosynthesis screening BI ?? IMPRESSION: ?? No mammographic evidence of malignancy. ? ASSESSMENT: ? BI-RADS BI-RADS 2 - Benign Findings ? RECOMMENDATION: ?? Routine annual mammography screening. ? 1 year F/U ? This examination should not preclude the clinical evaluation of a ?? suspicious palpable abnormality. ? This patient's information was entered into a reminder system with a ?? target due date for their next mammogram. ? Dictated By: ?Maddison Panda MD ? Signed By: ?<Electronically signed by Maddison Panda MD in OV> ? 01/16/243 ? DD/ 1050 ? TD/TT: ? Pairing Machine Operator: ? Procedure Note Donotuseinterpreter, Image - 01/16/2024 [facility] [address] [place], [place] [address] Mammography Report Signed Patient: Chayito MoraesMR#: [id number] 9 : 8Acct:[id number] Age/Sex: 68 / FADM Date: 12/26/23 Loc: HO.MAMMO Attending Dr: Brii Lewis MD Ordering Physician: Brii Lewis MDResults: 2Be nign Findings Date of Service: 12/26/23Follow Up: 1 Year From Orig inal Mammogram Procedure(s): MM tomosynthesis screening BI Accession Number(s): [id number] cc: Brii Lewis MD; Brii Duran MD EXAMINATION: MM SCREENING DIGITAL BREAST TOMOSYNTHESIS, BILATERAL CLINICAL INFORMATION: Screening. Asymptomatic. COMPARISON: Mammography: This study is compared with prior exams dating back to 2019. TECHNIQUE: Digital breast tomosynthesis is performed in both the craniocaudal and mediolateral oblique views along with computer-aided detection (CAD). Synthesized 2D images are generated from the tomosynthesis. FINDINGS: There are scattered areas of fibroglandular density (ACR BI-RADS breast composition Category b). There are no significant masses, abnormal calcifications, or other abnormalities. There are numerous, small, well-circumscribed masses in each breast which are benign. Few, bilateral, benign calcifications are present. There is a tissue marker present in the medial aspect of the right breast indicating the site of prior benign percutaneous biopsy. MM/MM tomosynthesis screening BI IMPRESSION: No mammographic evidence of malignancy. ASSESSMENT: BI-RADS BI-RADS 2 - Benign Findings RECOMMENDATION: Routine annual mammography screening. 1 year F/U This examination should not preclude the clinical evaluation of a suspicious palpable abnormality. This patient's information was entered into a reminder system with a target due date for their next mammogram. Dictated By: Maddison Panda MD Signed By: <Electronically signed by Maddison Panda MD in OV> 01/16/24 0503 DD/ 1050 TD/TT: Pairing Machine Operator: Brii Lewis MD IMG BI PROCEDURES Final Result * (ABNORMAL) Lipid Panel with Reflex to Direct LDL (01/11/2023 9:17 AM EDT) Cholesterol, Total 257(H) <200 mg/dL [facility] [place] [facility] HDL Cholesterol 59 > OR = 50 mg/dL [facility] Triglycerides 130 <150 mg/dL [facility] [place] [facility] LDL Cholesterol 171(H) mg/dL (calc) [facility] Comment: Reference range: <100 Desirable range <100 mg/dL for primary prevention; ?? <70 mg/dL for patients with CHD or diabetic patients with > or = 2 CHD risk factors. LDL-C is now calculated using the Mingo-Treviño calculation, which is a validated novel method providing better accuracy than the Friedewald equation in the estimation of LDL-C. Mingo SS et al. CHRISTY. 2013;310(19): 0481-9184 (http://education.[employer]/faq/CBI437) Chol/HDLC Ratio 4.4 <5.0 (calc) [facility] Non-HDL Cholesterol 198(H) <130 mg/dL (calc) [facility] Comment: For patients with diabetes plus 1 major ASCVD risk factor, treating to a non-HDL-C goal of <100 mg/dL (LDL-C of <70 mg/dL) is considered a therapeutic option. 01/11/2023 9:17 AM EDT 01/11/2023 9:17 AM EDT Narrative [facility] - 01/11/2023 8:59 PM EDT FASTING:YES FASTING: YES Brii Lewis MD LAB BLOOD ORDERABLES Fin al Result Performing Organization Address City/[facility]/ZIP Co de Phone Number [facility] [address] [place] [address], [place] [address] [facility] [address] [place] [phone] * HPV E6/E7 RFLX GENIA 16 18/45 (07/21/2020 11:35 AM EDT) HPV 16 RNA [facility] HPV 18/45 RNA [facility] HPV E6 E7 ADD [facility] HPV mRNA E6/E7 Not Detected Not Detected [facility] Comment: This test was performed using the APTIMA HPV Assay ([employer] This assay detects E6/E7 viral messenger RNA (mRNA) from 14 high-risk HPV types (16,18,31,33,35,39,45,51,52,56,58,59,66,68). The analytical performance characteristics of this assay have been determined by [facility]. The modifications have not been cleared or approved by the FDA. This assay has been validated pursuant to the CLIA regulations and is used for clinical purposes. THIS TEST WAS PERFORMED AT: [facility] [address] [place], [place] ??[id number] MATTIE COOPER MD 07/21/2020 11:3 5 AM EDT us Historical Provider HISTORICAL/NON ORDERABLE LABS Final Result Performing Organization Address [facility]/ZIP Co de Phone Number [facility] [address] * Hm Pap Smear (07/21/2020) Pap Negative for intraephithelial lesion or malignancy Negative for intraephithelial lesion or malignancy, Other HPV Undetected us Historical Provider HEALTH MAINTENANCE Final Result from Last 3 Months or Most Recently Relevant to Health Maintenance Insurance [facility]
--- OUTSIDE RECORDS SUMMARY | 2024-12-16 12:45 | XMS_ITS | Data Portability ---
Author Organization [place] - [facility], Allergy Address [address] [place] [address] Care Team Providers Care Mannequin Mold Maker Name Role Phone DARIANA BRONSON Primary Care [...] Organization Details Last Modified Time Details Appointments Establish ed 30 2024 12:00P M DONTE NEAL MD Not available Not available Not available Lab None recorded. Referral None recorded. Procedures None recorded. Surgeries None recorded. Imaging None recorded. Medication Orders None recorded. Patient TargetsNo targets recorded. Patient InstructionsNo instructions recorded. Reason for Referral None Reported. Problems Name Problem SNOMED Code Status Onset Date Resolution Date Notes Provider Name and Address Organization Details Recorded Time Deviated nasal septum 736722417 Active 2020 Deviated nasal septum; Note: Date Diagnosed : 3:39 PM (J34.2) Not Available [facility] 4 02:19:52 Nasal congestion 95165340 Active 2020 Nasal congestio n; Note: Date Diagnosed : 1 3:39 PM (R09.81) Not Available [facility] 4 02:20:16 Obstructiv e sleep apnea syndrome 81068725 Active 2023 DONTE ANAYA MD [address] [place],[facility], [facility], [address] , [facility] 4 10:51:50 Nasal obstructio n 820615196 Active 2023 DONTE ANAYA MD [address] [facility] [place] [address], [place], [address] , [facility] 4 10:51:56 Problem Notes None recorded. Procedures Surgical History Date Name Laterality Status Provider Name and Address Organization Details Recorded Time rhinoseptoplasty completed DONTE BUSTAMANTE MD [address] [facility] [place] [address], [place], [address], [facility] 08/12/2024 10:54:10 Nipple/areola reconstruction completed DONTE BUSTAMANTE MD [address] [facility],[place] [address], [place], [address], [facility] 08/12/2024 10:54:27 Imaging Results None recorded. Procedure Notes None recorded. Medical Equipment None Reported. Allergies Allergen ID Allergen Name Allergen Category Reaction Reaction Severity Criticality Documentation Date Start Date Code Code System Note Provider Name and Address Organization Details Recorded Time 30082 corn extract food,medi cation other Not available Not available 02/18/2024 87065 08 RxNorm React ion: other react ion, Unkno wn; Not Available [facility] 4 00:54:59 75841 Product containin g penicilli n (product) medicatio n other Not available Not available 02/18/2024 53822 8001 SNOMED React ion: other react ion, Unkno wn; Not Available [facility] 4 00:55:03 Medications Name Sig [...] mg tablet 2020 active Medicati on ID: [id number] B rand Name: acetamin ophen Se nd [...] inhalatio n 2020 active Medicati on ID: [id number] B rand Name: Advair Diskus S end Method: E-Prescr ibed Sub s Allowed: subs AYAKA Oglesbyi al Instruct ion: INHALE 1 PUFF TWICE DAILY IN THE MORNING AND IN THE EVENING 12 HOURS APART Me dication GenericN bo: Advair Diskus Not Available Not Available Not Available lisinopri l 20 mg-hydroc hlorothia zide 25 mg tablet 08/12 completed Medicati on ID: [id number] B rand Name: lisinopr il-hydro chloroth iazide S end Method: E-Prescr ibed Sub s Allowed: subs AYAKA Chairez al Instruct ion: TAKE 1 TABLET BY MOUTH EVERY DAY Medi cationGe nericNam e: lisinopr il-hydro chloroth iazide Not Available Not Available Not Available [address] 10 mg tablet 08/12 completed Medicati on ID: [id number] B rand Name: monteluk ast Send Method: E-Prescr ibed Sub s Allowed: subs OK Speci al Instruct ion: TAKE 1 TABLET BY MOUTH EVERY DAY Medi cationGe nericNam e: monteluk ast Not Available Not Available Not Available azelastin e 137 mcg (0.1 %) nasal spray Inhale 2 spray twice a day as directed 2020 active Medicati on ID: [id number] D uration Value: 30 Prescri bed By Name: Donte lunsford M.D. Bra nd Name: bonnie ana cristina Send Method: E-Prescr ibed Sub s Allowed: subs OK Medic ationGen ericName : azelastdeandre ne Not Available Not Available Not Available ibuprofen 600 mg tablet 2020 active Medicati on ID: [id number] B rand Name: ibuprofe n Send Method: [...] Updated DateTime 08/12/2024 165.1 cm 30 kg/m2 95093.63 g Russ Montanez [facility] 08/12/2024 10:36:30 Social History None recorded. Functional Status None recorded. Mental Status None recorded. Family History Nothing Reported. Medical History Condition Response Nasal or Sinus Problems Y Gynecological HistoryNo gynecological history recorded. Obstetrics History GPAL:G 0 P 0 0 0 0 Past Encounters Encounter ID Performer Location Encounter Start Date Encounter Closed Date Diagnosis/Indication Diagnosis SNOMED-CT Code Diagnosis ICD10 Code Diagnosis Note [id number] DONTE ANAYA MD [facility] [address] [place] [address] 08/12/2024 10:18:44 08/12/2024 10:55:23 Obstructive sleep apnea syndrome 76133464 G47.33 Nasal obstruction 962316 000 J34.89 Deviated nasal septum 12 7352875 J34.2 Health Concerns Section Related Observation LastModified by Organization Detai ls LastModified Time None Recorded Concern Status LastModified by Organization Details LastModified Time None Recorded Advance Directives Directive None Recorded Payers Encounter Date Sequence Insurance Name Policy Number Policy Evans Covered Member ID Evans Member ID Guarantor Name 08/12/2024 1 [facility] - DOS ON OR AFTER 2023 - LONG-TERM OPTIONS (MEDICARE REPLACEMENT/AD VANTAGE - HMO) Chayito Moraes [id number] Chyaito Moraes Notes Date Note Type Note Provider Name and Address Organization Details Recorded Time 08/12/2024 text/html Pt not sure why she is here but consult for difficulty tolerating CPAP. Just started using CPAP but having anxiety. Some nasal congestionPrior nasal fracture requiring reduction Business Services Representative Favian [id number] DONTE BUSTAMANTE MD [address] [place] [address], [place], [address], [facility] - [facility] 08/12/2024 10:54:36 OBGyn Episode No OBEpisode recorded.
--- OUTSIDE RECORDS SUMMARY | 2024-12-16 12:45 | XMS_ITS | Data Portability ---
Author Organization [employer] Address [address] [place] [address] Care Team Providers Care Supervisor Engine Assembly Name Role Phone HIM CCA Referring Provider MARTINA CASTRO Primary Care Provider Assessment Encounter Date Assessment Date Assessment LastModified by Organization Details LastModified Time 09/26/2023 09/26/2023 I provided real -time medical direction via phone for this encounter, and was available for additional phone based assistance as needed. I have reviewed and agree with the Assessment and Plan as documented by the Coffee Shop Aide. Patient given the opportunity to ask questions. [...] to explain to her very clearly in Panamanian the risks and benefits and what was needed and she agreed. EMS called and patient transferred to [facility]. I called report to the Xpect line [email or web address] Not available 09/26/2023 18:40:26 03/03/2024 03/03/2024 I provided real -time medical direction via phone for this encounter, and was available for additional phone based assistance as needed. I have reviewed and agree with the Assessment and Plan as documented by the Coffee Shop Aide. We discussed the diagnostic uncertainty of home [...] AMS/ syncope/ hi fever /intolerable pain/unable to [id number] necessitate going to the ED - verbalized understanding of instruction via Bhutanese fundraising manager. [email or web address] Not available 03/03/2024 19:47:17 Plan of Treatment Reminders Order Date Submit Date Provider Last Modified By Organization Details Last Modified Time Details Appointments None recorded. Lab BMP, serum or plasma 2023 024 [email or web address], [address], 4 11:17:37 Referral None recorded. Procedures None recorded. Surgeries None recorded. Imaging electrocard iogram 2022 [address], [address], 4 10:22:55 Medication Orders ketorolac 30 mg/mL injection solution 2023 024 [email or web address] 0 [facility], [address] [facility], [place], [place], [id number], 11:17:37 aspirin 81 mg chewable tablet 2022 023 [email or web address] 0 Not available 3 17:22:09 Patient TargetsNo targets recorded. Patient InstructionsNo instructions recorded. Reason for Referral None Reported. Results Created Date Observation Date Name Description Value Unit Range Abnormal Flag Note LastModifiedBy Organization Detail LastModifiedTime 09/26/2009/26/2023 elect dot correiagr am No observ ation record ed. [address], [address], 12/04/2023 18:14:17 Result Notes None recorded. Procedures Surgical History None recorded. Imaging Results Imaging Date Name Status LastModified by Organization Details LastModified Time 09/26/2023 electrocardiogram completed [address], [address], 12/04/2023 18:14:17 Procedure Notes None recorded. Medical Equipment None Reported. Allergies Allergen ID Allergen Name Allergen Category Reaction Reaction Severity Criticality Documentation Date Start Date Code Code System Note Provider Name and Address Organization Details Recorded Time 4121 Product containin g penicilli n (product) medicatio n Not available Not available Not available 09/26/2023 07843 8001 SNOMED Not Available [facility] - production 03:52:14 Medications Name Sig Start Date Stop [...] Details Last Updated DateTime 4 98.2 [degF] 68319.1 92 g 16 /min 83 /min 165.1 cm 94 % 94 % 158 mm[Hg] 92 mm[Hg] Not Available [employer] 4 11:12:16 Social History None recorded. Functional Status None recorded. Mental Status None recorded. Family History Nothing Reported. Medical History No medical history recorded. Gynecological HistoryNo gynecological history recorded. Obstetrics History GPAL:G 0 P 0 0 0 0 Past Encounters Encounter ID Performer Location Encounter Start Date Encounter Closed Date Diagnosis/Indication Diagnosis SNOMED-CT Code Diagnosis ICD10 Code Diagnosis Note [id number] Viviana Marsh MD [facility] [address] [place] [phone] 09/26/2023 16:39:08 09/28/2023 17:11:31 Chest pain 60467515 R07.9 [id number] Viviana Marsh MD [facility] [address] [place] [phone] 03/03/2024 11:12:09 03/03/2024 21:27:41 Pain of right knee joint 5903855693 88917 M25.561 Possible internal derangemen t-advised needs imaging [...] Evans Member ID Guarantor Name 09/26/2023 1 [facility] - DOS ON OR AFTER 2023 - DUAL ELIGIBLE - CUSTODIAL OPTIONS AND ONE CARE (MEDICARE REPLACEMENT/ADV ANTAGE - HMO) Chayito Moraes [id number] Chayito Moraes 03/03/2024 1 [facility] - DOS ON OR AFTER 2023 - DUAL ELIGIBLE - CUSTODIAL OPTIONS AND ONE CARE (MEDICARE REPLACEMENT/ADV ANTAGE - HMO) Chayito Moraes [id number] Chayito Moraes Notes Date Note Type Note [...] (Elizabeth Santana): Comments: spoke with member with fundraising manager. Member had sharp pain in left arm , c/o nausea /dizziness , that is intermittent. Currently gone, Member has not had any falls or injuries. Member has h/o HTN but no other cardiac but has family history of PE/DVT RED FLAGS REVIEWED MEMEBER IS AWARE OF WHEN TO CALL 911 [place]: With the aid of [place] Panamanian-speaking patient access representative-patient complains of pressure in her chest lasting [...] above................. ...................... ...................... ...................... ...................... ...................... ................ Coffee Shop Aide Note From Salty Sesay: Encountered patient, conscious, [...] noted, 12 lead uploaded for physician interpretation. [facility] consulted: states best course of action for patient? s current presentation would be a trip to the emergency room for further work up to rule out any sort of cardiac event. Patient is amenable to C? s plan. [facility] ordered 324 mg of PO aspirin, administered by [facility] crew. Patient care to [facility] crew with verbal report exchanged. Patient to be transported to [facility]. Coffee Shop Aide Allergies: Penicillin ...................... ...................... ...................... ...................... ...................... ...................... ......... Disposition: Fulfilled Viviana Marsh MD [address] [place] [address],[address], [place], [address], [employer] 09/26/2023 18:40:33 03/03/2024 text/html [facility] Nurse Triage Notes (Rosalinda Salas): Reason [...] she may need an X-ray/U/S Adrienne SMALLS Coffee Shop Aide POC Test Results from Jose Alberto Roldan - [facility] (1) [11:05] pH: 7.46 pH units pCO2: 40.2 mmHg pO2: 47.9 mmHg Na: 142 mmol/L K: 4.5 mmol/L iCa: 1.11 mmol/L Cl: 106 mmol/L TCO2: 27.6 mEq/L Hct: 46 % Hb: 15.8 g/dL Glu: 115 mg/dL Lac: 1.3 mmol/L Cr: 0.4 mg/dL BUN: 14 mg/dL A ...................... ...................... ...................... ...................... ...................... ...................... ......... Coffee Shop Aide Note From Jose Alberto Roldan: Pt reports [...] motion of the knee. Viviana Marsh MD [address] [place] [address],[address] [facility], [place], [address], [employer] 03/03/2024 19:51:54 OBGyn Episode No OBEpisode recorded.
--- OUTSIDE RECORDS SUMMARY | 2024-12-16 12:45 | XMS_ITS | Encounter Summary ---
Author Organization [employer] Address [address] [facility] 7[address] [place] [address] Care Team Providers Care Lead Pharmacy Technician Name Role Phone Unavailable Primary Care Provider Unavailabl e Reason for Visit * Reason Comments Med Refill Encounter Details Date Type Department Care Team ([facility] st Contact Info) Description 03/11/2024 Refill [facility] [address] [place], [place] [phone] Brii Lewis MD [address] [place], [place] [phone] Arthritis of knee, right Social History Tobacco Use Types Packs/Day Years Used Date Smoking Tobacco: Never Passive Smoke Exposure: Never Smokeless Tobacco: Never Alcohol Use Standard Drinks/Week Comments Never 0 [...] t he electric, gas, oil or water [employer] threatened to shut off services in your home? No 07/22/2023 Depression Answer Date Recorded Patient Health Questionnaire-2 Score 4 01/22/2023 Comments Unknown Sex and Gender Information Value Date Recorded Sex Assigned at Female 08/06/2022 10:18 AM EDT Legal Sex Female 10:18 AM EDT Gender Identity Female 08/06/2022 10:18 AM EDT Sexual Orientation Choose not to disclose 2021 10:18 AM EDT documented as of this encounter Plan of Treatment Not on file documented as of this encounter Visit Diagnoses Diagnosis Arthritis of knee, right documented in this encounter Additional Health Concerns Assessment Noted Time PHQ-9 Depression Total Score: 14 023 10:58 AM EDT documented as of this encounter
--- OUTSIDE RECORDS SUMMARY | 2024-12-16 12:45 | XMS_ITS | Encounter Summary ---
Author Organization [employer] Address [address] [facility] [address] [place] [address] Care Team Providers Care Igniter Capper Name Role Phone Unavailable Primary Care Provider Unavailabl e Encounter Details Date Type Department Care Team (Late st Contact Info) Description 07/10/2023 Abstract [facility] [address] [place] [address] Elda Garcia Social History Tobacco Use Types Packs/Day Years Used Date Smoking Tobacco: Never Passive Smoke Exposure: Never Smokeless Tobacco: Never Alcohol Use Standard Drinks/Week Comments Never 0 (1 standard drink = 0.6 oz pur e alcohol) Depression Answer Date Recorded Patient Health Questionnaire-9 Score 14 01/22/2023 Depression Answer Date Recorded Patient Health Questionnaire-2 [...] on file documented as of this encounter Procedures Procedure Name Priority Date/Time Associated Diagnosis Comments PAP/HPV Routine 07/21/2020 documented in this encounter Results * Pap Smear (07/21/2020) Pap Negative for intraephithelial lesion or malignancy Negative for intraephithelial lesion or malignancy, Other HPV Undetected us Historical Provider HEALTH MAINTENANCE Final Result documented in this encounter Visit Diagnoses Not on filedocumented in this encounter Additional Health Concerns Assessment Noted Time PHQ-9 Depression Total Score: 14 01/22/ 023 10:58 AM EDT documented as of this encounter
--- OUTSIDE RECORDS SUMMARY | 2024-12-16 12:45 | XMS_ITS | Encounter Summary ---
Author Organization [employer] Address [address] [facility] 7[address] [place] [address] Care Team Providers Care Lithograph Designer Name Role Phone Unavailable Primary Care Provider Unavailabl e Encounter Details Date Type Department Care Team (Late st Contact Info) Description 06/04/2023 Orders Only [facility] [address] [place] [address] Apryl Sheehan LPN Social History Tobacco Use Types Packs/Day Years [...]
--- OUTSIDE RECORDS SUMMARY | 2024-12-16 12:45 | XMS_ITS | Continuity of Care Document ---
Author Organization [facility] Address [address] [place] [address]- Care Team Providers Care Hydraulic Mechanic Name Role Phone Carolin RICHARD, Tracy Primary Care Physician [phone] Encounter [facility] Date(s): 11/02/24 - 12/02/24 [facility] [address] [place], [place] [phone] Encounter Type: Triage Allergies, Adverse Reactions, Alerts Substance Criticality Severity Reaction Reaction Severity Status penicillin Active Prozac Active [place] face swelling, cough, throat closes Active Cotton Active Immunizations Given and Recorded Vaccine Date [...] 3per ER note and also Pulmonloogy 2020 [address] [facility] audiolgoy moderate to moderately severe bilateral 5per ENT note she brought Social History Social History Type Response Smoking Status Never smoker entered on: 11/13/16 Sex Sex Representation Female (finding) Patient Care team information Care Team Personnel Name: Coretta Soriano RN Position: [facility] SN RN Member Role: Primary Care Nurse Name: Josephine Kwon RN Position: [facility] RN Member Role: Primary Care Nurse Name: Tracy Coe MD Position: [facility] Physician - Primary Care Member Role: PCP Address: [address] [place] [address] Telecom: Name: Charlee Nazario RN Position: [facility] SN RN Member Role: Primary Care Nurse Name: Edith Serna RN Position: [facility] Living Skills Advisor Member Role: Primary Care Nurse Name: Genie Sheridan RN Position: [facility] Living Skills Advisor Member Role: Primary Care Nurse Name: Megha Chandler RN Position: [facility] RN Member Role: Primary Care Nurse Care Team Related Persons Name: SERGIO RAUSCH Name: LEEROY VELARDE Insurance Providers Guarantor name: MARCO ANTONIO Health Plan Information #: 1 Payer: MARCO ANTONIO Member Number: NA Policy Number: NA Group Number: NA
--- OUTSIDE RECORDS SUMMARY | 2024-12-16 12:45 | XMS_ITS | Clinical Summary ---
Author Organization [facility] Address [address] [place] [address] Care Team Providers Care Canvas Worker Name Role Phone Valerie Ballesteros PA-C Primary Care Provider Source Comments PLEASE NOTE, if this patient is a minor, it may be UNLAWFUL to discuss sensitive information that is contained in these records (such as FAMILY PLANNING, MENTAL HEALTH or SUBSTANCE ABUSE) with the minor patient's parent or other person without the patient's specific authorization.[facility] Allergies Active Allergy Reactions Criticality Noted Date Comments Penicillin G Rash 11/26/2017 Prednisone Swelling 01/28/2018 Medications tiotropium bromide (SPIRIVA RESPIMAT) 2.5 mcg/actuation mist Inhale into the lungs [address] Active [address] tabletIndications :Chest pain, unspecified type Take 1 Tab by mouth once daily 30 Tab 5 8 Active raNITIdine HCl (ZANTAC) 150 mg capsule Take 1 Cap by mouth 2 (two) times daily as needed for heartburn 60 Cap 2 8 Active meloxicam (MOBIC) 15 mg tabletIndications :Chronic pain of right knee,Right elbow pain,Chronic midline thoracic back pain,Chronic midline low back pain without sciatica Take 1 Tab by mouth once daily as needed for pain 30 Tab 5 9 Active polyethylene glycol 3350 (GLYCOLAX, MIRALAX) 17 gram/dose powderIndications :Functional constipation Take 17 g by mouth once daily Dissolve in a glass (8 oz) of water. 850 g 5 9 Active docusate sodium (COLACE) 100 mg capsuleIndication s:Functional constipation Take 2 Caps by mouth nightly at bedtime 60 Cap 5 9 Active fluticasone (FLOVENT HFA) 110 mcg/actuation inhalerIndication s:Mild persistent asthma without complication Inhale 1 Puff into the lungs 2 (two) times daily 1 Inhaler 6 9 Active albuterol sulfate 90 mcg/actuation inhalerIndication s:Mild persistent asthma without complication Inhale 2 Puffs into the lungs every 4 (four) hours as needed for shortness of breath 18 g 5 9 Active cetirizine (ZYRTEC) 10 mg tabletIndications :Mild persistent asthma without complication Take 1 Tab by mouth once daily as needed for allergies 30 Tab 2 9 Active Active Problems Problem Noted Date Diagnosed Date Functional constipation 12/16/2018 LUCY (obstructive sleep apnea), declines CPAP 09/2019 Anxiety and depression 12/16/2018 H/O colonoscopy 02/27/2018 Overview (02/27/2018): Colonoscopy 05/20/09 at [facility], Dr Davis. No abnromal findings. Prediabetes 11/28/2017 Mixed hyperlipidemia 11/28/2017 Chronic bilateral lower abdominal pain 8 Asthma, mild persistent 11/26/2017 Overview (08/07/2018): Admitted to [facility] 07/08/18-07/11/18 for asthma exacerbation. D/c on prednisone. Also experienced hypokalemia, recheck K+ at hospital f/u. Fibromyalgia 11/26/2017 Social History Tobacco Use Types Packs/Day Years Used Date Smoking Tobacco: Never Smokeless Tobacco: Never Alcohol Use Standard Drinks/Week Comments No 0 (1 standard drink = 0.6 oz pur e alcohol) Social Connections Answer Date Recorded Social Connections and Isolation 0 05/31/2019 Financial Resource Strain Answer Date R ecorded Financial Resource Strain 0 2018 Stress Answer Date Recorded Stress 0 05/31/2019 Physical Activity Answer Date Recorded Physical Activity 0 05/31/2019 Food Insecurity Answer Date Recorded Food 0 05/31/2019 Transportation Needs Answer Date Record ed Transportation 0 05/31/2019 Housing Stability Answer Date Recorded Housing 0 05/31/2019 Safety and Environment Answer Date Miles rded Safety 0 05/31/2019 Utilities Answer Date Recorded Utilities 0 05/31/2019 Employment Answer Date Recorded Employment 0 05/31/2019 Comments No Sex and Gender Information Value Date Recorded Sex Assigned at Female 11/26/2017 7:38 AM PST Legal Sex Female 6:58 AM PDT Gender Identity Female 11/26/2017 7:38 AM PST Sexual Orientation Straight 11/26/2017 7: 38 AM PST Last Filed Vital Signs Vital Sign Reading Time Taken Comments Blood Pressure 126/80 12/16/2018 11:28 AM EDT Pulse 97 12/16/2018 11:28 AM EDT Temperature 36.7 ??C (98 ??F) 12/16/2018 11:28 AM EDT Respiratory Rate 16 12/16/2018 11:28 AM EDT Oxygen Saturation 93% 12/16/2018 11:28 AM EDT Inhaled Oxygen Concentration - - Weight 73.5 kg (162 lb) 12/16/2018 11:28 AM EDT Height - - Body Mass Index - - Plan of Treatment Not on file Insurance [facility] Care Teams Canvas Worker Relationship Specialty Start Date End Date Valerie Ballesteros PA-C [address] [place] [address] PCP - General Internal Medicine 09/25/18
--- OUTSIDE RECORDS SUMMARY | 2024-12-16 12:45 | XMS_ITS | Continuity of Care Document ---
Author Organization [facility] Address [address] [place] [address]- Care Team Providers Care Livestock Farmworker Name Role Phone Carolin RICHARD, Tracy Primary Care Physician [phone] Encounter [facility] [place] Date(s): 11/02/24 - 12/02/24 [facility] [address] [place], [place] [phone] Encounter Type: Triage Allergies, Adverse Reactions, Alerts Substance Criticality Severity Reaction Reaction Severity Status penicillin Active [place] Active [place] face swelling, cough, throat closes Active Prozac [...] 3per ER note and also Pulmonloogy 2020 [id number] [facility] audiolgoy moderate to moderately severe bilateral 5per ENT note she brought Social History Social History Type Response Smoking Status Never smoker entered on: 11/13/16 Sex Sex Representation Female (finding) Patient Care team information Care Team Personnel Name: Coretta Soriano RN Position: [facility] SN RN Member Role: Primary Care Nurse Name: Josephine Kwon RN Position: [facility] RN Member Role: Primary Care Nurse Name: Tracy Coe MD Position: [facility] Physician - Primary Care Member Role: PCP Address: [address] [place] [address] Telecom: Name: Charlee Nazario RN Position: [facility] SN RN Member Role: Primary Care Nurse Name: Edith Serna RN Position: [facility] Mirror Inspector Member Role: Primary Care Nurse Name: Genie Sheridan RN Position: [facility] Mirror Inspector Member Role: Primary Care Nurse Name: Megha Chandler RN Position: [facility] RN Member Role: Primary Care Nurse Care Team Related Persons Name: SERGIO RAUSCH Name: LEEROY VELARDE Insurance Providers Guarantor name: MARCO ANTONIO Health Plan Information #: 1 Payer: MARCO ANTONIO Member Number: NA Policy Number: NA Group Number: NA
== END 2024-12-16 11:29 | disposition home or self-care (01) ==
LOC: HO.HPS 10:55
PROVIDERS: PCP Internal Medicine; Visit Provider Internal Medicine Pulmonary Disease
DX: J45.50 Severe persistent asthma, uncomplicated (principal); Z91.09 Other allergy status, other than to drugs and biological substances
CPT/HCPCS: 99214

== ENCOUNTER → 2024-12-16 10:55 | Outpatient (BNVA) | payer OTHER, SELFPAY | PROVIDERS: PCP Internal Medicine; Visit Provider Internal Medicine Pulmonary Disease | DX: J45.50 Severe persistent asthma, uncomplicated (principal); Z91.09 Other allergy status, other than to drugs and biological substances | CPT/HCPCS: 99212 ==

== ENCOUNTER 2025-04-20 10:31 | Outpatient (AMB) | payer OTHER, SELFPAY ==
--- OUTSIDE RECORDS SUMMARY | 2025-04-15 23:59 | XMS_ITS | Continuity of Care Document ---
Author Organization [facility] Address [address] [facility] [address] [place] [address]- Care Team Providers Care Iron Pellet Tester Name Role Phone Carolin RICHARD, Tracy Primary Care Physician Encounter [facility] Date(s): 03/16/25 - 04/15/25 [facility] [address] [facility] [address] [place], [place] [address] Encounter Type: Triage Allergies, Adverse Reactions, Alerts Substance Criticality Severity Reaction Reaction Severity Status penicillin Active [place] Active [place] face swelling, cough, throat closes Active Prozac Active Immunizations Given and Recorded Vaccine Date Status Refusal Reason SARS-CoV-2 (COVID-19) mRNA-1273 vaccine 02/23/21 R ecorded SARS-CoV-2 (COVID-19) mRNA-1273 vaccine 01/26/21 R ecorded influenza virus vaccine, inactivated 07/22/12 Miles rded influenza virus vaccine, inactivated 09/26/08 Give n Pneumococcal Vaccine (oldterm) 09/26/08 Given Medications amLODIPine 10 mg oral tablet 10 mg, 1, tablet, By Mouth, Daily, as of dose increase, # 90 tablet, Refills 3, Tot. Refills3, Maintenance, 03/24/25 10:53:00 AM EDT, [facility] in [place], 165, cm, 03/24/25 10:02:00 EDT, Height, 79, kg, 09/27/23 4:10:00 EST, Dry Weight Start Date: 03/24/25 Stop Date: 03/19/26 Status: Ordered Quantity: 90.0 Unit: tablet Repeat number: 4 atorvastatin 40 mg oral tablet 1 tablet = 40 mg, By Mouth, Daily, # 90 tablet, 1 Refills, Maintenance, 07/13/24 9:26:00 AM EDT, Tablet, [facility]/pharmacy #[id number], label in Norwegian, 165, cm, 07/13/24 8:28:00 EDT, Height, 79, kg, 09/27/23 4:10:00 EST, Dry Weight Start Date: 07/13/24 Stop Date: 01/09/25 Status: Ordered Quantity: 90.0 Unit: tablet Repeat number: 2 cetirizine 10 mg oral tablet 1 tablet = 10 mg, By Mouth, Daily, # 90 tablet, 1 Refills, Maintenance, 03/24/25 10:40:00 AM EDT, Tablet, [facility], label in Norwegian, 165, cm, 03/24/25 10:02:00 EDT, Height, 79, kg, 09/27/23 4:10:00 EST, Dry Weight Start Date: 03/24/25 Stop Date: 09/20/25 Status: Ordered Quantity: 90.0 Unit: tablet Repeat number: 2 EpiPen 2-Vincent 0.3 mg injectable kit = 0.3 mg, Intramuscular, Once, may repeat if necessary. call ambulance immediately after using, keep with you at all times, # 1 each, 1 Refills, Soft Stop, 07/13/24 9:18:00 AM EDT, [facility] [place], [facility] scripts, 165, cm, 07/13/24 8:28:00 EDT, Height, 79, kg, :10:00 EST, Dry Weight Start Date: 07/13/24 Status: Ordered Quantity: 1.0 Unit: each Repeat number: 2 losartan 100 mg oral tablet 1 tablet = 100 mg, By Mouth, Daily, # 90 tablet, 3 Refills, Maintenance, 10/28/24 11:29:00 AM EST, Tablet, [facility], label all scripts in Norwegian. cancel all prior scripts as of , 165, cm, 10/28/24 10:47:00 EST, Height, 79, kg, 09/27/23 4:10:00 EST, Dry Weight Start Date: 10/28/24 Stop Date: 10/23/25 Status: Ordered Quantity: 90.0 Unit: tablet Repeat number: 4 metFORMIN 1000 mg oral tablet 1 tablet = 1,000 mg, By Mouth, 2 times a day, as of : dose increase. please cancel all prior scripts, thank you, # 180 tablet, 3 Refills, Maintenance, 11/02/24 8:38:00 AM EST, Tablet, [facility], as of : dose increase. please cancel all prior scripts, thank you. label all scripts in Norwegian, 165, cm, 10/28/24 10:47:00 EST, Height, 79, kg, 09/27/23 4:10:00 EST, Dry Weight Start Date: 11/02/24 Stop Date: 10/28/25 Status: Ordered Quantity: 180.0 Unit: tablet Repeat number: 4 montelukast 10 mg oral tablet 10 mg, 1, tablet, By Mouth, Daily, # 30 tablet, Refills 5, Tot. Refills 5, Maintenance, 10/02/24 10:22:00 AM EST, Route to Pharmacy Electronically, [facility], Provide instructions inSpanish, 165, cm, 10/02/24 9:48:00 EST, Height, 79, kg, 09/27/23 4:10:00 EST, Dry Weight Start Date: 10/02/24 Status: Ordered Quantity: 30.0 Unit: tablet Repeat number: 6 Indications: Moderate persistent asthma, uncomplicated; Allergic rhinitis, unspecified; [place] 0.65% nasal spray 2 sprays, Nares, Both, 4 times a day, PRN as needed for dry nasal passages, per ENT 2023 for nasal obstruction, # 1 each, 5 Refills, Maintenance, 09/18/24 2:55:00 PM EST, [facility], Partial fill upon patient request if the prescription is for a schedule II opioid drug., 2 sprays Nares, Both 4 times a day,x30 days,PRN:as needed for dry nasal passages,Instr:per ENT 2023 for nasal obstruction, 165, cm, 08/31/24 10:57:00 EST, Height, 79, kg, 09/27/23 4:10:00 EST, Dry Weight Start Date: 09/18/24 Stop Date: 03/17/25 Status: Ordered Quantity: 1.0 Unit: each Repeat number: 6 Trelehuber Ellipta 200 mcg-62.5 mcg-25 mcg/inh inhalation powder 1 puffs, Inhalation, Daily, at the same time every day, # 1 each, 2 Refills, Maintenance, 07/13/24 9:27:00 AM EDT, Powder, [id number], label in Norwegian, 1 puffs Inhalation Daily,x30 days,Instr:at the same [...] Refills, Maintenance, 07/13/24 9:30:00 AM EDT, Aerosol, [facility]/pharmacy #[id number], label in Norwegian, 165, cm, 07/13/24 8:28:00 EDT, Height, 79, kg, 09/27/23 4:10:00 EST, Dry Weight Start Date: 07/13/24 Stop Date: 09/11/24 Status: Ordered Quantity: 18.0 Unit: g Repeat number: 2 Xolair Autoinjector Subcutaneous Infusion, noted in Pulmonology note: MIGHT START, 0 Refills, Maintenance, 10/28/24 11:44:00 AM EST, Partial fill upon patient request if the prescription is for a schedule II opioid drug. 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 2per GI 2020 3per ER note and also Pulmonloogy 2020 [id number] [facility] audiolgoy moderate to moderately severe bilateral 5per ENT note she brought Social History Social History Type Response Smoking Status Never smoker entered on: 11/13/16 Sex Sex Representation Female (finding) Patient Care team information Care Team Personnel Name: Coretta Soriano RN Position: [facility] SN RN Member Role: Primary Care Nurse Name: Josephine Kwon RN Position: [facility] RN Member Role: Primary Care Nurse Name: Tracy Coe MD Position: [facility] Physician - Primary Care Member Role: PCP Address: [address] [place] [address] Telecom: Name: Charlee Nazario RN Position: [facility] RN Member Role: Primary Care Nurse Name: Edith Serna RN Position: [facility] Orthodontic Lab Technician Member Role: Primary Care Nurse Name: Genie Sheridan RN Position: [facility] Orthodontic Lab Technician Member Role: Primary Care Nurse Name: Megha Chandler RN Position: [facility] RN Member Role: Primary Care Nurse Care Team Related Persons Name: SERGIO RAUSCH Name: LEEROY VELARDE Insurance Providers Guarantor name: MARCO ANTONIO Health Plan Information #: 1 [facility] Payer Identifier: NA Member Number: [id number] Group Number: [id number] Subscriber Identifier: [id number] Relationship to Subscriber: self Coverage Type: Medicare Managed Care (Includes Medicare Advantage Plans) Coverage Verification Date: MARCO ANTONIO Telecom: NA Address:
--- OUTSIDE RECORDS SUMMARY | 2025-04-15 23:59 | XMS_ITS | Continuity of Care Document ---
Author Organization [facility] Address [address] [place] [address]- Care Team Providers Care Metal Mover Name Role Phone Carolin RICHARD, Tracy Primary Care Physician Encounter [facility] [place] Date(s): 03/16/25 - 04/15/25 [facility] [address] [facility] [address] [place], [place] [phone] Encounter Type: Triage Allergies, Adverse Reactions, Alerts Substance Criticality Severity Reaction Reaction Severity Status penicillin Active [place] Active Prozac Active [place] face swelling, cough, throat closes Active Immunizations [...] 10:53:00 AM EDT, [facility] in [place], 165, cm, 03/24/25 10:02:00 EDT, Height, 79, kg, 09/27/23 4:10:00 EST, Dry Weight Start Date: 03/24/25 Stop Date: 03/19/26 Status: Ordered Quantity: 90.0 Unit: tablet Repeat number: 4 atorvastatin 40 mg oral tablet 1 tablet = 40 mg, By Mouth, Daily, # 90 tablet, 1 Refills, Maintenance, 07/13/24 9:26:00 AM EDT, Tablet, [facility]/pharmacy #[id number], label in [place], 165, cm, 07/13/24 8:28:00 EDT, Height, 79, kg, 09/27/23 4:10:00 EST, Dry Weight Start Date: 07/13/24 Stop Date: 01/09/25 Status: Ordered Quantity: 90.0 Unit: tablet Repeat number: 2 cetirizine 10 mg oral tablet 1 tablet = 10 mg, By Mouth, Daily, # 90 tablet, 1 Refills, Maintenance, 03/24/25 10:40:00 AM EDT, Tablet, [facility], label in [place], 165, cm, 03/24/25 10:02:00 EDT, Height, 79, [...] Refills, Soft Stop, 07/13/24 9:18:00 AM EDT, [facility], [facility] in [place], all scripts, 165, cm, 07/13/24 8:28:00 EDT, Height, 79, kg, :10:00 EST, Dry Weight Start Date: 07/13/24 Status: Ordered Quantity: 1.0 Unit: each Repeat number: 2 losartan 100 mg oral tablet 1 tablet = 100 mg, By Mouth, Daily, # 90 tablet, 3 Refills, Maintenance, 10/28/24 11:29:00 AM EST, Tablet, [facility], label all scripts in [place]alan. cancel all prior scripts as of , [...] Refills, Maintenance, 11/02/24 8:38:00 AM EST, Tablet, [facility], as of : dose increase. please cancel all prior scripts, thank you. label all scripts in [place]alan, 165, cm, 10/28/24 10:47:00 EST, Height, 79, kg, 09/27/23 4:10:00 EST, Dry Weight Start Date: 11/02/24 Stop Date: 10/28/25 Status: Ordered Quantity: 180.0 Unit: tablet Repeat number: 4 montelukast 10 mg oral tablet 10 mg, 1, tablet, By Mouth, Daily, # 30 tablet, Refills 5, Tot. Refills 5, Maintenance, 10/02/24 10:22:00 AM EST, Route to Pharmacy Electronically, [facility], Provide instructions inSpanish, 165, cm, 10/02/24 9:48:00 EST, Height, 79, kg, 09/27/23 4:10:00 EST, Dry Weight Start Date: 10/02/24 Status: Ordered Quantity: 30.0 Unit: tablet Repeat number: 6 Indications: Moderate persistent asthma, uncomplicated; Allergic rhinitis, unspecified; Manuel Garcia Ii 0.65% nasal spray 2 sprays, Nares, Both, 4 times a day, PRN as needed for dry nasal passages, per ENT 2023 for nasal obstruction, # 1 each, 5 Refills, Maintenance, 09/18/24 2:55:00 PM EST, [facility], Partial fill upon patient request if the prescription is for a schedule II opioid drug., 2 sprays Nares, Both 4 times a day,x30 days,PRN:as needed for dry nasal passages,Instr:per ENT 2023 for nasal obstruction, 165, cm, 08/31/24 10:57:00 EST, Height, 79, kg, 09/27/23 4:10:00 EST, Dry Weight Start Date: 09/18/24 Stop Date: 03/17/25 Status: Ordered Quantity: 1.0 Unit: each Repeat number: 6 Trelegy Ellipta 200 mcg-62.5 mcg-25 mcg/inh inhalation powder 1 puffs, Inhalation, Daily, at the same time every day, # 1 each, 2 Refills, Maintenance, 07/13/24 9:27:00 AM EDT, Powder, [id number], label in [place], 1 puffs Inhalation Daily,x30 days,Instr:at the same [...] Refills, Maintenance, 07/13/24 9:30:00 AM EDT, Aerosol, [facility]/pharmacy #[id number], label in [place], 165, cm, 07/13/24 8:28:00 EDT, Height, 79, [...] obstruction 5 Confirmed Active Obstructive sleep apnea (LUCY) Confirmed [...] 3per ER note and also Pulmonloogy 2020 [id number] [facility] audiolgoy moderate to moderately severe bilateral 5per ENT note she brought Social History Social History Type Response Smoking Status Never smoker entered on: 11/13/16 Sex Sex Representation Female (finding) Patient Care team information Care Team Personnel Name: Coretta Soriano RN Position: [facility] SN RN Member Role: Primary Care Nurse Name: Josephine Kwon RN Position: [facility] RN Member Role: Primary Care Nurse Name: Tracy Coe MD Position: [facility] Physician - Primary Care Member Role: PCP Address: [address] [place] [address] Telecom: Name: Charlee Nazario RN Position: [facility] RN Member Role: Primary Care Nurse Name: Edith Serna RN Position: [facility] Pig Farmer Member Role: Primary Care Nurse Name: Genie Sheridan RN Position: [facility] Pig Farmer Member Role: Primary Care Nurse Name: Megha Chandler RN Position: [facility] RN Member Role: Primary Care Nurse Care Team Related Persons Name: SERGIO RAUSCH Name: LEEROY VELARDE Insurance Providers Guarantor name: MARCO ANTONIO Health Plan Information #: 1 P[facility] Payer Identifier: NA Member Number: [id number] Group Number: [id number] Subscriber Identifier: [id number] Relationship to Subscriber: self Coverage Type: Medicare Managed Care (Includes Medicare Advantage Plans) Coverage Verification Date: MARCO ANTONIO Telecom: NA Address:
[2025-04-20 10:36] VITALS: BP 126/84; PULSE 97; O2SAT 96; BMI 30.6
--- NOTE | 2025-04-20 10:36 | A.OFFVIS_ITS ---
Vital Signs 04/20/25 10:36 Height 5 ft 4 in Weight 178 lb 6 oz BMI 30.6 BP 126/84 Blood Pressure Location Lt brachial Position Sitting Pulse 97 Pulse Source Pulse Oximeter Pulse Oximetry (%) 96 Oxygen Delivery Method Room Air Intake Visit Reasons: Follow Up 6mo Intake Note: Patient presents 6 month follow up for sleep difficulties/ LUCY Tobacco Sieve Operator Required: Yes Tobacco Sieve Operator Language: Radiation / Chemistry Technician Services: Tobacco Sieve Operator Offered & Declined Allergies prednisone (PREDNISONE) Allergy (Severe, Verified 04/20/25 10:38) REDNESS, SWELLING FACE, swelling, hives, hives, swelling fluoxetine (From PROZAC) Allergy (Intermediate, Verified 04/20/25 10:38) DIFFICULTY BREATHING Penicillins (PENICILLINS) Allergy (Intermediate, Verified 04/20/25 10:38) RASH/HIVES penicillin V Allergy (Unknown, Verified 04/20/25 10:38) unknown From Toprol XL Allergy (Intermediate, Uncoded 04/20/25 10:38) RASH HPI Comments Details: 69-yr-old female presents for f/u visit of moderate obstructive sleep apnea. Patient reports she continues to have him snoring some sleep difficulties. She sleeps with 2 pillows, but this can bother her neck. She is asking if her air conditioner casing has mold in a, can this exacerbate her asthma symptoms and nasal congestion. She lives in building with installed air conditioner. She states that she cleans the outside of her condition her am changes at filters, however there does seem to be mold buildup inside of it. Review of ENT notes showed their recommendation was for patient to take saline and lubricating nasal sprays throughout the day and at bedtime. Dr Collado had previously ordered pt a CPAP machine, which she received but could not tolerate.. Patient reports she continues to have RLE leg cramps at night, and states she never received the magnesium glycinate order. [facility] Medical History Ventral hernia Multiple lipomas Mild intermittent asthma Dysplasia of cervix, low grade (MARIE 1) Lateral epicondylitis, right elbow Hx of sleep apnea History of asthma Hx of essential hypertension Surgical History Hx of breast biopsy Family History Father HTN (hypertension) Heart disease Mother HTN (hypertension) Heart disease Brother Heart disease Social History Household Members: None Housing: Apartment Alcohol intake: never Patient Tobacco Use Status: Never used Tobacco e-Cigarette/Vaping Use: Never Used Second Hand Smoke Exposure: No service: No Current occupational status: unemployed Sexual orientation: Straight/Heterosexual Gender identity: Female Cognitive needs: No Hearing needs: No Vision needs: Yes Female Reproductive History Menstrual Age of Menarche: 13 Physical Exam Vital Signs: Last Vital Signs Pulse 97 04/20/25 10:36 BP 126/84 04/20/25 10:36 Pulse Ox 96 04/20/25 10:36 Oxygen Delivery Method Room Air 04/20/25 10:36 BMI result Body Mass Index 30.6 Const General: cooperative and no acute distress Orientation/consciousness: patient oriented x3 Resp Effort & Inspection: normal respiratory effort and able to speak in complete sentences Neuro General: patient oriented x3 Cranial nerves: Yes CN's II-XII intact bilaterally Cognition (Neuro): normal cognition Psych Appearance: grossly normal Mental Status: mental status grossly normal Speech and movement: Normal speech and movement present Affect: normal affect Attitude: cooperative Assessment & Plan Assessment & Plan (1) Sleep difficulties: Code(s): G47.9 - Sleep disorder, unspecified Category: Medical (2) Nocturnal hypoxemia: Code(s): G47.34 - Idiopathic sleep related nonobstructive alveolar hypoventilation Category: Medical (3) Moderate obstructive sleep apnea: Code(s): G47.33 - Obstructive sleep apnea (adult) (pediatric) Category: Medical Plan HST results w/ pt- moderate LUCY w/ significant nocturnal hypoxemia. As patient has not tolerated PAP therapy when ENT has not offered surgical interventions, patient is advised to try sleeping with a sleep apnea wedge pillow. Information shared with patient. We will request her home air conditioner be cleaned and maintained by her buildings maintenance department. F/u w/ Dr Holt as scheduled. Start magnesium glycinate 100-300 mg q.h.s. for sleep, fibromyalgia, cramps, bruxism. ? f/u in 6 months or sooner prn. Medications: Refilled magnesium glycinate 100 - 300 mg (1 - 3 x 100 mg magnesium) PO BEDTIME 90 caps 3RF 30 days Coding Level of Care Code Est Pt Level 3 (75989) Diagnoses Sleep difficulties G47.9 Nocturnal hypoxemia G47.34 Moderate obstructive sleep apnea G47.33
--- OUTSIDE RECORDS SUMMARY | 2025-04-20 11:45 | XMS_ITS | Clinical Summary ---
Author Organization [facility] Address [address] [place] [address] Care Team Providers Care Electronics Manufacturer Name Role Phone Valerie Ballesteros PA-C Primary [...] mcg/actuation inhalerIndication s:Mild persistent asthma without complication (HHS-HCC) Inhale 1 Puff into the lungs 2 (two) times daily 1 Inhaler 6 9 Active albuterol sulfate 90 mcg/actuation inhalerIndication s:Mild persistent asthma without complication (HHS-HCC) Inhale 2 Puffs into the lungs every 4 (four) hours as needed for shortness of breath 18 g 5 9 Active cetirizine (ZYRTEC) 10 mg tabletIndications :Mild persistent asthma without complication (HHS-HCC) Take 1 Tab by mouth once daily as needed for allergies 30 Tab 2 9 Active Active Problems Problem Noted Date Diagnosed Date Functional constipation 12/16/2018 LUCY (obstructive sleep apnea), declines CPAP 09/2019 Anxiety and depression 12/16/2018 H/O colonoscopy 02/27/2018 Overview (02/27/2018): Colonoscopy 05/20/09 at [facility], Dr Davis. No abnromal findings. Prediabetes 11/28/2017 Mixed hyperlipidemia 11/28/2017 Chronic bilateral lower abdominal pain 8 Asthma, mild persistent (HHS-HCC) 11/26/2017 Overview (08/07/2018): Admitted to [facility] 07/08/18-07/11/18 for asthma exacerbation. D/c on [...] 97 12/16/2018 11:28 AM EDT Temperature 36.7 C (98 F) 12/16/2018 11:28 AM EDT Respiratory Rate 16 12/16/2018 11:28 AM EDT Oxygen Saturation 93% 12/16/2018 11:28 AM EDT Inhaled Oxygen Concentration - - Weight 73.5 kg (162 lb) 12/16/2018 11:28 AM EDT Height - - Body Mass Index - - Plan of Treatment Not on file Insurance [facility] Care Teams Electronics Manufacturer Relationship Specialty Start Date End Date Valerie Ballesteros PA-C [address] [place] [address] PCP - General Internal Medicine 09/25/18
--- OUTSIDE RECORDS SUMMARY | 2025-04-20 11:45 | XMS_ITS | Data Portability ---
Author Organization [place] [facility], All[facility] Address [address] [place] [address] Care Team Providers Care Hand Filer Balance Wheel Name Role Phone DARIANA BRNOSON Primary Care Provider Assessment Encounter Date Assessment [...] Organization Details Recorded Time Deviated nasal septum 457507286 Active 2020 Deviated nasal septum; Note: Date Diagnosed : 1 3:39 PM (J34.2) Not Available [facility] 4 02:19:52 Nasal congestion 13353636 Active 2020 Nasal congestio n; Note: Date Diagnosed : 1 3:39 PM (R09.81) Not Available [facility] 4 02:20:16 Obstructiv e sleep apnea syndrome 35885960 Active 2023 CATRACHO ANAYA MD [address], [place], [address] , [facility] 4 10:51:50 Nasal obstructio n 896563641 Active 2023 CATRACHO ANAYA MD [address] [facility] [place], [place], [address] , [facility] - [facility] 4 10:51:56 Problem Notes None recorded. Procedures Surgical History Date Name Laterality Status Provider Name and Address Organization Details Recorded Time rhinoseptoplasty completed CATRACHO BUSTAMANTE MD [address],[place] [address], [place], [address], [facility] 08/12/2024 10:54:10 Nipple/areola reconstruction completed CATRACHO BUSTAMANTE MD [address],[place] [address], [place], [address], [facility] 08/12/2024 10:54:27 Imaging Results None recorded. Procedure Notes None recorded. Medical Equipment None Reported. Allergies Allergen ID Allergen Name Allergen Category Reaction Reaction Severity Criticality Documentation Date Start Date Code Code System Note Provider Name and Address Organization Details Recorded Time 08005 corn extract food,medi cation other Not available Not available 02/18/2024 08960 08 RxNorm React ion: other react ion, Unkno wn; Not Available [facility] 4 00:54:59 57587 Product containin g penicilli n (product) medicatio n other Not available Not available 02/18/2024 65816 8001 SNOMED React ion: other react ion, Unkno wn; Not Available [facility] 4 00:55:03 Medications Name Sig Start Date Stop Date Status Note LastModified by Organization Details LastModified Time losartan 50 mg tablet TAKE 1 TABLET BY MOUTH EVERY DAY active Not Available Not Available No t Available atorvasta tin 40 mg tablet TAKE 1 TABLET BY MOUTH EVERY DAY active Not Available Not Available No t Available metformin 500 mg tablet TOME ALEXY TABLETA POR V A ORAL TODOS LOS D 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 Not Available Not Available No t Available cetirizin e 10 mg tablet TAKE 1 TABLET BY MOUTH EVERY DAY active Not Available Not Available No t Available FreeStyle Lancets 28 gauge USE SEG N LO INDICADO ALON VECES AL D A active Not Available Not Available No t Available amlodipin e 5 mg tablet TAKE 1 TABLET BY MOUTH EVERY DAY active Not Available Not Available No t Available aspirin 81 mg tablet,de layed release TAKE 1 TABLET BY MOUTH EVERY DAY active Not Available Not Available No t Available acetamino phen 500 mg tablet 2020 active Medicati on ID: [id number] B rand Name: acetamin ophen Se nd [...] inhalatio n 2020 active Medicati on ID: [id number] B rand Name: Advair Diskus S end Method: E-Prescr ibed Sub s Allowed: subs OK Speci al Instruct ion: INHALE 1 PUFF TWICE DAILY IN THE MORNING AND IN THE EVENING 12 HOURS APART Me dication GenericN bo: Advair Diskus Not Available Not Available Not Available lisinopri l 20 mg-hydroc hlorothia zide 25 mg tablet 08/12 completed Medicati on ID: [id number] B rand Name: lisinopr il-hydro chloroth iazide S end Method: E-Prescr ibed Sub s Allowed: subs OK Speci al Instruct ion: TAKE 1 TABLET BY MOUTH EVERY DAY Medi cationGe nericNam e: lisinopr il-hydro chloroth iazide Not Available Not Available Not Available monteluka st 10 mg tablet active Not Available Not Available Not Available azelastin e 137 mcg (0.1 %) nasal spray Inhale 2 spray twice a day as directed 2020 active Medicati on ID: [id number] D uration Value: 30 Prescri bed By Name: Sirena Hernandez nd Name: bonnie de la paz Send Method: E-Prescr ibed Sub s Allowed: subs OK Medic ationGen ericName : bonnie de la paz Not Available Not Available Not Available ibuprofen 600 mg tablet 2020 active Medicati on ID: [id number] B rand Name: julee n Send Method: E-Prescr ibed Sub s Allowed: subs OK Speci al Instruct ion: TK 1 T PO Q 8 HOURS Me dication GenericN bo: ibuprofe n Not Available Not Available Not Available ipratropi um bromide 42 mcg (0.06 [...] Not Available Not Available No t Available Ventolin HFA 90 mcg/actua tion aerosol inhaler INHALE 2 PUFFS BY MOUTH EVERY 4 HOURS NEEDED FOR WHEEZING active Not Available Not Available No t Available Vitamin D3 25 mcg (1,000 unit) tablet TOME 1 TABLETA POR V A ORAL TODOS LOS D active Not Available Not Available No t Available FreeStyle Lite Meter kit MONITOR BLOOD GLUCOSE ALON VECES AL D A USE DIRECTED FOR TYPE 2 DIABETES MELLITUS DX E11.9 active Not Available Not Available No t Available FreeStyle Lite Strips USE TO CHECK BLOOD SUGAR 3 TIMES DAILY active Not Available Not Available [...] Updated DateTime 08/12/2024 165.1 cm 30 kg/m2 07862.63 g Russ Montanez [facility] 08/12/2024 10:36:30 Social History None recorded. Functional Status None recorded. Mental Status None recorded. Family History Nothing Reported. Medical History Condition Response Nasal or Sinus Problems Y Gynecological HistoryNo gynecological history recorded. Obstetrics History GPAL:G 0 P 0 0 0 0 Past Encounters Encounter ID Performer Location Encounter Start Date Encounter Closed Date Diagnosis/Indication Diagnosis SNOMED-CT Code Diagnosis ICD10 Code Diagnosis Note [id number] CATRACHO ANAYA MD [facility] [address] [address] 08/12/2024 10:18:44 08/12/2024 10:55:23 Obstructive sleep apnea syndrome 76316300 G47.33 Nasal obstruction 833211 000 J34.89 Deviated nasal septum 12 2720246 J34.2 Health Concerns Section Related Observation LastModified by Organization Detai ls LastModified Time None Recorded Concern Status LastModified by Organization Details LastModified Time None Recorded Advance Directives Directive None Recorded Payers Insurance Date Sequence Insurance Name Policy Number Policy Evans Covered Member ID Evans Member ID Guarantor Name 10/20/2024 1 [facility] - DOS ON OR AFTER 2023 - DUAL ELIGIBLE - SKILLED NURSING OPTIONS AND ONE CARE (MEDICARE REPLACEMENT/AD VANTAGE - HMO) Chayito Moraes [id number] Chayito Moraes 10/20/2024 1 [employer] [facility] [place] (MED[place] REPLAC[place]/AD VANTAGE - HMO) Chayito Moraes [id number] Chayito Moraes 10/20/2024 1 [facility] - DOS ON OR AFTER 2023 - SKILLED NURSING OPTIONS (MEDICARE REPLACEMENT/AD VANTAGE - HMO) Chayito Moraes [id number] Chayito Moraes Notes Date Note Type Note Provider Name and Address Organization Details Recorded Time 08/12/2024 text/html Pt not sure why she is here but consult for difficulty tolerating CPAP. Just started using CPAP but having anxiety. 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
--- OUTSIDE RECORDS SUMMARY | 2025-04-20 11:45 | XMS_ITS | Encounter Summary ---
Author Organization [employer] Address [address] [place] [address] Care Team Providers Care Corporate Training Manager Name Role Phone Unavailable Primary Care Provider Unavailabl e Encounter Details Date Type Department Care Team (Late st Contact Info) Description 06/04/2023 Orders Only [facility] [address] [place] [address] Apryl Sheehan LPN Social History Tobacco Use [...]
== END 2025-04-20 11:53 | disposition home or self-care (01) ==
LOC: HO.HSMS 10:32
PROVIDERS: PCP Internal Medicine; Visit Provider Nurse Practitioner Family
DX: G47.9 Sleep disorder, unspecified (principal); G47.34 Idiopathic sleep related nonobstructive alveolar hypoventilation; G47.33 Obstructive sleep apnea (adult) (pediatric)
CPT/HCPCS: 99213

== ENCOUNTER → 2025-04-20 10:31 | Outpatient (BNVA) | payer OTHER, SELFPAY | PROVIDERS: PCP Internal Medicine; Visit Provider Nurse Practitioner Family | DX: G47.33 Obstructive sleep apnea (adult) (pediatric) (principal); G47.34 Idiopathic sleep related nonobstructive alveolar hypoventilation; G47.9 Sleep disorder, unspecified | CPT/HCPCS: 99212 ==